=== PATIENT | male | born 1965 | race African-American/Black ===

== ENCOUNTER 2017-09-06 13:53 | Inpatient (IN) | payer BC ==
[2017-09-06] MEDS ORDERED: 0.9 % SODIUM CHLORIDE 10 ML DISP.SYRIN. IV (14:15)
[2017-09-06 14:29] LABS: ADD MAN DIFF? YES; BASO % 1 % (0-3); EOS # 0.1 x10^3/uL (0.0-0.7); EOS % 3 % (0-3); HEMATOCRIT 50.2 % (39.0-53.0); HEMOGLOBIN 17.3 g/dL (13.0-17.5); LYMPH # 1.8 x10^3/uL (1.0-4.8); LYMPH % 56 % (24-48); MEAN CORPUSCULAR HEMOGLOBIN 30 pg (25-35); MEAN CORPUSCULAR HGB CONC 34 g/dL (31-37); MEAN CORPUSCULAR VOLUME 87 fL (79-100); MONO # 0.6 x10^3/uL (0.0-1.1); MONO % 18 % (0-9); NEUT # 0.7 x10^3uL (1.8-7.7); NEUT % 23 % (31-73); PLATELET COUNT 216 x10^3/uL (140-400); RED BLOOD COUNT 5.75 x10^6/uL (4.30-5.70); RED CELL DISTRIBUTION WIDTH 14.8 % (11.5-14.5); WHITE BLOOD COUNT 3.2 x10^3/uL (4.0-11.0)
[2017-09-06 14:45] LABS: ANION GAP 10 (6-14); BLOOD UREA NITROGEN 12 mg/dL (8-26); CALCIUM 8.9 mg/dL (8.5-10.1); CARBON DIOXIDE 26 mmol/L (21-32); CHLORIDE 103 mmol/L (98-107); CREATININE 1.2 mg/dL (0.7-1.3); GFR 76.3; GLUCOSE 122 mg/dL (70-99); POTASSIUM 3.4 mmol/L (3.5-5.1); SODIUM 139 mmol/L (136-145)
[2017-09-06 14:51] LABS: ALBUMIN 3.4 g/dL (3.4-5.0); ALK PHOS 45 U/L (46-116); ALT (SGPT) 49 U/L (16-63); AST (SGOT) 37 U/L (15-37); DIRECT BILIRUBIN 0.1 mg/dL (0.0-0.2); LIPASE 111 U/L (73-393); MAGNESIUM 2.4 mg/dL (1.8-2.4); TOTAL BILIRUBIN 0.4 mg/dL (0.2-1.0)
[2017-09-06 14:54] LABS: THYROID STIM HORMONE (TSH) 4.646 uIU/mL (0.358-3.74)
[2017-09-06 14:55] LABS: NT-PRO BNP 35 pg/mL (0-124)
[2017-09-06 14:55] LABS: CKMB INDEX 0.2 % (0-4); CKMB MASS 1.1 ng/mL (0.0-3.6); CREATINE KINASE 469 U/L (39-308)
[2017-09-06] MEDS: KETOROLAC 30 MG/ML INJ. IV (15:00)
[2017-09-06] MEDS: IV NORMAL SALINE 1000ML BAG 1,000 ML IV ×2 (15:00→16:43)
[2017-09-06 15:01] LABS: TROPONINI < 0.017 ng/mL (0.000-0.055)
[2017-09-06] MEDS: ASPIRIN CHEWABLE 81 MG TABLET. PO (15:02)
[2017-09-06 15:05] LABS: % BANDS 3 % (0-9); % EOS 3 % (0-5); % LYMPHS 51 % (24-48); % MONOS 21 % (0-10); % SEGS 22 % (35-66)
[2017-09-06 15:06] LABS: PLT ESTIMATE ADEQUATE (ADEQUATE)
[2017-09-06 15:13] LABS: D-DIMER 0.49 ug/mlFEU (0.00-0.50)
[2017-09-06 15:58] LABS: INFLUENZA A PATIENT NEGATIVE (NEGATIVE)
[2017-09-06 15:59] LABS: INFLUENZA B PATIENT POSITIVE (NEGATIVE); OBC FLU VALID
[2017-09-06 16:42] LABS: BILIRUBIN,URINE NEGATIVE (NEG); CLARITY,URINE CLEAR; COLOR,URINE YELLOW; GLUCOSE,URINE NEGATIVE (NEG); NITRITE,URINE NEGATIVE (NEG); PH,URINE 6.5; PROTEIN,URINE NEGATIVE (NEG-TRACE)
[2017-09-06] MEDS: OSELTAMIVIR 75 MG CAPSULE PO (16:44)
[2017-09-06] MEDS: HYDROmorphone 2 MG/ML VIAL IV (16:45)
[2017-09-06 16:48] LABS: BACTERIA,URINE 0 /HPF (0-FEW); RBC,URINE OCC /HPF (0-2); SQUAMOUS EPITHELIAL CELL,UR FEW /LPF; WBC,URINE OCC /HPF (0-4)
[2017-09-06] MEDS ORDERED: INFLUENZA VAX SCREEN BY RX. MC (18:45)
[2017-09-06] MEDS: fentaNYL PF VIAL 100 MCG/2 ML VIAL IV (22:05)
[2017-09-06 22:49] LABS: TROPONINI < 0.017 ng/mL (0.000-0.055)
[2017-09-06] MEDS: ZOLPIDEM 5 MG TABLET. PO (22:54)
[2017-09-06] MEDS: ONDANSETRON PF 4 MG/2 ML VIAL. IV (22:54)
[2017-09-06] MEDS: MORPHINE SULFATE 4 MG/ML DISP.SYRIN. IV (22:55)
[2017-09-07] MEDS: IV NORMAL SALINE 1000ML BAG 1,000 ML IV ×2 (00:48→08:29)
[2017-09-07] MEDS: MORPHINE SULFATE 4 MG/ML DISP.SYRIN. IV ×4 (03:57→15:41)
[2017-09-07 05:37] LABS: TROPONINI < 0.017 ng/mL (0.000-0.055)
[2017-09-07] MEDS: ACETAMINOPHEN 325 MG TABLET. PO ×2 (07:10→11:27)
[2017-09-07] MEDS: OSELTAMIVIR 75 MG CAPSULE PO ×2 (08:29→21:27)
[2017-09-07] MEDS ORDERED: ONDANSETRON PF 4 MG/2 ML VIAL. IV (12:15)
[2017-09-07] MEDS: ASPIRIN ENTERIC COATED 81 MG TABLET.DR. PO (13:07)
[2017-09-07] MEDS: KETOROLAC 30 MG/ML INJ. IV (13:10)
[2017-09-07] MEDS: BENZONATATE 100 MG CAPSULE. PO ×2 (13:38→21:27)
[2017-09-07] MEDS: POTASSIUM CHLORIDE 20 MEQ TABLET.ER. PO (13:39)
[2017-09-07] MEDS: ASA/APAP/CAFFEINE 250/250/65MG TABLET. PO (15:29)
[2017-09-07] MEDS: NAPROXEN 500 MG TABLET PO (21:27)
[2017-09-07] MEDS: SIMVASTATIN 10 MG TABLET PO (21:28)
[2017-09-08] MEDS: ASA/APAP/CAFFEINE 250/250/65MG TABLET. PO (05:44)
[2017-09-08 05:50] LABS: ADD MAN DIFF? NO
[2017-09-08 06:15] LABS: BASO % 1 % (0-3); EOS # 0.2 x10^3/uL (0.0-0.7); EOS % 6 % (0-3); HEMATOCRIT 49.2 % (39.0-53.0); HEMOGLOBIN 16.4 g/dL (13.0-17.5); LYMPH # 2.7 x10^3/uL (1.0-4.8); LYMPH % 74 % (24-48); MEAN CORPUSCULAR HEMOGLOBIN 30 pg (25-35); MEAN CORPUSCULAR HGB CONC 33 g/dL (31-37); MEAN CORPUSCULAR VOLUME 89 fL (79-100); MONO # 0.4 x10^3/uL (0.0-1.1); MONO % 11 % (0-9); NEUT # 0.3 x10^3uL (1.8-7.7); NEUT % 9 % (31-73); PLATELET COUNT 216 x10^3/uL (140-400); RED BLOOD COUNT 5.54 x10^6/uL (4.30-5.70); WHITE BLOOD COUNT 3.6 x10^3/uL (4.0-11.0)
[2017-09-08 06:21] LABS: ANION GAP 10 (6-14); BLOOD UREA NITROGEN 11 mg/dL (8-26); CARBON DIOXIDE 28 mmol/L (21-32); CHLORIDE 104 mmol/L (98-107); CREATININE 1.1 mg/dL (0.7-1.3); GFR 84.4; GLUCOSE 104 mg/dL (70-99); POTASSIUM 3.7 mmol/L (3.5-5.1); SODIUM 142 mmol/L (136-145)
[2017-09-08] MEDS: NAPROXEN 500 MG TABLET PO ×2 (08:59→21:33)
[2017-09-08] MEDS: OSELTAMIVIR 75 MG CAPSULE PO ×2 (08:59→21:33)
[2017-09-08] MEDS: BENZONATATE 100 MG CAPSULE. PO ×3 (08:59→21:33)
[2017-09-08] MEDS: ASPIRIN ENTERIC COATED 81 MG TABLET.DR. PO (08:59)
[2017-09-08] MEDS ORDERED: MORPHINE IR 15 MG TABLET PO (12:15)
[2017-09-08] MEDS: POTASSIUM CL 20MEQ D5-0.45NACL 1,000 ML IV ×2 (12:47→21:35)
[2017-09-08] MEDS: KETOROLAC 30 MG/ML INJ. IV (12:47)
[2017-09-08] MEDS: guaiFENesin DM 200MG/20MG 10 ML SYRUP PO ×2 (14:13→21:33)
[2017-09-08] MEDS: FLU VACC QS2017-18 (36MOS+)/PF 0.5 ML SYRINGE. VAX IM (21:23)
[2017-09-08] MEDS: SIMVASTATIN 10 MG TABLET PO (21:33)
[2017-09-09] MEDS: guaiFENesin DM 200MG/20MG 10 ML SYRUP PO ×2 (04:39→14:02)
[2017-09-09] MEDS: POTASSIUM CL 20MEQ D5-0.45NACL 1,000 ML IV ×2 (04:40→12:15)
[2017-09-09] MEDS: ASPIRIN ENTERIC COATED 81 MG TABLET.DR. PO (08:28)
[2017-09-09] MEDS: BENZONATATE 100 MG CAPSULE. PO ×2 (08:29→13:50)
[2017-09-09] MEDS: OSELTAMIVIR 75 MG CAPSULE PO (08:29)
[2017-09-09] MEDS: NAPROXEN 500 MG TABLET PO (08:29)
[2017-09-09] MEDS: ASA/APAP/CAFFEINE 250/250/65MG TABLET. PO (11:10)
[2017-09-09] MEDS: amLODIPine BESYLATE 10 MG TABLET PO (12:15)
[2017-09-09] MEDS: LISINOPRIL 5 MG TABLET. PO (12:15)
[2017-09-09] MEDS: hydroCHLOROthiazide 25 MG TABLET PO (12:15)
== END 2017-09-09 14:40 | disposition home or self-care (01) | DRG 194 ==
LOC: ER 13:53 → 5 NORTH 16:23
DX: J10.1 Influenza due to other identified influenza virus with other respiratory manifestations (principal); M62.82 Rhabdomyolysis; E07.81 Sick-euthyroid syndrome; E87.6 Hypokalemia; I10 Essential (primary) hypertension; R07.81 Pleurodynia; J32.2 Chronic ethmoidal sinusitis; E78.5 Hyperlipidemia, unspecified; Z82.49 Family history of ischemic heart disease and other diseases of the circulatory system; Z79.82 Long term (current) use of aspirin; Z79.899 Other long term (current) drug therapy
CPT/HCPCS: 36415; 70450; 71045; 80048; 80076; 81001; 82553; 83605; 83690; 83735; 83880; 84443; 84484; 85007; 85025; 85379; 87040; 87804; 87804-59; 93005; 96361; 96374; 96375; 99285; 99285-25; J1170; J1885; J2270; J2405; J3010; J7030

== ENCOUNTER 2017-11-26 03:43 | Emergency (ER) | payer BC ==
[2017-11-26] MEDS: KETOROLAC 60 MG/2 ML INJ. IM (05:01)
[2017-11-26] MEDS: ORPHENADRINE CITRATE 60 MG/2 ML VIAL. IM (05:01)
[2017-11-26] MEDS: HYDROcodone/APAP 10/325 1 TAB TABLET PO (05:02)
[2017-11-26] MEDS: predniSONE 20 MG TABLET PO (05:02)
== END 2017-11-26 05:16 | disposition home or self-care (01) ==
LOC: ER 03:43
DX: M54.42 Lumbago with sciatica, left side (principal); M62.830 Muscle spasm of back; I10 Essential (primary) hypertension
CPT/HCPCS: 96372; 99284; J1885; J2360; J7512

== ENCOUNTER 2018-03-13 02:19 | Emergency (ER) | payer BC ==
[2018-03-13 03:26] LABS: ADD MAN DIFF? NO
[2018-03-13 03:30] LABS: BASO % 1 % (0-3); EOS # 0.2 x10^3/uL (0.0-0.7); EOS % 5 % (0-3); HEMATOCRIT 46.2 % (39.0-53.0); HEMOGLOBIN 16.1 g/dL (13.0-17.5); LYMPH # 2.4 x10^3/uL (1.0-4.8); LYMPH % 52 % (24-48); MEAN CORPUSCULAR HEMOGLOBIN 31 pg (25-35); MEAN CORPUSCULAR HGB CONC 35 g/dL (31-37); MEAN CORPUSCULAR VOLUME 89 fL (79-100); MONO # 0.4 x10^3/uL (0.0-1.1); MONO % 8 % (0-9); NEUT # 1.6 x10^3uL (1.8-7.7); NEUT % 34 % (31-73); PLATELET COUNT 241 x10^3/uL (140-400); RED CELL DISTRIBUTION WIDTH 14.5 % (11.5-14.5); WHITE BLOOD COUNT 4.6 x10^3/uL (4.0-11.0)
[2018-03-13] MEDS: SUMAtriptan SUCC 6 MG/0.5 ML VIAL. SQ (03:32)
[2018-03-13] MEDS: METOCLOPRAMIDE HCL 10 MG/2 ML VIAL. IV (03:33)
[2018-03-13] MEDS: diphenhydrAMINE 50 MG/ML VIAL IVP (03:36)
[2018-03-13 03:40] LABS: ANION GAP 6 (6-14); BLOOD UREA NITROGEN 9 mg/dL (8-26); BUN/CREATININE RATIO 8 (6-20); CALCIUM 8.8 mg/dL (8.5-10.1); CARBON DIOXIDE 28 mmol/L (21-32); CHLORIDE 105 mmol/L (98-107); CREATININE 1.1 mg/dL (0.7-1.3); GFR 84.4; GLUCOSE 118 mg/dL (70-99); POTASSIUM 3.4 mmol/L (3.5-5.1); SODIUM 139 mmol/L (136-145)
[2018-03-13 03:42] LABS: ETHANOL 123 mg/dL (0-10)
[2018-03-13 03:46] LABS: ALBUMIN 3.6 g/dL (3.4-5.0); ALBUMIN/GLOBULIN RATIO 0.8 (1.0-1.7); ALK PHOS 47 U/L (46-116); ALT (SGPT) 59 U/L (16-63); AST (SGOT) 36 U/L (15-37); TOTAL BILIRUBIN 0.2 mg/dL (0.2-1.0)
== END 2018-03-13 05:19 | disposition home or self-care (01) ==
LOC: ER 02:19
DX: G43.909 Migraine, unspecified, not intractable, without status migrainosus (principal); I10 Essential (primary) hypertension; F10.129 Alcohol abuse with intoxication, unspecified; Y90.4 Blood alcohol level of 80-99 mg/100 ml
CPT/HCPCS: 36415; 70450; 80053; 85025; 93005; 96372; 96374; 96375; 99285-25; G0480; J1200; J2765; J3030

== ENCOUNTER 2018-04-18 19:33 | Emergency (ER) | payer BC ==
[~2018-04-18] VITALS: Ht 180.3 cm; Wt 106.6 kg
[~2018-04-18 19:33] MED LIST: AMLO10TA6 PO; ASPI-612 PO; ASPI1TAB31 PO; BENZ-8 PO; CYCL10TA2 PO; HYDR-971 PO; HYDR25TA9 PO; LISI-338 PO; OSEL75CA PO; PRED-299 PO; SIMV10TA3 PO; SUMA100T3 PO
[2018-04-18 21:36] VITALS: BP 184/113
--- NOTE | 2018-04-18 22:13 | PHYS DOC ---
Past Medical History Past Medical History: No Pertinent History Past Surgical History: No Surgical History Alcohol Use: None Drug Use: None Adult General Chief Complaint Chief Complaint: HIP PAIN HPI HPI 52-year-old male presents for evaluation of pain in the top of the right buttock that travels down through his buttock into his posterior thigh. He reports symptoms have been ongoing for several days. 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 Denies any falls or injuries. Denies loss of bladder or bowel function, numbness or tingling. Review of Systems Review of Systems Constitutional: Denies fever or chills [] Eyes: Denies change in visual acuity, redness, or eye pain [] HENT: Denies nasal congestion or sore throat [] Respiratory: Denies cough or shortness of breath [] Cardiovascular: No additional information not addressed in HPI [] GI: Denies abdominal pain, nausea, vomiting, bloody stools or diarrhea [] : Denies dysuria or hematuria [] All other systems were reviewed and found to be within normal limits, except as documented in this note. Current Medications Current Medications Current Medications Medications (Trade) Dose Ordered Sig/Ramos Start Time Stop Time Status Last Admin Dose Admin Ketorolac Tromethamine (Toradol Im) 30 mg 1X ONCE 04/18/18 22:15 04/18/18 22:16 04/18/18 22:11 30 MG Methylprednisolone Sodium Succinate (SOLU-Medrol 125MG VIAL) 125 mg 1X ONCE 04/18/18 22:30 04/18/18 22:31 04/18/18 22:10 125 MG Orphenadrine Citrate (Norflex) 60 mg 1X ONCE 04/18/18 22:30 04/18/18 22:31 04/18/18 22:11 60 MG Allergies Allergies Allergies Coded Allergies Type Severity Reaction Last Updated Verified No Known Drug Allergies 09/06/17 No Physical Exam Physical Exam Constitutional: Well developed, well nourished, no acute distress, non-toxic appearance. [] Cardiovascular:Heart rate regular rhythm, no murmur [] Lungs & Thorax: Bilateral breath sounds clear to auscultation [] Skin: Warm, dry, no erythema, no rash. [] Back: Lower lumbar muscular tenderness, no midline tenderness, tender over the SI joint Extremities: No tenderness, no cyanosis, no clubbing, ROM intact, no edema. [] Neurologic: Alert and oriented X 3, normal motor function, normal sensory function, no focal deficits noted. [] Psychologic: Affect normal, judgement normal, mood normal. [] Current Patient Data Vital Signs Vital Signs Date Time Temp Pulse Resp B/P (MAP) Pulse Ox O2 Delivery O2 Flow Rate FiO2 04/18/18 21:36 97.9 72 18 184/113 (136) 96 Room Air 97.9 EKG EKG [] Radiology/Procedures Radiology/Procedures [] Course & Med Decision Making Course & Med Decision Making Pertinent Labs and Imaging studies reviewed. (See chart for details) [No radiology was indicated at today's visit. Discussed symptoms of sciatica with patient, have provided him IM medications today for pain relief, recommend follow-up with primary care doctor. Prescription for Voltaren, Norflex, and lidocaine patches. Return precautions discussed.] Dragon Disclaimer Dragon Disclaimer This electronic medical record was generated, in whole or in part, using a voice recognition dictation system. Departure Departure Impression: Primary Impression: Sciatica Disposition: 01 HOME, SELF-CARE Condition: STABLE Referrals: UNKNOWN PCP NAME (PCP) Patient Instructions: Sciatica, Tyck-ci-Qcco Scripts Lidocaine (Lidocaine) 1 Each Adh..patch 1 EACH TP 1X, #[address] one patch for 12 hours, remove patch after 12 hours use. wait 12 hours before placing a new patch Prov: ARTHUR DEL ROSARIO APRN 04/18/18 Orphenadrine Citrate (ORPHENADRINE CITRATE) 100 Mg Tablet.er 100 MG PO BID, #20 TAB.SR 0 Refills Prov: ARTHUR DEL ROSARIO APRN 04/18/18 Diclofenac Sodium (DICLOFENAC SODIUM) 50 Mg Tablet.dr 50 MG PO BID, #20 TAB 0 Refills Prov: ARTHUR DEL ROSARIO APRN 04/18/18 ARTHUR DEL ROSARIO APRN Apr 18, 2018 22:13
[2018-04-18] MEDS ORDERED: KETOROLAC 60 MG/2 ML INJ. IM ONE (22:15)
[2018-04-18] MEDS ORDERED: ORPH100T PO (22:24)
[2018-04-18] MEDS ORDERED: DICL50TA4 PO (22:24)
[2018-04-18] MEDS ORDERED: LIDO700A39 TP (22:24)
[2018-04-18] MEDS ORDERED: ORPHENADRINE CITRATE 60 MG/2 ML VIAL. IM ONE (22:30)
[2018-04-18] MEDS ORDERED: methylPREDNISolone SOD SUCC PF 125 MG/2 ML VIAL. IM ONE (22:30)
== END 2018-04-18 22:47 | disposition home or self-care (01) ==
LOC: ER 19:33
DX: M54.31 Sciatica, right side (principal)
CPT/HCPCS: 96372; 99284; J1885; J2360; J2930

== ENCOUNTER 2018-04-29 20:24 | Emergency (ER) | payer BC ==
[~2018-04-29] VITALS: Ht 185.4 cm; Wt 106.6 kg
[~2018-04-29 20:24] MED LIST changes: +DICL50TA4 PO; +LIDO700A39 TP; +ORPH100T PO
[2018-04-29 21:01] VITALS: BP 168/102
[2018-04-29] MEDS ORDERED: PRED20TA PO (21:19)
--- NOTE | 2018-04-29 21:19 | PHYS DOC ---
Past Medical History Past Medical History: High Cholesterol, Hypertension Past Surgical History: No Surgical History Alcohol Use: None Drug Use: None Adult General Chief Complaint Chief Complaint: HIP PAIN HPI HPI 53-year-old male presents to ER via POV with complaints of pain in his rt buttock which radiates down his right leg. 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 Pt denies incontinence of bowel/bladder, urinary sxs, recent injury, or swelling/discoloration in rt leg. Pt reports he has been able to walk but does have increased pain. Pt reports he took Ibuprofen/Advil at 3p.m. with minimal relief in pain. Pt reports he has had some numbness/ tingling intermittently in rt leg. Pt reports sxs started a few days ago and have been gradually worsening. Review of Systems Review of Systems Constitutional: Denies fever or chills [] Respiratory: Denies cough or shortness of breath [] Cardiovascular: Denies CP/palpitations GI: Denies abdominal pain, nausea, vomiting, bloody stools or diarrhea [] : Denies dysuria or hematuria. Denies incontinence Musculoskeletal: Denies back pain. Reports pain in rt middle buttock radiating down his rt leg to his foot Integument: Denies rash, swelling, or skin lesions [] Neurologic: Denies headache, focal weakness or sensory changes [] All other systems were reviewed and found to be within normal limits, except as documented in this note. Current Medications Current Medications Current Medications Medications (Trade) Dose Ordered Sig/Ramos Start Time Stop Time Status Last Admin Dose Admin Acetaminophen/ Hydrocodone Bitart (Lortab 5/325) 1 tab 1X ONCE 04/29/18 21:30 04/29/18 21:31 DC 04/29/18 21:19 1 TAB Orphenadrine Citrate (Norflex) 60 mg 1X ONCE 04/29/18 21:30 04/29/18 21:31 DC 04/29/18 21:20 60 MG Prednisone (Prednisone) 40 mg 1X ONCE 04/29/18 21:30 04/29/18 21:31 DC 04/29/18 21:20 40 MG Allergies Allergies Allergies Coded Allergies Type Severity Reaction Last Updated Verified No Known Drug Allergies 09/06/17 No Physical Exam Physical Exam Constitutional: Well developed, well nourished, mild distress on initial exam, non-toxic appearance. [] HENT: Normocephalic, atraumatic, bilateral ears normal, oropharynx moist, no oral exudates, nose normal. [] Eyes: conjunctiva normal, no discharge. [] Neck: Normal range of motion, no tenderness, supple Cardiovascular:Heart rate regular Lungs & Thorax: Resp. equal/nonlabored Abdomen: soft/nondistended, no tenderness Skin: Warm, dry, no erythema, no rash. [] Back: No tenderness, no CVA tenderness. [] Extremities: No cyanosis, no clubbing, no edema. Tender to palp. rt middle buttock with tenderness in posterior rt leg- pt is able to perform ROM reporting increased pain with movement of rt leg Neurologic: Alert and oriented X 3, normal motor function, normal sensory function, no focal deficits noted. [] Psychologic: Affect normal, judgement normal, mood normal. [] Current Patient Data Vital Signs Vital Signs Date Time Temp Pulse Resp B/P (MAP) Pulse Ox O2 Delivery O2 Flow Rate FiO2 04/29/18 21:01 98.2 77 18 168/102 (124) 97 Room Air 98.2 EKG EKG [] Radiology/Procedures Radiology/Procedures [] Course & Med Decision Making Course & Med Decision Making 2149: On reevaluation following treatments patient reports he has pain free. Patient is in no visible distress remains neuro and vascular intact in her bilateral lower extremities. During discussion patient's fiance says he has tramadol at home patient interrupted stating he doesn't believe he has any medications. Questioned if patient still has Voltaren and Norflex from ER visit on 04/18 and he stated he is out of those medications. Discussed plans for home discharge with pt advised he need PCP to f/u with if sxs persist. Will provide community clinic/physician resources with discharge paperwork. Pt advised on OTC sports cream and NSAids. Will provide sm. quantity of Norflex and lidoderm patches as he reports he didn't receive Rx for patches last ER visit. Rx for Prednisone will also be provided which he will start tomorrow as initial dose given in ER. Discharge instructions discussed and education provided on s&s to return to ER for. Dragon Disclaimer Bryson Disclaimer This electronic medical record was generated, in whole or in part, using a voice recognition dictation system. Departure Departure Impression: Primary Impression: Sciatica Disposition: 01 HOME, SELF-CARE Condition: STABLE Referrals: UNKNOWN PCP NAME (PCP) Patient Instructions: Sciatica Additional Instructions: As discussed sports cream and warm compresses to affected area. Light stretching as discussed. You should follow-up with primary doctor or neurologist if symptoms persist. Scripts Lidocaine (Lidocaine) 1 Each Adh..patch 1 EACH TP Q12HR PRN for PAIN, #[address] one patch for 12 hours, remove patch after 12 hours use. wait 12 hours before placing a new patch Prov: YAEL RONDON APRN 04/29/18 Orphenadrine Citrate (ORPHENADRINE CITRATE) 100 Mg Tablet.er 100 MG PO BID PRN for PAIN, #10 TAB.SR 0 Refills Prov: YAEL RONDON APRN 04/29/18 Prednisone (PREDNISONE) 20 Mg Tablet 40 MG PO DAILY, #10 TAB 0 Refills Start prescription 04/30/18 Prov: YAEL RONDON APRN 04/29/18 YAEL RONDON APRN Apr 29, 2018 21:19
[2018-04-29] MEDS ORDERED: ORPHENADRINE CITRATE 60 MG/2 ML VIAL. IM ONE (21:30)
[2018-04-29] MEDS ORDERED: predniSONE 20 MG TABLET PO ONE (21:30)
[2018-04-29] MEDS ORDERED: HYDROcodone/APAP 5/325MG 1 TAB TABLET PO ONE (21:30)
[2018-04-29] MEDS ORDERED: ORPH100T PO (22:12)
[2018-04-29] MEDS ORDERED: LIDO700A39 TP (22:12)
== END 2018-04-29 22:21 | disposition home or self-care (01) ==
LOC: ER 20:24
DX: M54.31 Sciatica, right side (principal); M79.604 Pain in right leg; E78.00 Pure hypercholesterolemia, unspecified; I10 Essential (primary) hypertension
CPT/HCPCS: 96372; 99283; J2360; J7512

== ENCOUNTER 2018-05-12 20:31 | Emergency (ER) | payer BC ==
[~2018-05-12] VITALS: Ht 180.3 cm; Wt 106.6 kg
[~2018-05-12 20:31] MED LIST changes: +PRED20TA PO
[2018-05-12] MEDS ORDERED: ORPHENADRINE CITRATE 60 MG/2 ML VIAL. IM ONE (21:30)
[2018-05-12] MEDS ORDERED: KETOROLAC 30 MG/ML VIAL. IM ONE (21:30)
--- NOTE | 2018-05-12 21:38 | PHYS DOC ---
Past Medical History Past Medical History: High Cholesterol, Hypertension Past Surgical History: No Surgical History Alcohol Use: None Drug Use: None Adult General Chief Complaint Chief Complaint: BACK PAIN OR INJURY HPI HPI Patient is a 53 year old AA male who reports injuring his back a year ago and reinjured it on April 25 at work when he was lifting a ramp and felt his back give causing him to fall. States he had a MRI that showed some bulging disks in his lumbar spine. Pt states that he developed pain in his right buttock that radiates down his right leg since the injury. Pt states that he is unable to bear weight on his R leg because the pain in his hip increases. He was prescribed Randolph 7.5/500 mg tablets by his PCP but the medication is not helping to reduce his pain. Pt denies any loss of bowel/bladder control or saddle anesthesia. Currently he reports his pain is a 10 out of 10 on the pain scale. He states that his right toes feel tingly today. He has an appointment with pain management in June. Review of Systems Review of Systems Constitutional: Denies fever or chills [] GI: Denies abdominal pain, saddle anesthesia[] : Denies loss of bowel or bladder control dysuria or hematuria [] Musculoskeletal: reports low back pain into R buttock and down R leg. Also reports R hip pain and inability to bear weight on R leg due to pain. Integument: Denies rash or skin lesions [] Neurologic: Denies headache, focal weakness or reports tingling in R foot All other systems were reviewed and found to be within normal limits, except as documented in this note. Current Medications Current Medications Current Medications Medications (Trade) Dose Ordered Sig/Ramos Start Time Stop Time Status Last Admin Dose Admin Clonidine HCl (Catapres) 0.1 mg 1X ONCE 05/12/18 22:00 05/12/18 22:01 DC 05/12/18 21:45 0.1 MG Ketorolac Tromethamine (Toradol 30mg Vial) 30 mg 1X ONCE 05/12/18 21:30 05/12/18 21:31 DC 05/12/18 21:15 30 MG Orphenadrine Citrate (Norflex) 60 mg 1X ONCE 05/12/18 21:30 05/12/18 21:31 DC 05/12/18 21:15 60 MG Allergies Allergies Allergies Coded Allergies Type Severity Reaction Last Updated Verified No Known Drug Allergies 09/06/17 No Physical Exam Physical Exam Constitutional: Well developed, well nourished, moderate distress, non-toxic appearance. [] HENT: Normocephalic, atraumatic, bilateral external ears normal, nose normal. [] Eyes: PERRLA, conjunctiva normal, no discharge. [] Skin: Warm, dry, no erythema, no rash. [] Back: No bony tenderness, R buttock muscular tenderness to palpation, RLE straight leg lift normal Extremities: No cyanosis, no clubbing, ROM intact, no edema. [] Neurologic: Alert and oriented X 3, normal motor function, normal sensory function, no focal deficits noted. [] Psychologic: Affect normal, judgement normal, mood normal. [] Current Patient Data Vital Signs Vital Signs Date Time Temp Pulse Resp B/P (MAP) Pulse Ox O2 Delivery O2 Flow Rate FiO2 05/12/18 21:45 86 191/120 05/12/18 20:55 98.1 18 97 Room Air 98.1 EKG EKG [] Radiology/Procedures Radiology/Procedures [] Course & Med Decision Making Course & Med Decision Making Pertinent Labs and Imaging studies reviewed. (See chart for details) Dx: R low back pain with sciatica Pt was given 60 mg of norflex IM and 30 mg of toradol IM. Pt's blood pressure was elevated up to 209/120, 0.1 mg of clonidine was given po. 2210 pt reports decreased pain able to bear weight on right leg at this time. Xray of hip cancelled BP 192/109 at this time. Prescriptions written for naproxen and orphenadrine. Pt encouraged to take these medications as prescribed and to take Randolph prescribed by his PCP, call in the morning to schedule a follow up about your high blood pressure. Return to the ER if symptoms worsen, you lose control of bowel or bladder, or develop numbness/tingling in your abdomen. Patient verbalized an understanding of home care, medications, follow-up, and return to ED instructions and was in agreement with the plan of care. Dragon Disclaimer Dragon Disclaimer This electronic medical record was generated, in whole or in part, using a voice recognition dictation system. Departure Departure Impression: Primary Impression: Low back pain with right-sided sciatica Additional Impression: Hypertension Disposition: 01 HOME, SELF-CARE Condition: STABLE Referrals: DENISE OCONNELL (PCP) Patient Instructions: Hypertension, [id number], Sciatica, [id number] Additional Instructions: Fill prescriptions and take medications as prescribed. Continue taking Randolph as prescribed by your PCP, call in the morning to schedule a follow up about your high blood pressure. Return to the ER if symptoms worsen, you lose control of bowel or bladder, or develop numbness/tingling in your abdomen. Scripts Orphenadrine Citrate (ORPHENADRINE CITRATE) 100 Mg Tablet.er 1 TAB PO BID for 10 Days, #20 TAB 0 Refills Prov: LYNN MCBRIDE APRN 05/12/18 Naproxen (NAPROXEN) 500 Mg Tablet 1 TAB PO BID for 10 Days, #20 TAB 0 Refills Prov: LYNN MCBRIDE APRN 05/12/18 Attending Co-Sign Attending Co-Sign The patient was not seen by me. The [facility] chart was reviewed. I agree with the plan of care. Problem Qualifiers Primary Impression: Low back pain with right-sided sciatica Chronicity: chronic Back pain laterality: right Qualified Codes: M54.41 - Lumbago with sciatica, right side; G89.29 - Other chronic pain Additional Impression: Hypertension Hypertension type: unspecified Qualified Codes: I10 - Essential (primary) hypertension LYNN MCBRIDE APRN May 12, 2018 21:38 LILIA MARIO MD May 15, 2018 04:39
[2018-05-12 21:45] VITALS: BP 191/120
[2018-05-12] MEDS ORDERED: cloNIDine HCL 0.1 MG TABLET PO ONE (22:00)
[2018-05-12] MEDS ORDERED: ORPH100T PO (22:29)
[2018-05-12] MEDS ORDERED: NAPR-514 PO (22:29)
== END 2018-05-12 22:40 ==
LOC: ER 20:31
DX: M54.41 Lumbago with sciatica, right side (principal); I10 Essential (primary) hypertension; M25.551 Pain in right hip; E78.00 Pure hypercholesterolemia, unspecified
CPT/HCPCS: 96372; 99284; J1885; J2360

== ENCOUNTER 2018-05-30 08:13 | Inpatient (IN) | payer BC, OTHER ==
[~2018-05-30] VITALS: Ht 180.3 cm; Wt 106.6 kg
[~2018-05-30 08:13] MED LIST changes: +ATOR40TA59 PO; +METH4TAB2 PO; +NAPR-514 PO
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
[2018-05-30] MEDS ORDERED: MORPHINE SULFATE 10 MG/ML VIAL. IM ONE (08:45)
[2018-05-30] MEDS ORDERED: methylPREDNISolone SOD SUCC PF 125 MG/2 ML VIAL. IM ONE (08:45)
[2018-05-30] MEDS ORDERED: diazePAM 5 MG TABLET PO ONE (08:45)
[2018-05-30] MEDS ORDERED: cloNIDine HCL 0.1 MG TABLET PO ONE (08:45)
[2018-05-30] MEDS ORDERED: KETOROLAC 60 MG/2 ML INJ. IM ONE (08:45)
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
[2018-05-30] MEDS ORDERED: ACETAMINOPHEN 325 MG TABLET. PO PRN ×2 (10:15→16:15)
[2018-05-30] MEDS ORDERED: ONDANSETRON PF 4 MG/2 ML VIAL. IV PRN ×2 (10:15→16:15)
[2018-05-30] MEDS ORDERED: diazePAM 5 MG TABLET PO PRN (10:15)
[2018-05-30] MEDS ORDERED: MORPHINE SULFATE 4 MG/ML VIAL. IV PRN (10:15)
[2018-05-30 11:30] VITALS: BP 141/104
[2018-05-30 11:32] VITALS: BP 155/101
[2018-05-30 15:00] VITALS: BP 143/103
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
[2018-05-30] MEDS ORDERED: DOCUSATE SODIUM 100 MG CAPSULE. PO PRN (16:15)
[2018-05-30] MEDS ORDERED: oxyCODONE/APAP 5/325 1 TAB TABLET PO PRN (16:15)
[2018-05-30] MEDS ORDERED: LABETALOL 20 MG/4 ML DISP.SYRIN. IVP PRN (16:15)
[2018-05-30] MEDS ORDERED: traMADol 50 MG TABLET PO PRN (16:15)
[2018-05-30] MEDS: LISINOPRIL 20 MG TABLET PO SCH (18:06)
[2018-05-30] MEDS: ENOXAPARIN 40 MG/0.4 ML SYRINGE. SQ SCH (18:10)
[2018-05-30 19:10] VITALS: BP 140/87
[2018-05-30] MEDS: CYCLOBENZAPRINE 10 MG TABLET. PO PRN (20:15)
[2018-05-30] MEDS: ATORVASTATIN CALCIUM 40 MG TABLET. PO SCH (20:15)
[2018-05-30 23:10] VITALS: BP 171/108
[2018-05-30] MEDS: MORPHINE SULFATE 2 MG/ML VIAL. IV PRN (23:22)
--- NOTE | 2018-05-31 02:01 | CONS ---
DATE OF CONSULTATION: 05/30/2018 LOCATION: Room 418. I saw him at the request of Dr. Fagan for rehab evaluation. HISTORY OF PRESENT ILLNESS: This is a 53-year-old male known to me since his last admission earlier this month. 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 Hauser, his family physician, has been taking hydrocodone for pain, which did not help much. He has been working despite the pain and he had an MRI scan done, which revealed disk problem in his lower back and he is waiting to be seen by workers' compensation doctors in July. When I saw him on 05/17/2018, we started him on Medrol Dosepak and also physical therapy and he had right sacroiliac joint injection and also Dr. Matthews did lumbar epidural steroid injection. He admits no lasting help. The patient admits stiffness in his back. The patient with known hypertension. He was admitted earlier this month with chest pain. Right now, he admits headache and he was noted with hypertension and he is getting treatment for it. The patient admits some back problem a few years ago and it took about 6 weeks to get himself better. ALLERGIES: He is not known allergic to any medication. FAMILY HISTORY: Hypercholesterolemia. SOCIAL HISTORY: He lives with his girlfriend. PHYSICAL EXAMINATION: Today revealed a middle-aged male. He is in moderate distress about his back pain and headache. He is alert, oriented to time, place, person and circumstance and follows commands appropriately, moves all 4 extremities voluntarily where he had 4+/5 grade muscle strength. Deep tendon reflexes are decreased overall with absent knee and ankle jerks and he had slightly decreased touch and pinprick sensation over right lower extremity, does not pertain to one particular dermatome. He had tenderness to palpation over sacroiliac joint area, painful limited movements of his lumbar spine without any significant paraspinal muscle spasm and straight leg raising test is negative bilaterally. He had pain-free range of motion of both hips and knees and ankles joints. He is independent with bed mobility and transfers and I have not tested his ambulation skills at present time. He had a small hydrocele on the right side. ASSESSMENT: A middle-aged male with lumbar sprain with associated degenerative disk disease of lumbar vertebrae with right lumbar radiculitis with radiological evidence of herniated disk at L3-L4 and L4-L5. The patient with known hypertension. RECOMMENDATIONS: Agree with the plans for neurosurgical advice as he admits pain medication help ease the pain only for about 4-5 hours and injection did not help much. He also had tried lumbar corset without much help. Dr. Fagan, I appreciate asking me to participate in the care of this interesting patient. I will be glad to follow him with you as needed by the rehabilitation. JOVANNA TALBOT MD DR: ALETHA/joseluis JOB#: [id number] / [id number]
[2018-05-31 03:10] VITALS: BP 134/83
[2018-05-31] MEDS: MORPHINE SULFATE 2 MG/ML VIAL. IV PRN ×3 (03:56→11:47)
[2018-05-31 05:11] LABS: BASO % 0 % (0-3); EOS % 0 % (0-3); HEMATOCRIT 47.1 % (39.0-53.0); HEMOGLOBIN 16.1 g/dL (13.0-17.5); LYMPH # 1.2 x10^3/uL (1.0-4.8); LYMPH % 7 % (24-48); MEAN CORPUSCULAR HEMOGLOBIN 31 pg (25-35); MEAN CORPUSCULAR HGB CONC 34 g/dL (31-37); MEAN CORPUSCULAR VOLUME 90 fL (79-100); MONO # 0.6 x10^3/uL (0.0-1.1); MONO % 4 % (0-9); NEUT # 15.3 x10^3uL (1.8-7.7); NEUT % 89 % (31-73); PLATELET COUNT 294 x10^3/uL (140-400); RED BLOOD COUNT 5.22 x10^6/uL (4.30-5.70); RED CELL DISTRIBUTION WIDTH 15.1 % (11.5-14.5); WHITE BLOOD COUNT 17.2 x10^3/uL (4.0-11.0)
[2018-05-31 05:57] LABS: CALCIUM 8.6 mg/dL (8.5-10.1); CREATININE 1.2 mg/dL (0.7-1.3); GFR 76.1; POTASSIUM 3.7 mmol/L (3.5-5.1)
[2018-05-31 07:00] VITALS: BP 154/99
[2018-05-31] MEDS: ASPIRIN ENTERIC COATED 81 MG TABLET.DR. PO SCH (08:35)
[2018-05-31] MEDS: amLODIPine BESYLATE 10 MG TABLET PO SCH (08:36)
[2018-05-31] MEDS: LISINOPRIL 20 MG TABLET PO SCH (08:40)
--- NOTE | 2018-05-31 08:59 | RAD ---
Indication: Back pain status post injury TECHNIQUE: CT of the lumbar spine without IV contrast with multiplanar reformats COMPARISON: None FINDINGS: The lumbar spine is in normal anatomic alignment. There are 5 lumbar type vertebral bodies. No compression deformities. Facet joints are in normal anatomic alignment. No acute fractures. Multiple metallic densities are seen along the outer cortex of the left iliac bone. Segmental analysis: L1-L2: No disc bulge or herniation. Mild bilateral neuroforamina narrowing. No facet arthropathy. L2-L3: No significant disc bulge or herniation. No facet arthropathy. Mild bilateral neuroforamina narrowing. L3-L4: Central disc osteophyte complex indenting anterior thecal sac. Mild bilateral facet arthropathy. Moderate bilateral neuroforamina narrowing mild spinal canal narrowing measuring approximately 7 mm in AP dimension. L4-L5: Mild circumferential disc bulge flattening intrathecal sac. Mild bilateral facet arthropathy. Moderate to severe bilateral neuroforamina narrowing more so on the right side. L5-S1: Mild circumferential disc bulge flattening anterior thecal sac. Mild bilateral facet arthropathy. Severe right and moderate left neuroforamina narrowing. Visualized soft tissues through the abdomen and pelvis are within normal limits. SI joints within normal limits. IMPRESSION: 1. Multilevel degenerative disc disease causing varying amount of neural foramina narrowing as described above. 2. No acute fractures. Electronically signed by: Mitchel Morrissey DO (05/31/2018 8:56 AM) [facility]
[2018-05-31] MEDS ORDERED: amLODIPine BESYLATE 10 MG TABLET PO SCH (09:00)
[2018-05-31 11:00] VITALS: BP 146/95
--- NOTE | 2018-05-31 12:41 | PDOC ---
PROGRESS NOTES Chief Complaint Chief Complaint intractable lower back pain with possible h/o disc herniation as per pt HTN urgency hld morbid obesity dm2 leukocytosis, recently on steroid plan: ct back, did MRI as outpt with metal in body ,. will try MRI again today dr. abebe, dr. suazo consult pending pain control , increase percocet prn, morphine iv prn cont amlodipine, add lisinopril. labetolol iv prn PTOT flexiril prn dvt PPX will suggest pt to take dm2 meds. add metformin for now. ssi History of Present Illness History of Present Illness ROS: no fever, chills, sob or chest pain RECENT HBA1C 6.5 c/o severe lower back pain shooting down to leg, refuse to walk Vitals Vitals Vital Signs Date Time Temp Pulse Resp B/P (MAP) Pulse Ox O2 Delivery O2 Flow Rate FiO2 05/31/18 12:20 96 Room Air 05/31/18 11:00 97.5 89 18 146/95 (112) 97.5 Physical Exam Physical Exam rt leg limed ROM 2/2 pain General: Alert, Oriented X3, Cooperative Heart: Regular rate, Normal S1, Normal S2 Lungs: Clear Abdomen: Normal bowel sounds, Soft Extremities: No clubbing, No cyanosis, No edema, Normal pulses Skin: No rashes Labs LABS Laboratory Tests Test 05/31/18 03:40 05/31/18 03:45 White Blood Count 17.2 x10^3/uL (4.0-11.0) Red Blood Count 5.22 x10^6/uL (4.30-5.70) Hemoglobin 16.1 g/dL (13.0-17.5) Hematocrit 47.1 % (39.0-53.0) Mean Corpuscular Volume 90 fL (79-100) Mean Corpuscular Hemoglobin 31 pg (25-35) Mean Corpuscular Hemoglobin Concent 34 g/dL (31-37) Red Cell Distribution Width 15.1 % (11.5-14.5) Platelet Count 294 x10^3/uL (140-400) Neutrophils (%) (Auto) 89 % (31-73) Lymphocytes (%) (Auto) 7 % (24-48) Monocytes (%) (Auto) 4 % (0-9) Eosinophils (%) (Auto) 0 % (0-3) Basophils (%) (Auto) 0 % (0-3) Neutrophils # (Auto) 15.3 x10^3uL (1.8-7.7) Lymphocytes # (Auto) 1.2 x10^3/uL (1.0-4.8) Monocytes # (Auto) 0.6 x10^3/uL (0.0-1.1) Eosinophils # (Auto) 0.0 x10^3/uL (0.0-0.7) Basophils # (Auto) 0.0 x10^3/uL (0.0-0.2) Sodium Level 137 mmol/L (136-145) Potassium Level 3.7 mmol/L (3.5-5.1) Chloride Level 101 mmol/L (98-107) Carbon Dioxide Level 27 mmol/L (21-32) Anion Gap 9 (6-14) Blood Urea Nitrogen 15 mg/dL (8-26) Creatinine 1.2 mg/dL (0.7-1.3) Estimated GFR (Cockcroft-Gault) 76.1 Glucose Level 200 mg/dL (70-99) Calcium Level 8.6 mg/dL (8.5-10.1) Assessment and Plan Assessmemt and Plan Problems Medical Problems: (1) Fall from standing Status: Acute (2) Sciatica Status: Acute Comment Review of Relevant I have reviewed the following items oly (where applicable) has been applied. Labs Laboratory Tests Test 05/31/18 03:40 05/31/18 03:45 White Blood Count 17.2 x10^3/uL (4.0-11.0) Red Blood Count 5.22 x10^6/uL (4.30-5.70) Hemoglobin 16.1 g/dL (13.0-17.5) Hematocrit 47.1 % (39.0-53.0) Mean Corpuscular Volume 90 fL (79-100) Mean Corpuscular Hemoglobin 31 pg (25-35) Mean Corpuscular Hemoglobin Concent 34 g/dL (31-37) Red Cell Distribution Width 15.1 % (11.5-14.5) Platelet Count 294 x10^3/uL (140-400) Neutrophils (%) (Auto) 89 % (31-73) Lymphocytes (%) (Auto) 7 % (24-48) Monocytes (%) (Auto) 4 % (0-9) Eosinophils (%) (Auto) 0 % (0-3) Basophils (%) (Auto) 0 % (0-3) Neutrophils # (Auto) 15.3 x10^3uL (1.8-7.7) Lymphocytes # (Auto) 1.2 x10^3/uL (1.0-4.8) Monocytes # (Auto) 0.6 x10^3/uL (0.0-1.1) Eosinophils # (Auto) 0.0 x10^3/uL (0.0-0.7) Basophils # (Auto) 0.0 x10^3/uL (0.0-0.2) Sodium Level 137 mmol/L (136-145) Potassium Level 3.7 mmol/L (3.5-5.1) Chloride Level 101 mmol/L (98-107) Carbon Dioxide Level 27 mmol/L (21-32) Anion Gap 9 (6-14) Blood Urea Nitrogen 15 mg/dL (8-26) Creatinine 1.2 mg/dL (0.7-1.3) Estimated GFR (Cockcroft-Gault) 76.1 Glucose Level 200 mg/dL (70-99) Calcium Level 8.6 mg/dL (8.5-10.1) Laboratory Tests Test 05/31/18 03:40 05/31/18 03:45 White Blood Count 17.2 x10^3/uL (4.0-11.0) Red Blood Count 5.22 x10^6/uL (4.30-5.70) Hemoglobin 16.1 g/dL (13.0-17.5) Hematocrit 47.1 % (39.0-53.0) Mean Corpuscular Volume 90 fL (79-100) Mean Corpuscular Hemoglobin 31 pg (25-35) Mean Corpuscular Hemoglobin Concent 34 g/dL (31-37) Red Cell Distribution Width 15.1 % (11.5-14.5) Platelet Count 294 x10^3/uL (140-400) Neutrophils (%) (Auto) 89 % (31-73) Lymphocytes (%) (Auto) 7 % (24-48) Monocytes (%) (Auto) 4 % (0-9) Eosinophils (%) (Auto) 0 % (0-3) Basophils (%) (Auto) 0 % (0-3) Neutrophils # (Auto) 15.3 x10^3uL (1.8-7.7) Lymphocytes # (Auto) 1.2 x10^3/uL (1.0-4.8) Monocytes # (Auto) 0.6 x10^3/uL (0.0-1.1) Eosinophils # (Auto) 0.0 x10^3/uL (0.0-0.7) Basophils # (Auto) 0.0 x10^3/uL (0.0-0.2) Sodium Level 137 mmol/L (136-145) Potassium Level 3.7 mmol/L (3.5-5.1) Chloride Level 101 mmol/L (98-107) Carbon Dioxide Level 27 mmol/L (21-32) Anion Gap 9 (6-14) Blood Urea Nitrogen 15 mg/dL (8-26) Creatinine 1.2 mg/dL (0.7-1.3) Estimated GFR (Cockcroft-Gault) 76.1 Glucose Level 200 mg/dL (70-99) Calcium Level 8.6 mg/dL (8.5-10.1) Medications Current Medications Methylprednisolone Sodium Succinate (SOLU-Medrol 125MG VIAL) 125 mg 1X ONCE IM Last administered on 05/30/18at 08:54; Start 05/30/18 at 08:45; Stop at 08:46; Status DC Morphine Sulfate (Morphine Sulfate) 5 mg 1X ONCE IM Last administered on 05/30at 08:55; Start 05/30/18 at 08:45; Stop 05/30/18 at 08:46; Status DC Ketorolac Tromethamine (Toradol Im) 60 mg 1X ONCE IM Last administered on at 08:54; Start 05/30/18 at 08:45; Stop 05/30/18 at 08:46; Status DC Diazepam (Valium) 5 mg 1X ONCE PO Last administered on 05/30/18at 08:56; Start 05/30/18 at 08:45; Stop 05/30/18 at 08:46; Status DC Clonidine HCl (Catapres) 0.1 mg 1X ONCE PO ; Start 05/30/18 at 08:45; Stop at 08:46; Status DC Ondansetron HCl (Zofran) 4 mg PRN Q8HRS PRN IV NAUSEA/VOMITING Last administered on 05/30/18at 12:27; Start 05/30/18 at 10:15; Stop 05/30/18 at 16 :11; Status DC Morphine Sulfate (Morphine Sulfate) 4 mg PRN Q2HR PRN IV PAIN; Start 05/30/18 at 10:15; Stop 05/31/18 at 10:14; Status DC Acetaminophen (Tylenol) 650 mg PRN Q4HRS PRN PO FEVER Last administered on at 20:15; Start 05/30/18 at 10:15; Stop 05/31/18 at 10:14; Status DC Diazepam (Valium) 5 mg TID PRN PO ANXIETY / AGITATION; Start 05/30/18 at 10:15 Acetaminophen (Tylenol) 650 mg PRN Q6HRS PRN PO FEVER; Start 05/30/18 at 16:15 Ondansetron HCl (Zofran) 4 mg PRN Q6HRS PRN IV NAUSEA/VOMITING; Start at 16:15 Morphine Sulfate (Morphine Sulfate) 2 mg PRN Q2HR PRN IV MODERATE TO SEVERE PAIN Last administered on 05/31/18at 11:47; Start 05/30/18 at 16:15 Tramadol HCl (Ultram) 50 mg PRN Q6HRS PRN PO MILD PAIN; Start 05/30/18 at 16: 15 Docusate Sodium (Colace) 100 mg PRN DAILY PRN PO CONSTIPATION; Start 05/30/18 at 16:15 Labetalol HCl (Normodyne Iv Push) 20 mg PRN Q2HR PRN IVP HYPERTENSION, SEE COMMENTS; Start 05/30/18 at 16:15 Amlodipine Besylate (Norvasc) 10 mg DAILY PO ; Start 05/31/18 at 09:00; Stop 05/31/18 at 09:00; Status DC Aspirin (Ecotrin) 81 mg DAILY PO Last administered on 05/31/18at 08:35; Start 05/31/18 at 09:00 Atorvastatin Calcium (Lipitor) 40 mg QHS PO Last administered on 05/30/18at 20: 15; Start 10/29/18 at 21:00 Cyclobenzaprine HCl (Flexeril) 10 mg PRN TID PRN PO MUSCLE SPASMS Last administered on 05/30/18at 20:15; Start 05/30/18 at 16:15 Oxycodone/ Acetaminophen (Percocet 5/325) 1 tab PRN Q4HRS PRN PO MODERATE PAIN Last administered on 05/30/18at 18:12; Start 05/30/18 at 16:15 Lisinopril (Prinivil) 40 mg DAILY PO Last administered on 05/31/18at 08:40; Start 05/30/18 at 17:00 Amlodipine Besylate (Norvasc) 10 mg DAILY PO Last administered on 05/31/18at 08 :36; Start 05/31/18 at 09:00 Enoxaparin Sodium (Lovenox 40mg Syringe) 40 mg Q24H SQ Last administered on at 18:10; Start 05/30/18 at 17:00 Oxycodone/ Acetaminophen (Percocet 10/325) 1 tab PRN Q4HRS PRN PO SEVERE PAIN; Start 05/31/18 at 09:30 Active Scripts Active Atorvastatin Calcium 40 Mg Tablet 40 Mg PO QHS Medrol (Methylprednisolone) 4 Mg Tab.ds.pk 1 Pkg PO UD Lidocaine 1 Each Adh..patch 1 Each TP Q12HR PRN Place one patch for 12 hours, remove patch after 12 hours use. wait 12 hours before [address] a new patch [place] 5-325 Tablet (Acetaminophen/Hydrocodone Bitart) 1 Each Tablet 1 Tab PO PRN Q6HRS PRN Orphenadrine Citrate 100 Mg Tablet.er 1 Tab PO BID 10 Days Naproxen 500 Mg Tablet 1 Tab PO BID 10 Days Orphenadrine Citrate 100 Mg Tablet.er 100 Mg PO BID PRN Orphenadrine Citrate 100 Mg Tablet.er 100 Mg PO BID Diclofenac Sodium 50 Mg Tablet.dr 50 Mg PO BID Imitrex (Sumatriptan Succinate) 100 Mg Tablet 1 Tab PO UD PRN MDD 200 mg Take first dose of medication at onset of headache. He may repeat with 1 additional dose after 2 hours if headache is still present. Cyclobenzaprine Hcl 10 Mg Tablet 10 Mg PO TID PRN Reported Amlodipine Besylate 10 Mg Tablet 10 Mg PO DAILY Hydrochlorothiazide Tablet (Hydrochlorothiazide) 25 Mg Tablet 1 Tab PO DAILY Lisinopril 5 Mg Tablet 1 Tab PO DAILY Excedrin Migraine Caplet (Aspirin/Acetaminophen/Caffeine) 1 Each Tablet 1 Each PO PRN Q6-8HRS PRN Aspirin Ec (Aspirin) 81 Mg Tablet.dr 81 Mg PO DAILY Benzonatate 100 Mg Capsule 1 Cap PO TID Vitals/I & O Vital Sign - Last 24 Hours 05/30/18 05/30/18 05/30/18 05/30/18 15:00 18:06 18:12 19:10 Temp 97.6 98.1 97.6 98.1 Pulse 76 76 82 Resp 16 18 B/P (MAP) 143/103 (116) 143/103 140/87 (104) Pulse Ox 94 94 93 O2 Delivery Room Air Room Air Room Air 05/30/18 05/30/18 05/30/18 05/30/18 19:32 20:15 23:10 23:22 Temp 97.8 97.8 Pulse 92 Resp 18 B/P (MAP) 171/108 (129) Pulse Ox 94 96 94 O2 Delivery Room Air Room Air Room Air Room Air 05/31/18 05/31/18 05/31/18 05/31/18 03:10 03:56 07:00 08:36 Temp 97.5 97.5 97.5 97.5 Pulse 91 92 Resp 18 18 18 B/P (MAP) 134/83 (100) 154/99 (117) Pulse Ox 95 94 93 94 O2 Delivery Room Air Room Air Room Air 05/31/18 05/31/18 05/31/18 05/31/18 08:36 08:40 11:00 11:47 Temp 97.5 97.5 Pulse 91 91 89 Resp 18 B/P (MAP) 134/83 134/83 146/95 (112) Pulse Ox 96 96 O2 Delivery Room Air 05/31/18 12:20 Pulse Ox 96 O2 Delivery Room Air Intake and Output 05/30/18 05/30/18 05/31/18 15:00 23:00 07:00 Intake Total 100 ml 100 ml 250 ml Output Total 250 ml Balance 100 ml -150 ml 250 ml ANGEL KIDD MD May 31, 2018 12:41
--- NOTE | 2018-05-31 12:42 | RAD ---
MRI Lumbar Spine without contrast History: Low back pain, right leg radiculopathy Technique: Multiplanar, multi sequential noncontrast MR imaging was performed of the lumbar spine. Contrast: None Comparison: 05/30/2018 CT exam Findings: Lumbar vertebral body stature is maintained. There is negligible anterior spondylolisthesis L3-4. There is [id number] degenerative disc disease at L3-4, minimally at L5-S1 and mild disc desiccation L4-5. Conus terminates at L1. There is mild nonspecific edema of the posterior subcutaneous fat of the lower back. L3-L4: There is mild buckling of the ligamentum flavum and facet degenerative change. There is minimal disc osteophyte complex. There is mild to moderate narrowing the far lateral recesses bilaterally. There is mild inferior narrowing of the left neural foramen by bulge/protrusion, near the undersurface exiting left L3 nerve root extending to the proximal extraforaminal region without displacement. There is also mild narrowing of the inferior right neural foramen by disc osteophyte complex. L4-L5: There is mild facet hypertrophic change and buckling of the ligamentum flavum. There is negligible disc osteophyte complex. There is mild narrowing of the far lateral recesses bilaterally. There is mild neural foramina compromise bilaterally somewhat greater on the left in part from disc osteophyte complex, near undersurface exiting left L4 nerve root in the distal neural foramen without displacement. L5-S1: There is minimal disc osteophyte complex, superimposed shallow protrusion with associated annular tear eccentric to the left lateral recess. There is mild left lateral recess stenosis. Protrusion contacts the ventral surface descending left S1 nerve root without significant displacement. Disc osteophyte complex contributes to mild narrowing of the distal right neural foramen, disc osteophyte complex also contacting the extraforaminal right L5 nerve root more laterally. There is also mild narrowing of the left neural foramen by disc osteophyte complex. Impression: 1. There is [id number] degenerative disc disease L3-4, to lesser degree L4-5 and L5-S1. There is [id number] narrowing of the far lateral recesses bilaterally at L3-4, to a lesser degree bilaterally at L4-5 and also mild left lateral recess stenosis L5-S1 as described. There is multilevel mild neural foramina compromise L3-4 to L5-S1. Disc osteophyte complex also contacts the extraforaminal right L5 nerve root at L5-S1 more laterally. Electronically signed by: Bassem Holder MD (05/31/2018 12:39 PM) [id number]
[2018-05-31] MEDS ORDERED: DEXTROSE 50% 25 GM / 50ML DISP.SYRIN. IV PRN (12:45)
[2018-05-31 14:14] LABS: % LYMPHS 10 % (24-48); % MONOS 5 % (0-10); % SEGS 85 % (35-66); PLT ESTIMATE ADEQUATE (ADEQUATE)
--- NOTE | 2018-05-31 14:54 | PDOC ---
PROGRESS NOTES Subjective Subjective He admits continued low back pain with numbness in his right lower extremity. Objective Objective Vital Signs Date Time Temp Pulse Resp B/P (MAP) Pulse Ox O2 Delivery O2 Flow Rate FiO2 05/31/18 12:20 96 Room Air 05/31/18 11:00 97.5 89 18 146/95 (112) 97.5 Intake and Output 05/31/18 07:00 Intake Total 450 ml Output Total 250 ml Balance 200 ml Intake Oral 450 ml Output Urine Total 250 ml Physical Exam Physical Exam He continues with painfully limited lumbar spine ROM with tenderness to palpation over sacroiliac joints and SLR test is negative bilaterally and he had 5/5 grade muscle strength in his lower extremities and absent knee and ankle jerks bilaterally and decreased sensory perception in his right lower extremity.He remains independent with his mobility at roller walker level.Mri scan of lumbar vertebrae revealed disc bulging at L5-S1,L4-L5,L3-L4 levels with some degree of neural foraminal compromise. Assessment Assessment Problems Medical Problems: (1) Fall from standing Status: Acute (2) Sciatica Status: Acute Plan Plan of Care He is not interested in any injections. Waiting for neurosurgical advise. Comment Review of Relevant I have reviewed the following items oly (where applicable) has been applied. Labs Laboratory Tests Test 05/31/18 03:40 05/31/18 03:45 White Blood Count 17.2 x10^3/uL (4.0-11.0) Red Blood Count 5.22 x10^6/uL (4.30-5.70) Hemoglobin 16.1 g/dL (13.0-17.5) Hematocrit 47.1 % (39.0-53.0) Mean Corpuscular Volume 90 fL (79-100) Mean Corpuscular Hemoglobin 31 pg (25-35) Mean Corpuscular Hemoglobin Concent 34 g/dL (31-37) Red Cell Distribution Width 15.1 % (11.5-14.5) Platelet Count 294 x10^3/uL (140-400) Neutrophils (%) (Auto) 89 % (31-73) Lymphocytes (%) (Auto) 7 % (24-48) Monocytes (%) (Auto) 4 % (0-9) Eosinophils (%) (Auto) 0 % (0-3) Basophils (%) (Auto) 0 % (0-3) Neutrophils # (Auto) 15.3 x10^3uL (1.8-7.7) Lymphocytes # (Auto) 1.2 x10^3/uL (1.0-4.8) Monocytes # (Auto) 0.6 x10^3/uL (0.0-1.1) Eosinophils # (Auto) 0.0 x10^3/uL (0.0-0.7) Basophils # (Auto) 0.0 x10^3/uL (0.0-0.2) Segmented Neutrophils % 85 % (35-66) Lymphocytes % 10 % (24-48) Monocytes % 5 % (0-10) Platelet Estimate Adequate (ADEQUATE) Sodium Level 137 mmol/L (136-145) Potassium Level 3.7 mmol/L (3.5-5.1) Chloride Level 101 mmol/L (98-107) Carbon Dioxide Level 27 mmol/L (21-32) Anion Gap 9 (6-14) Blood Urea Nitrogen 15 mg/dL (8-26) Creatinine 1.2 mg/dL (0.7-1.3) Estimated GFR (Cockcroft-Gault) 76.1 Glucose Level 200 mg/dL (70-99) Calcium Level 8.6 mg/dL (8.5-10.1) Laboratory Tests Test 05/31/18 03:40 05/31/18 03:45 White Blood Count 17.2 x10^3/uL (4.0-11.0) Red Blood Count 5.22 x10^6/uL (4.30-5.70) Hemoglobin 16.1 g/dL (13.0-17.5) Hematocrit 47.1 % (39.0-53.0) Mean Corpuscular Volume 90 fL (79-100) Mean Corpuscular Hemoglobin 31 pg (25-35) Mean Corpuscular Hemoglobin Concent 34 g/dL (31-37) Red Cell Distribution Width 15.1 % (11.5-14.5) Platelet Count 294 x10^3/uL (140-400) Neutrophils (%) (Auto) 89 % (31-73) Lymphocytes (%) (Auto) 7 % (24-48) Monocytes (%) (Auto) 4 % (0-9) Eosinophils (%) (Auto) 0 % (0-3) Basophils (%) (Auto) 0 % (0-3) Neutrophils # (Auto) 15.3 x10^3uL (1.8-7.7) Lymphocytes # (Auto) 1.2 x10^3/uL (1.0-4.8) Monocytes # (Auto) 0.6 x10^3/uL (0.0-1.1) Eosinophils # (Auto) 0.0 x10^3/uL (0.0-0.7) Basophils # (Auto) 0.0 x10^3/uL (0.0-0.2) Segmented Neutrophils % 85 % (35-66) Lymphocytes % 10 % (24-48) Monocytes % 5 % (0-10) Platelet Estimate Adequate (ADEQUATE) Sodium Level 137 mmol/L (136-145) Potassium Level 3.7 mmol/L (3.5-5.1) Chloride Level 101 mmol/L (98-107) Carbon Dioxide Level 27 mmol/L (21-32) Anion Gap 9 (6-14) Blood Urea Nitrogen 15 mg/dL (8-26) Creatinine 1.2 mg/dL (0.7-1.3) Estimated GFR (Cockcroft-Gault) 76.1 Glucose Level 200 mg/dL (70-99) Calcium Level 8.6 mg/dL (8.5-10.1) Medications Current Medications Methylprednisolone Sodium Succinate (SOLU-Medrol 125MG VIAL) 125 mg 1X ONCE IM Last administered on 05/30/18at 08:54; Start 05/30/18 at 08:45; Stop at 08:46; Status DC Morphine Sulfate (Morphine Sulfate) 5 mg 1X ONCE IM Last administered on 05/30at 08:55; Start 05/30/18 at 08:45; Stop 05/30/18 at 08:46; Status DC Ketorolac Tromethamine (Toradol Im) 60 mg 1X ONCE IM Last administered on at 08:54; Start 05/30/18 at 08:45; Stop 05/30/18 at 08:46; Status DC Diazepam (Valium) 5 mg 1X ONCE PO Last administered on 05/30/18at 08:56; Start 05/30/18 at 08:45; Stop 05/30/18 at 08:46; Status DC Clonidine HCl (Catapres) 0.1 mg 1X ONCE PO ; Start 05/30/18 at 08:45; Stop at 08:46; Status DC Ondansetron HCl (Zofran) 4 mg PRN Q8HRS PRN IV NAUSEA/VOMITING Last administered on 05/30/18at 12:27; Start 05/30/18 at 10:15; Stop 05/30/18 at 16 :11; Status DC Morphine Sulfate (Morphine Sulfate) 4 mg PRN Q2HR PRN IV PAIN; Start 05/30/18 at 10:15; Stop 05/31/18 at 10:14; Status DC Acetaminophen (Tylenol) 650 mg PRN Q4HRS PRN PO FEVER Last administered on at 20:15; Start 05/30/18 at 10:15; Stop 05/31/18 at 10:14; Status DC Diazepam (Valium) 5 mg TID PRN PO ANXIETY / AGITATION; Start 05/30/18 at 10:15 Acetaminophen (Tylenol) 650 mg PRN Q6HRS PRN PO FEVER; Start 05/30/18 at 16:15 Ondansetron HCl (Zofran) 4 mg PRN Q6HRS PRN IV NAUSEA/VOMITING; Start at 16:15 Morphine Sulfate (Morphine Sulfate) 2 mg PRN Q2HR PRN IV MODERATE TO SEVERE PAIN Last administered on 05/31/18at 11:47; Start 05/30/18 at 16:15 Tramadol HCl (Ultram) 50 mg PRN Q6HRS PRN PO MILD PAIN; Start 05/30/18 at 16: 15 Docusate Sodium (Colace) 100 mg PRN DAILY PRN PO CONSTIPATION; Start 05/30/18 at 16:15 Labetalol HCl (Normodyne Iv Push) 20 mg PRN Q2HR PRN IVP HYPERTENSION, SEE COMMENTS; Start 05/30/18 at 16:15 Amlodipine Besylate (Norvasc) 10 mg DAILY PO ; Start 05/31/18 at 09:00; Stop 05/31/18 at 09:00; Status DC Aspirin (Ecotrin) 81 mg DAILY PO Last administered on 05/31/18at 08:35; Start 05/31/18 at 09:00 Atorvastatin Calcium (Lipitor) 40 mg QHS PO Last administered on 05/30/18at 20: 15; Start 05/30/18 at 21:00 Cyclobenzaprine HCl (Flexeril) 10 mg PRN TID PRN PO MUSCLE SPASMS Last administered on 05/30/18at 20:15; Start 05/30/18 at 16:15 Oxycodone/ Acetaminophen (Percocet 5/325) 1 tab PRN Q4HRS PRN PO MODERATE PAIN Last administered on 05/30/18at 18:12; Start 05/30/18 at 16:15 Lisinopril (Prinivil) 40 mg DAILY PO Last administered on 05/31/18at 08:40; Start 05/30/18 at 17:00 Amlodipine Besylate (Norvasc) 10 mg DAILY PO Last administered on 05/31/18at 08 :36; Start 05/31/18 at 09:00 Enoxaparin Sodium (Lovenox 40mg Syringe) 40 mg Q24H SQ Last administered on at 18:10; Start 05/30/18 at 17:00 Oxycodone/ Acetaminophen (Percocet 10/325) 1 tab PRN Q4HRS PRN PO SEVERE PAIN; Start 05/31/18 at 09:30 Metformin HCl (Glucophage) 500 mg BIDWMEALS PO ; Start 05/31/18 at 17:00 Insulin Human Lispro (HumaLOG) 0-9 UNITS TIDWMEALS SQ ; Start 05/31/18 at 17:00 Dextrose (Dextrose 50%-Water Syringe) 12.5 gm PRN Q15MIN PRN IV SEE COMMENTS; Start 05/31/18 at 12:45 Active Scripts Active Atorvastatin Calcium 40 Mg Tablet 40 Mg PO QHS Medrol (Methylprednisolone) 4 Mg Tab.ds.pk 1 Pkg PO UD Lidocaine 1 Each Adh..patch 1 Each TP Q12HR PRN Place one patch for 12 hours, remove patch after 12 hours use. wait 12 hours before placing a new patch [place] 5-325 Tablet (Acetaminophen/Hydrocodone Bitart) 1 Each Tablet 1 Tab PO PRN Q6HRS PRN Orphenadrine Citrate 100 Mg Tablet.er 1 Tab PO BID 10 Days Naproxen 500 Mg Tablet 1 Tab PO BID 10 Days Orphenadrine Citrate 100 Mg Tablet.er 100 Mg PO BID PRN Orphenadrine Citrate 100 Mg Tablet.er 100 Mg PO BID Diclofenac Sodium 50 Mg Tablet.dr 50 Mg PO BID Imitrex (Sumatriptan Succinate) 100 Mg Tablet 1 Tab PO UD PRN MDD 200 mg Take first dose of medication at onset of headache. He may repeat with 1 additional dose after 2 hours if headache is still present. Cyclobenzaprine Hcl 10 Mg Tablet 10 Mg PO TID PRN Reported Amlodipine Besylate 10 Mg Tablet 10 Mg PO DAILY Hydrochlorothiazide Tablet (Hydrochlorothiazide) 25 Mg Tablet 1 Tab PO DAILY Lisinopril 5 Mg Tablet 1 Tab PO DAILY Excedrin Migraine Caplet (Aspirin/Acetaminophen/Caffeine) 1 Each Tablet 1 Each PO PRN Q6-8HRS PRN Aspirin Ec (Aspirin) 81 Mg Tablet. 81 Mg PO DAILY Benzonatate 100 Mg Capsule 1 Cap PO TID Vitals/I & O Vital Sign - Last 24 Hours 05/30/18 05/30/18 05/30/18 05/30/18 15:00 18:06 18:12 19:10 Temp 97.6 98.1 97.6 98.1 Pulse 76 76 82 Resp 16 18 B/P (MAP) 143/103 (116) 143/103 140/87 (104) Pulse Ox 94 94 93 O2 Delivery Room Air Room Air Room Air 05/30/18 05/30/18 05/30/18 05/30/18 19:32 20:15 23:10 23:22 Temp 97.8 97.8 Pulse 92 Resp 18 B/P (MAP) 171/108 (129) Pulse Ox 94 96 94 O2 Delivery Room Air Room Air Room Air Room Air 05/31/18 05/31/18 05/31/18 05/31/18 03:10 03:56 07:00 08:36 Temp 97.5 97.5 97.5 97.5 Pulse 91 92 Resp 18 18 18 B/P (MAP) 134/83 (100) 154/99 (117) Pulse Ox 95 94 93 94 O2 Delivery Room Air Room Air Room Air 05/31/18 05/31/18 05/31/18 05/31/18 08:36 08:40 11:00 11:47 Temp 97.5 97.5 Pulse 91 91 89 Resp 18 B/P (MAP) 134/83 134/83 146/95 (112) Pulse Ox 96 96 O2 Delivery Room Air 05/31/18 12:20 Pulse Ox 96 O2 Delivery Room Air Intake and Output 05/30/18 05/30/18 05/31/18 15:00 23:00 07:00 Intake Total 100 ml 100 ml 250 ml Output Total 250 ml Balance 100 ml -150 ml 250 ml JOVANNA TALBOT MD May 31, 2018 14:54
[2018-05-31 15:00] VITALS: BP 140/87
[2018-05-31] MEDS: oxyCODONE/APAP 10/325 1 TAB TABLET PO PRN (15:11)
[2018-05-31] MEDS: INSULIN LISPRO 300 UNITS/3 ML INSULN.PEN. SQ SCH (17:00)
[2018-05-31] MEDS ORDERED: metFORMIN 500 MG TABLET PO SCH (17:00)
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
[2018-05-31] MEDS: ENOXAPARIN 40 MG/0.4 ML SYRINGE. SQ SCH (17:28)
[2018-05-31] MEDS ORDERED: fentaNYL PF VIAL 100 MCG/2 ML VIAL IV ONE (19:30)
[2018-05-31] MEDS: ATORVASTATIN CALCIUM 40 MG TABLET. PO SCH (20:33)
[2018-05-31 23:00] VITALS: BP 143/111
[2018-06-01 03:00] VITALS: BP 155/92
[2018-06-01] MEDS: MORPHINE SULFATE 2 MG/ML VIAL. IV PRN (03:50)
[2018-06-01 05:08] LABS: BASO % 0 % (0-3); EOS # 0.1 x10^3/uL (0.0-0.7); EOS % 1 % (0-3); HEMATOCRIT 45.8 % (39.0-53.0); HEMOGLOBIN 15.6 g/dL (13.0-17.5); LYMPH # 3.8 x10^3/uL (1.0-4.8); LYMPH % 33 % (24-48); MEAN CORPUSCULAR HEMOGLOBIN 31 pg (25-35); MEAN CORPUSCULAR HGB CONC 34 g/dL (31-37); MEAN CORPUSCULAR VOLUME 90 fL (79-100); MONO % 8 % (0-9); NEUT # 6.7 x10^3uL (1.8-7.7); NEUT % 58 % (31-73); PLATELET COUNT 268 x10^3/uL (140-400); RED BLOOD COUNT 5.11 x10^6/uL (4.30-5.70); RED CELL DISTRIBUTION WIDTH 15.5 % (11.5-14.5); WHITE BLOOD COUNT 11.6 x10^3/uL (4.0-11.0)
[2018-06-01 05:30] LABS: CALCIUM 8.8 mg/dL (8.5-10.1); CREATININE 1.3 mg/dL (0.7-1.3); GFR 69.3; POTASSIUM 3.8 mmol/L (3.5-5.1)
[2018-06-01 07:00] VITALS: BP_SYST 124; BP_SYST 96; BP_DIAS 61; BP_DIAS 88
[2018-06-01] MEDS ORDERED: IOHEXOL 180 MG/ML 10 ML VIAL. IT ONE (08:00)
[2018-06-01] MEDS: INSULIN LISPRO 300 UNITS/3 ML INSULN.PEN. SQ SCH ×3 (08:00→16:48)
[2018-06-01] MEDS ORDERED: LIDOCAINE WITH 8.4% SOD BICARB 3 ML DISP.SYRIN. INJ ONE (08:00)
[2018-06-01] MEDS ORDERED: CONTRAST GIVEN. MC PRN (08:15)
[2018-06-01] MEDS: fentaNYL PF VIAL 100 MCG/2 ML VIAL IV PRN ×4 (08:25→21:15)
--- NOTE | 2018-06-01 10:06 | PDOC ---
PROGRESS NOTES Subjective Subjective He admits continued low back pain with numbness in his right lower extremity. Objective Objective Vital Signs Date Time Temp Pulse Resp B/P (MAP) Pulse Ox O2 Delivery O2 Flow Rate FiO2 06/01/18 08:25 95 Room Air 06/01/18 07:00 97.7 75 16 124/88 (100) 97.7 Intake and Output 06/01/18 07:00 Intake Total 200 ml Output Total 200 ml Balance 0 ml Intake Oral 200 ml Output Urine Total 200 ml # Voids 6 Physical Exam Physical Exam He is supine in bed and does not seem to be in any acute distress and no change with his neurological status. Appreciate 's note. He had mri scan of lumbar spine done yesterday, which revealed more of disc bulge at L5-S1 level. Assessment Assessment Problems Medical Problems: (1) Fall from standing Status: Acute (2) Sciatica Status: Acute Plan Plan of Care Agree with plans for surgery. Comment Review of Relevant I have reviewed the following items oly (where applicable) has been applied. Labs Laboratory Tests Test 05/31/18 03:40 05/31/18 03:45 05/31/18 20:42 06/01/18 03:55 White Blood Count 17.2 x10^3/uL (4.0-11.0) 11.6 x10^3/uL (4.0-11.0) Red Blood Count 5.22 x10^6/uL (4.30-5.70) 5.11 x10^6/uL (4.30-5.70) Hemoglobin 16.1 g/dL (13.0-17.5) 15.6 g/dL (13.0-17.5) Hematocrit 47.1 % (39.0-53.0) 45.8 % (39.0-53.0) Mean Corpuscular Volume 90 fL (79-100) 90 fL (79-100) Mean Corpuscular Hemoglobin 31 pg (25-35) 31 pg (25-35) Mean Corpuscular Hemoglobin Concent 34 g/dL (31-37) 34 g/dL (31-37) Red Cell Distribution Width 15.1 % (11.5-14.5) 15.5 % (11.5-14.5) Platelet Count 294 x10^3/uL (140-400) 268 x10^3/uL (140-400) Neutrophils (%) (Auto) 89 % (31-73) 58 % (31-73) Lymphocytes (%) (Auto) 7 % (24-48) 33 % (24-48) Monocytes (%) (Auto) 4 % (0-9) 8 % (0-9) Eosinophils (%) (Auto) 0 % (0-3) 1 % (0-3) Basophils (%) (Auto) 0 % (0-3) 0 % (0-3) Neutrophils # (Auto) 15.3 x10^3uL (1.8-7.7) 6.7 x10^3uL (1.8-7.7) Lymphocytes # (Auto) 1.2 x10^3/uL (1.0-4.8) 3.8 x10^3/uL (1.0-4.8) Monocytes # (Auto) 0.6 x10^3/uL (0.0-1.1) 1.0 x10^3/uL (0.0-1.1) Eosinophils # (Auto) 0.0 x10^3/uL (0.0-0.7) 0.1 x10^3/uL (0.0-0.7) Basophils # (Auto) 0.0 x10^3/uL (0.0-0.2) 0.0 x10^3/uL (0.0-0.2) Segmented Neutrophils % 85 % (35-66) Lymphocytes % 10 % (24-48) Monocytes % 5 % (0-10) Platelet Estimate Adequate (ADEQUATE) Sodium Level 137 mmol/L (136-145) 145 mmol/L (136-145) Potassium Level 3.7 mmol/L (3.5-5.1) 3.8 mmol/L (3.5-5.1) Chloride Level 101 mmol/L (98-107) 107 mmol/L (98-107) Carbon Dioxide Level 27 mmol/L (21-32) 29 mmol/L (21-32) Anion Gap 9 (6-14) 9 (6-14) Blood Urea Nitrogen 15 mg/dL (8-26) 13 mg/dL (8-26) Creatinine 1.2 mg/dL (0.7-1.3) 1.3 mg/dL (0.7-1.3) Estimated GFR (Cockcroft-Gault) 76.1 69.3 Glucose Level 200 mg/dL (70-99) 102 mg/dL (70-99) Calcium Level 8.6 mg/dL (8.5-10.1) 8.8 mg/dL (8.5-10.1) Glucose (Fingerstick) 169 mg/dL (70-99) Test 06/01/18 08:10 Glucose (Fingerstick) 89 mg/dL (70-99) Laboratory Tests Test 05/31/18 20:42 06/01/18 03:55 06/01/18 08:10 Glucose (Fingerstick) 169 mg/dL (70-99) 89 mg/dL (70-99) White Blood Count 11.6 x10^3/uL (4.0-11.0) Red Blood Count 5.11 x10^6/uL (4.30-5.70) Hemoglobin 15.6 g/dL (13.0-17.5) Hematocrit 45.8 % (39.0-53.0) Mean Corpuscular Volume 90 fL (79-100) Mean Corpuscular Hemoglobin 31 pg (25-35) Mean Corpuscular Hemoglobin Concent 34 g/dL (31-37) Red Cell Distribution Width 15.5 % (11.5-14.5) Platelet Count 268 x10^3/uL (140-400) Neutrophils (%) (Auto) 58 % (31-73) Lymphocytes (%) (Auto) 33 % (24-48) Monocytes (%) (Auto) 8 % (0-9) Eosinophils (%) (Auto) 1 % (0-3) Basophils (%) (Auto) 0 % (0-3) Neutrophils # (Auto) 6.7 x10^3uL (1.8-7.7) Lymphocytes # (Auto) 3.8 x10^3/uL (1.0-4.8) Monocytes # (Auto) 1.0 x10^3/uL (0.0-1.1) Eosinophils # (Auto) 0.1 x10^3/uL (0.0-0.7) Basophils # (Auto) 0.0 x10^3/uL (0.0-0.2) Sodium Level 145 mmol/L (136-145) Potassium Level 3.8 mmol/L (3.5-5.1) Chloride Level 107 mmol/L (98-107) Carbon Dioxide Level 29 mmol/L (21-32) Anion Gap 9 (6-14) Blood Urea Nitrogen 13 mg/dL (8-26) Creatinine 1.3 mg/dL (0.7-1.3) Estimated GFR (Cockcroft-Gault) 69.3 Glucose Level 102 mg/dL (70-99) Calcium Level 8.8 mg/dL (8.5-10.1) Medications Current Medications Methylprednisolone Sodium Succinate (SOLU-Medrol 125MG VIAL) 125 mg 1X ONCE IM Last administered on 05/30/18at 08:54; Start 05/30/18 at 08:45; Stop at 08:46; Status DC Morphine Sulfate (Morphine Sulfate) 5 mg 1X ONCE IM Last administered on 05/30at 08:55; Start 05/30/18 at 08:45; Stop 05/30/18 at 08:46; Status DC Ketorolac Tromethamine (Toradol Im) 60 mg 1X ONCE IM Last administered on at 08:54; Start 05/30/18 at 08:45; Stop 05/30/18 at 08:46; Status DC Diazepam (Valium) 5 mg 1X ONCE PO Last administered on 05/30/18at 08:56; Start 05/30/18 at 08:45; Stop 05/30/18 at 08:46; Status DC Clonidine HCl (Catapres) 0.1 mg 1X ONCE PO ; Start 05/30/18 at 08:45; Stop at 08:46; Status DC Ondansetron HCl (Zofran) 4 mg PRN Q8HRS PRN IV NAUSEA/VOMITING Last administered on 05/30/18at 12:27; Start 05/30/18 at 10:15; Stop 05/30/18 at 16 :11; Status DC Morphine Sulfate (Morphine Sulfate) 4 mg PRN Q2HR PRN IV PAIN; Start 05/30/18 at 10:15; Stop 05/31/18 at 10:14; Status DC Acetaminophen (Tylenol) 650 mg PRN Q4HRS PRN PO FEVER Last administered on at 20:15; Start 05/30/18 at 10:15; Stop 05/31/18 at 10:14; Status DC Diazepam (Valium) 5 mg TID PRN PO ANXIETY / AGITATION; Start 05/30/18 at 10:15 Acetaminophen (Tylenol) 650 mg PRN Q6HRS PRN PO FEVER; Start 05/30/18 at 16:15 Ondansetron HCl (Zofran) 4 mg PRN Q6HRS PRN IV NAUSEA/VOMITING; Start at 16:15 Morphine Sulfate (Morphine Sulfate) 2 mg PRN Q2HR PRN IV MODERATE TO SEVERE PAIN Last administered on 06/01/18at 03:50; Start 05/30/18 at 16:15 Tramadol HCl (Ultram) 50 mg PRN Q6HRS PRN PO MILD PAIN; Start 05/30/18 at 16: 15 Docusate Sodium (Colace) 100 mg PRN DAILY PRN PO CONSTIPATION; Start 05/30/18 at 16:15 Labetalol HCl (Normodyne Iv Push) 20 mg PRN Q2HR PRN IVP HYPERTENSION, SEE COMMENTS; Start 05/30/18 at 16:15 Amlodipine Besylate (Norvasc) 10 mg DAILY PO ; Start 05/31/18 at 09:00; Stop 05/31/18 at 09:00; Status DC Aspirin (Ecotrin) 81 mg DAILY PO Last administered on 05/31/18at 08:35; Start 05/31/18 at 09:00 Atorvastatin Calcium (Lipitor) 40 mg QHS PO Last administered on 05/31/18at 20: 33; Start 05/30/18 at 21:00 Cyclobenzaprine HCl (Flexeril) 10 mg PRN TID PRN PO MUSCLE SPASMS Last administered on 05/30/18at 20:15; Start 05/30/18 at 16:15 Oxycodone/ Acetaminophen (Percocet 5/325) 1 tab PRN Q4HRS PRN PO MODERATE PAIN Last administered on 05/30/18at 18:12; Start 05/30/18 at 16:15 Lisinopril (Prinivil) 40 mg DAILY PO Last administered on 05/31/18at 08:40; Start 05/30/18 at 17:00 Amlodipine Besylate (Norvasc) 10 mg DAILY PO Last administered on 05/31/18at 08 :36; Start 05/31/18 at 09:00 Enoxaparin Sodium (Lovenox 40mg Syringe) 40 mg Q24H SQ Last administered on at 17:28; Start 05/30/18 at 17:00 Oxycodone/ Acetaminophen (Percocet 10/325) 1 tab PRN Q4HRS PRN PO SEVERE PAIN Last administered on 05/31/18at 15:11; Start 05/31/18 at 09:30 Metformin HCl (Glucophage) 500 mg BIDWMEALS PO Last administered on 05/31/18at 17:28; Start 05/31/18 at 17:00; Stop 06/01/18 at 08:02; Status DC Insulin Human Lispro (HumaLOG) 0-9 UNITS TIDWMEALS SQ ; Start 05/31/18 at 17:00 Dextrose (Dextrose 50%-Water Syringe) 12.5 gm PRN Q15MIN PRN IV SEE COMMENTS; Start 05/31/18 at 12:45 Fentanyl Citrate (Fentanyl 2ml Vial) 50 mcg 1X ONCE IV Last administered on at 19:30; Start 05/31/18 at 19:30; Stop 05/31/18 at 19:31; Status DC Fentanyl Citrate (Fentanyl 2ml Vial) 50 mcg PRN Q3HRS PRN IV SEVERE PAIN Last administered on 06/01/18at 08:25; Start 06/01/18 at 06:15 Iohexol (Omnipaque 180 Mg/ml) 20 ml 1X ONCE IT ; Start 06/01/18 at 08:00; Stop 06/01/18 at 08:01; Status DC Lidocaine/Sodium Bicarbonate (Buffered Lidocaine 1%) 6 ml 1X ONCE INJ ; Start 06/01/18 at 08:00; Stop 06/01/18 at 08:01; Status DC Info (CONTRAST GIVEN -- Rx MONITORING) 1 each PRN DAILY PRN MC SEE COMMENTS; Start 06/01/18 at 08:15; Stop 06/03/18 at 08:14 Metformin HCl (Glucophage) 500 mg BIDWMEALS PO ; Start 06/03/18 at 17:00 Active Scripts Active Atorvastatin Calcium 40 Mg Tablet 40 Mg PO QHS Medrol (Methylprednisolone) 4 Mg Tab.ds.pk 1 Pkg PO UD Lidocaine 1 Each Adh..patch 1 Each TP Q12HR PRN Place one patch for 12 hours, remove patch after 12 hours use. wait 12 hours before placing a new patch [place] 5-325 Tablet (Acetaminophen/Hydrocodone Bitart) 1 Each Tablet 1 Tab PO PRN Q6HRS PRN Orphenadrine Citrate 100 Mg Tablet.er 1 Tab PO BID 10 Days Naproxen 500 Mg Tablet 1 Tab PO BID 10 Days Orphenadrine Citrate 100 Mg Tablet.er 100 Mg PO BID PRN Orphenadrine Citrate 100 Mg Tablet.er 100 Mg PO BID Diclofenac Sodium 50 Mg Tablet.dr 50 Mg PO BID Imitrex (Sumatriptan Succinate) 100 Mg Tablet 1 Tab PO UD PRN MDD 200 mg Take first dose of medication at onset of headache. He may repeat with 1 additional dose after 2 hours if headache is still present. Cyclobenzaprine Hcl 10 Mg Tablet 10 Mg PO TID PRN Reported Amlodipine Besylate 10 Mg Tablet 10 Mg PO DAILY Hydrochlorothiazide Tablet (Hydrochlorothiazide) 25 Mg Tablet 1 Tab PO DAILY Lisinopril 5 Mg Tablet 1 Tab PO DAILY Excedrin Migraine Caplet (Aspirin/Acetaminophen/Caffeine) 1 Each Tablet 1 Each PO PRN Q6-8HRS PRN Aspirin Ec (Aspirin) 81 Mg Tablet.dr 81 Mg PO DAILY Benzonatate 100 Mg Capsule 1 Cap PO TID Vitals/I & O Vital Sign - Last 24 Hours 05/31/18 05/31/18 05/31/18 05/31/18 11:00 11:47 15:00 15:11 Temp 97.5 96.8 97.5 96.8 Pulse 89 92 Resp 18 18 B/P (MAP) 146/95 (112) 140/87 (104) Pulse Ox 96 96 94 96 O2 Delivery Room Air Room Air Room Air 05/31/18 05/31/18 05/31/18 05/31/18 16:15 19:30 20:00 20:15 Resp 18 Pulse Ox 96 96 96 O2 Delivery Room Air Room Air Room Air Room Air 05/31/18 06/01/18 06/01/18 06/01/18 23:00 03:00 03:50 04:20 Temp 98.2 97.5 98.2 97.5 Pulse 95 82 Resp 18 18 18 B/P (MAP) 143/111 (122) 155/92 (113) Pulse Ox 95 92 95 95 O2 Delivery Room Air Room Air Room Air Room Air 06/01/18 06/01/18 07:00 08:25 Temp 97.7 97.7 Pulse 75 Resp 16 B/P (MAP) 124/88 (100) Pulse Ox 94 95 O2 Delivery Room Air Room Air Intake and Output 05/31/18 05/31/18 06/01/18 15:00 23:00 07:00 Intake Total 200 ml Output Total 200 ml Balance 0 ml JOVANNA TALBOT MD Jun 01, 2018 10:06
[2018-06-01 11:35] VITALS: BP 146/87
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
--- NOTE | 2018-06-01 12:44 | PDOC ---
PROGRESS NOTES Chief Complaint Chief Complaint intractable lower back pain with possible h/o disc herniation as per pt HTN urgency hld morbid obesity dm2 hba1c 6.5 leukocytosis, recently on steroid plan: dr. abebe, dr. suazo consulted, possible sx today pain control , increase percocet prn, morphine iv prn. also on fentanyl prn cont amlodipine, add lisinopril. labetolol iv prn PTOT flexiril prn dvt PPX will suggest pt to take dm2 meds. add metformin for now. ssi, pt refuse insulin History of Present Illness History of Present Illness ROS: no fever, chills, sob or chest pain RECENT HBA1C 6.5 c/o severe lower back pain shooting down to leg, refuse to walk Vitals Vitals Vital Signs Date Time Temp Pulse Resp B/P (MAP) Pulse Ox O2 Delivery O2 Flow Rate FiO2 06/01/18 11:35 98.8 80 16 146/87 (106) 97 Room Air 98.8 Physical Exam Physical Exam rt leg limed ROM 2/2 pain General: Alert, Oriented X3, Cooperative Heart: Regular rate, Normal S1, Normal S2 Lungs: Clear Abdomen: Normal bowel sounds, Soft Extremities: No clubbing, No cyanosis, No edema, Normal pulses Skin: No rashes Labs LABS Laboratory Tests Test 05/31/18 20:42 06/01/18 03:55 06/01/18 08:10 06/01/18 10:47 Glucose (Fingerstick) 169 mg/dL (70-99) 89 mg/dL (70-99) 83 mg/dL (70-99) White Blood Count 11.6 x10^3/uL (4.0-11.0) Red Blood Count 5.11 x10^6/uL (4.30-5.70) Hemoglobin 15.6 g/dL (13.0-17.5) Hematocrit 45.8 % (39.0-53.0) Mean Corpuscular Volume 90 fL (79-100) Mean Corpuscular Hemoglobin 31 pg (25-35) Mean Corpuscular Hemoglobin Concent 34 g/dL (31-37) Red Cell Distribution Width 15.5 % (11.5-14.5) Platelet Count 268 x10^3/uL (140-400) Neutrophils (%) (Auto) 58 % (31-73) Lymphocytes (%) (Auto) 33 % (24-48) Monocytes (%) (Auto) 8 % (0-9) Eosinophils (%) (Auto) 1 % (0-3) Basophils (%) (Auto) 0 % (0-3) Neutrophils # (Auto) 6.7 x10^3uL (1.8-7.7) Lymphocytes # (Auto) 3.8 x10^3/uL (1.0-4.8) Monocytes # (Auto) 1.0 x10^3/uL (0.0-1.1) Eosinophils # (Auto) 0.1 x10^3/uL (0.0-0.7) Basophils # (Auto) 0.0 x10^3/uL (0.0-0.2) Sodium Level 145 mmol/L (136-145) Potassium Level 3.8 mmol/L (3.5-5.1) Chloride Level 107 mmol/L (98-107) Carbon Dioxide Level 29 mmol/L (21-32) Anion Gap 9 (6-14) Blood Urea Nitrogen 13 mg/dL (8-26) Creatinine 1.3 mg/dL (0.7-1.3) Estimated GFR (Cockcroft-Gault) 69.3 Glucose Level 102 mg/dL (70-99) Calcium Level 8.8 mg/dL (8.5-10.1) Assessment and Plan Assessmemt and Plan Problems Medical Problems: (1) Fall from standing Status: Acute (2) Sciatica Status: Acute Comment Review of Relevant I have reviewed the following items oly (where applicable) has been applied. Labs Laboratory Tests Test 05/31/18 03:40 05/31/18 03:45 05/31/18 20:42 06/01/18 03:55 White Blood Count 17.2 x10^3/uL (4.0-11.0) 11.6 x10^3/uL (4.0-11.0) Red Blood Count 5.22 x10^6/uL (4.30-5.70) 5.11 x10^6/uL (4.30-5.70) Hemoglobin 16.1 g/dL (13.0-17.5) 15.6 g/dL (13.0-17.5) Hematocrit 47.1 % (39.0-53.0) 45.8 % (39.0-53.0) Mean Corpuscular Volume 90 fL (79-100) 90 fL (79-100) Mean Corpuscular Hemoglobin 31 pg (25-35) 31 pg (25-35) Mean Corpuscular Hemoglobin Concent 34 g/dL (31-37) 34 g/dL (31-37) Red Cell Distribution Width 15.1 % (11.5-14.5) 15.5 % (11.5-14.5) Platelet Count 294 x10^3/uL (140-400) 268 x10^3/uL (140-400) Neutrophils (%) (Auto) 89 % (31-73) 58 % (31-73) Lymphocytes (%) (Auto) 7 % (24-48) 33 % (24-48) Monocytes (%) (Auto) 4 % (0-9) 8 % (0-9) Eosinophils (%) (Auto) 0 % (0-3) 1 % (0-3) Basophils (%) (Auto) 0 % (0-3) 0 % (0-3) Neutrophils # (Auto) 15.3 x10^3uL (1.8-7.7) 6.7 x10^3uL (1.8-7.7) Lymphocytes # (Auto) 1.2 x10^3/uL (1.0-4.8) 3.8 x10^3/uL (1.0-4.8) Monocytes # (Auto) 0.6 x10^3/uL (0.0-1.1) 1.0 x10^3/uL (0.0-1.1) Eosinophils # (Auto) 0.0 x10^3/uL (0.0-0.7) 0.1 x10^3/uL (0.0-0.7) Basophils # (Auto) 0.0 x10^3/uL (0.0-0.2) 0.0 x10^3/uL (0.0-0.2) Segmented Neutrophils % 85 % (35-66) Lymphocytes % 10 % (24-48) Monocytes % 5 % (0-10) Platelet Estimate Adequate (ADEQUATE) Sodium Level 137 mmol/L (136-145) 145 mmol/L (136-145) Potassium Level 3.7 mmol/L (3.5-5.1) 3.8 mmol/L (3.5-5.1) Chloride Level 101 mmol/L (98-107) 107 mmol/L (98-107) Carbon Dioxide Level 27 mmol/L (21-32) 29 mmol/L (21-32) Anion Gap 9 (6-14) 9 (6-14) Blood Urea Nitrogen 15 mg/dL (8-26) 13 mg/dL (8-26) Creatinine 1.2 mg/dL (0.7-1.3) 1.3 mg/dL (0.7-1.3) Estimated GFR (Cockcroft-Gault) 76.1 69.3 Glucose Level 200 mg/dL (70-99) 102 mg/dL (70-99) Calcium Level 8.6 mg/dL (8.5-10.1) 8.8 mg/dL (8.5-10.1) Glucose (Fingerstick) 169 mg/dL (70-99) Test 06/01/18 08:10 06/01/18 10:47 Glucose (Fingerstick) 89 mg/dL (70-99) 83 mg/dL (70-99) Laboratory Tests Test 05/31/18 20:42 06/01/18 03:55 06/01/18 08:10 06/01/18 10:47 Glucose (Fingerstick) 169 mg/dL (70-99) 89 mg/dL (70-99) 83 mg/dL (70-99) White Blood Count 11.6 x10^3/uL (4.0-11.0) Red Blood Count 5.11 x10^6/uL (4.30-5.70) Hemoglobin 15.6 g/dL (13.0-17.5) Hematocrit 45.8 % (39.0-53.0) Mean Corpuscular Volume 90 fL (79-100) Mean Corpuscular Hemoglobin 31 pg (25-35) Mean Corpuscular Hemoglobin Concent 34 g/dL (31-37) Red Cell Distribution Width 15.5 % (11.5-14.5) Platelet Count 268 x10^3/uL (140-400) Neutrophils (%) (Auto) 58 % (31-73) Lymphocytes (%) (Auto) 33 % (24-48) Monocytes (%) (Auto) 8 % (0-9) Eosinophils (%) (Auto) 1 % (0-3) Basophils (%) (Auto) 0 % (0-3) Neutrophils # (Auto) 6.7 x10^3uL (1.8-7.7) Lymphocytes # (Auto) 3.8 x10^3/uL (1.0-4.8) Monocytes # (Auto) 1.0 x10^3/uL (0.0-1.1) Eosinophils # (Auto) 0.1 x10^3/uL (0.0-0.7) Basophils # (Auto) 0.0 x10^3/uL (0.0-0.2) Sodium Level 145 mmol/L (136-145) Potassium Level 3.8 mmol/L (3.5-5.1) Chloride Level 107 mmol/L (98-107) Carbon Dioxide Level 29 mmol/L (21-32) Anion Gap 9 (6-14) Blood Urea Nitrogen 13 mg/dL (8-26) Creatinine 1.3 mg/dL (0.7-1.3) Estimated GFR (Cockcroft-Gault) 69.3 Glucose Level 102 mg/dL (70-99) Calcium Level 8.8 mg/dL (8.5-10.1) Medications Current Medications Methylprednisolone Sodium Succinate (SOLU-Medrol 125MG VIAL) 125 mg 1X ONCE IM Last administered on 05/30/18at 08:54; Start 05/30/18 at 08:45; Stop at 08:46; Status DC Morphine Sulfate (Morphine Sulfate) 5 mg 1X ONCE IM Last administered on 05/30at 08:55; Start 05/30/18 at 08:45; Stop 05/30/18 at 08:46; Status DC Ketorolac Tromethamine (Toradol Im) 60 mg 1X ONCE IM Last administered on at 08:54; Start 05/30/18 at 08:45; Stop 05/30/18 at 08:46; Status DC Diazepam (Valium) 5 mg 1X ONCE PO Last administered on 05/30/18at 08:56; Start 05/30/18 at 08:45; Stop 05/30/18 at 08:46; Status DC Clonidine HCl (Catapres) 0.1 mg 1X ONCE PO ; Start 05/30/18 at 08:45; Stop at 08:46; Status DC Ondansetron HCl (Zofran) 4 mg PRN Q8HRS PRN IV NAUSEA/VOMITING Last administered on 05/30/18at 12:27; Start 05/30/18 at 10:15; Stop 05/30/18 at 16 :11; Status DC Morphine Sulfate (Morphine Sulfate) 4 mg PRN Q2HR PRN IV PAIN; Start 05/30/18 at 10:15; Stop 05/31/18 at 10:14; Status DC Acetaminophen (Tylenol) 650 mg PRN Q4HRS PRN PO FEVER Last administered on at 20:15; Start 05/30/18 at 10:15; Stop 05/31/18 at 10:14; Status DC Diazepam (Valium) 5 mg TID PRN PO ANXIETY / AGITATION; Start 05/30/18 at 10:15 Acetaminophen (Tylenol) 650 mg PRN Q6HRS PRN PO FEVER; Start 05/30/18 at 16:15 Ondansetron HCl (Zofran) 4 mg PRN Q6HRS PRN IV NAUSEA/VOMITING; Start at 16:15 Morphine Sulfate (Morphine Sulfate) 2 mg PRN Q2HR PRN IV MODERATE TO SEVERE PAIN Last administered on 06/01/18at 03:50; Start 05/30/18 at 16:15 Tramadol HCl (Ultram) 50 mg PRN Q6HRS PRN PO MILD PAIN; Start 05/30/18 at 16: 15 Docusate Sodium (Colace) 100 mg PRN DAILY PRN PO CONSTIPATION; Start 05/30/18 at 16:15 Labetalol HCl (Normodyne Iv Push) 20 mg PRN Q2HR PRN IVP HYPERTENSION, SEE COMMENTS; Start 05/30/18 at 16:15 Amlodipine Besylate (Norvasc) 10 mg DAILY PO ; Start 05/31/18 at 09:00; Stop 05/31/18 at 09:00; Status DC Aspirin (Ecotrin) 81 mg DAILY PO Last administered on 05/31/18at 08:35; Start 05/31/18 at 09:00 Atorvastatin Calcium (Lipitor) 40 mg QHS PO Last administered on 05/31/18 20: 33; Start 05/30/18 at 21:00 Cyclobenzaprine HCl (Flexeril) 10 mg PRN TID PRN PO MUSCLE SPASMS Last administered on 05/30/18 20:15; Start 05/30/18 at 16:15 Oxycodone/ Acetaminophen (Percocet 5/325) 1 tab PRN Q4HRS PRN PO MODERATE PAIN Last administered on 05/30/18 18:12; Start 05/30/18 at 16:15 Lisinopril (Prinivil) 40 mg DAILY PO Last administered on 05/31/18 08:40; Start 05/30/18 at 17:00 Amlodipine Besylate (Norvasc) 10 mg DAILY PO Last administered on 05/31/18 08 :36; Start 05/31/18 at 09:00 Enoxaparin Sodium (Lovenox 40mg Syringe) 40 mg Q24H SQ Last administered on 17:28; Start 05/30/18 at 17:00 Oxycodone/ Acetaminophen (Percocet 10/325) 1 tab PRN Q4HRS PRN PO SEVERE PAIN Last administered on 05/31/18 15:11; Start 05/31/18 at 09:30 Metformin HCl (Glucophage) 500 mg BIDWMEALS PO Last administered on 05/31/18 17:28; Start 05/31/18 at 17:00; Stop 06/01/18 at 08:02; Status DC Insulin Human Lispro (HumaLOG) 0-9 UNITS TIDWMEALS SQ ; Start 05/31/18 at 17:00 Dextrose (Dextrose 50%-Water Syringe) 12.5 gm PRN Q15MIN PRN IV SEE COMMENTS; Start 05/31/18 at 12:45 Fentanyl Citrate (Fentanyl 2ml Vial) 50 mcg 1X ONCE IV Last administered on 19:30; Start 05/31/18 at 19:30; Stop 05/31/18 at 19:31; Status DC Fentanyl Citrate (Fentanyl 2ml Vial) 50 mcg PRN Q3HRS PRN IV SEVERE PAIN Last administered on 06/01/18at 08:25; Start 06/01/18 at 06:15 Iohexol (Omnipaque 180 Mg/ml) 20 ml 1X ONCE IT Last administered on at 10:19; Start 06/01/18 at 08:00; Stop 06/01/18 at 08:01; Status DC Lidocaine/Sodium Bicarbonate (Buffered Lidocaine 1%) 6 ml 1X ONCE INJ Last administered on 06/01/18at 10:18; Start 06/01/18 at 08:00; Stop 06/01/18 at 08 :01; Status DC Info (CONTRAST GIVEN -- Rx MONITORING) 1 each PRN DAILY PRN MC SEE COMMENTS; Start 06/01/18 at 08:15; Stop 06/03/18 at 08:14 Metformin HCl (Glucophage) 500 mg BIDWMEALS PO ; Start 06/03/18 at 17:00 Active Scripts Active Atorvastatin Calcium 40 Mg Tablet 40 Mg PO QHS Medrol (Methylprednisolone) 4 Mg Tab.ds.pk 1 Pkg PO UD Lidocaine 1 Each Adh..patch 1 Each TP Q12HR PRN Place one patch for 12 hours, remove patch after 12 hours use. wait 12 hours before [address] a new patch [place] 5-325 Tablet (Acetaminophen/Hydrocodone Bitart) 1 Each Tablet 1 Tab PO PRN Q6HRS PRN Orphenadrine Citrate 100 Mg Tablet.er 1 Tab PO BID 10 Days Naproxen 500 Mg Tablet 1 Tab PO BID 10 Days Orphenadrine Citrate 100 Mg Tablet.er 100 Mg PO BID PRN Orphenadrine Citrate 100 Mg Tablet.er 100 Mg PO BID Diclofenac Sodium 50 Mg Tablet.dr 50 Mg PO BID Imitrex (Sumatriptan Succinate) 100 Mg Tablet 1 Tab PO UD PRN MDD 200 mg Take first dose of medication at onset of headache. He may repeat with 1 additional dose after 2 hours if headache is still present. Cyclobenzaprine Hcl 10 Mg Tablet 10 Mg PO TID PRN Reported Amlodipine Besylate 10 Mg Tablet 10 Mg PO DAILY Hydrochlorothiazide Tablet (Hydrochlorothiazide) 25 Mg Tablet 1 Tab PO DAILY Lisinopril 5 Mg Tablet 1 Tab PO DAILY Excedrin Migraine Caplet (Aspirin/Acetaminophen/Caffeine) 1 Each Tablet 1 Each PO PRN Q6-8HRS PRN Aspirin Ec (Aspirin) 81 Mg Tablet. 81 Mg PO DAILY Benzonatate 100 Mg Capsule 1 Cap PO TID Vitals/I & O Vital Sign - Last 24 Hours 05/31/18 05/31/18 05/31/18 05/31/18 15:00 15:11 16:15 19:30 Temp 96.8 96.8 Pulse 92 Resp 18 18 B/P (MAP) 140/87 (104) Pulse Ox 94 96 96 96 O2 Delivery Room Air Room Air Room Air Room Air 05/31/18 05/31/18 05/31/18 06/01/18 20:00 20:15 23:00 03:00 Temp 98.2 97.5 98.2 97.5 Pulse 95 82 Resp 18 18 B/P (MAP) 143/111 (122) 155/92 (113) Pulse Ox 96 95 92 O2 Delivery Room Air Room Air Room Air Room Air 06/01/18 06/01/18 06/01/18 06/01/18 03:50 04:20 07:00 08:25 Temp 97.7 97.7 Pulse 75 Resp 18 16 B/P (MAP) 124/88 (100) Pulse Ox 95 95 94 95 O2 Delivery Room Air Room Air Room Air Room Air 06/01/18 06/01/18 09:00 11:35 Temp 98.8 98.8 Pulse 80 Resp 16 B/P (MAP) 146/87 (106) Pulse Ox 95 97 O2 Delivery Room Air Room Air Intake and Output 05/31/18 05/31/18 06/01/18 15:00 23:00 07:00 Intake Total 200 ml Output Total 200 ml Balance 0 ml ANGEL KIDD MD Jun 01, 2018 12:44
[2018-06-01] MEDS: ASPIRIN ENTERIC COATED 81 MG TABLET.DR. PO SCH (13:10)
[2018-06-01] MEDS: amLODIPine BESYLATE 10 MG TABLET PO SCH (13:10)
[2018-06-01] MEDS: LISINOPRIL 20 MG TABLET PO SCH (13:11)
--- NOTE | 2018-06-01 13:33 | PDOC ---
PROGRESS NOTES Subjective Subjective patient resting in bed continues with back and right leg pain Objective Objective Vital Signs Date Time Temp Pulse Resp B/P (MAP) Pulse Ox O2 Delivery O2 Flow Rate FiO2 06/01/18 13:11 80 146/87 06/01/18 13:09 97 Room Air 06/01/18 11:35 98.8 16 98.8 Intake and Output 06/01/18 07:00 Intake Total 200 ml Output Total 200 ml Balance 0 ml Intake Oral 200 ml Output Urine Total 200 ml # Voids 6 Physical Exam General: Alert, Oriented X3, Cooperative MUSCULOSKELETAL: Other (JAMES) Neuro: Other (Normal strength in BLE) Assessment Assessment Problems Medical Problems: (1) Fall from standing Status: Acute (2) Sciatica Status: Acute Plan Plan of Care Reviewed myelo with Dr. Tariq plan for lumbar microdecompression L5- S1 right tomorrow afternoon. reviewed technique, risks, expected post op course. all questions answered. Comment Review of Relevant I have reviewed the following items oly (where applicable) has been applied. Labs Laboratory Tests Test 05/31/18 03:40 05/31/18 03:45 05/31/18 20:42 06/01/18 03:55 White Blood Count 17.2 x10^3/uL (4.0-11.0) 11.6 x10^3/uL (4.0-11.0) Red Blood Count 5.22 x10^6/uL (4.30-5.70) 5.11 x10^6/uL (4.30-5.70) Hemoglobin 16.1 g/dL (13.0-17.5) 15.6 g/dL (13.0-17.5) Hematocrit 47.1 % (39.0-53.0) 45.8 % (39.0-53.0) Mean Corpuscular Volume 90 fL (79-100) 90 fL (79-100) Mean Corpuscular Hemoglobin 31 pg (25-35) 31 pg (25-35) Mean Corpuscular Hemoglobin Concent 34 g/dL (31-37) 34 g/dL (31-37) Red Cell Distribution Width 15.1 % (11.5-14.5) 15.5 % (11.5-14.5) Platelet Count 294 x10^3/uL (140-400) 268 x10^3/uL (140-400) Neutrophils (%) (Auto) 89 % (31-73) 58 % (31-73) Lymphocytes (%) (Auto) 7 % (24-48) 33 % (24-48) Monocytes (%) (Auto) 4 % (0-9) 8 % (0-9) Eosinophils (%) (Auto) 0 % (0-3) 1 % (0-3) Basophils (%) (Auto) 0 % (0-3) 0 % (0-3) Neutrophils # (Auto) 15.3 x10^3uL (1.8-7.7) 6.7 x10^3uL (1.8-7.7) Lymphocytes # (Auto) 1.2 x10^3/uL (1.0-4.8) 3.8 x10^3/uL (1.0-4.8) Monocytes # (Auto) 0.6 x10^3/uL (0.0-1.1) 1.0 x10^3/uL (0.0-1.1) Eosinophils # (Auto) 0.0 x10^3/uL (0.0-0.7) 0.1 x10^3/uL (0.0-0.7) Basophils # (Auto) 0.0 x10^3/uL (0.0-0.2) 0.0 x10^3/uL (0.0-0.2) Segmented Neutrophils % 85 % (35-66) Lymphocytes % 10 % (24-48) Monocytes % 5 % (0-10) Platelet Estimate Adequate (ADEQUATE) Sodium Level 137 mmol/L (136-145) 145 mmol/L (136-145) Potassium Level 3.7 mmol/L (3.5-5.1) 3.8 mmol/L (3.5-5.1) Chloride Level 101 mmol/L (98-107) 107 mmol/L (98-107) Carbon Dioxide Level 27 mmol/L (21-32) 29 mmol/L (21-32) Anion Gap 9 (6-14) 9 (6-14) Blood Urea Nitrogen 15 mg/dL (8-26) 13 mg/dL (8-26) Creatinine 1.2 mg/dL (0.7-1.3) 1.3 mg/dL (0.7-1.3) Estimated GFR (Cockcroft-Gault) 76.1 69.3 Glucose Level 200 mg/dL (70-99) 102 mg/dL (70-99) Calcium Level 8.6 mg/dL (8.5-10.1) 8.8 mg/dL (8.5-10.1) Glucose (Fingerstick) 169 mg/dL (70-99) Test 06/01/18 08:10 06/01/18 10:47 Glucose (Fingerstick) 89 mg/dL (70-99) 83 mg/dL (70-99) Laboratory Tests Test 05/31/18 20:42 06/01/18 03:55 06/01/18 08:10 06/01/18 10:47 Glucose (Fingerstick) 169 mg/dL (70-99) 89 mg/dL (70-99) 83 mg/dL (70-99) White Blood Count 11.6 x10^3/uL (4.0-11.0) Red Blood Count 5.11 x10^6/uL (4.30-5.70) Hemoglobin 15.6 g/dL (13.0-17.5) Hematocrit 45.8 % (39.0-53.0) Mean Corpuscular Volume 90 fL (79-100) Mean Corpuscular Hemoglobin 31 pg (25-35) Mean Corpuscular Hemoglobin Concent 34 g/dL (31-37) Red Cell Distribution Width 15.5 % (11.5-14.5) Platelet Count 268 x10^3/uL (140-400) Neutrophils (%) (Auto) 58 % (31-73) Lymphocytes (%) (Auto) 33 % (24-48) Monocytes (%) (Auto) 8 % (0-9) Eosinophils (%) (Auto) 1 % (0-3) Basophils (%) (Auto) 0 % (0-3) Neutrophils # (Auto) 6.7 x10^3uL (1.8-7.7) Lymphocytes # (Auto) 3.8 x10^3/uL (1.0-4.8) Monocytes # (Auto) 1.0 x10^3/uL (0.0-1.1) Eosinophils # (Auto) 0.1 x10^3/uL (0.0-0.7) Basophils # (Auto) 0.0 x10^3/uL (0.0-0.2) Sodium Level 145 mmol/L (136-145) Potassium Level 3.8 mmol/L (3.5-5.1) Chloride Level 107 mmol/L (98-107) Carbon Dioxide Level 29 mmol/L (21-32) Anion Gap 9 (6-14) Blood Urea Nitrogen 13 mg/dL (8-26) Creatinine 1.3 mg/dL (0.7-1.3) Estimated GFR (Cockcroft-Gault) 69.3 Glucose Level 102 mg/dL (70-99) Calcium Level 8.8 mg/dL (8.5-10.1) Medications Current Medications Methylprednisolone Sodium Succinate (SOLU-Medrol 125MG VIAL) 125 mg 1X ONCE IM Last administered on 05/30/18at 08:54; Start 05/30/18 at 08:45; Stop at 08:46; Status DC Morphine Sulfate (Morphine Sulfate) 5 mg 1X ONCE IM Last administered on 05/30at 08:55; Start 05/30/18 at 08:45; Stop 05/30/18 at 08:46; Status DC Ketorolac Tromethamine (Toradol Im) 60 mg 1X ONCE IM Last administered on at 08:54; Start 05/30/18 at 08:45; Stop 05/30/18 at 08:46; Status DC Diazepam (Valium) 5 mg 1X ONCE PO Last administered on 05/30/18at 08:56; Start 05/30/18 at 08:45; Stop 05/30/18 at 08:46; Status DC Clonidine HCl (Catapres) 0.1 mg 1X ONCE PO ; Start 05/30/18 at 08:45; Stop at 08:46; Status DC Ondansetron HCl (Zofran) 4 mg PRN Q8HRS PRN IV NAUSEA/VOMITING Last administered on 05/30/18at 12:27; Start 05/30/18 at 10:15; Stop 05/30/18 at 16 :11; Status DC Morphine Sulfate (Morphine Sulfate) 4 mg PRN Q2HR PRN IV PAIN; Start 05/30/18 at 10:15; Stop 05/31/18 at 10:14; Status DC Acetaminophen (Tylenol) 650 mg PRN Q4HRS PRN PO FEVER Last administered on at 20:15; Start 05/30/18 at 10:15; Stop 05/31/18 at 10:14; Status DC Diazepam (Valium) 5 mg TID PRN PO ANXIETY / AGITATION; Start 05/30/18 at 10:15 Acetaminophen (Tylenol) 650 mg PRN Q6HRS PRN PO FEVER; Start 05/30/18 at 16:15 Ondansetron HCl (Zofran) 4 mg PRN Q6HRS PRN IV NAUSEA/VOMITING; Start at 16:15 Morphine Sulfate (Morphine Sulfate) 2 mg PRN Q2HR PRN IV MODERATE TO SEVERE PAIN Last administered on 06/01/18at 03:50; Start 05/30/18 at 16:15 Tramadol HCl (Ultram) 50 mg PRN Q6HRS PRN PO MILD PAIN; Start 05/30/18 at 16: 15 Docusate Sodium (Colace) 100 mg PRN DAILY PRN PO CONSTIPATION; Start 05/30/18 at 16:15 Labetalol HCl (Normodyne Iv Push) 20 mg PRN Q2HR PRN IVP HYPERTENSION, SEE COMMENTS; Start 05/30/18 at 16:15 Amlodipine Besylate (Norvasc) 10 mg DAILY PO ; Start 05/31/18 at 09:00; Stop 05/31/18 at 09:00; Status DC Aspirin (Ecotrin) 81 mg DAILY PO Last administered on 06/01/18at 13:10; Start 05/31/18 at 09:00 Atorvastatin Calcium (Lipitor) 40 mg QHS PO Last administered on 05/31/18at 20: 33; Start 05/30/18 at 21:00 Cyclobenzaprine HCl (Flexeril) 10 mg PRN TID PRN PO MUSCLE SPASMS Last administered on 05/30/18at 20:15; Start 05/30/18 at 16:15 Oxycodone/ Acetaminophen (Percocet 5/325) 1 tab PRN Q4HRS PRN PO MODERATE PAIN Last administered on 05/30/18at 18:12; Start 05/30/18 at 16:15 Lisinopril (Prinivil) 40 mg DAILY PO Last administered on 06/01/18at 13:11; Start 05/30/18 at 17:00 Amlodipine Besylate (Norvasc) 10 mg DAILY PO Last administered on 06/01/18at 13 :10; Start 05/31/18 at 09:00 Enoxaparin Sodium (Lovenox 40mg Syringe) 40 mg Q24H SQ Last administered on at 17:28; Start 05/30/18 at 17:00 Oxycodone/ Acetaminophen (Percocet 10/325) 1 tab PRN Q4HRS PRN PO SEVERE PAIN Last administered on 05/31/18at 15:11; Start 05/31/18 at 09:30 Metformin HCl (Glucophage) 500 mg BIDWMEALS PO Last administered on 05/31/18at 17:28; Start 05/31/18 at 17:00; Stop 06/01/18 at 08:02; Status DC Insulin Human Lispro (HumaLOG) 0-9 UNITS TIDWMEALS SQ ; Start 05/31/18 at 17:00 Dextrose (Dextrose 50%-Water Syringe) 12.5 gm PRN Q15MIN PRN IV SEE COMMENTS; Start 05/31/18 at 12:45 Fentanyl Citrate (Fentanyl 2ml Vial) 50 mcg 1X ONCE IV Last administered on at 19:30; Start 05/31/18 at 19:30; Stop 05/31/18 at 19:31; Status DC Fentanyl Citrate (Fentanyl 2ml Vial) 50 mcg PRN Q3HRS PRN IV SEVERE PAIN Last administered on 06/01/18at 13:09; Start 06/01/18 at 06:15 Iohexol (Omnipaque 180 Mg/ml) 20 ml 1X ONCE IT Last administered on at 10:19; Start 06/01/18 at 08:00; Stop 06/01/18 at 08:01; Status DC Lidocaine/Sodium Bicarbonate (Buffered Lidocaine 1%) 6 ml 1X ONCE INJ Last administered on 06/01/18at 10:18; Start 06/01/18 at 08:00; Stop 06/01/18 at 08 :01; Status DC Info (CONTRAST GIVEN -- Rx MONITORING) 1 each PRN DAILY PRN MC SEE COMMENTS; Start 06/01/18 at 08:15; Stop 06/03/18 at 08:14 Metformin HCl (Glucophage) 500 mg BIDWMEALS PO ; Start 06/03/18 at 17:00 Bacitracin 34940 unit/Sodium Chloride 1,000 ml @ 1,000 mls/hr 1X ONCE IRR ; Start 06/02/18 at 06:00; Stop 06/02/18 at 06:59 Cefazolin Sodium/ Dextrose 50 ml @ 100 mls/hr 1X PREOP PRN IV PRIOR TO SURGERY ; Start 06/02/18 at 06:00; Stop 06/02/18 at 06:01 Active Scripts Active Atorvastatin Calcium 40 Mg Tablet 40 Mg PO QHS Medrol (Methylprednisolone) 4 Mg Tab.ds.pk 1 Pkg PO UD Lidocaine 1 Each Adh..patch 1 Each TP Q[address]HR PRN Place one patch for 12 hours, remove patch after 12 hours use. wait 12 hours before placing a new patch [place] 5-325 Tablet (Acetaminophen/Hydrocodone Bitart) 1 Each Tablet 1 Tab PO PRN Q6HRS PRN Orphenadrine Citrate 100 Mg Tablet.er 1 Tab PO BID 10 Days Naproxen 500 Mg Tablet 1 Tab PO BID 10 Days Orphenadrine Citrate 100 Mg Tablet.er 100 Mg PO BID PRN Orphenadrine Citrate 100 Mg Tablet.er 100 Mg PO BID Diclofenac Sodium 50 Mg Tablet.dr 50 Mg PO BID Imitrex (Sumatriptan Succinate) 100 Mg Tablet 1 Tab PO UD PRN MDD 200 mg Take first dose of medication at onset of headache. He may repeat with 1 additional dose after 2 hours if headache is still present. Cyclobenzaprine Hcl 10 Mg Tablet 10 Mg PO TID PRN Reported Amlodipine Besylate 10 Mg Tablet 10 Mg PO DAILY Hydrochlorothiazide Tablet (Hydrochlorothiazide) 25 Mg Tablet 1 Tab PO DAILY Lisinopril 5 Mg Tablet 1 Tab PO DAILY Excedrin Migraine Caplet (Aspirin/Acetaminophen/Caffeine) 1 Each Tablet 1 Each PO PRN Q6-8HRS PRN Aspirin Ec (Aspirin) 81 Mg Tablet. 81 Mg PO DAILY Benzonatate 100 Mg Capsule 1 Cap PO TID Vitals/I & O Vital Sign - Last 24 Hours 05/31/18 05/31/18 05/31/18 05/31/18 15:00 15:11 16:15 19:30 Temp 96.8 96.8 Pulse 92 Resp 18 18 B/P (MAP) 140/87 (104) Pulse Ox 94 96 96 96 O2 Delivery Room Air Room Air Room Air Room Air 05/31/18 05/31/18 05/31/18 06/01/18 20:00 20:15 23:00 03:00 Temp 98.2 97.5 98.2 97.5 Pulse 95 82 Resp 18 18 B/P (MAP) 143/111 (122) 155/92 (113) Pulse Ox 96 95 92 O2 Delivery Room Air Room Air Room Air Room Air 06/01/18 06/01/18 06/01/18 06/01/18 03:50 04:20 07:00 08:25 Temp 97.7 97.7 Pulse 75 Resp 18 16 B/P (MAP) 124/88 (100) Pulse Ox 95 95 94 95 O2 Delivery Room Air Room Air Room Air Room Air 06/01/18 06/01/18 06/01/18 06/01/18 09:00 11:35 13:09 13:10 Temp 98.8 98.8 Pulse 80 80 Resp 16 B/P (MAP) 146/87 (106) 146/87 Pulse Ox 95 97 97 O2 Delivery Room Air Room Air Room Air 06/01/18 13:11 Pulse 80 B/P (MAP) 146/87 Intake and Output 05/31/18 05/31/18 06/01/18 15:00 23:00 07:00 Intake Total 200 ml Output Total 200 ml Balance 0 ml JORGE AUGUSTE APRN Jun 01, 2018 13:33
[2018-06-01 15:00] VITALS: BP 152/92
[2018-06-01] MEDS: ENOXAPARIN 40 MG/0.4 ML SYRINGE. SQ SCH (16:53)
[2018-06-01 19:00] VITALS: BP 144/88
[2018-06-01] MEDS: ATORVASTATIN CALCIUM 40 MG TABLET. PO SCH (21:14)
[2018-06-01 23:00] VITALS: BP 144/88
[2018-06-01] MEDS: oxyCODONE/APAP 10/325 1 TAB TABLET PO PRN (23:13)
[2018-06-02] VITALS (12 sets, daily range): BP systolic 126–162; BP diastolic 78–105
[2018-06-02] MEDS: fentaNYL PF VIAL 100 MCG/2 ML VIAL IV PRN ×8 (00:32→23:09)
[2018-06-02] MEDS ORDERED: BUPIVAC MPF-EPI 0.5%-1:200000 30 ML VIAL. ONE (05:25)
[2018-06-02] MEDS ORDERED: GELATIN SPONGE SIZE 100. ONE (05:25)
[2018-06-02] MEDS ORDERED: KETOROLAC 60 MG/2 ML INJ FOR OR. ONE (05:26)
[2018-06-02] MEDS ORDERED: BACITRACIN 50,000 UNIT in IV NORMAL SALINE 1000ML BAG 1,000 ML IRR ONE (06:00)
[2018-06-02] MEDS ORDERED: MORPHINE SULFATE 2 MG/ML VIAL. IV PRN ×2 (07:00→12:15)
[2018-06-02] MEDS ORDERED: ONDANSETRON PF 4 MG/2 ML VIAL. IV PRN ×2 (07:00→12:15)
[2018-06-02] MEDS ORDERED: LIDOCAINE 1% PF 2 ML VIAL. ID PRN ×2 (07:00→12:15)
[2018-06-02] MEDS ORDERED: PROCHLORPERAZINE 10 MG/2 ML VIAL. IV PRN ×2 (07:00→12:15)
[2018-06-02] MEDS ORDERED: HYDROmorphone 2 MG/ML VIAL IV PRN ×2 (07:00→12:15)
[2018-06-02] MEDS ORDERED: fentaNYL PF VIAL 100 MCG/2 ML VIAL IV PRN ×3 (07:00→12:15)
--- NOTE | 2018-06-02 07:44 | PDOC ---
PROGRESS NOTES Chief Complaint Chief Complaint intractable lower back pain with possible h/o disc herniation as per pt HTN urgency hld morbid obesity dm2 hba1c 6.5 leukocytosis, recently on steroid History of Present Illness History of Present Illness Admitted for c/o severe lower back pain shooting down to leg, unable to walk. 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 Some constipation. He is upset about elevated blood sugars as well. plan: DM -with A1c 6.5, pt to take dm2 meds. add metformin for now. ssi, pt refuse insulin intractable lower back pain - with possible h/o disc herniation as per pt, dr. abebe, dr. suazo consulted, possible sx today pain control , increase percocet prn, morphine iv prn. also on fentanyl prn HTN urgency - complicated by pain, cont amlodipine, add lisinopril. labetolol iv prn hld - statin morbid obesity - counseled, though his musculature is more consistent with large lean muscle mass leukocytosis, recently on steroid - normalized today consistent with steroid use PTOT dvt PPX - heparin post op FULL CODE Vitals Vitals Vital Signs Date Time Temp Pulse Resp B/P (MAP) Pulse Ox O2 Delivery O2 Flow Rate FiO2 06/02/18 07:26 18 Room Air 06/02/18 03:00 97.7 80 135/89 (104) 95 97.7 Physical Exam Physical Exam rt leg limed ROM 2/2 pain General: Alert, Oriented X3, Cooperative Heart: Regular rate, Normal S1, Normal S2 Lungs: Clear Abdomen: Normal bowel sounds, Soft Extremities: No clubbing, No cyanosis, No edema, Normal pulses Skin: No rashes Labs LABS Laboratory Tests Test 06/01/18 08:10 06/01/18 10:47 06/01/18 16:46 06/01/18 20:37 Glucose (Fingerstick) 89 mg/dL (70-99) 83 mg/dL (70-99) 114 mg/dL (70-99) 129 mg/dL (70-99) Assessment and Plan Assessmemt and Plan Problems Medical Problems: (1) Fall from standing Status: Acute (2) Sciatica Status: Acute Comment Review of Relevant I have reviewed the following items oly (where applicable) has been applied. Labs Laboratory Tests Test 05/31/18 17:19 05/31/18 20:42 06/01/18 03:55 06/01/18 08:10 Glucose (Fingerstick) 209 mg/dL (70-99) 169 mg/dL (70-99) 89 mg/dL (70-99) White Blood Count 11.6 x10^3/uL (4.0-11.0) Red Blood Count 5.11 x10^6/uL (4.30-5.70) Hemoglobin 15.6 g/dL (13.0-17.5) Hematocrit 45.8 % (39.0-53.0) Mean Corpuscular Volume 90 fL (79-100) Mean Corpuscular Hemoglobin 31 pg (25-35) Mean Corpuscular Hemoglobin Concent 34 g/dL (31-37) Red Cell Distribution Width 15.5 % (11.5-14.5) Platelet Count 268 x10^3/uL (140-400) Neutrophils (%) (Auto) 58 % (31-73) Lymphocytes (%) (Auto) 33 % (24-48) Monocytes (%) (Auto) 8 % (0-9) Eosinophils (%) (Auto) 1 % (0-3) Basophils (%) (Auto) 0 % (0-3) Neutrophils # (Auto) 6.7 x10^3uL (1.8-7.7) Lymphocytes # (Auto) 3.8 x10^3/uL (1.0-4.8) Monocytes # (Auto) 1.0 x10^3/uL (0.0-1.1) Eosinophils # (Auto) 0.1 x10^3/uL (0.0-0.7) Basophils # (Auto) 0.0 x10^3/uL (0.0-0.2) Sodium Level 145 mmol/L (136-145) Potassium Level 3.8 mmol/L (3.5-5.1) Chloride Level 107 mmol/L (98-107) Carbon Dioxide Level 29 mmol/L (21-32) Anion Gap 9 (6-14) Blood Urea Nitrogen 13 mg/dL (8-26) Creatinine 1.3 mg/dL (0.7-1.3) Estimated GFR (Cockcroft-Gault) 69.3 Glucose Level 102 mg/dL (70-99) Calcium Level 8.8 mg/dL (8.5-10.1) Test 06/01/18 10:47 06/01/18 16:46 06/01/18 20:37 Glucose (Fingerstick) 83 mg/dL (70-99) 114 mg/dL (70-99) 129 mg/dL (70-99) Laboratory Tests Test 06/01/18 08:10 06/01/18 10:47 06/01/18 16:46 06/01/18 20:37 Glucose (Fingerstick) 89 mg/dL (70-99) 83 mg/dL (70-99) 114 mg/dL (70-99) 129 mg/dL (70-99) Medications Current Medications Methylprednisolone Sodium Succinate (SOLU-Medrol 125MG VIAL) 125 mg 1X ONCE IM Last administered on 05/30/18at 08:54; Start 05/30/18 at 08:45; Stop at 08:46; Status DC Morphine Sulfate (Morphine Sulfate) 5 mg 1X ONCE IM Last administered on 05/30at 08:55; Start 05/30/18 at 08:45; Stop 05/30/18 at 08:46; Status DC Ketorolac Tromethamine (Toradol Im) 60 mg 1X ONCE IM Last administered on at 08:54; Start 05/30/18 at 08:45; Stop 05/30/18 at 08:46; Status DC Diazepam (Valium) 5 mg 1X ONCE PO Last administered on 05/30/18at 08:56; Start 05/30/18 at 08:45; Stop 05/30/18 at 08:46; Status DC Clonidine HCl (Catapres) 0.1 mg 1X ONCE PO ; Start 05/30/18 at 08:45; Stop at 08:46; Status DC Ondansetron HCl (Zofran) 4 mg PRN Q8HRS PRN IV NAUSEA/VOMITING Last administered on 05/30/18at 12:27; Start 05/30/18 at 10:15; Stop 05/30/18 at 16 :11; Status DC Morphine Sulfate (Morphine Sulfate) 4 mg PRN Q2HR PRN IV PAIN; Start 05/30/18 at 10:15; Stop 05/31/18 at 10:14; Status DC Acetaminophen (Tylenol) 650 mg PRN Q4HRS PRN PO FEVER Last administered on at 20:15; Start 05/30/18 at 10:15; Stop 05/31/18 at 10:14; Status DC Diazepam (Valium) 5 mg TID PRN PO ANXIETY / AGITATION; Start 05/30/18 at 10:15 Acetaminophen (Tylenol) 650 mg PRN Q6HRS PRN PO FEVER; Start 05/30/18 at 16:15 Ondansetron HCl (Zofran) 4 mg PRN Q6HRS PRN IV NAUSEA/VOMITING; Start at 16:15 Morphine Sulfate (Morphine Sulfate) 2 mg PRN Q2HR PRN IV MODERATE TO SEVERE PAIN Last administered on 06/01/18at 03:50; Start 05/30/18 at 16:15; Stop at 14:05; Status DC Tramadol HCl (Ultram) 50 mg PRN Q6HRS PRN PO MILD PAIN; Start 05/30/18 at 16: 15 Docusate Sodium (Colace) 100 mg PRN DAILY PRN PO CONSTIPATION; Start 05/30/18 at 16:15 Labetalol HCl (Normodyne Iv Push) 20 mg PRN Q2HR PRN IVP HYPERTENSION, SEE COMMENTS; Start 05/30/18 at 16:15 Amlodipine Besylate (Norvasc) 10 mg DAILY PO ; Start 05/31/18 at 09:00; Stop 05/31/18 at 09:00; Status DC Aspirin (Ecotrin) 81 mg DAILY PO Last administered on 06/01/18at 13:10; Start 05/31/18 at 09:00 Atorvastatin Calcium (Lipitor) 40 mg QHS PO Last administered on 06/01/18at 21: 14; Start 05/30/18 at 21:00 Cyclobenzaprine HCl (Flexeril) 10 mg PRN TID PRN PO MUSCLE SPASMS Last administered on 05/30/18at 20:15; Start 05/30/18 at 16:15 Oxycodone/ Acetaminophen (Percocet 5/325) 1 tab PRN Q4HRS PRN PO MODERATE PAIN Last administered on 05/30/18at 18:12; Start 05/30/18 at 16:15; Stop 06/01/18 at 14:05; Status DC Lisinopril (Prinivil) 40 mg DAILY PO Last administered on 06/01/18at 13:11; Start 05/30/18 at 17:00 Amlodipine Besylate (Norvasc) 10 mg DAILY PO Last administered on 06/01/18at 13 :10; Start 05/31/18 at 09:00 Enoxaparin Sodium (Lovenox 40mg Syringe) 40 mg Q24H SQ Last administered on at 16:53; Start 05/30/18 at 17:00 Oxycodone/ Acetaminophen (Percocet 10/325) 1 tab PRN Q4HRS PRN PO SEVERE PAIN Last administered on 06/01/18at 23:13; Start 05/31/18 at 09:30 Metformin HCl (Glucophage) 500 mg BIDWMEALS PO Last administered on 05/31/18at 17:28; Start 05/31/18 at 17:00; Stop 06/01/18 at 08:02; Status DC Insulin Human Lispro (HumaLOG) 0-9 UNITS TIDWMEALS SQ ; Start 05/31/18 at 17:00 Dextrose (Dextrose 50%-Water Syringe) 12.5 gm PRN Q15MIN PRN IV SEE COMMENTS; Start 05/31/18 at 12:45 Fentanyl Citrate (Fentanyl 2ml Vial) 50 mcg 1X ONCE IV Last administered on at 19:30; Start 05/31/18 at 19:30; Stop 05/31/18 at 19:31; Status DC Fentanyl Citrate (Fentanyl 2ml Vial) 50 mcg PRN Q3HRS PRN IV SEVERE PAIN Last administered on 06/01/18at 13:09; Start 06/01/18 at 06:15; Stop 06/01/18 at 14 :05; Status DC Iohexol (Omnipaque 180 Mg/ml) 20 ml 1X ONCE IT Last administered on at 10:19; Start 06/01/18 at 08:00; Stop 06/01/18 at 08:01; Status DC Lidocaine/Sodium Bicarbonate (Buffered Lidocaine 1%) 6 ml 1X ONCE INJ Last administered on 06/01/18at 10:18; Start 06/01/18 at 08:00; Stop 06/01/18 at 08 :01; Status DC Info (CONTRAST GIVEN -- Rx MONITORING) 1 each PRN DAILY PRN MC SEE COMMENTS; Start 06/01/18 at 08:15; Stop 06/03/18 at 08:14 Metformin HCl (Glucophage) 500 mg BIDWMEALS PO ; Start 06/03/18 at 17:00 Bacitracin 78712 unit/Sodium Chloride 1,000 ml @ 1,000 mls/hr 1X ONCE IRR ; Start 06/02/18 at 06:00; Stop 06/02/18 at 06:59; Status DC Cefazolin Sodium/ Dextrose 50 ml @ 100 mls/hr 1X PREOP PRN IV PRIOR TO SURGERY ; Start 06/02/18 at 06:00; Stop 06/02/18 at 06:01; Status DC Fentanyl Citrate (Fentanyl 2ml Vial) 75 mcg PRN Q3HRS PRN IV SEVERE PAIN Last administered on 06/02/18at 07:26; Start 06/01/18 at 14:15 Ondansetron HCl (Zofran) 4 mg PRN Q6HRS PRN IV NAUSEA/VOMITING; Start 06/02/18 at 07:00; Stop 06/03/18 at 06:59 Fentanyl Citrate (Fentanyl 2ml Vial) 25 mcg PRN Q5MIN PRN IV MILD PAIN; Start 06/02/18 at 07:00; Stop 06/03/18 at 06:59 Fentanyl Citrate (Fentanyl 2ml Vial) 50 mcg PRN Q5MIN PRN IV MODERATE TO SEVERE PAIN; Start 06/02/18 at 07:00; Stop 06/03/18 at 06:59 Morphine Sulfate (Morphine Sulfate) 1 mg PRN Q10MIN PRN IV SEVERE PAIN; Start 06/02/18 at 07:00; Stop 06/03/18 at 06:59 Ringer's Solution 1,000 ml @ 30 mls/hr Q24H IV ; Start 06/02/18 at 07:00; Stop 06/02/18 at 18:59 Lidocaine HCl (Xylocaine-Mpf 1% 2ml Vial) 2 ml PRN 1X PRN ID PRIOR TO IV START ; Start 06/02/18 at 07:00; Stop 06/03/18 at 06:59 Hydromorphone HCl (Dilaudid) 0.5 mg PRN Q10MIN PRN IV SEV PAIN, Second choice; Start 06/02/18 at 07:00; Stop 06/03/18 at 06:59 Prochlorperazine Edisylate (Compazine) 5 mg PACU PRN PRN IV NAUSEA, MRX1; Start 06/02/18 at 07:00; Stop 06/03/18 at 06:59 Gelatin (Gelfoam Size 100) 1 each STK-MED ONCE .ROUTE ; Start 06/02/18 at 05:25 ; Stop 06/02/18 at 06:26; Status DC Bupivacaine HCl/ Epinephrine Bitart (Sensorcain-Mpf Epi 0.5%-1:[id number]) 30 ml STK -MED ONCE .ROUTE ; Start 06/02/18 at 05:25; Stop 06/02/18 at 06:26; Status DC Ketorolac Tromethamine (Toradol For Or Only) 60 mg STK-MED ONCE .ROUTE ; Start 06/02/18 at 05:26; Stop 06/02/18 at 06:26; Status DC Active Scripts Active Atorvastatin Calcium 40 Mg Tablet 40 Mg PO QHS Medrol (Methylprednisolone) 4 Mg Tab.ds.pk 1 Pkg PO UD Lidocaine 1 Each Adh..patch 1 Each TP Q12HR PRN Place one patch for 12 hours, remove patch after 12 hours use. wait 12 hours before [address] a new patch [place] 5-325 Tablet (Acetaminophen/Hydrocodone Bitart) 1 Each Tablet 1 Tab PO PRN Q6HRS PRN Orphenadrine Citrate 100 Mg Tablet.er 1 Tab PO BID 10 Days Naproxen 500 Mg Tablet 1 Tab PO BID 10 Days Orphenadrine Citrate 100 Mg Tablet.er 100 Mg PO BID PRN Orphenadrine Citrate 100 Mg Tablet.er 100 Mg PO BID Diclofenac Sodium 50 Mg Tablet.dr 50 Mg PO BID Imitrex (Sumatriptan Succinate) 100 Mg Tablet 1 Tab PO UD PRN MDD 200 mg Take first dose of medication at onset of headache. He may repeat with 1 additional dose after 2 hours if headache is still present. Cyclobenzaprine Hcl 10 Mg Tablet 10 Mg PO TID PRN Reported Amlodipine Besylate 10 Mg Tablet 10 Mg PO DAILY Hydrochlorothiazide Tablet (Hydrochlorothiazide) 25 Mg Tablet 1 Tab PO DAILY Lisinopril 5 Mg Tablet 1 Tab PO DAILY Excedrin Migraine Caplet (Aspirin/Acetaminophen/Caffeine) 1 Each Tablet 1 Each PO PRN Q6-8HRS PRN Aspirin Ec (Aspirin) 81 Mg Tablet.dr 81 Mg PO DAILY Benzonatate 100 Mg Capsule 1 Cap PO TID Vitals/I & O Vital Sign - Last 24 Hours 06/01/18 06/01/18 06/01/18 06/01/18 08:25 08:30 11:35 13:09 Temp 98.8 98.8 Pulse 80 Resp 16 B/P (MAP) 146/87 (106) Pulse Ox 95 97 97 O2 Delivery Room Air Room Air Room Air Room Air 06/01/18 06/01/18 06/01/18 06/01/18 13:10 13:11 13:53 15:00 Temp 98.0 98.0 Pulse 80 80 88 Resp 16 B/P (MAP) 146/87 146/87 152/92 (112) Pulse Ox 97 97 O2 Delivery Room Air Room Air 06/01/18 06/01/18 06/01/18 06/01/18 16:51 17:26 19:00 20:00 Temp 97.8 97.8 Pulse 71 Resp 16 B/P (MAP) 144/88 (106) Pulse Ox 97 97 95 O2 Delivery Room Air Room Air Room Air 06/01/18 06/01/18 06/01/18 06/02/18 21:15 23:00 23:13 00:25 Temp 97.8 97.8 Pulse 71 Resp 18 16 18 18 B/P (MAP) 144/88 (106) Pulse Ox 95 O2 Delivery Room Air Room Air Room Air Room Air 06/02/18 06/02/18 06/02/18 06/02/18 00:32 03:00 04:06 04:50 Temp 97.7 97.7 Pulse 80 Resp 18 16 18 18 B/P (MAP) 135/89 (104) Pulse Ox 95 O2 Delivery Room Air Room Air Room Air Room Air 06/02/18 07:26 Resp 18 O2 Delivery Room Air Intake and Output 06/01/18 06/01/18 06/02/18 15:00 23:00 07:00 Intake Total 120 ml Output Total 200 ml Balance -80 ml YAKELIN STONE MD Jun 02, 2018 07:44
[2018-06-02] MEDS: INSULIN LISPRO 300 UNITS/3 ML INSULN.PEN. SQ SCH ×3 (08:00→17:00)
[2018-06-02 08:05] LABS: BASO % 1 % (0-3); EOS # 0.1 x10^3/uL (0.0-0.7); EOS % 2 % (0-3); HEMATOCRIT 46.6 % (39.0-53.0); LYMPH # 3.6 x10^3/uL (1.0-4.8); LYMPH % 53 % (24-48); MEAN CORPUSCULAR HEMOGLOBIN 31 pg (25-35); MEAN CORPUSCULAR HGB CONC 34 g/dL (31-37); MEAN CORPUSCULAR VOLUME 90 fL (79-100); MONO # 0.9 x10^3/uL (0.0-1.1); MONO % 13 % (0-9); NEUT # 2.1 x10^3uL (1.8-7.7); NEUT % 32 % (31-73); PLATELET COUNT 279 x10^3/uL (140-400); RED BLOOD COUNT 5.18 x10^6/uL (4.30-5.70); RED CELL DISTRIBUTION WIDTH 15.5 % (11.5-14.5); WHITE BLOOD COUNT 6.7 x10^3/uL (4.0-11.0)
[2018-06-02 08:15] LABS: CALCIUM 8.7 mg/dL (8.5-10.1); CREATININE 1.1 mg/dL (0.7-1.3); GFR 84.1; POTASSIUM 3.8 mmol/L (3.5-5.1)
[2018-06-02] MEDS: LISINOPRIL 20 MG TABLET PO SCH (09:00)
[2018-06-02] MEDS: ASPIRIN ENTERIC COATED 81 MG TABLET.DR. PO SCH (09:00)
[2018-06-02] MEDS: amLODIPine BESYLATE 10 MG TABLET PO SCH (09:00)
--- NOTE | 2018-06-02 10:32 | PDOC ---
PROGRESS NOTES Subjective Subjective No new complaints. Objective Objective Vital Signs Date Time Temp Pulse Resp B/P (MAP) Pulse Ox O2 Delivery O2 Flow Rate FiO2 06/02/18 08:02 Room Air 06/02/18 07:26 18 06/02/18 07:00 97.8 72 138/102 (114) 93 97.8 Intake and Output 06/02/18 07:00 Intake Total 120 ml Output Total 200 ml Balance -80 ml Intake Oral 120 ml Output Urine Total 200 ml # Voids 3 Physical Exam Physical Exam He is comfortable supine in bed and lumbar myelogram and ct [place]. [place] [address] and 2 days ago it was 6700. He is afebrile and he denies any dysuria. Assessment Assessment Problems Medical Problems: (1) Fall from standing Status: Acute (2) Sciatica Status: Acute Plan Plan of Care Hope surgery can help. Comment Review of Relevant I have reviewed the following items oly (where applicable) has been applied. Labs Laboratory Tests Test 05/31/18 17:19 05/31/18 20:42 06/01/18 03:55 06/01/18 08:10 Glucose (Fingerstick) 209 mg/dL (70-99) 169 mg/dL (70-99) 89 mg/dL (70-99) White Blood Count 11.6 x10^3/uL (4.0-11.0) Red Blood Count 5.11 x10^6/uL (4.30-5.70) Hemoglobin 15.6 g/dL (13.0-17.5) Hematocrit 45.8 % (39.0-53.0) Mean Corpuscular Volume 90 fL (79-100) Mean Corpuscular Hemoglobin 31 pg (25-35) Mean Corpuscular Hemoglobin Concent 34 g/dL (31-37) Red Cell Distribution Width 15.5 % (11.5-14.5) Platelet Count 268 x10^3/uL (140-400) Neutrophils (%) (Auto) 58 % (31-73) Lymphocytes (%) (Auto) 33 % (24-48) Monocytes (%) (Auto) 8 % (0-9) Eosinophils (%) (Auto) 1 % (0-3) Basophils (%) (Auto) 0 % (0-3) Neutrophils # (Auto) 6.7 x10^3uL (1.8-7.7) Lymphocytes # (Auto) 3.8 x10^3/uL (1.0-4.8) Monocytes # (Auto) 1.0 x10^3/uL (0.0-1.1) Eosinophils # (Auto) 0.1 x10^3/uL (0.0-0.7) Basophils # (Auto) 0.0 x10^3/uL (0.0-0.2) Sodium Level 145 mmol/L (136-145) Potassium Level 3.8 mmol/L (3.5-5.1) Chloride Level 107 mmol/L (98-107) Carbon Dioxide Level 29 mmol/L (21-32) Anion Gap 9 (6-14) Blood Urea Nitrogen 13 mg/dL (8-26) Creatinine 1.3 mg/dL (0.7-1.3) Estimated GFR (Cockcroft-Gault) 69.3 Glucose Level 102 mg/dL (70-99) Calcium Level 8.8 mg/dL (8.5-10.1) Test 06/01/18 10:47 06/01/18 16:46 06/01/18 20:37 06/02/18 06:50 Glucose (Fingerstick) 83 mg/dL (70-99) 114 mg/dL (70-99) 129 mg/dL (70-99) White Blood Count 6.7 x10^3/uL (4.0-11.0) Red Blood Count 5.18 x10^6/uL (4.30-5.70) Hemoglobin 16.0 g/dL (13.0-17.5) Hematocrit 46.6 % (39.0-53.0) Mean Corpuscular Volume 90 fL (79-100) Mean Corpuscular Hemoglobin 31 pg (25-35) Mean Corpuscular Hemoglobin Concent 34 g/dL (31-37) Red Cell Distribution Width 15.5 % (11.5-14.5) Platelet Count 279 x10^3/uL (140-400) Neutrophils (%) (Auto) 32 % (31-73) Lymphocytes (%) (Auto) 53 % (24-48) Monocytes (%) (Auto) 13 % (0-9) Eosinophils (%) (Auto) 2 % (0-3) Basophils (%) (Auto) 1 % (0-3) Neutrophils # (Auto) 2.1 x10^3uL (1.8-7.7) Lymphocytes # (Auto) 3.6 x10^3/uL (1.0-4.8) Monocytes # (Auto) 0.9 x10^3/uL (0.0-1.1) Eosinophils # (Auto) 0.1 x10^3/uL (0.0-0.7) Basophils # (Auto) 0.0 x10^3/uL (0.0-0.2) Sodium Level 144 mmol/L (136-145) Potassium Level 3.8 mmol/L (3.5-5.1) Chloride Level 106 mmol/L (98-107) Carbon Dioxide Level 30 mmol/L (21-32) Anion Gap 8 (6-14) Blood Urea Nitrogen 10 mg/dL (8-26) Creatinine 1.1 mg/dL (0.7-1.3) Estimated GFR (Cockcroft-Gault) 84.1 Glucose Level 102 mg/dL (70-99) Calcium Level 8.7 mg/dL (8.5-10.1) Test 06/02/18 07:31 Glucose (Fingerstick) 99 mg/dL (70-99) Laboratory Tests Test 06/01/18 10:47 06/01/18 16:46 06/01/18 20:37 06/02/18 06:50 Glucose (Fingerstick) 83 mg/dL (70-99) 114 mg/dL (70-99) 129 mg/dL (70-99) White Blood Count 6.7 x10^3/uL (4.0-11.0) Red Blood Count 5.18 x10^6/uL (4.30-5.70) Hemoglobin 16.0 g/dL (13.0-17.5) Hematocrit 46.6 % (39.0-53.0) Mean Corpuscular Volume 90 fL (79-100) Mean Corpuscular Hemoglobin 31 pg (25-35) Mean Corpuscular Hemoglobin Concent 34 g/dL (31-37) Red Cell Distribution Width 15.5 % (11.5-14.5) Platelet Count 279 x10^3/uL (140-400) Neutrophils (%) (Auto) 32 % (31-73) Lymphocytes (%) (Auto) 53 % (24-48) Monocytes (%) (Auto) 13 % (0-9) Eosinophils (%) (Auto) 2 % (0-3) Basophils (%) (Auto) 1 % (0-3) Neutrophils # (Auto) 2.1 x10^3uL (1.8-7.7) Lymphocytes # (Auto) 3.6 x10^3/uL (1.0-4.8) Monocytes # (Auto) 0.9 x10^3/uL (0.0-1.1) Eosinophils # (Auto) 0.1 x10^3/uL (0.0-0.7) Basophils # (Auto) 0.0 x10^3/uL (0.0-0.2) Sodium Level 144 mmol/L (136-145) Potassium Level 3.8 mmol/L (3.5-5.1) Chloride Level 106 mmol/L (98-107) Carbon Dioxide Level 30 mmol/L (21-32) Anion Gap 8 (6-14) Blood Urea Nitrogen 10 mg/dL (8-26) Creatinine 1.1 mg/dL (0.7-1.3) Estimated GFR (Cockcroft-Gault) 84.1 Glucose Level 102 mg/dL (70-99) Calcium Level 8.7 mg/dL (8.5-10.1) Test 06/02/18 07:31 Glucose (Fingerstick) 99 mg/dL (70-99) Medications Current Medications Methylprednisolone Sodium Succinate (SOLU-Medrol 125MG VIAL) 125 mg 1X ONCE IM Last administered on 05/30/18at 08:54; Start 05/30/18 at 08:45; Stop at 08:46; Status DC Morphine Sulfate (Morphine Sulfate) 5 mg 1X ONCE IM Last administered on 05/30at 08:55; Start 05/30/18 at 08:45; Stop 05/30/18 at 08:46; Status DC Ketorolac Tromethamine (Toradol Im) 60 mg 1X ONCE IM Last administered on at 08:54; Start 05/30/18 at 08:45; Stop 05/30/18 at 08:46; Status DC Diazepam (Valium) 5 mg 1X ONCE PO Last administered on 05/30/18at 08:56; Start 05/30/18 at 08:45; Stop 05/30/18 at 08:46; Status DC Clonidine HCl (Catapres) 0.1 mg 1X ONCE PO ; Start 05/30/18 at 08:45; Stop at 08:46; Status DC Ondansetron HCl (Zofran) 4 mg PRN Q8HRS PRN IV NAUSEA/VOMITING Last administered on 05/30/18at 12:27; Start 05/30/18 at 10:15; Stop 05/30/18 at 16 :11; Status DC Morphine Sulfate (Morphine Sulfate) 4 mg PRN Q2HR PRN IV PAIN; Start 05/30/18 at 10:15; Stop 05/31/18 at 10:14; Status DC Acetaminophen (Tylenol) 650 mg PRN Q4HRS PRN PO FEVER Last administered on at 20:15; Start 05/30/18 at 10:15; Stop 05/31/18 at 10:14; Status DC Diazepam (Valium) 5 mg TID PRN PO ANXIETY / AGITATION; Start 05/30/18 at 10:15 Acetaminophen (Tylenol) 650 mg PRN Q6HRS PRN PO FEVER; Start 05/30/18 at 16:15 Ondansetron HCl (Zofran) 4 mg PRN Q6HRS PRN IV NAUSEA/VOMITING; Start at 16:15 Morphine Sulfate (Morphine Sulfate) 2 mg PRN Q2HR PRN IV MODERATE TO SEVERE PAIN Last administered on 06/01/18at 03:50; Start 05/30/18 at 16:15; Stop at 14:05; Status DC Tramadol HCl (Ultram) 50 mg PRN Q6HRS PRN PO MILD PAIN; Start 05/30/18 at 16: 15 Docusate Sodium (Colace) 100 mg PRN DAILY PRN PO CONSTIPATION; Start 05/30/18 at 16:15 Labetalol HCl (Normodyne Iv Push) 20 mg PRN Q2HR PRN IVP HYPERTENSION, SEE COMMENTS; Start 05/30/18 at 16:15 Amlodipine Besylate (Norvasc) 10 mg DAILY PO ; Start 05/31/18 at 09:00; Stop 05/31/18 at 09:00; Status DC Aspirin (Ecotrin) 81 mg DAILY PO Last administered on 06/01/18 13:10; Start 05/31/18 at 09:00 Atorvastatin Calcium (Lipitor) 40 mg QHS PO Last administered on 06/01/18at 21: 14; Start 05/30/18 at 21:00 Cyclobenzaprine HCl (Flexeril) 10 mg PRN TID PRN PO MUSCLE SPASMS Last administered on 05/30/18at 20:15; Start 05/30/18 at 16:15 Oxycodone/ Acetaminophen (Percocet 5/325) 1 tab PRN Q4HRS PRN PO MODERATE PAIN Last administered on 05/30/18 18:12; Start 05/30/18 at 16:15; Stop 06/01/18 at 14:05; Status DC Lisinopril (Prinivil) 40 mg DAILY PO Last administered on 06/01/18 13:11; Start 05/30/18 at 17:00 Amlodipine Besylate (Norvasc) 10 mg DAILY PO Last administered on 06/01/18at 13 :10; Start 05/31/18 at 09:00 Enoxaparin Sodium (Lovenox 40mg Syringe) 40 mg Q24H SQ Last administered on at 16:53; Start 05/30/18 at 17:00 Oxycodone/ Acetaminophen (Percocet 10/325) 1 tab PRN Q4HRS PRN PO SEVERE PAIN Last administered on 06/01/18at 23:13; Start 05/31/18 at 09:30 Metformin HCl (Glucophage) 500 mg BIDWMEALS PO Last administered on 05/31/18at 17:28; Start 05/31/18 at 17:00; Stop 06/01/18 at 08:02; Status DC Insulin Human Lispro (HumaLOG) 0-9 UNITS TIDWMEALS SQ ; Start 05/31/18 at 17:00 Dextrose (Dextrose 50%-Water Syringe) 12.5 gm PRN Q15MIN PRN IV SEE COMMENTS; Start 05/31/18 at 12:45 Fentanyl Citrate (Fentanyl 2ml Vial) 50 mcg 1X ONCE IV Last administered on at 19:30; Start 05/31/18 at 19:30; Stop 05/31/18 at 19:31; Status DC Fentanyl Citrate (Fentanyl 2ml Vial) 50 mcg PRN Q3HRS PRN IV SEVERE PAIN Last administered on 06/01/18at 13:09; Start 06/01/18 at 06:15; Stop 06/01/18 at 14 :05; Status DC Iohexol (Omnipaque 180 Mg/ml) 20 ml 1X ONCE IT Last administered on at 10:19; Start 06/01/18 at 08:00; Stop 06/01/18 at 08:01; Status DC Lidocaine/Sodium Bicarbonate (Buffered Lidocaine 1%) 6 ml 1X ONCE INJ Last administered on 06/01/18at 10:18; Start 06/01/18 at 08:00; Stop 06/01/18 at 08 :01; Status DC Info (CONTRAST GIVEN -- Rx MONITORING) 1 each PRN DAILY PRN MC SEE COMMENTS; Start 06/01/18 at 08:15; Stop 06/03/18 at 08:14 Metformin HCl (Glucophage) 500 mg BIDWMEALS PO ; Start 06/03/18 at 17:00 Bacitracin 25822 unit/Sodium Chloride 1,000 ml @ 1,000 mls/hr 1X ONCE IRR ; Start 06/02/18 at 06:00; Stop 06/02/18 at 06:59; Status DC Cefazolin Sodium/ Dextrose 50 ml @ 100 mls/hr 1X PREOP PRN IV PRIOR TO SURGERY ; Start 06/02/18 at 06:00; Stop 06/02/18 at 06:01; Status DC Fentanyl Citrate (Fentanyl 2ml Vial) 75 mcg PRN Q3HRS PRN IV SEVERE PAIN Last administered on 06/02/18at 07:26; Start 06/01/18 at 14:15 Ondansetron HCl (Zofran) 4 mg PRN Q6HRS PRN IV NAUSEA/VOMITING; Start 06/02/18 at 07:00; Stop 06/03/18 at 06:59 Fentanyl Citrate (Fentanyl 2ml Vial) 25 mcg PRN Q5MIN PRN IV MILD PAIN; Start 06/02/18 at 07:00; Stop 06/03/18 at 06:59 Fentanyl Citrate (Fentanyl 2ml Vial) 50 mcg PRN Q5MIN PRN IV MODERATE TO SEVERE PAIN; Start 06/02/18 at 07:00; Stop 06/03/18 at 06:59 Morphine Sulfate (Morphine Sulfate) 1 mg PRN Q10MIN PRN IV SEVERE PAIN; Start 06/02/18 at 07:00; Stop 06/03/18 at 06:59 Ringer's Solution 1,000 ml @ 30 mls/hr Q24H IV ; Start 06/02/18 at 07:00; Stop 06/02/18 at 18:59 Lidocaine HCl (Xylocaine-Mpf 1% 2ml Vial) 2 ml PRN 1X PRN ID PRIOR TO IV START ; Start 06/02/18 at 07:00; Stop 06/03/18 at 06:59 Hydromorphone HCl (Dilaudid) 0.5 mg PRN Q10MIN PRN IV SEV PAIN, Second choice; Start 06/02/18 at 07:00; Stop 06/03/18 at 06:59 Prochlorperazine Edisylate (Compazine) 5 mg PACU PRN PRN IV NAUSEA, MRX1; Start 06/02/18 at 07:00; Stop 06/03/18 at 06:59 Gelatin (Gelfoam Size 100) 1 each STK-MED ONCE .ROUTE ; Start 06/02/18 at 05:25 ; Stop 06/02/18 at 06:26; Status DC Bupivacaine HCl/ Epinephrine Bitart (Sensorcain-Mpf Epi 0.5%-1:450607) 30 ml STK -MED ONCE .ROUTE ; Start 06/02/18 at 05:25; Stop 06/02/18 at 06:26; Status DC Ketorolac Tromethamine (Toradol For Or Only) 60 mg STK-MED ONCE .ROUTE ; Start 06/02/18 at 05:26; Stop 06/02/18 at 06:26; Status DC Active Scripts Active Atorvastatin Calcium 40 Mg Tablet 40 Mg PO QHS Medrol (Methylprednisolone) 4 Mg Tab.ds.pk 1 Pkg PO UD Lidocaine 1 Each Adh..patch 1 Each TP Q12HR PRN Place one patch for 12 hours, remove patch after 12 hours use. wait 12 hours before placing a new patch [place] 5-325 Tablet (Acetaminophen/Hydrocodone Bitart) 1 Each Tablet 1 Tab PO PRN Q6HRS PRN Orphenadrine Citrate 100 Mg Tablet.er 1 Tab PO BID 10 Days Naproxen 500 Mg Tablet 1 Tab PO BID 10 Days Orphenadrine Citrate 100 Mg Tablet.er 100 Mg PO BID PRN Orphenadrine Citrate 100 Mg Tablet.er 100 Mg PO BID Diclofenac Sodium 50 Mg Tablet.dr 50 Mg PO BID Imitrex (Sumatriptan Succinate) 100 Mg Tablet 1 Tab PO UD PRN MDD 200 mg Take first dose of medication at onset of headache. He may repeat with 1 additional dose after 2 hours if headache is still present. Cyclobenzaprine Hcl 10 Mg Tablet 10 Mg PO TID PRN Reported Amlodipine Besylate 10 Mg Tablet 10 Mg PO DAILY Hydrochlorothiazide Tablet (Hydrochlorothiazide) 25 Mg Tablet 1 Tab PO DAILY Lisinopril 5 Mg Tablet 1 Tab PO DAILY Excedrin Migraine Caplet (Aspirin/Acetaminophen/Caffeine) 1 Each Tablet 1 Each PO PRN Q6-8HRS PRN Aspirin Ec (Aspirin) 81 Mg Tablet. 81 Mg PO DAILY Benzonatate 100 Mg Capsule 1 Cap PO TID Vitals/I & O Vital Sign - Last 24 Hours 06/01/18 06/01/18 06/01/18 06/01/18 11:35 13:09 13:10 13:11 Temp 98.8 98.8 Pulse 80 80 80 Resp 16 B/P (MAP) 146/87 (106) 146/87 146/87 Pulse Ox 97 97 O2 Delivery Room Air Room Air 06/01/18 06/01/18 06/01/18 06/01/18 13:53 15:00 16:51 17:26 Temp 98.0 98.0 Pulse 88 Resp 16 B/P (MAP) 152/92 (112) Pulse Ox 97 97 97 97 O2 Delivery Room Air Room Air Room Air 06/01/18 06/01/18 06/01/18 06/01/18 19:00 20:00 21:15 23:00 Temp 97.8 97.8 97.8 97.8 Pulse 71 71 Resp 16 18 16 B/P (MAP) 144/88 (106) 144/88 (106) Pulse Ox 95 95 O2 Delivery Room Air Room Air Room Air Room Air 06/01/18 06/02/18 06/02/18 06/02/18 23:13 00:25 00:32 03:00 Temp 97.7 97.7 Pulse 80 Resp 18 18 18 16 B/P (MAP) 135/89 (104) Pulse Ox 95 O2 Delivery Room Air Room Air Room Air Room Air 06/02/18 06/02/18 06/02/18 06/02/18 04:06 04:50 07:00 07:26 Temp 97.8 97.8 Pulse 72 Resp 18 18 16 18 B/P (MAP) 138/102 (114) Pulse Ox 93 O2 Delivery Room Air Room Air Room Air 06/02/18 08:02 O2 Delivery Room Air Intake and Output 06/01/18 06/01/18 06/02/18 15:00 23:00 07:00 Intake Total 120 ml Output Total 200 ml Balance -80 ml JOVANNA TALBOT MD Jun 02, 2018 10:32
[2018-06-02] MEDS: IV RINGERS,LACTATED 1000ML 1,000 ML IV SCH ×2 (12:04→15:26)
[2018-06-02] MEDS ORDERED: IV RINGERS,LACTATED 1000ML 1,000 ML IV SCH (12:09)
[2018-06-02] MEDS ORDERED: PROPOFOL 20 ML IV ONE (12:19)
[2018-06-02] MEDS ORDERED: ONDANSETRON PF 4 MG/2 ML VIAL. ONE (12:19)
[2018-06-02] MEDS ORDERED: MIDAZOLAM HCL/PF 2 MG/2 ML VIAL. ONE (12:19)
[2018-06-02] MEDS ORDERED: fentaNYL PF VIAL 100 MCG/2 ML VIAL ONE (12:19)
[2018-06-02] MEDS ORDERED: ROCURONIUM 50 MG/5 ML VIAL. ONE (12:19)
[2018-06-02] MEDS ORDERED: LIDOCAINE 1% PF 5 ML VIAL. ONE (12:22)
[2018-06-02] MEDS ORDERED: PROTAMINE 50 MG/5 ML VIAL. IV ONE (12:24)
[2018-06-02] MEDS ORDERED: REMIFENTANIL 2 MG VIAL. IV ONE (12:29)
[2018-06-02] MEDS ORDERED: ceFAZolin 2GM PREMIX 2 GM/50 ML BAG IV ONE (12:30)
[2018-06-02] MEDS ORDERED: FAMOTIDINE 20 MG/2 ML VIAL ONE (12:52)
[2018-06-02] MEDS ORDERED: PHENYLEPHRINE in 0.9% NACL PF 1 MG/10 ML SYRINGE. IV ONE (13:01)
[2018-06-02] MEDS ORDERED: PROPOFOL 50 ML IV ONE (13:08)
[2018-06-02] MEDS ORDERED: ePHEDrine PF IN SALINE 50 MG/5 ML DISP.SYRIN IV ONE (13:10)
[2018-06-02] MEDS ORDERED: DESFLURANE > 120 MINUTES IH ONE (14:41)
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
[2018-06-02] MEDS ORDERED: MORPHINE SULFATE 4 MG/ML VIAL. IV PRN (15:30)
[2018-06-02] MEDS: oxyCODONE/APAP 10/325 1 TAB TABLET PO PRN ×2 (20:00→23:43)
[2018-06-02] MEDS: ATORVASTATIN CALCIUM 40 MG TABLET. PO SCH (20:00)
[2018-06-02] MEDS: LACTOBACILLUS RHAMNOSUS GG 1 CAPSULE. PO SCH (20:01)
[2018-06-03 03:48] VITALS: BP 134/82
[2018-06-03] MEDS: fentaNYL PF VIAL 100 MCG/2 ML VIAL IV PRN ×2 (03:50→07:23)
[2018-06-03] MEDS: oxyCODONE/APAP 10/325 1 TAB TABLET PO PRN ×5 (03:50→20:39)
[2018-06-03 07:00] VITALS: BP 171/88
[2018-06-03] MEDS ORDERED: DEXAMETHASONE SOD PHOS 4 MG/ML VIAL IV ONE (08:00)
[2018-06-03] MEDS: INSULIN LISPRO 300 UNITS/3 ML INSULN.PEN. SQ SCH ×3 (08:00→16:55)
[2018-06-03] MEDS: ASPIRIN ENTERIC COATED 81 MG TABLET.DR. PO SCH (08:34)
[2018-06-03] MEDS: LISINOPRIL 20 MG TABLET PO SCH (08:35)
[2018-06-03] MEDS: amLODIPine BESYLATE 10 MG TABLET PO SCH (08:36)
[2018-06-03] MEDS: LACTOBACILLUS RHAMNOSUS GG 1 CAPSULE. PO SCH ×2 (08:36→20:38)
--- NOTE | 2018-06-03 09:24 | PDOC ---
PROGRESS NOTES Subjective Subjective He admits significant help with surgery but admits soreness at the site of surgery. Objective Objective Vital Signs Date Time Temp Pulse Resp B/P (MAP) Pulse Ox O2 Delivery O2 Flow Rate FiO2 06/03/18 08:36 83 171/88 06/03/18 08:34 14 Room Air 06/03/18 07:23 95 06/03/18 07:00 98.2 98.2 06/03/18 03:48 2.0 Intake and Output 06/03/18 07:00 Intake Total 2850 ml Output Total 1705 ml Balance 1145 ml Intake Oral 1000 ml IV Total 1850 ml Output Urine Total 1680 ml Estimated Blood Loss 25 ml # Voids 2 Physical Exam Physical Exam He is alert,supine in bed and no change with his neurological status. Assessment Assessment Problems Medical Problems: (1) Fall from standing Status: Acute (2) Sciatica Status: Acute Plan Plan of Care To get him up as tolerated and hopefully home with out patient follow up when medically stable tomorrow. Comment Review of Relevant I have reviewed the following items oly (where applicable) has been applied. Labs Laboratory Tests Test 06/01/18 10:47 06/01/18 16:46 06/01/18 20:37 06/02/18 06:50 Glucose (Fingerstick) 83 mg/dL (70-99) 114 mg/dL (70-99) 129 mg/dL (70-99) White Blood Count 6.7 x10^3/uL (4.0-11.0) Red Blood Count 5.18 x10^6/uL (4.30-5.70) Hemoglobin 16.0 g/dL (13.0-17.5) Hematocrit 46.6 % (39.0-53.0) Mean Corpuscular Volume 90 fL (79-100) Mean Corpuscular Hemoglobin 31 pg (25-35) Mean Corpuscular Hemoglobin Concent 34 g/dL (31-37) Red Cell Distribution Width 15.5 % (11.5-14.5) Platelet Count 279 x10^3/uL (140-400) Neutrophils (%) (Auto) 32 % (31-73) Lymphocytes (%) (Auto) 53 % (24-48) Monocytes (%) (Auto) 13 % (0-9) Eosinophils (%) (Auto) 2 % (0-3) Basophils (%) (Auto) 1 % (0-3) Neutrophils # (Auto) 2.1 x10^3uL (1.8-7.7) Lymphocytes # (Auto) 3.6 x10^3/uL (1.0-4.8) Monocytes # (Auto) 0.9 x10^3/uL (0.0-1.1) Eosinophils # (Auto) 0.1 x10^3/uL (0.0-0.7) Basophils # (Auto) 0.0 x10^3/uL (0.0-0.2) Sodium Level 144 mmol/L (136-145) Potassium Level 3.8 mmol/L (3.5-5.1) Chloride Level 106 mmol/L (98-107) Carbon Dioxide Level 30 mmol/L (21-32) Anion Gap 8 (6-14) Blood Urea Nitrogen 10 mg/dL (8-26) Creatinine 1.1 mg/dL (0.7-1.3) Estimated GFR (Cockcroft-Gault) 84.1 Glucose Level 102 mg/dL (70-99) Calcium Level 8.7 mg/dL (8.5-10.1) Test 06/02/18 07:31 06/02/18 17:09 06/02/18 20:53 06/03/18 07:31 Glucose (Fingerstick) 99 mg/dL (70-99) 133 mg/dL (70-99) 262 mg/dL (70-99) 145 mg/dL (70-99) Laboratory Tests Test 06/02/18 17:09 06/02/18 20:53 06/03/18 07:31 Glucose (Fingerstick) 133 mg/dL (70-99) 262 mg/dL (70-99) 145 mg/dL (70-99) Medications Current Medications Methylprednisolone Sodium Succinate (SOLU-Medrol 125MG VIAL) 125 mg 1X ONCE IM Last administered on 05/30/18at 08:54; Start 05/30/18 at 08:45; Stop at 08:46; Status DC Morphine Sulfate (Morphine Sulfate) 5 mg 1X ONCE IM Last administered on 05/30at 08:55; Start 05/30/18 at 08:45; Stop 05/30/18 at 08:46; Status DC Ketorolac Tromethamine (Toradol Im) 60 mg 1X ONCE IM Last administered on at 08:54; Start 05/30/18 at 08:45; Stop 05/30/18 at 08:46; Status DC Diazepam (Valium) 5 mg 1X ONCE PO Last administered on 05/30/18at 08:56; Start 05/30/18 at 08:45; Stop 05/30/18 at 08:46; Status DC Clonidine HCl (Catapres) 0.1 mg 1X ONCE PO ; Start 05/30/18 at 08:45; Stop at 08:46; Status DC Ondansetron HCl (Zofran) 4 mg PRN Q8HRS PRN IV NAUSEA/VOMITING Last administered on 05/30/18at 12:27; Start 05/30/18 at 10:15; Stop 05/30/18 at 16 :11; Status DC Morphine Sulfate (Morphine Sulfate) 4 mg PRN Q2HR PRN IV PAIN; Start 05/30/18 at 10:15; Stop 05/31/18 at 10:14; Status DC Acetaminophen (Tylenol) 650 mg PRN Q4HRS PRN PO FEVER Last administered on at 20:15; Start 05/30/18 at 10:15; Stop 05/31/18 at 10:14; Status DC Diazepam (Valium) 5 mg TID PRN PO ANXIETY / AGITATION Last administered on 06/02at 20:00; Start 05/30/18 at 10:15 Acetaminophen (Tylenol) 650 mg PRN Q6HRS PRN PO FEVER; Start 05/30/18 at 16:15 Ondansetron HCl (Zofran) 4 mg PRN Q6HRS PRN IV NAUSEA/VOMITING; Start at 16:15 Morphine Sulfate (Morphine Sulfate) 2 mg PRN Q2HR PRN IV MODERATE TO SEVERE PAIN Last administered on 06/01/18at 03:50; Start 05/30/18 at 16:15; Stop at 14:05; Status DC Tramadol HCl (Ultram) 50 mg PRN Q6HRS PRN PO MILD PAIN; Start 05/30/18 at 16: 15 Docusate Sodium (Colace) 100 mg PRN DAILY PRN PO CONSTIPATION; Start 05/30/18 at 16:15 Labetalol HCl (Normodyne Iv Push) 20 mg PRN Q2HR PRN IVP HYPERTENSION, SEE COMMENTS; Start 05/30/18 at 16:15 Amlodipine Besylate (Norvasc) 10 mg DAILY PO ; Start 05/31/18 at 09:00; Stop 05/31/18 at 09:00; Status DC Aspirin (Ecotrin) 81 mg DAILY PO Last administered on 06/03/18at 08:34; Start 05/31/18 at 09:00 Atorvastatin Calcium (Lipitor) 40 mg QHS PO Last administered on 06/02/18at 20: 00; Start 05/30/18 at 21:00 Cyclobenzaprine HCl (Flexeril) 10 mg PRN TID PRN PO MUSCLE SPASMS Last administered on 05/30/18at 20:15; Start 05/30/18 at 16:15 Oxycodone/ Acetaminophen (Percocet 5/325) 1 tab PRN Q4HRS PRN PO MODERATE PAIN Last administered on 05/30/18at 18:12; Start 05/30/18 at 16:15; Stop 06/01/18 at 14:05; Status DC Lisinopril (Prinivil) 40 mg DAILY PO Last administered on 06/03/18at 08:35; Start 05/30/18 at 17:00 Amlodipine Besylate (Norvasc) 10 mg DAILY PO Last administered on 06/03/18at 08: 36; Start 05/31/18 at 09:00 Enoxaparin Sodium (Lovenox 40mg Syringe) 40 mg Q24H SQ Last administered on at 16:53; Start 05/30/18 at 17:00; Stop 06/02/18 at 15:13; Status DC Oxycodone/ Acetaminophen (Percocet 10/325) 1 tab PRN Q4HRS PRN PO SEVERE PAIN Last administered on 06/02/18at 20:00; Start 05/31/18 at 09:30 Metformin HCl (Glucophage) 500 mg BIDWMEALS PO Last administered on 05/31/18at 17:28; Start 05/31/18 at 17:00; Stop 06/01/18 at 08:02; Status DC Insulin Human Lispro (HumaLOG) 0-9 UNITS TIDWMEALS SQ ; Start 05/31/18 at 17:00 Dextrose (Dextrose 50%-Water Syringe) 12.5 gm PRN Q15MIN PRN IV SEE COMMENTS; Start 05/31/18 at 12:45 Fentanyl Citrate (Fentanyl 2ml Vial) 50 mcg 1X ONCE IV Last administered on at 19:30; Start 05/31/18 at 19:30; Stop 05/31/18 at 19:31; Status DC Fentanyl Citrate (Fentanyl 2ml Vial) 50 mcg PRN Q3HRS PRN IV SEVERE PAIN Last administered on 06/01/18at 13:09; Start 06/01/18 at 06:15; Stop 06/01/18 at 14 :05; Status DC Iohexol (Omnipaque 180 Mg/ml) 20 ml 1X ONCE IT Last administered on at 10:19; Start 06/01/18 at 08:00; Stop 06/01/18 at 08:01; Status DC Lidocaine/Sodium Bicarbonate (Buffered Lidocaine 1%) 6 ml 1X ONCE INJ Last administered on 06/01/18at 10:18; Start 06/01/18 at 08:00; Stop 06/01/18 at 08 :01; Status DC Info (CONTRAST GIVEN -- Rx MONITORING) 1 each PRN DAILY PRN MC SEE COMMENTS; Start 06/01/18 at 08:15; Stop 06/03/18 at 08:14; Status DC Metformin HCl (Glucophage) 500 mg BIDWMEALS PO ; Start 06/03/18 at 17:00 Bacitracin 85912 unit/Sodium Chloride 1,000 ml @ 1,000 mls/hr 1X ONCE IRR Last administered on 06/02/18at 13:16; Start 06/02/18 at 06:00; Stop 06/02/18 at 06:59; Status DC Cefazolin Sodium/ Dextrose 50 ml @ 100 mls/hr 1X PREOP PRN IV PRIOR TO SURGERY ; Start 06/02/18 at 06:00; Stop 06/02/18 at 06:01; Status DC Fentanyl Citrate (Fentanyl 2ml Vial) 75 mcg PRN Q3HRS PRN IV SEVERE PAIN Last administered on 06/03/18at 07:23; Start 06/01/18 at 14:15 Ondansetron HCl (Zofran) 4 mg PRN Q6HRS PRN IV NAUSEA/VOMITING; Start 06/02/18 at 07:00; Stop 06/03/18 at 06:59; Status DC Fentanyl Citrate (Fentanyl 2ml Vial) 25 mcg PRN Q5MIN PRN IV MILD PAIN; Start 06/02/18 at 07:00; Stop 06/03/18 at 06:59; Status DC Fentanyl Citrate (Fentanyl 2ml Vial) 50 mcg PRN Q5MIN PRN IV MODERATE TO SEVERE PAIN Last administered on 06/02/18at 16:38; Start 06/02/18 at 07:00; Stop 06/03/18 at 06:59; Status DC Morphine Sulfate (Morphine Sulfate) 1 mg PRN Q10MIN PRN IV SEVERE PAIN; Start 06/02/18 at 07:00; Stop 06/03/18 at 06:59; Status DC Ringer's Solution 1,000 ml @ 30 mls/hr Q24H IV Last administered on 06/02/18at 15:26; Start 06/02/18 at 07:00; Stop 06/02/18 at 18:59; Status DC Lidocaine HCl (Xylocaine-Mpf 1% 2ml Vial) 2 ml PRN 1X PRN ID PRIOR TO IV START ; Start 06/02/18 at 07:00; Stop 06/03/18 at 06:59; Status DC Hydromorphone HCl (Dilaudid) 0.5 mg PRN Q10MIN PRN IV SEV PAIN, Second choice; Start 06/02/18 at 07:00; Stop 06/03/18 at 06:59; Status DC Prochlorperazine Edisylate (Compazine) 5 mg PACU PRN PRN IV NAUSEA, MRX1 Last administered on 06/02/18at 15:27; Start 06/02/18 at 07:00; Stop 06/03/18 at 06:59 ; Status DC Gelatin (Gelfoam Size 100) 1 each STK-MED ONCE .ROUTE Last administered on 06/02/18at 13:16; Start 06/02/18 at 05:25; Stop 06/02/18 at 06:26; Status DC Bupivacaine HCl/ Epinephrine Bitart (Sensorcain-Mpf Epi 0.5%-1:[id number]) 30 ml STK -MED ONCE .ROUTE Last administered on 06/02/18at 13:16; Start 06/02/18 at 05:25 ; Stop 06/02/18 at 06:26; Status DC Ketorolac Tromethamine (Toradol For Or Only) 60 mg STK-MED ONCE .ROUTE Last administered on 06/02/18at 13:16; Start 06/02/18 at 05:26; Stop 06/02/18 at 06:26 ; Status DC Ondansetron HCl (Zofran) 4 mg PRN Q6HRS PRN IV NAUSEA/VOMITING; Start 06/02/18 at 12:15; Stop 06/03/18 at 12:14 Fentanyl Citrate (Fentanyl 2ml Vial) 25 mcg PRN Q5MIN PRN IV MILD PAIN; Start 06/02/18 at 12:15; Stop 06/03/18 at 12:14; Status UNV Fentanyl Citrate (Fentanyl 2ml Vial) 50 mcg PRN Q5MIN PRN IV MODERATE TO SEVERE PAIN; Start 06/02/18 at 12:15; Stop 06/03/18 at 12:14; Status UNV Morphine Sulfate (Morphine Sulfate) 1 mg PRN Q10MIN PRN IV SEVERE PAIN; Start 06/02/18 at 12:15; Stop 06/03/18 at 12:14; Status UNV Ringer's Solution 1,000 ml @ 30 mls/hr Q24H IV ; Start 06/02/18 at 12:09; Stop 06/03/18 at 00:08; Status UNV Lidocaine HCl (Xylocaine-Mpf 1% 2ml Vial) 2 ml 1X PRN PRN ID IV START; Start 06/02/18 at 12:15; Stop 06/03/18 at 12:14; Status UNV Hydromorphone HCl (Dilaudid) 0.5 mg PRN Q10MIN PRN IV SEV PAIN, Second choice; Start 06/02/18 at 12:15; Stop 06/03/18 at 12:14; Status UNV Prochlorperazine Edisylate (Compazine) 5 mg PACU PRN PRN IV NAUSEA, MRX1; Start 06/02/18 at 12:15; Stop 06/03/18 at 12:14; Status UNV Cefazolin Sodium/ Dextrose 50 ml @ 100 mls/hr 1X PREOP PRN IV PRIOR TO SURGERY ; Start 06/02/18 at 12:15 Propofol 20 ml @ As Directed STK-MED ONCE IV ; Start 06/02/18 at 12:19; Stop at 12:20; Status DC Ondansetron HCl (Zofran) 4 mg STK-MED ONCE .ROUTE ; Start 06/02/18 at 12:19; Stop 06/02/18 at 12:20; Status DC Fentanyl Citrate (Fentanyl 2ml Vial) 100 mcg STK-MED ONCE .ROUTE ; Start at 12:19; Stop 06/02/18 at 12:20; Status DC Rocuronium [place] (Zemuron) 50 mg STK-MED ONCE .ROUTE ; Start 06/02/18 at 12:19 ; Stop 06/02/18 at 12:20; Status DC Midazolam HCl (Versed) 2 mg STK-MED ONCE .ROUTE ; Start 06/02/18 at 12:19; Stop 06/02/18 at 12:20; Status DC Lidocaine HCl (Xylocaine-Mpf 1% 5ml Vial) 5 ml STK-MED ONCE .ROUTE ; Start 06/02 at 12:22; Stop 06/02/18 at 12:23; Status DC Protamine Sulfate (Protamine) 50 mg STK-MED ONCE IV ; Start 06/02/18 at 12:24; Stop 06/02/18 at 12:25; Status DC Remifentanil HCl (Ultiva) 2 mg STK-MED ONCE IV ; Start 06/02/18 at 12:29; Stop 06/02/18 at 12:30; Status DC Famotidine (Pepcid Vial) 20 mg STK-MED ONCE .ROUTE ; Start 06/02/18 at 12:52; Stop 06/02/18 at 12:53; Status DC Phenylephrine HCl (PHENYLEPHRINE in 0.9% NACL PF) 1 mg STK-MED ONCE IV ; Start 06/02/18 at 13:01; Stop 06/02/18 at 13:02; Status DC Propofol 50 ml @ As Directed STK-MED ONCE IV ; Start 06/02/18 at 13:08; Stop at 13:09; Status DC Ephedrine Sulfate (ePHEDrine PF IN SALINE SYRINGE) 50 mg STK-MED ONCE IV ; Start 06/02/18 at 13:10; Stop 06/02/18 at 13:11; Status DC Desflurane (Suprane) 90 ml STK-MED ONCE IH ; Start 06/02/18 at 14:41; Stop 06/02 at 14:42; Status DC Morphine Sulfate (Morphine Sulfate) 4 mg PRN Q10MIN PRN IV PAIN Last administered on 06/02/18at 15:28; Start 06/02/18 at 15:30; Stop 06/03/18 at 15:30 Lactobacillus Rhamnosus (Culturelle) 1 cap BID PO Last administered on at 08:36; Start 06/02/18 at 21:00 Oxycodone/ Acetaminophen (Percocet 10/325) 2 tab PRN Q4HRS PRN PO PAIN Last administered on 06/03/18at 08:34; Start 06/02/18 at 23:30 Dexamethasone Sodium Phosphate (Decadron) 10 mg 1X ONCE IV Last administered on 06/03/18at 08:38; Start 06/03/18 at 08:00; Stop 06/03/18 at 08:01; Status DC Cefazolin Sodium/ Dextrose (Ancef 2gm Premix) 2 gm STK-MED ONCE IV ; Start 06/02 at 12:30; Stop 06/03/18 at 08:48; Status DC Active Scripts Active Atorvastatin Calcium 40 Mg Tablet 40 Mg PO QHS Medrol (Methylprednisolone) 4 Mg Tab.ds.pk 1 Pkg PO UD Lidocaine 1 Each Adh..patch 1 Each TP Q12HR PRN Place one patch for 12 hours, remove patch after 12 hours use. wait 12 hours before placing a new patch [place] 5-325 Tablet (Acetaminophen/Hydrocodone Bitart) 1 Each Tablet 1 Tab PO PRN Q6HRS PRN Orphenadrine Citrate 100 Mg Tablet.er 1 Tab PO BID 10 Days Naproxen 500 Mg Tablet 1 Tab PO BID 10 Days Orphenadrine Citrate 100 Mg Tablet.er 100 Mg PO BID PRN Orphenadrine Citrate 100 Mg Tablet.er 100 Mg PO BID Diclofenac Sodium 50 Mg Tablet.dr 50 Mg PO BID Imitrex (Sumatriptan Succinate) 100 Mg Tablet 1 Tab PO UD PRN MDD 200 mg Take first dose of medication at onset of headache. He may repeat with 1 additional dose after 2 hours if headache is still present. Cyclobenzaprine Hcl 10 Mg Tablet 10 Mg PO TID PRN Reported Amlodipine Besylate 10 Mg Tablet 10 Mg PO DAILY Hydrochlorothiazide Tablet (Hydrochlorothiazide) 25 Mg Tablet 1 Tab PO DAILY Lisinopril 5 Mg Tablet 1 Tab PO DAILY Excedrin Migraine Caplet (Aspirin/Acetaminophen/Caffeine) 1 Each Tablet 1 Each PO PRN Q6-8HRS PRN Aspirin Ec (Aspirin) 81 Mg Tablet.dr 81 Mg PO DAILY Benzonatate 100 Mg Capsule 1 Cap PO TID Vitals/I & O Vital Sign - Last 24 Hours 06/02/18 06/02/18 06/02/18 06/02/18 11:00 11:18 12:13 14:56 Temp 97.5 97.8 98.2 97.5 97.8 98.2 Pulse 74 83 98 Resp 16 20 20 B/P (MAP) 156/105 (122) 138/95 144/81 Pulse Ox 97 96 96 O2 Delivery Room Air Room Air Room Air Simple Mask O2 Flow Rate 10 06/02/18 06/02/18 06/02/18 06/02/18 14:56 15:11 15:26 15:27 Pulse 78 84 Resp 20 20 20 B/P (MAP) 153/85 157/89 Pulse Ox 99 100 99 O2 Delivery Mask Simple Mask Simple Mask Simple Mask O2 Flow Rate 10 10 10 10.0 06/02/18 06/02/18 06/02/18 06/02/18 15:28 15:43 15:58 16:13 Pulse 91 79 78 Resp 20 20 20 20 B/P (MAP) 151/85 142/87 167/85 Pulse Ox 99 97 100 98 O2 Delivery Simple Mask Simple Mask Simple Mask Room Air O2 Flow Rate 10.0 10 10 06/02/18 06/02/18 06/02/18 06/02/18 16:28 16:30 16:38 17:00 Pulse 78 79 Resp 20 22 B/P (MAP) 160/84 129/80 (96) Pulse Ox 98 99 96 O2 Delivery Nasal Cannula Nasal Cannula Room Air O2 Flow Rate 2 2 06/02/18 06/02/18 06/02/18 06/02/18 17:08 17:15 17:30 17:45 Pulse 75 75 78 B/P (MAP) 140/85 (103) 140/78 (98) 138/81 (100) Pulse Ox 96 96 96 O2 Delivery Nasal Cannula O2 Flow Rate 2.0 06/02/18 06/02/18 06/02/18 06/02/18 18:00 18:30 19:20 20:00 Temp 97.5 97.5 Pulse 83 85 108 Resp 20 B/P (MAP) 126/78 (94) 131/87 (102) 162/97 (118) Pulse Ox 97 98 96 O2 Delivery Nasal Cannula Room Air O2 Flow Rate 2.0 06/02/18 06/02/18 06/02/18 06/02/18 20:00 20:01 20:20 20:31 Temp 98.6 98.6 Pulse 105 Resp 20 18 B/P (MAP) 155/98 (117) Pulse Ox 98 98 95 O2 Delivery Nasal Cannula Nasal Cannula Nasal Cannula O2 Flow Rate 2.0 2.0 2.0 2.0 06/02/18 06/02/18 06/02/18 06/02/18 21:00 23:09 23:25 23:43 Temp 98.2 98.2 Pulse 108 Resp 20 20 20 20 B/P (MAP) 132/79 (96) Pulse Ox 98 98 95 95 O2 Delivery Room Air Room Air Nasal Cannula Room Air O2 Flow Rate 2.0 2.0 06/03/18 06/03/18 06/03/18 06/03/18 03:48 03:50 03:50 04:20 Temp 98.3 98.3 Pulse 92 Resp 18 20 20 20 B/P (MAP) 134/82 (99) Pulse Ox 95 95 95 95 O2 Delivery Nasal Cannula Room Air Room Air Room Air O2 Flow Rate 2.0 06/03/18 06/03/18 06/03/18 06/03/18 04:50 07:00 07:23 08:34 Temp 98.2 98.2 Pulse 83 Resp 20 16 20 14 B/P (MAP) 171/88 (115) Pulse Ox 95 93 95 O2 Delivery Room Air Room Air Room Air Room Air 06/03/18 06/03/18 08:35 08:36 Pulse 83 83 B/P (MAP) 171/83 171/88 Intake and Output 06/02/18 06/02/18 06/03/18 15:00 23:00 07:00 Intake Total 1970 ml 880 ml Output Total 225 ml 200 ml 1280 ml Balance -225 ml 1770 ml -400 ml JOVANNA TALBOT MD Jun 03, 2018 09:24
[2018-06-03 11:00] VITALS: BP 146/92
--- NOTE | 2018-06-03 11:32 | PDOC ---
PROGRESS NOTES Chief Complaint Chief Complaint Intractable lower back pain Disc herniation HTN urgency H/o hyperlipidemia DM2 hba1c 6.5 Leukocytosis: recently on steroid History of Present Illness History of Present Illness Pt seen and examined. Pt sitting upright in bed. STEVIE RN. Pt says that he pain at the incision site, but does not feel the pain in his buttock area that he was feeling before surgery. Vitals Vitals Vital Signs Date Time Temp Pulse Resp B/P (MAP) Pulse Ox O2 Delivery O2 Flow Rate FiO2 06/03/18 11:00 97.8 100 16 146/92 (110) 93 Room Air 97.8 06/03/18 03:48 2.0 Physical Exam Physical Exam rt leg limed ROM 09/03 pain General: Alert, Oriented X3, Cooperative, No acute distress Heart: Regular rate, Normal S1, Normal S2 Lungs: Clear Abdomen: Normal bowel sounds, Soft Extremities: No clubbing, No cyanosis, No edema, Normal pulses Skin: No rashes Labs LABS Laboratory Tests Test 06/02/18 17:09 06/02/18 20:53 06/03/18 07:31 Glucose (Fingerstick) 133 mg/dL (70-99) 262 mg/dL (70-99) 145 mg/dL (70-99) Review of Systems Review of Systems Pt denies CP and SOA. Admits to pain at his surgical incision site. Assessment and Plan Assessmemt and Plan Problems Medical Problems: (1) Fall from standing Status: Acute (2) Sciatica Status: Acute Assessment: Intractable lower back pain Disc herniation HTN urgency H/o hyperlipidemia DM2 hba1c 6.5 Leukocytosis: recently on steroid Plan: Monitor labs PRN pain meds Wound care PT/OT Probable discharge tomorrow if subspecialists agree DVT ppx Comment Review of Relevant I have reviewed the following items oly (where applicable) has been applied. Labs Laboratory Tests Test 06/01/18 16:46 06/01/18 20:37 06/02/18 06:50 06/02/18 07:31 Glucose (Fingerstick) 114 mg/dL (70-99) 129 mg/dL (70-99) 99 mg/dL (70-99) White Blood Count 6.7 x10^3/uL (4.0-11.0) Red Blood Count 5.18 x10^6/uL (4.30-5.70) Hemoglobin 16.0 g/dL (13.0-17.5) Hematocrit 46.6 % (39.0-53.0) Mean Corpuscular Volume 90 fL (79-100) Mean Corpuscular Hemoglobin 31 pg (25-35) Mean Corpuscular Hemoglobin Concent 34 g/dL (31-37) Red Cell Distribution Width 15.5 % (11.5-14.5) Platelet Count 279 x10^3/uL (140-400) Neutrophils (%) (Auto) 32 % (31-73) Lymphocytes (%) (Auto) 53 % (24-48) Monocytes (%) (Auto) 13 % (0-9) Eosinophils (%) (Auto) 2 % (0-3) Basophils (%) (Auto) 1 % (0-3) Neutrophils # (Auto) 2.1 x10^3uL (1.8-7.7) Lymphocytes # (Auto) 3.6 x10^3/uL (1.0-4.8) Monocytes # (Auto) 0.9 x10^3/uL (0.0-1.1) Eosinophils # (Auto) 0.1 x10^3/uL (0.0-0.7) Basophils # (Auto) 0.0 x10^3/uL (0.0-0.2) Sodium Level 144 mmol/L (136-145) Potassium Level 3.8 mmol/L (3.5-5.1) Chloride Level 106 mmol/L (98-107) Carbon Dioxide Level 30 mmol/L (21-32) Anion Gap 8 (6-14) Blood Urea Nitrogen 10 mg/dL (8-26) Creatinine 1.1 mg/dL (0.7-1.3) Estimated GFR (Cockcroft-Gault) 84.1 Glucose Level 102 mg/dL (70-99) Calcium Level 8.7 mg/dL (8.5-10.1) Test 06/02/18 17:09 06/02/18 20:53 06/03/18 07:31 Glucose (Fingerstick) 133 mg/dL (70-99) 262 mg/dL (70-99) 145 mg/dL (70-99) Laboratory Tests Test 06/02/18 17:09 06/02/18 20:53 06/03/18 07:31 Glucose (Fingerstick) 133 mg/dL (70-99) 262 mg/dL (70-99) 145 mg/dL (70-99) Medications Current Medications Methylprednisolone Sodium Succinate (SOLU-Medrol 125MG VIAL) 125 mg 1X ONCE IM Last administered on 05/30/18at 08:54; Start 05/30/18 at 08:45; Stop at 08:46; Status DC Morphine Sulfate (Morphine Sulfate) 5 mg 1X ONCE IM Last administered on 05/30at 08:55; Start 05/30/18 at 08:45; Stop 05/30/18 at 08:46; Status DC Ketorolac Tromethamine (Toradol Im) 60 mg 1X ONCE IM Last administered on at 08:54; Start 05/30/18 at 08:45; Stop 05/30/18 at 08:46; Status DC Diazepam (Valium) 5 mg 1X ONCE PO Last administered on 05/30/18at 08:56; Start 05/30/18 at 08:45; Stop 05/30/18 at 08:46; Status DC Clonidine HCl (Catapres) 0.1 mg 1X ONCE PO ; Start 05/30/18 at 08:45; Stop at 08:46; Status DC Ondansetron HCl (Zofran) 4 mg PRN Q8HRS PRN IV NAUSEA/VOMITING Last administered on 05/30/18at 12:27; Start 05/30/18 at 10:15; Stop 05/30/18 at 16 :11; Status DC Morphine Sulfate (Morphine Sulfate) 4 mg PRN Q2HR PRN IV PAIN; Start 05/30/18 at 10:15; Stop 05/31/18 at 10:14; Status DC Acetaminophen (Tylenol) 650 mg PRN Q4HRS PRN PO FEVER Last administered on at 20:15; Start 05/30/18 at 10:15; Stop 05/31/18 at 10:14; Status DC Diazepam (Valium) 5 mg TID PRN PO ANXIETY / AGITATION Last administered on 06/02at 20:00; Start 05/30/18 at 10:15 Acetaminophen (Tylenol) 650 mg PRN Q6HRS PRN PO FEVER; Start 05/30/18 at 16:15 Ondansetron HCl (Zofran) 4 mg PRN Q6HRS PRN IV NAUSEA/VOMITING; Start at 16:15 Morphine Sulfate (Morphine Sulfate) 2 mg PRN Q2HR PRN IV MODERATE TO SEVERE PAIN Last administered on 06/01/18at 03:50; Start 05/30/18 at 16:15; Stop at 14:05; Status DC Tramadol HCl (Ultram) 50 mg PRN Q6HRS PRN PO MILD PAIN; Start 05/30/18 at 16: 15 Docusate Sodium (Colace) 100 mg PRN DAILY PRN PO CONSTIPATION; Start 05/30/18 at 16:15 Labetalol HCl (Normodyne Iv Push) 20 mg PRN Q2HR PRN IVP HYPERTENSION, SEE COMMENTS; Start 05/30/18 at 16:15 Amlodipine Besylate (Norvasc) 10 mg DAILY PO ; Start 05/31/18 at 09:00; Stop 05/31/18 at 09:00; Status DC Aspirin (Ecotrin) 81 mg DAILY PO Last administered on 06/03/18at 08:34; Start 05/31/18 at 09:00 Atorvastatin Calcium (Lipitor) 40 mg QHS PO Last administered on 06/02/18at 20: 00; Start 05/30/18 at 21:00 Cyclobenzaprine HCl (Flexeril) 10 mg PRN TID PRN PO MUSCLE SPASMS Last administered on 05/30/18at 20:15; Start 05/30/18 at 16:15 Oxycodone/ Acetaminophen (Percocet 5/325) 1 tab PRN Q4HRS PRN PO MODERATE PAIN Last administered on 05/30/18at 18:12; Start 05/30/18 at 16:15; Stop 06/01/18 at 14:05; Status DC Lisinopril (Prinivil) 40 mg DAILY PO Last administered on 06/03/18at 08:35; Start 05/30/18 at 17:00 Amlodipine Besylate (Norvasc) 10 mg DAILY PO Last administered on 06/03/18at 08: 36; Start 05/31/18 at 09:00 Enoxaparin Sodium (Lovenox 40mg Syringe) 40 mg Q24H SQ Last administered on 10/ 31/18at 16:53; Start 05/30/18 at 17:00; Stop 06/02/18 at 15:13; Status DC Oxycodone/ Acetaminophen (Percocet 10/325) 1 tab PRN Q4HRS PRN PO SEVERE PAIN Last administered on 06/02/18at 20:00; Start 05/31/18 at 09:30 Metformin HCl (Glucophage) 500 mg BIDWMEALS PO Last administered on 05/31/18at 17:28; Start 05/31/18 at 17:00; Stop 06/01/18 at 08:02; Status DC Insulin Human Lispro (HumaLOG) 0-9 UNITS TIDWMEALS SQ ; Start 05/31/18 at 17:00 Dextrose (Dextrose 50%-Water Syringe) 12.5 gm PRN Q15MIN PRN IV SEE COMMENTS; Start 05/31/18 at 12:45 Fentanyl Citrate (Fentanyl 2ml Vial) 50 mcg 1X ONCE IV Last administered on at 19:30; Start 05/31/18 at 19:30; Stop 05/31/18 at 19:31; Status DC Fentanyl Citrate (Fentanyl 2ml Vial) 50 mcg PRN Q3HRS PRN IV SEVERE PAIN Last administered on 06/01/18at 13:09; Start 06/01/18 at 06:15; Stop 06/01/18 at 14 :05; Status DC Iohexol (Omnipaque 180 Mg/ml) 20 ml 1X ONCE IT Last administered on at 10:19; Start 06/01/18 at 08:00; Stop 06/01/18 at 08:01; Status DC Lidocaine/Sodium Bicarbonate (Buffered Lidocaine 1%) 6 ml 1X ONCE INJ Last administered on 06/01/18at 10:18; Start 06/01/18 at 08:00; Stop 06/01/18 at 08 :01; Status DC Info (CONTRAST GIVEN -- Rx MONITORING) 1 each PRN DAILY PRN MC SEE COMMENTS; Start 06/01/18 at 08:15; Stop 06/03/18 at 08:14; Status DC Metformin HCl (Glucophage) 500 mg BIDWMEALS PO ; Start 06/03/18 at 17:00 Bacitracin 19137 unit/Sodium Chloride 1,000 ml @ 1,000 mls/hr 1X ONCE IRR Last administered on 06/02/18at 13:16; Start 06/02/18 at 06:00; Stop 06/02/18 at 06:59; Status DC Cefazolin Sodium/ Dextrose 50 ml @ 100 mls/hr 1X PREOP PRN IV PRIOR TO SURGERY ; Start 06/02/18 at 06:00; Stop 06/02/18 at 06:01; Status DC Fentanyl Citrate (Fentanyl 2ml Vial) 75 mcg PRN Q3HRS PRN IV SEVERE PAIN Last administered on 06/03/18at 07:23; Start 06/01/18 at 14:15 Ondansetron HCl (Zofran) 4 mg PRN Q6HRS PRN IV NAUSEA/VOMITING; Start 06/02/18 at 07:00; Stop 06/03/18 at 06:59; Status DC Fentanyl Citrate (Fentanyl 2ml Vial) 25 mcg PRN Q5MIN PRN IV MILD PAIN; Start 06/02/18 at 07:00; Stop 06/03/18 at 06:59; Status DC Fentanyl Citrate (Fentanyl 2ml Vial) 50 mcg PRN Q5MIN PRN IV MODERATE TO SEVERE PAIN Last administered on 06/02/18at 16:38; Start 06/02/18 at 07:00; Stop 06/03/18 at 06:59; Status DC Morphine Sulfate (Morphine Sulfate) 1 mg PRN Q10MIN PRN IV SEVERE PAIN; Start 06/02/18 at 07:00; Stop 06/03/18 at 06:59; Status DC Ringer's Solution 1,000 ml @ 30 mls/hr Q24H IV Last administered on 06/02/18at 15:26; Start 06/02/18 at 07:00; Stop 06/02/18 at 18:59; Status DC Lidocaine HCl (Xylocaine-Mpf 1% 2ml Vial) 2 ml PRN 1X PRN ID PRIOR TO IV START ; Start 06/02/18 at 07:00; Stop 06/03/18 at 06:59; Status DC Hydromorphone HCl (Dilaudid) 0.5 mg PRN Q10MIN PRN IV SEV PAIN, Second choice; Start 06/02/18 at 07:00; Stop 06/03/18 at 06:59; Status DC Prochlorperazine Edisylate (Compazine) 5 mg PACU PRN PRN IV NAUSEA, MRX1 Last administered on 06/02/18at 15:27; Start 06/02/18 at 07:00; Stop 06/03/18 at 06:59 ; Status DC Gelatin (Gelfoam Size 100) 1 each STK-MED ONCE .ROUTE Last administered on 06/02/18at 13:16; Start 06/02/18 at 05:25; Stop 06/02/18 at 06:26; Status DC Bupivacaine HCl/ Epinephrine Bitart (Sensorcain-Mpf Epi 0.5%-1:[id number]) 30 ml STK -MED ONCE .ROUTE Last administered on 06/02/18at 13:16; Start 06/02/18 at 05:25 ; Stop 06/02/18 at 06:26; Status DC Ketorolac Tromethamine (Toradol For Or Only) 60 mg STK-MED ONCE .ROUTE Last administered on 06/02/18at 13:16; Start 06/02/18 at 05:26; Stop 06/02/18 at 06:26 ; Status DC Ondansetron HCl (Zofran) 4 mg PRN Q6HRS PRN IV NAUSEA/VOMITING; Start 06/02/18 at 12:15; Stop 06/03/18 at 12:14 Fentanyl Citrate (Fentanyl 2ml Vial) 25 mcg PRN Q5MIN PRN IV MILD PAIN; Start 06/02/18 at 12:15; Stop 06/03/18 at 12:14; Status UNV Fentanyl Citrate (Fentanyl 2ml Vial) 50 mcg PRN Q5MIN PRN IV MODERATE TO SEVERE PAIN; Start 06/02/18 at 12:15; Stop 06/03/18 at 12:14; Status UNV Morphine Sulfate (Morphine Sulfate) 1 mg PRN Q10MIN PRN IV SEVERE PAIN; Start 06/02/18 at 12:15; Stop 06/03/18 at 12:14; Status UNV Ringer's Solution 1,000 ml @ 30 mls/hr Q24H IV ; Start 06/02/18 at 12:09; Stop 06/03/18 at 00:08; Status UNV Lidocaine HCl (Xylocaine-Mpf 1% 2ml Vial) 2 ml 1X PRN PRN ID IV START; Start 06/02/18 at 12:15; Stop 06/03/18 at 12:14; Status UNV Hydromorphone HCl (Dilaudid) 0.5 mg PRN Q10MIN PRN IV SEV PAIN, Second choice; Start 06/02/18 at 12:15; Stop 06/03/18 at 12:14; Status UNV Prochlorperazine Edisylate (Compazine) 5 mg PACU PRN PRN IV NAUSEA, MRX1; Start 06/02/18 at 12:15; Stop 06/03/18 at 12:14; Status UNV Cefazolin Sodium/ Dextrose 50 ml @ 100 mls/hr 1X PREOP PRN IV PRIOR TO SURGERY ; Start 06/02/18 at 12:15; Stop 06/03/18 at 10:29; Status DC Propofol 20 ml @ As Directed STK-MED ONCE IV ; Start 06/02/18 at 12:19; Stop at 12:20; Status DC Ondansetron HCl (Zofran) 4 mg STK-MED ONCE .ROUTE ; Start 06/02/18 at 12:19; Stop 06/02/18 at 12:20; Status DC Fentanyl Citrate (Fentanyl 2ml Vial) 100 mcg STK-MED ONCE .ROUTE ; Start at 12:19; Stop 06/02/18 at 12:20; Status DC Rocuronium [place] (Zemuron) 50 mg STK-MED ONCE .ROUTE ; Start 06/02/18 at 12:19 ; Stop 06/02/18 at 12:20; Status DC Midazolam HCl (Versed) 2 mg STK-MED ONCE .ROUTE ; Start 06/02/18 at 12:19; Stop 06/02/18 at 12:20; Status DC Lidocaine HCl (Xylocaine-Mpf 1% 5ml Vial) 5 ml STK-MED ONCE .ROUTE ; Start 06/02 at 12:22; Stop 06/02/18 at 12:23; Status DC Protamine Sulfate (Protamine) 50 mg STK-MED ONCE IV ; Start 06/02/18 at 12:24; Stop 06/02/18 at 12:25; Status DC Remifentanil HCl (Ultiva) 2 mg STK-MED ONCE IV ; Start 06/02/18 at 12:29; Stop 06/02/18 at 12:30; Status DC Famotidine (Pepcid Vial) 20 mg STK-MED ONCE .ROUTE ; Start 06/02/18 at 12:52; Stop 06/02/18 at 12:53; Status DC Phenylephrine HCl (PHENYLEPHRINE in 0.9% NACL PF) 1 mg STK-MED ONCE IV ; Start 06/02/18 at 13:01; Stop 06/02/18 at 13:02; Status DC Propofol 50 ml @ As Directed STK-MED ONCE IV ; Start 06/02/18 at 13:08; Stop at 13:09; Status DC Ephedrine Sulfate (ePHEDrine PF IN SALINE SYRINGE) 50 mg STK-MED ONCE IV ; Start 06/02/18 at 13:10; Stop 06/02/18 at 13:11; Status DC Desflurane (Suprane) 90 ml STK-MED ONCE IH ; Start 06/02/18 at 14:41; Stop 06/02 at 14:42; Status DC Morphine Sulfate (Morphine Sulfate) 4 mg PRN Q10MIN PRN IV PAIN Last administered on 06/02/18at 15:28; Start 06/02/18 at 15:30; Stop 06/03/18 at 15:30 Lactobacillus Rhamnosus (Culturelle) 1 cap BID PO Last administered on at 08:36; Start 06/02/18 at 21:00 Oxycodone/ Acetaminophen (Percocet 10/325) 2 tab PRN Q4HRS PRN PO PAIN Last administered on 06/03/18at 08:34; Start 06/02/18 at 23:30 Dexamethasone Sodium Phosphate (Decadron) 10 mg 1X ONCE IV Last administered on 06/03/18at 08:38; Start 06/03/18 at 08:00; Stop 06/03/18 at 08:01; Status DC Cefazolin Sodium/ Dextrose (Ancef 2gm Premix) 2 gm STK-MED ONCE IV ; Start 06/02 at 12:30; Stop 06/03/18 at 08:48; Status DC Active Scripts Active Atorvastatin Calcium 40 Mg Tablet 40 Mg PO QHS Medrol (Methylprednisolone) 4 Mg Tab.ds.pk 1 Pkg PO UD Lidocaine 1 Each Adh..patch 1 Each TP Q12HR PRN Place one patch for 12 hours, remove patch after 12 hours use. wait 12 hours before placing a new patch [place] 5-325 Tablet (Acetaminophen/Hydrocodone Bitart) 1 Each Tablet 1 Tab PO PRN Q6HRS PRN Orphenadrine Citrate 100 Mg Tablet.er 1 Tab PO BID 10 Days Naproxen 500 Mg Tablet 1 Tab PO BID 10 Days Orphenadrine Citrate 100 Mg Tablet.er 100 Mg PO BID PRN Orphenadrine Citrate 100 Mg Tablet.er 100 Mg PO BID Diclofenac Sodium 50 Mg Tablet.dr 50 Mg PO BID Imitrex (Sumatriptan Succinate) 100 Mg Tablet 1 Tab PO UD PRN MDD 200 mg Take first dose of medication at onset of headache. He may repeat with 1 additional dose after 2 hours if headache is still present. Cyclobenzaprine Hcl 10 Mg Tablet 10 Mg PO TID PRN Reported Amlodipine Besylate 10 Mg Tablet 10 Mg PO DAILY Hydrochlorothiazide Tablet (Hydrochlorothiazide) 25 Mg Tablet 1 Tab PO DAILY Lisinopril 5 Mg Tablet 1 Tab PO DAILY Excedrin Migraine Caplet (Aspirin/Acetaminophen/Caffeine) 1 Each Tablet 1 Each PO PRN Q6-8HRS PRN Aspirin Ec (Aspirin) 81 Mg Tablet.dr 81 Mg PO DAILY Benzonatate 100 Mg Capsule 1 Cap PO TID Vitals/I & O Vital Sign - Last 24 Hours 06/02/18 06/02/18 06/02/18 06/02/18 12:13 14:56 14:56 15:11 Temp 97.8 98.2 97.8 98.2 Pulse 83 98 78 Resp 20 20 20 B/P (MAP) 138/95 144/81 153/85 Pulse Ox 96 96 99 O2 Delivery Room Air Simple Mask Mask Simple Mask O2 Flow Rate 10 10 10 06/02/18 06/02/18 06/02/18 06/02/18 15:26 15:27 15:28 15:43 Pulse 84 91 Resp 20 20 20 20 B/P (MAP) 157/89 151/85 Pulse Ox 100 99 99 97 O2 Delivery Simple Mask Simple Mask Simple Mask Simple Mask O2 Flow Rate 10 10.0 10.0 10 06/02/18 06/02/18 06/02/18 06/02/18 15:58 16:13 16:28 16:30 Pulse 79 78 78 Resp 20 20 20 B/P (MAP) 142/87 167/85 160/84 Pulse Ox 100 98 98 O2 Delivery Simple Mask Room Air Nasal Cannula Nasal Cannula O2 Flow Rate 10 2 2 06/02/18 06/02/18 06/02/18 06/02/18 16:38 17:00 17:08 17:15 Pulse 79 75 Resp 22 B/P (MAP) 129/80 (96) 140/85 (103) Pulse Ox 99 96 96 O2 Delivery Room Air Nasal Cannula O2 Flow Rate 2.0 06/02/18 06/02/18 06/02/18 06/02/18 17:30 17:45 18:00 18:30 Pulse 75 78 83 85 B/P (MAP) 140/78 (98) 138/81 (100) 126/78 (94) 131/87 (102) Pulse Ox 96 96 97 98 06/02/18 06/02/18 06/02/18 06/02/18 19:20 20:00 20:00 20:01 Temp 97.5 97.5 Pulse 108 Resp 20 20 B/P (MAP) 162/97 (118) Pulse Ox 96 98 98 O2 Delivery Nasal Cannula Room Air Nasal Cannula Nasal Cannula O2 Flow Rate 2.0 2.0 2.0 06/02/18 06/02/18 06/02/18 06/02/18 20:20 20:31 21:00 23:09 Temp 98.6 98.6 Pulse 105 Resp 18 20 20 B/P (MAP) 155/98 (117) Pulse Ox 95 98 98 O2 Delivery Nasal Cannula Room Air Room Air O2 Flow Rate 2.0 2.0 2.0 06/02/18 06/02/18 06/03/18 06/03/18 23:25 23:43 03:48 03:50 Temp 98.2 98.3 98.2 98.3 Pulse 108 92 Resp 20 20 18 20 B/P (MAP) 132/79 (96) 134/82 (99) Pulse Ox 95 95 95 95 O2 Delivery Nasal Cannula Room Air Nasal Cannula Room Air O2 Flow Rate 2.0 2.0 06/03/18 06/03/18 06/03/18 06/03/18 03:50 04:20 04:50 07:00 Temp 98.2 98.2 Pulse 83 Resp 20 16 B/P (MAP) 171/88 (115) Pulse Ox 95 95 95 93 O2 Delivery Room Air Room Air 06/03/18 06/03/18 06/03/18 06/03/18 07:23 08:00 08:34 08:35 Pulse 83 Resp 20 16 14 B/P (MAP) 171/83 Pulse Ox 95 O2 Delivery Room Air Room Air Room Air 06/03/18 06/03/18 06/03/18 08:36 09:35 11:00 Temp 97.8 97.8 Pulse 83 100 Resp 16 16 B/P (MAP) 171/88 146/92 (110) Pulse Ox 93 O2 Delivery Room Air Room Air Intake and Output 06/02/18 06/02/18 06/03/18 15:00 23:00 07:00 Intake Total 1970 ml 880 ml Output Total 225 ml 200 ml 1280 ml Balance -225 ml 1770 ml -400 ml DAVID GAYTAN III DO Jun 03, 2018 11:32
--- NOTE | 2018-06-03 12:08 | PDOC ---
PROGRESS NOTES Subjective Subjective up in chair eating lunch right leg pain better some incisional pain Objective Objective Vital Signs Date Time Temp Pulse Resp B/P (MAP) Pulse Ox O2 Delivery O2 Flow Rate FiO2 06/03/18 11:00 97.8 100 16 146/92 (110) 93 Room Air 97.8 06/03/18 03:48 2.0 Intake and Output 06/03/18 07:00 Intake Total 2850 ml Output Total 1705 ml Balance 1145 ml Intake Oral 1000 ml IV Total 1850 ml Output Urine Total 1680 ml Estimated Blood Loss 25 ml # Voids 2 Physical Exam General: Alert, Oriented X3, Cooperative, No acute distress Neuro: Other (strength 5/5 in BLE) Skin: Other (dressing C,D,I, flat ) Assessment Assessment Problems Medical Problems: (1) Fall from standing Status: Acute (2) Sciatica Status: Acute Plan Plan of Care Encouraged increased activity as tolerated likely dc tomorrow Comment Review of Relevant I have reviewed the following items oly (where applicable) has been applied. Labs Laboratory Tests Test 06/01/18 16:46 06/01/18 20:37 06/02/18 06:50 06/02/18 07:31 Glucose (Fingerstick) 114 mg/dL (70-99) 129 mg/dL (70-99) 99 mg/dL (70-99) White Blood Count 6.7 x10^3/uL (4.0-11.0) Red Blood Count 5.18 x10^6/uL (4.30-5.70) Hemoglobin 16.0 g/dL (13.0-17.5) Hematocrit 46.6 % (39.0-53.0) Mean Corpuscular Volume 90 fL (79-100) Mean Corpuscular Hemoglobin 31 pg (25-35) Mean Corpuscular Hemoglobin Concent 34 g/dL (31-37) Red Cell Distribution Width 15.5 % (11.5-14.5) Platelet Count 279 x10^3/uL (140-400) Neutrophils (%) (Auto) 32 % (31-73) Lymphocytes (%) (Auto) 53 % (24-48) Monocytes (%) (Auto) 13 % (0-9) Eosinophils (%) (Auto) 2 % (0-3) Basophils (%) (Auto) 1 % (0-3) Neutrophils # (Auto) 2.1 x10^3uL (1.8-7.7) Lymphocytes # (Auto) 3.6 x10^3/uL (1.0-4.8) Monocytes # (Auto) 0.9 x10^3/uL (0.0-1.1) Eosinophils # (Auto) 0.1 x10^3/uL (0.0-0.7) Basophils # (Auto) 0.0 x10^3/uL (0.0-0.2) Sodium Level 144 mmol/L (136-145) Potassium Level 3.8 mmol/L (3.5-5.1) Chloride Level 106 mmol/L (98-107) Carbon Dioxide Level 30 mmol/L (21-32) Anion Gap 8 (6-14) Blood Urea Nitrogen 10 mg/dL (8-26) Creatinine 1.1 mg/dL (0.7-1.3) Estimated GFR (Cockcroft-Gault) 84.1 Glucose Level 102 mg/dL (70-99) Calcium Level 8.7 mg/dL (8.5-10.1) Test 06/02/18 17:09 06/02/18 20:53 06/03/18 07:31 06/03/18 11:37 Glucose (Fingerstick) 133 mg/dL (70-99) 262 mg/dL (70-99) 145 mg/dL (70-99) 179 mg/dL (70-99) Laboratory Tests Test 06/02/18 17:09 06/02/18 20:53 06/03/18 07:31 06/03/18 11:37 Glucose (Fingerstick) 133 mg/dL (70-99) 262 mg/dL (70-99) 145 mg/dL (70-99) 179 mg/dL (70-99) Medications Current Medications Methylprednisolone Sodium Succinate (SOLU-Medrol 125MG VIAL) 125 mg 1X ONCE IM Last administered on 05/30/18at 08:54; Start 05/30/18 at 08:45; Stop at 08:46; Status DC Morphine Sulfate (Morphine Sulfate) 5 mg 1X ONCE IM Last administered on 05/30at 08:55; Start 05/30/18 at 08:45; Stop 05/30/18 at 08:46; Status DC Ketorolac Tromethamine (Toradol Im) 60 mg 1X ONCE IM Last administered on at 08:54; Start 05/30/18 at 08:45; Stop 05/30/18 at 08:46; Status DC Diazepam (Valium) 5 mg 1X ONCE PO Last administered on 05/30/18at 08:56; Start 05/30/18 at 08:45; Stop 05/30/18 at 08:46; Status DC Clonidine HCl (Catapres) 0.1 mg 1X ONCE PO ; Start 05/30/18 at 08:45; Stop at 08:46; Status DC Ondansetron HCl (Zofran) 4 mg PRN Q8HRS PRN IV NAUSEA/VOMITING Last administered on 05/30/18at 12:27; Start 05/30/18 at 10:15; Stop 05/30/18 at 16 :11; Status DC Morphine Sulfate (Morphine Sulfate) 4 mg PRN Q2HR PRN IV PAIN; Start 05/30/18 at 10:15; Stop 05/31/18 at 10:14; Status DC Acetaminophen (Tylenol) 650 mg PRN Q4HRS PRN PO FEVER Last administered on at 20:15; Start 05/30/18 at 10:15; Stop 05/31/18 at 10:14; Status DC Diazepam (Valium) 5 mg TID PRN PO ANXIETY / AGITATION Last administered on 06/02at 20:00; Start 05/30/18 at 10:15 Acetaminophen (Tylenol) 650 mg PRN Q6HRS PRN PO FEVER; Start 05/30/18 at 16:15 Ondansetron HCl (Zofran) 4 mg PRN Q6HRS PRN IV NAUSEA/VOMITING; Start at 16:15 Morphine Sulfate (Morphine Sulfate) 2 mg PRN Q2HR PRN IV MODERATE TO SEVERE PAIN Last administered on 06/01/18at 03:50; Start 05/30/18 at 16:15; Stop at 14:05; Status DC Tramadol HCl (Ultram) 50 mg PRN Q6HRS PRN PO MILD PAIN; Start 05/30/18 at 16: 15 Docusate Sodium (Colace) 100 mg PRN DAILY PRN PO CONSTIPATION; Start 05/30/18 at 16:15 Labetalol HCl (Normodyne Iv Push) 20 mg PRN Q2HR PRN IVP HYPERTENSION, SEE COMMENTS; Start 05/30/18 at 16:15 Amlodipine Besylate (Norvasc) 10 mg DAILY PO ; Start 05/31/18 at 09:00; Stop 05/31/18 at 09:00; Status DC Aspirin (Ecotrin) 81 mg DAILY PO Last administered on 06/03/18at 08:34; Start 05/31/18 at 09:00 Atorvastatin Calcium (Lipitor) 40 mg QHS PO Last administered on 06/02/18at 20: 00; Start 05/30/18 at 21:00 Cyclobenzaprine HCl (Flexeril) 10 mg PRN TID PRN PO MUSCLE SPASMS Last administered on 05/30/18at 20:15; Start 05/30/18 at 16:15 Oxycodone/ Acetaminophen (Percocet 5/325) 1 tab PRN Q4HRS PRN PO MODERATE PAIN Last administered on 05/30/18at 18:12; Start 05/30/18 at 16:15; Stop 06/01/18 at 14:05; Status DC Lisinopril (Prinivil) 40 mg DAILY PO Last administered on 06/03/18at 08:35; Start 05/30/18 at 17:00 Amlodipine Besylate (Norvasc) 10 mg DAILY PO Last administered on 06/03/18at 08: 36; Start 05/31/18 at 09:00 Enoxaparin Sodium (Lovenox 40mg Syringe) 40 mg Q24H SQ Last administered on at 16:53; Start 05/30/18 at 17:00; Stop 06/02/18 at 15:13; Status DC Oxycodone/ Acetaminophen (Percocet 10/325) 1 tab PRN Q4HRS PRN PO SEVERE PAIN Last administered on 06/02/18at 20:00; Start 05/31/18 at 09:30 Metformin HCl (Glucophage) 500 mg BIDWMEALS PO Last administered on 05/31/18at 17:28; Start 05/31/18 at 17:00; Stop 06/01/18 at 08:02; Status DC Insulin Human Lispro (HumaLOG) 0-9 UNITS TIDWMEALS SQ ; Start 05/31/18 at 17:00 Dextrose (Dextrose 50%-Water Syringe) 12.5 gm PRN Q15MIN PRN IV SEE COMMENTS; Start 05/31/18 at 12:45 Fentanyl Citrate (Fentanyl 2ml Vial) 50 mcg 1X ONCE IV Last administered on at 19:30; Start 05/31/18 at 19:30; Stop 05/31/18 at 19:31; Status DC Fentanyl Citrate (Fentanyl 2ml Vial) 50 mcg PRN Q3HRS PRN IV SEVERE PAIN Last administered on 06/01/18at 13:09; Start 06/01/18 at 06:15; Stop 06/01/18 at 14 :05; Status DC Iohexol (Omnipaque 180 Mg/ml) 20 ml 1X ONCE IT Last administered on at 10:19; Start 06/01/18 at 08:00; Stop 06/01/18 at 08:01; Status DC Lidocaine/Sodium Bicarbonate (Buffered Lidocaine 1%) 6 ml 1X ONCE INJ Last administered on 06/01/18at 10:18; Start 06/01/18 at 08:00; Stop 06/01/18 at 08 :01; Status DC Info (CONTRAST GIVEN -- Rx MONITORING) 1 each PRN DAILY PRN MC SEE COMMENTS; Start 06/01/18 at 08:15; Stop 06/03/18 at 08:14; Status DC Metformin HCl (Glucophage) 500 mg BIDWMEALS PO ; Start 06/03/18 at 17:00 Bacitracin 04639 unit/Sodium Chloride 1,000 ml @ 1,000 mls/hr 1X ONCE IRR Last administered on 06/02/18at 13:16; Start 06/02/18 at 06:00; Stop 06/02/18 at 06:59; Status DC Cefazolin Sodium/ Dextrose 50 ml @ 100 mls/hr 1X PREOP PRN IV PRIOR TO SURGERY ; Start 06/02/18 at 06:00; Stop 06/02/18 at 06:01; Status DC Fentanyl Citrate (Fentanyl 2ml Vial) 75 mcg PRN Q3HRS PRN IV SEVERE PAIN Last administered on 06/03/18at 07:23; Start 06/01/18 at 14:15 Ondansetron HCl (Zofran) 4 mg PRN Q6HRS PRN IV NAUSEA/VOMITING; Start 06/02/18 at 07:00; Stop 06/03/18 at 06:59; Status DC Fentanyl Citrate (Fentanyl 2ml Vial) 25 mcg PRN Q5MIN PRN IV MILD PAIN; Start 06/02/18 at 07:00; Stop 06/03/18 at 06:59; Status DC Fentanyl Citrate (Fentanyl 2ml Vial) 50 mcg PRN Q5MIN PRN IV MODERATE TO SEVERE PAIN Last administered on 06/02/18at 16:38; Start 06/02/18 at 07:00; Stop 06/03/18 at 06:59; Status DC Morphine Sulfate (Morphine Sulfate) 1 mg PRN Q10MIN PRN IV SEVERE PAIN; Start 06/02/18 at 07:00; Stop 06/03/18 at 06:59; Status DC Ringer's Solution 1,000 ml @ 30 mls/hr Q24H IV Last administered on 06/02/18at 15:26; Start 06/02/18 at 07:00; Stop 06/02/18 at 18:59; Status DC Lidocaine HCl (Xylocaine-Mpf 1% 2ml Vial) 2 ml PRN 1X PRN ID PRIOR TO IV START ; Start 06/02/18 at 07:00; Stop 06/03/18 at 06:59; Status DC Hydromorphone HCl (Dilaudid) 0.5 mg PRN Q10MIN PRN IV SEV PAIN, Second choice; Start 06/02/18 at 07:00; Stop 06/03/18 at 06:59; Status DC Prochlorperazine Edisylate (Compazine) 5 mg PACU PRN PRN IV NAUSEA, MRX1 Last administered on 06/02/18at 15:27; Start 06/02/18 at 07:00; Stop 06/03/18 at 06:59 ; Status DC Gelatin (Gelfoam Size 100) 1 each STK-MED ONCE .ROUTE Last administered on 06/02/18at 13:16; Start 06/02/18 at 05:25; Stop 06/02/18 at 06:26; Status DC Bupivacaine HCl/ Epinephrine Bitart (Sensorcain-Mpf Epi 0.5%-1:121378) 30 ml STK -MED ONCE .ROUTE Last administered on 06/02/18at 13:16; Start 06/02/18 at 05:25 ; Stop 06/02/18 at 06:26; Status DC Ketorolac Tromethamine (Toradol For Or Only) 60 mg STK-MED ONCE .ROUTE Last administered on 06/02/18at 13:16; Start 06/02/18 at 05:26; Stop 06/02/18 at 06:26 ; Status DC Ondansetron HCl (Zofran) 4 mg PRN Q6HRS PRN IV NAUSEA/VOMITING; Start 06/02/18 at 12:15; Stop 06/03/18 at 12:14 Fentanyl Citrate (Fentanyl 2ml Vial) 25 mcg PRN Q5MIN PRN IV MILD PAIN; Start 06/02/18 at 12:15; Stop 06/03/18 at 12:14; Status UNV Fentanyl Citrate (Fentanyl 2ml Vial) 50 mcg PRN Q5MIN PRN IV MODERATE TO SEVERE PAIN; Start 06/02/18 at 12:15; Stop 06/03/18 at 12:14; Status UNV Morphine Sulfate (Morphine Sulfate) 1 mg PRN Q10MIN PRN IV SEVERE PAIN; Start 06/02/18 at 12:15; Stop 06/03/18 at 12:14; Status UNV Ringer's Solution 1,000 ml @ 30 mls/hr Q24H IV ; Start 06/02/18 at 12:09; Stop 06/03/18 at 00:08; Status UNV Lidocaine HCl (Xylocaine-Mpf 1% 2ml Vial) 2 ml 1X PRN PRN ID IV START; Start 06/02/18 at 12:15; Stop 06/03/18 at 12:14; Status UNV Hydromorphone HCl (Dilaudid) 0.5 mg PRN Q10MIN PRN IV SEV PAIN, Second choice; Start 06/02/18 at 12:15; Stop 06/03/18 at 12:14; Status UNV Prochlorperazine Edisylate (Compazine) 5 mg PACU PRN PRN IV NAUSEA, MRX1; Start 06/02/18 at 12:15; Stop 06/03/18 at 12:14; Status UNV Cefazolin Sodium/ Dextrose 50 ml @ 100 mls/hr 1X PREOP PRN IV PRIOR TO SURGERY ; Start 06/02/18 at 12:15; Stop 06/03/18 at 10:29; Status DC Propofol 20 ml @ As Directed STK-MED ONCE IV ; Start 06/02/18 at 12:19; Stop at 12:20; Status DC Ondansetron HCl (Zofran) 4 mg STK-MED ONCE .ROUTE ; Start 06/02/18 at 12:19; Stop 06/02/18 at 12:20; Status DC Fentanyl Citrate (Fentanyl 2ml Vial) 100 mcg STK-MED ONCE .ROUTE ; Start at 12:19; Stop 06/02/18 at 12:20; Status DC Rocuronium [place] (Zemuron) 50 mg STK-MED ONCE .ROUTE ; Start 06/02/18 at 12:19 ; Stop 06/02/18 at 12:20; Status DC Midazolam HCl (Versed) 2 mg STK-MED ONCE .ROUTE ; Start 06/02/18 at 12:19; Stop 06/02/18 at 12:20; Status DC Lidocaine HCl (Xylocaine-Mpf 1% 5ml Vial) 5 ml STK-MED ONCE .ROUTE ; Start 06/02 at 12:22; Stop 06/02/18 at 12:23; Status DC Protamine Sulfate (Protamine) 50 mg STK-MED ONCE IV ; Start 06/02/18 at 12:24; Stop 06/02/18 at 12:25; Status DC Remifentanil HCl (Ultiva) 2 mg STK-MED ONCE IV ; Start 06/02/18 at 12:29; Stop 06/02/18 at 12:30; Status DC Famotidine (Pepcid Vial) 20 mg STK-MED ONCE .ROUTE ; Start 06/02/18 at 12:52; Stop 06/02/18 at 12:53; Status DC Phenylephrine HCl (PHENYLEPHRINE in 0.9% NACL PF) 1 mg STK-MED ONCE IV ; Start 06/02/18 at 13:01; Stop 06/02/18 at 13:02; Status DC Propofol 50 ml @ As Directed STK-MED ONCE IV ; Start 06/02/18 at 13:08; Stop at 13:09; Status DC Ephedrine Sulfate (ePHEDrine PF IN SALINE SYRINGE) 50 mg STK-MED ONCE IV ; Start 06/02/18 at 13:10; Stop 06/02/18 at 13:11; Status DC Desflurane (Suprane) 90 ml STK-MED ONCE IH ; Start 06/02/18 at 14:41; Stop 06/02 at 14:42; Status DC Morphine Sulfate (Morphine Sulfate) 4 mg PRN Q10MIN PRN IV PAIN Last administered on 06/02/18at 15:28; Start 06/02/18 at 15:30; Stop 06/03/18 at 15:30 Lactobacillus Rhamnosus (Culturelle) 1 cap BID PO Last administered on at 08:36; Start 06/02/18 at 21:00 Oxycodone/ Acetaminophen (Percocet 10/325) 2 tab PRN Q4HRS PRN PO PAIN Last administered on 06/03/18at 08:34; Start 06/02/18 at 23:30 Dexamethasone Sodium Phosphate (Decadron) 10 mg 1X ONCE IV Last administered on 06/03/18at 08:38; Start 06/03/18 at 08:00; Stop 06/03/18 at 08:01; Status DC Cefazolin Sodium/ Dextrose (Ancef 2gm Premix) 2 gm STK-MED ONCE IV ; Start 06/02 at 12:30; Stop 06/03/18 at 08:48; Status DC Active Scripts Active Atorvastatin Calcium 40 Mg Tablet 40 Mg PO QHS Medrol (Methylprednisolone) 4 Mg Tab.ds.pk 1 Pkg PO UD Lidocaine 1 Each Adh..patch 1 Each TP Q12HR PRN Place one patch for 12 hours, remove patch after 12 hours use. wait 12 hours before placing a new patch [place] 5-325 Tablet (Acetaminophen/Hydrocodone Bitart) 1 Each Tablet 1 Tab PO PRN Q6HRS PRN Orphenadrine Citrate 100 Mg Tablet.er 1 Tab PO BID 10 Days Naproxen 500 Mg Tablet 1 Tab PO BID 10 Days Orphenadrine Citrate 100 Mg Tablet.er 100 Mg PO BID PRN Orphenadrine Citrate 100 Mg Tablet.er 100 Mg PO BID Diclofenac Sodium 50 Mg Tablet.dr 50 Mg PO BID Imitrex (Sumatriptan Succinate) 100 Mg Tablet 1 Tab PO UD PRN MDD 200 mg Take first dose of medication at onset of headache. He may repeat with 1 additional dose after 2 hours if headache is still present. Cyclobenzaprine Hcl 10 Mg Tablet 10 Mg PO TID PRN Reported Amlodipine Besylate 10 Mg Tablet 10 Mg PO DAILY Hydrochlorothiazide Tablet (Hydrochlorothiazide) 25 Mg Tablet 1 Tab PO DAILY Lisinopril 5 Mg Tablet 1 Tab PO DAILY Excedrin Migraine Caplet (Aspirin/Acetaminophen/Caffeine) 1 Each Tablet 1 Each PO PRN Q6-8HRS PRN Aspirin Ec (Aspirin) 81 Mg Tablet.dr 81 Mg PO DAILY Benzonatate 100 Mg Capsule 1 Cap PO TID Vitals/I & O Vital Sign - Last 24 Hours 06/02/18 06/02/18 06/02/18 06/02/18 12:13 14:56 14:56 15:11 Temp 97.8 98.2 97.8 98.2 Pulse 83 98 78 Resp 20 20 20 B/P (MAP) 138/95 144/81 153/85 Pulse Ox 96 96 99 O2 Delivery Room Air Simple Mask Mask Simple Mask O2 Flow Rate 10 10 10 06/02/18 06/02/18 06/02/18 06/02/18 15:26 15:27 15:28 15:43 Pulse 84 91 Resp 20 20 20 20 B/P (MAP) 157/89 151/85 Pulse Ox 100 99 99 97 O2 Delivery Simple Mask Simple Mask Simple Mask Simple Mask O2 Flow Rate 10 10.0 10.0 10 06/02/18 06/02/18 06/02/18 06/02/18 15:58 16:13 16:28 16:30 Pulse 79 78 78 Resp 20 20 20 B/P (MAP) 142/87 167/85 160/84 Pulse Ox 100 98 98 O2 Delivery Simple Mask Room Air Nasal Cannula Nasal Cannula O2 Flow Rate 10 2 2 06/02/18 06/02/18 06/02/18 06/02/18 16:38 17:00 17:08 17:15 Pulse 79 75 Resp 22 B/P (MAP) 129/80 (96) 140/85 (103) Pulse Ox 99 96 96 O2 Delivery Room Air Nasal Cannula O2 Flow Rate 2.0 06/02/18 06/02/18 06/02/18 06/02/18 17:30 17:45 18:00 18:30 Pulse 75 78 83 85 B/P (MAP) 140/78 (98) 138/81 (100) 126/78 (94) 131/87 (102) Pulse Ox 96 96 97 98 06/02/18 06/02/18 06/02/18 06/02/18 19:20 20:00 20:00 20:01 Temp 97.5 97.5 Pulse 108 Resp 20 20 B/P (MAP) 162/97 (118) Pulse Ox 96 98 98 O2 Delivery Nasal Cannula Room Air Nasal Cannula Nasal Cannula O2 Flow Rate 2.0 2.0 2.0 06/02/18 06/02/18 06/02/18 06/02/18 20:20 20:31 21:00 23:09 Temp 98.6 98.6 Pulse 105 Resp 18 20 20 B/P (MAP) 155/98 (117) Pulse Ox 95 98 98 O2 Delivery Nasal Cannula Room Air Room Air O2 Flow Rate 2.0 2.0 2.0 06/02/18 06/02/18 06/03/18 06/03/18 23:25 23:43 03:48 03:50 Temp 98.2 98.3 98.2 98.3 Pulse 108 92 Resp 20 20 18 20 B/P (MAP) 132/79 (96) 134/82 (99) Pulse Ox 95 95 95 95 O2 Delivery Nasal Cannula Room Air Nasal Cannula Room Air O2 Flow Rate 2.0 2.0 06/03/18 06/03/18 06/03/18 06/03/18 03:50 04:20 04:50 07:00 Temp 98.2 98.2 Pulse 83 Resp 20 16 B/P (MAP) 171/88 (115) Pulse Ox 95 95 95 93 O2 Delivery Room Air Room Air 06/03/18 06/03/18 06/03/18 06/03/18 07:23 08:00 08:00 08:34 Resp 20 16 14 Pulse Ox 95 O2 Delivery Room Air Room Air Room Air Room Air 06/03/18 06/03/18 06/03/18 06/03/18 08:35 08:36 09:35 11:00 Temp 97.8 97.8 Pulse 83 83 100 Resp 16 16 B/P (MAP) 171/83 171/88 146/92 (110) Pulse Ox 93 O2 Delivery Room Air Room Air Intake and Output 11/1/18 11/1/18 11/2/18 15:00 23:00 07:00 Intake Total 1970 ml 880 ml Output Total 225 ml 200 ml 1280 ml Balance -225 ml 1770 ml -400 ml JORGE AUGUSTE APRN Jun 03, 2018 12:08
[2018-06-03 15:00] VITALS: BP 149/103
[2018-06-03] MEDS: metFORMIN 500 MG TABLET PO SCH (16:54)
[2018-06-03 19:00] VITALS: BP 157/100
[2018-06-03] MEDS: CYCLOBENZAPRINE 10 MG TABLET. PO PRN (20:39)
[2018-06-03] MEDS: ATORVASTATIN CALCIUM 40 MG TABLET. PO SCH (20:39)
[2018-06-03 23:00] VITALS: BP 147/78
[2018-06-04] MEDS: oxyCODONE/APAP 10/325 1 TAB TABLET PO PRN ×2 (00:31→05:55)
[2018-06-04 03:00] VITALS: BP 131/89
[2018-06-04] MEDS: fentaNYL PF VIAL 100 MCG/2 ML VIAL IV PRN (03:50)
[2018-06-04 04:47] LABS: BASO % 0 % (0-3); EOS % 0 % (0-3); HEMATOCRIT 42.9 % (39.0-53.0); HEMOGLOBIN 14.7 g/dL (13.0-17.5); LYMPH # 1.8 x10^3/uL (1.0-4.8); LYMPH % 9 % (24-48); MEAN CORPUSCULAR HEMOGLOBIN 31 pg (25-35); MEAN CORPUSCULAR HGB CONC 34 g/dL (31-37); MEAN CORPUSCULAR VOLUME 90 fL (79-100); MONO # 2.1 x10^3/uL (0.0-1.1); MONO % 10 % (0-9); NEUT # 16.3 x10^3uL (1.8-7.7); NEUT % 81 % (31-73); PLATELET COUNT 246 x10^3/uL (140-400); RED BLOOD COUNT 4.77 x10^6/uL (4.30-5.70); RED CELL DISTRIBUTION WIDTH 15.4 % (11.5-14.5); WHITE BLOOD COUNT 20.2 x10^3/uL (4.0-11.0)
[2018-06-04 05:07] LABS: CALCIUM 8.6 mg/dL (8.5-10.1); GFR 93.9; POTASSIUM 4.2 mmol/L (3.5-5.1)
[2018-06-04] MEDS: CYCLOBENZAPRINE 10 MG TABLET. PO PRN (05:54)
[2018-06-04 07:00] VITALS: BP 140/86
[2018-06-04] MEDS: INSULIN LISPRO 300 UNITS/3 ML INSULN.PEN. SQ SCH ×2 (08:00→12:47)
[2018-06-04] MEDS: LACTOBACILLUS RHAMNOSUS GG 1 CAPSULE. PO SCH (08:48)
[2018-06-04] MEDS: metFORMIN 500 MG TABLET PO SCH (08:48)
--- NOTE | 2018-06-04 08:48 | PDOC ---
PROGRESS NOTES Chief Complaint Chief Complaint Intractable lower back pain Disc herniation HTN urgency H/o hyperlipidemia DM2 hba1c 6.5 Leukocytosis: recently on steroid History of Present Illness History of Present Illness Pt seen and examined. Pt sitting upright in bed. STEVIE RN. Pt says that he pain at the incision site, but does not feel the pain in his buttock area that he was feeling before surgery. Family bedside ROS - Denies SOB, no CP, had BM, no dysuria Ok for d/c today with neurosurgery f/uf Vitals Vitals Vital Signs Date Time Temp Pulse Resp B/P (MAP) Pulse Ox O2 Delivery O2 Flow Rate FiO2 06/04/18 07:10 20 Room Air 06/04/18 07:00 98.0 77 140/86 (104) 93 98.0 Physical Exam Physical Exam rt leg limed ROM 2/2 pain General: Alert, Oriented X3, Cooperative, No acute distress Heart: Regular rate, Normal S1, Normal S2 Lungs: Clear Abdomen: Normal bowel sounds, Soft Extremities: No clubbing, No cyanosis, No edema, Normal pulses Skin: Other (dressing C,D,I, flat ) Labs LABS Laboratory Tests Test 06/03/18 11:37 06/03/18 16:07 06/03/18 21:01 06/04/18 03:40 Glucose (Fingerstick) 179 mg/dL (70-99) 230 mg/dL (70-99) 190 mg/dL (70-99) White Blood Count 20.2 x10^3/uL (4.0-11.0) Red Blood Count 4.77 x10^6/uL (4.30-5.70) Hemoglobin 14.7 g/dL (13.0-17.5) Hematocrit 42.9 % (39.0-53.0) Mean Corpuscular Volume 90 fL (79-100) Mean Corpuscular Hemoglobin 31 pg (25-35) Mean Corpuscular Hemoglobin Concent 34 g/dL (31-37) Red Cell Distribution Width 15.4 % (11.5-14.5) Platelet Count 246 x10^3/uL (140-400) Neutrophils (%) (Auto) 81 % (31-73) Lymphocytes (%) (Auto) 9 % (24-48) Monocytes (%) (Auto) 10 % (0-9) Eosinophils (%) (Auto) 0 % (0-3) Basophils (%) (Auto) 0 % (0-3) Neutrophils # (Auto) 16.3 x10^3uL (1.8-7.7) Lymphocytes # (Auto) 1.8 x10^3/uL (1.0-4.8) Monocytes # (Auto) 2.1 x10^3/uL (0.0-1.1) Eosinophils # (Auto) 0.0 x10^3/uL (0.0-0.7) Basophils # (Auto) 0.0 x10^3/uL (0.0-0.2) Sodium Level 142 mmol/L (136-145) Potassium Level 4.2 mmol/L (3.5-5.1) Chloride Level 106 mmol/L (98-107) Carbon Dioxide Level 29 mmol/L (21-32) Anion Gap 7 (6-14) Blood Urea Nitrogen 12 mg/dL (8-26) Creatinine 1.0 mg/dL (0.7-1.3) Estimated GFR (Cockcroft-Gault) 93.9 Glucose Level 221 mg/dL (70-99) Calcium Level 8.6 mg/dL (8.5-10.1) Assessment and Plan Assessmemt and Plan Problems Medical Problems: (1) Fall from standing Status: Acute (2) Sciatica Status: Acute Comment Review of Relevant I have reviewed the following items oly (where applicable) has been applied. Labs Laboratory Tests Test 06/02/18 17:09 06/02/18 20:53 06/03/18 07:31 06/03/18 11:37 Glucose (Fingerstick) 133 mg/dL (70-99) 262 mg/dL (70-99) 145 mg/dL (70-99) 179 mg/dL (70-99) Test 06/03/18 16:07 06/03/18 21:01 06/04/18 03:40 Glucose (Fingerstick) 230 mg/dL (70-99) 190 mg/dL (70-99) White Blood Count 20.2 x10^3/uL (4.0-11.0) Red Blood Count 4.77 x10^6/uL (4.30-5.70) Hemoglobin 14.7 g/dL (13.0-17.5) Hematocrit 42.9 % (39.0-53.0) Mean Corpuscular Volume 90 fL (79-100) Mean Corpuscular Hemoglobin 31 pg (25-35) Mean Corpuscular Hemoglobin Concent 34 g/dL (31-37) Red Cell Distribution Width 15.4 % (11.5-14.5) Platelet Count 246 x10^3/uL (140-400) Neutrophils (%) (Auto) 81 % (31-73) Lymphocytes (%) (Auto) 9 % (24-48) Monocytes (%) (Auto) 10 % (0-9) Eosinophils (%) (Auto) 0 % (0-3) Basophils (%) (Auto) 0 % (0-3) Neutrophils # (Auto) 16.3 x10^3uL (1.8-7.7) Lymphocytes # (Auto) 1.8 x10^3/uL (1.0-4.8) Monocytes # (Auto) 2.1 x10^3/uL (0.0-1.1) Eosinophils # (Auto) 0.0 x10^3/uL (0.0-0.7) Basophils # (Auto) 0.0 x10^3/uL (0.0-0.2) Sodium Level 142 mmol/L (136-145) Potassium Level 4.2 mmol/L (3.5-5.1) Chloride Level 106 mmol/L (98-107) Carbon Dioxide Level 29 mmol/L (21-32) Anion Gap 7 (6-14) Blood Urea Nitrogen 12 mg/dL (8-26) Creatinine 1.0 mg/dL (0.7-1.3) Estimated GFR (Cockcroft-Gault) 93.9 Glucose Level 221 mg/dL (70-99) Calcium Level 8.6 mg/dL (8.5-10.1) Laboratory Tests Test 06/03/18 11:37 06/03/18 16:07 06/03/18 21:01 06/04/18 03:40 Glucose (Fingerstick) 179 mg/dL (70-99) 230 mg/dL (70-99) 190 mg/dL (70-99) White Blood Count 20.2 x10^3/uL (4.0-11.0) Red Blood Count 4.77 x10^6/uL (4.30-5.70) Hemoglobin 14.7 g/dL (13.0-17.5) Hematocrit 42.9 % (39.0-53.0) Mean Corpuscular Volume 90 fL (79-100) Mean Corpuscular Hemoglobin 31 pg (25-35) Mean Corpuscular Hemoglobin Concent 34 g/dL (31-37) Red Cell Distribution Width 15.4 % (11.5-14.5) Platelet Count 246 x10^3/uL (140-400) Neutrophils (%) (Auto) 81 % (31-73) Lymphocytes (%) (Auto) 9 % (24-48) Monocytes (%) (Auto) 10 % (0-9) Eosinophils (%) (Auto) 0 % (0-3) Basophils (%) (Auto) 0 % (0-3) Neutrophils # (Auto) 16.3 x10^3uL (1.8-7.7) Lymphocytes # (Auto) 1.8 x10^3/uL (1.0-4.8) Monocytes # (Auto) 2.1 x10^3/uL (0.0-1.1) Eosinophils # (Auto) 0.0 x10^3/uL (0.0-0.7) Basophils # (Auto) 0.0 x10^3/uL (0.0-0.2) Sodium Level 142 mmol/L (136-145) Potassium Level 4.2 mmol/L (3.5-5.1) Chloride Level 106 mmol/L (98-107) Carbon Dioxide Level 29 mmol/L (21-32) Anion Gap 7 (6-14) Blood Urea Nitrogen 12 mg/dL (8-26) Creatinine 1.0 mg/dL (0.7-1.3) Estimated GFR (Cockcroft-Gault) 93.9 Glucose Level 221 mg/dL (70-99) Calcium Level 8.6 mg/dL (8.5-10.1) Microbiology 06/02/18 Urine Culture - Final, Complete 06/02/18 Urine Culture Result 1 (DELMAR) - Final, Complete Medications Current Medications Methylprednisolone Sodium Succinate (SOLU-Medrol 125MG VIAL) 125 mg 1X ONCE IM Last administered on 05/30/18at 08:54; Start 05/30/18 at 08:45; Stop at 08:46; Status DC Morphine Sulfate (Morphine Sulfate) 5 mg 1X ONCE IM Last administered on 05/30at 08:55; Start 05/30/18 at 08:45; Stop 05/30/18 at 08:46; Status DC Ketorolac Tromethamine (Toradol Im) 60 mg 1X ONCE IM Last administered on at 08:54; Start 05/30/18 at 08:45; Stop 05/30/18 at 08:46; Status DC Diazepam (Valium) 5 mg 1X ONCE PO Last administered on 05/30/18at 08:56; Start 05/30/18 at 08:45; Stop 05/30/18 at 08:46; Status DC Clonidine HCl (Catapres) 0.1 mg 1X ONCE PO ; Start 05/30/18 at 08:45; Stop at 08:46; Status DC Ondansetron HCl (Zofran) 4 mg PRN Q8HRS PRN IV NAUSEA/VOMITING Last administered on 05/30/18at 12:27; Start 05/30/18 at 10:15; Stop 05/30/18 at 16 :11; Status DC Morphine Sulfate (Morphine Sulfate) 4 mg PRN Q2HR PRN IV PAIN; Start 05/30/18 at 10:15; Stop 05/31/18 at 10:14; Status DC Acetaminophen (Tylenol) 650 mg PRN Q4HRS PRN PO FEVER Last administered on at 20:15; Start 05/30/18 at 10:15; Stop 05/31/18 at 10:14; Status DC Diazepam (Valium) 5 mg TID PRN PO ANXIETY / AGITATION Last administered on 06/02at 20:00; Start 05/30/18 at 10:15 Acetaminophen (Tylenol) 650 mg PRN Q6HRS PRN PO FEVER; Start 05/30/18 at 16:15 Ondansetron HCl (Zofran) 4 mg PRN Q6HRS PRN IV NAUSEA/VOMITING; Start at 16:15 Morphine Sulfate (Morphine Sulfate) 2 mg PRN Q2HR PRN IV MODERATE TO SEVERE PAIN Last administered on 06/01/18at 03:50; Start 05/30/18 at 16:15; Stop at 14:05; Status DC Tramadol HCl (Ultram) 50 mg PRN Q6HRS PRN PO MILD PAIN; Start 05/30/18 at 16: 15 Docusate Sodium (Colace) 100 mg PRN DAILY PRN PO CONSTIPATION; Start 05/30/18 at 16:15 Labetalol HCl (Normodyne Iv Push) 20 mg PRN Q2HR PRN IVP HYPERTENSION, SEE COMMENTS; Start 05/30/18 at 16:15 Amlodipine Besylate (Norvasc) 10 mg DAILY PO ; Start 05/31/18 at 09:00; Stop 05/31/18 at 09:00; Status DC Aspirin (Ecotrin) 81 mg DAILY PO Last administered on 06/03/18at 08:34; Start 05/31/18 at 09:00 Atorvastatin Calcium (Lipitor) 40 mg QHS PO Last administered on 06/03/18at 20: 39; Start 05/30/18 at 21:00 Cyclobenzaprine HCl (Flexeril) 10 mg PRN TID PRN PO MUSCLE SPASMS Last administered on 06/04/18at 05:54; Start 05/30/18 at 16:15 Oxycodone/ Acetaminophen (Percocet 5/325) 1 tab PRN Q4HRS PRN PO MODERATE PAIN Last administered on 05/30/18at 18:12; Start 05/30/18 at 16:15; Stop 06/01/18 at 14:05; Status DC Lisinopril (Prinivil) 40 mg DAILY PO Last administered on 06/03/18at 08:35; Start 05/30/18 at 17:00 Amlodipine Besylate (Norvasc) 10 mg DAILY PO Last administered on 06/03/18at 08: 36; Start 05/31/18 at 09:00 Enoxaparin Sodium (Lovenox 40mg Syringe) 40 mg Q24H SQ Last administered on at 16:53; Start 05/30/18 at 17:00; Stop 06/02/18 at 15:13; Status DC Oxycodone/ Acetaminophen (Percocet 10/325) 1 tab PRN Q4HRS PRN PO MODERATE PAIN Last administered on 06/02/18at 20:00; Start 05/31/18 at 09:30 Metformin HCl (Glucophage) 500 mg BIDWMEALS PO Last administered on 05/31/18at 17:28; Start 05/31/18 at 17:00; Stop 06/01/18 at 08:02; Status DC Insulin Human Lispro (HumaLOG) 0-9 UNITS TIDWMEALS SQ Last administered on 06/03at 16:55; Start 05/31/18 at 17:00 Dextrose (Dextrose 50%-Water Syringe) 12.5 gm PRN Q15MIN PRN IV SEE COMMENTS; Start 05/31/18 at 12:45 Fentanyl Citrate (Fentanyl 2ml Vial) 50 mcg 1X ONCE IV Last administered on at 19:30; Start 05/31/18 at 19:30; Stop 05/31/18 at 19:31; Status DC Fentanyl Citrate (Fentanyl 2ml Vial) 50 mcg PRN Q3HRS PRN IV SEVERE PAIN Last administered on 06/01/18at 13:09; Start 06/01/18 at 06:15; Stop 06/01/18 at 14 :05; Status DC Iohexol (Omnipaque 180 Mg/ml) 20 ml 1X ONCE IT Last administered on at 10:19; Start 06/01/18 at 08:00; Stop 06/01/18 at 08:01; Status DC Lidocaine/Sodium Bicarbonate (Buffered Lidocaine 1%) 6 ml 1X ONCE INJ Last administered on 06/01/18at 10:18; Start 06/01/18 at 08:00; Stop 06/01/18 at 08 :01; Status DC Info (CONTRAST GIVEN -- Rx MONITORING) 1 each PRN DAILY PRN MC SEE COMMENTS; Start 06/01/18 at 08:15; Stop 06/03/18 at 08:14; Status DC Metformin HCl (Glucophage) 500 mg BIDWMEALS PO Last administered on 06/03/18at 16:54; Start 06/03/18 at 17:00 Bacitracin 47098 unit/Sodium Chloride 1,000 ml @ 1,000 mls/hr 1X ONCE IRR Last administered on 06/02/18at 13:16; Start 06/02/18 at 06:00; Stop 06/02/18 at 06:59; Status DC Cefazolin Sodium/ Dextrose 50 ml @ 100 mls/hr 1X PREOP PRN IV PRIOR TO SURGERY ; Start 06/02/18 at 06:00; Stop 06/02/18 at 06:01; Status DC Fentanyl Citrate (Fentanyl 2ml Vial) 75 mcg PRN Q3HRS PRN IV SEVERE PAIN Last administered on 06/04/18at 03:50; Start 06/01/18 at 14:15 Ondansetron HCl (Zofran) 4 mg PRN Q6HRS PRN IV NAUSEA/VOMITING; Start 06/02/18 at 07:00; Stop 06/03/18 at 06:59; Status DC Fentanyl Citrate (Fentanyl 2ml Vial) 25 mcg PRN Q5MIN PRN IV MILD PAIN; Start 06/02/18 at 07:00; Stop 06/03/18 at 06:59; Status DC Fentanyl Citrate (Fentanyl 2ml Vial) 50 mcg PRN Q5MIN PRN IV MODERATE TO SEVERE PAIN Last administered on 06/02/18at 16:38; Start 06/02/18 at 07:00; Stop 06/03/18 at 06:59; Status DC Morphine Sulfate (Morphine Sulfate) 1 mg PRN Q10MIN PRN IV SEVERE PAIN; Start 06/02/18 at 07:00; Stop 06/03/18 at 06:59; Status DC Ringer's Solution 1,000 ml @ 30 mls/hr Q24H IV Last administered on 06/02/18at 15:26; Start 06/02/18 at 07:00; Stop 06/02/18 at 18:59; Status DC Lidocaine HCl (Xylocaine-Mpf 1% 2ml Vial) 2 ml PRN 1X PRN ID PRIOR TO IV START ; Start 06/02/18 at 07:00; Stop 06/03/18 at 06:59; Status DC Hydromorphone HCl (Dilaudid) 0.5 mg PRN Q10MIN PRN IV SEV PAIN, Second choice; Start 06/02/18 at 07:00; Stop 06/03/18 at 06:59; Status DC Prochlorperazine Edisylate (Compazine) 5 mg PACU PRN PRN IV NAUSEA, MRX1 Last administered on 06/02/18at 15:27; Start 06/02/18 at 07:00; Stop 06/03/18 at 06:59 ; Status DC Gelatin (Gelfoam Size 100) 1 each STK-MED ONCE .ROUTE Last administered on 06/02/18at 13:16; Start 06/02/18 at 05:25; Stop 06/02/18 at 06:26; Status DC Bupivacaine HCl/ Epinephrine Bitart (Sensorcain-Mpf Epi 0.5%-[id number]) 30 ml STK -MED ONCE .ROUTE Last administered on 06/02/18at 13:16; Start 06/02/18 at 05:25 ; Stop 06/02/18 at 06:26; Status DC Ketorolac Tromethamine (Toradol For Or Only) 60 mg STK-MED ONCE .ROUTE Last administered on 06/02/18at 13:16; Start 06/02/18 at 05:26; Stop 06/02/18 at 06:26 ; Status DC Ondansetron HCl (Zofran) 4 mg PRN Q6HRS PRN IV NAUSEA/VOMITING; Start 06/02/18 at 12:15; Stop 06/03/18 at 12:14; Status DC Fentanyl Citrate (Fentanyl 2ml Vial) 25 mcg PRN Q5MIN PRN IV MILD PAIN; Start 06/02/18 at 12:15; Stop 06/03/18 at 12:14; Status UNV Fentanyl Citrate (Fentanyl 2ml Vial) 50 mcg PRN Q5MIN PRN IV MODERATE TO SEVERE PAIN; Start 06/02/18 at 12:15; Stop 06/03/18 at 12:14; Status UNV Morphine Sulfate (Morphine Sulfate) 1 mg PRN Q10MIN PRN IV SEVERE PAIN; Start 06/02/18 at 12:15; Stop 06/03/18 at 12:14; Status UNV Ringer's Solution 1,000 ml @ 30 mls/hr Q24H IV ; Start 06/02/18 at 12:09; Stop 06/03/18 at 00:08; Status UNV Lidocaine HCl (Xylocaine-Mpf 1% 2ml Vial) 2 ml 1X PRN PRN ID IV START; Start 06/02/18 at 12:15; Stop 06/03/18 at 12:14; Status UNV Hydromorphone HCl (Dilaudid) 0.5 mg PRN Q10MIN PRN IV SEV PAIN, Second choice; Start 06/02/18 at 12:15; Stop 06/03/18 at 12:14; Status UNV Prochlorperazine Edisylate (Compazine) 5 mg PACU PRN PRN IV NAUSEA, MRX1; Start 06/02/18 at 12:15; Stop 06/03/18 at 12:14; Status UNV Cefazolin Sodium/ Dextrose 50 ml @ 100 mls/hr 1X PREOP PRN IV PRIOR TO SURGERY ; Start 06/02/18 at 12:15; Stop 06/03/18 at 10:29; Status DC Propofol 20 ml @ As Directed STK-MED ONCE IV ; Start 06/02/18 at 12:19; Stop at 12:20; Status DC Ondansetron HCl (Zofran) 4 mg STK-MED ONCE .ROUTE ; Start 06/02/18 at 12:19; Stop 06/02/18 at 12:20; Status DC Fentanyl Citrate (Fentanyl 2ml Vial) 100 mcg STK-MED ONCE .ROUTE ; Start at 12:19; Stop 06/02/18 at 12:20; Status DC Rocuronium [place] (Zemuron) 50 mg STK-MED ONCE .ROUTE ; Start 06/02/18 at 12:19 ; Stop 06/02/18 at 12:20; Status DC Midazolam HCl (Versed) 2 mg STK-MED ONCE .ROUTE ; Start 06/02/18 at 12:19; Stop 06/02/18 at 12:20; Status DC Lidocaine HCl (Xylocaine-Mpf 1% 5ml Vial) 5 ml STK-MED ONCE .ROUTE ; Start 06/02 at 12:22; Stop 06/02/18 at 12:23; Status DC Protamine Sulfate (Protamine) 50 mg STK-MED ONCE IV ; Start 06/02/18 at 12:24; Stop 06/02/18 at 12:25; Status DC Remifentanil HCl (Ultiva) 2 mg STK-MED ONCE IV ; Start 06/02/18 at 12:29; Stop 06/02/18 at 12:30; Status DC Famotidine (Pepcid Vial) 20 mg STK-MED ONCE .ROUTE ; Start 06/02/18 at 12:52; Stop 06/02/18 at 12:53; Status DC Phenylephrine HCl (PHENYLEPHRINE in 0.9% NACL PF) 1 mg STK-MED ONCE IV ; Start 06/02/18 at 13:01; Stop 06/02/18 at 13:02; Status DC Propofol 50 ml @ As Directed STK-MED ONCE IV ; Start 06/02/18 at 13:08; Stop at 13:09; Status DC Ephedrine Sulfate (ePHEDrine PF IN SALINE SYRINGE) 50 mg STK-MED ONCE IV ; Start 06/02/18 at 13:10; Stop 06/02/18 at 13:11; Status DC Desflurane (Suprane) 90 ml STK-MED ONCE IH ; Start 06/02/18 at 14:41; Stop 06/02 at 14:42; Status DC Morphine Sulfate (Morphine Sulfate) 4 mg PRN Q10MIN PRN IV PAIN Last administered on 06/02/18at 15:28; Start 06/02/18 at 15:30; Stop 06/03/18 at 14:53 ; Status DC Lactobacillus Rhamnosus (Culturelle) 1 cap BID PO Last administered on at 20:38; Start 06/02/18 at 21:00 Oxycodone/ Acetaminophen (Percocet 10/325) 2 tab PRN Q4HRS PRN PO SEVERE PAIN Last administered on 06/04/18at 05:55; Start 06/02/18 at 23:30 Dexamethasone Sodium Phosphate (Decadron) 10 mg 1X ONCE IV Last administered on 06/03/18at 08:38; Start 06/03/18 at 08:00; Stop 06/03/18 at 08:01; Status DC Cefazolin Sodium/ Dextrose (Ancef 2gm Premix) 2 gm STK-MED ONCE IV ; Start 06/02 at 12:30; Stop 06/03/18 at 08:48; Status DC Active Scripts Active Atorvastatin Calcium 40 Mg Tablet 40 Mg PO QHS Medrol (Methylprednisolone) 4 Mg Tab.ds.pk 1 Pkg PO UD Lidocaine 1 Each Adh..patch 1 Each TP Q12HR PRN Place one patch for 12 hours, remove patch after 12 hours use. wait 12 hours before placing a new patch [place] 5-325 Tablet (Acetaminophen/Hydrocodone Bitart) 1 Each Tablet 1 Tab PO PRN Q6HRS PRN Orphenadrine Citrate 100 Mg Tablet.er 1 Tab PO BID 10 Days Naproxen 500 Mg Tablet 1 Tab PO BID 10 Days Orphenadrine Citrate 100 Mg Tablet.er 100 Mg PO BID PRN Orphenadrine Citrate 100 Mg Tablet.er 100 Mg PO BID Diclofenac Sodium 50 Mg Tablet.dr 50 Mg PO BID Imitrex (Sumatriptan Succinate) 100 Mg Tablet 1 Tab PO UD PRN MDD 200 mg Take first dose of medication at onset of headache. He may repeat with 1 additional dose after 2 hours if headache is still present. Cyclobenzaprine Hcl 10 Mg Tablet 10 Mg PO TID PRN Reported Amlodipine Besylate 10 Mg Tablet 10 Mg PO DAILY Hydrochlorothiazide Tablet (Hydrochlorothiazide) 25 Mg Tablet 1 Tab PO DAILY Lisinopril 5 Mg Tablet 1 Tab PO DAILY Excedrin Migraine Caplet (Aspirin/Acetaminophen/Caffeine) 1 Each Tablet 1 Each PO PRN Q6-8HRS PRN Aspirin Ec (Aspirin) 81 Mg Tablet.dr 81 Mg PO DAILY Benzonatate 100 Mg Capsule 1 Cap PO TID Vitals/I & O Vital Sign - Last 24 Hours 06/03/18 06/03/18 06/03/18 06/03/18 11:00 12:28 15:00 16:48 Temp 97.8 98.9 97.8 98.9 Pulse 100 94 Resp 18 B/P (MAP) 146/92 (110) 149/103 (118) Pulse Ox 93 94 O2 Delivery Room Air Room Air Room Air Room Air 06/03/18 06/03/18 06/03/18 06/03/18 19:00 20:00 20:39 23:00 Temp 98.8 99.5 98.8 99.5 Pulse 104 105 Resp 18 B/P (MAP) 157/100 (119) 147/78 (101) Pulse Ox 94 93 O2 Delivery Room Air Room Air Room Air Room Air 06/04/18 06/04/18 06/04/18 06/04/18 00:31 03:00 03:50 04:32 Temp 97.7 97.7 Pulse 85 Resp 18 18 18 20 B/P (MAP) 131/89 (103) Pulse Ox 94 O2 Delivery Room Air Room Air Room Air Room Air 06/04/18 06/04/18 06/04/18 05:55 07:00 07:10 Temp 98.0 98.0 Pulse 77 Resp 18 16 20 B/P (MAP) 140/86 (104) Pulse Ox 93 O2 Delivery Room Air Room Air Room Air Intake and Output 06/03/18 06/03/18 06/04/18 15:00 23:00 07:00 Intake Total 300 ml Balance 300 ml YAKELIN STONE MD Jun 04, 2018 08:47
[2018-06-04] MEDS: ASPIRIN ENTERIC COATED 81 MG TABLET.DR. PO SCH (08:49)
[2018-06-04] MEDS: amLODIPine BESYLATE 10 MG TABLET PO SCH (08:49)
[2018-06-04] MEDS: LISINOPRIL 20 MG TABLET PO SCH (08:50)
[2018-06-04 11:00] VITALS: BP 152/102
--- NOTE | 2018-06-04 11:17 | PDOC ---
PROGRESS NOTES Subjective Subjective He feels better but still admits soreness at surgical site. Objective Objective Vital Signs Date Time Temp Pulse Resp B/P (MAP) Pulse Ox O2 Delivery O2 Flow Rate FiO2 06/04/18 08:50 77 140/86 06/04/18 07:10 20 Room Air 06/04/18 07:00 98.0 93 98.0 06/03/18 03:48 2.0 Intake and Output 06/04/18 07:00 Intake Total 300 ml Balance 300 ml Intake Oral 300 ml # Voids 5 Physical Exam Physical Exam He is supine in bed and alert and comfortable and he did walk with roller walkekr and managed stairs with physical therapy and his girl friend. Assessment Assessment Problems Medical Problems: (1) Fall from standing Status: Acute (2) Sciatica Status: Acute Plan Plan of Custodial today with out patient follow up. Comment Review of Relevant I have reviewed the following items oly (where applicable) has been applied. Labs Laboratory Tests Test 06/02/18 17:09 06/02/18 20:53 06/03/18 07:31 06/03/18 11:37 Glucose (Fingerstick) 133 mg/dL (70-99) 262 mg/dL (70-99) 145 mg/dL (70-99) 179 mg/dL (70-99) Test 06/03/18 16:07 06/03/18 21:01 06/04/18 03:40 Glucose (Fingerstick) 230 mg/dL (70-99) 190 mg/dL (70-99) White Blood Count 20.2 x10^3/uL (4.0-11.0) Red Blood Count 4.77 x10^6/uL (4.30-5.70) Hemoglobin 14.7 g/dL (13.0-17.5) Hematocrit 42.9 % (39.0-53.0) Mean Corpuscular Volume 90 fL (79-100) Mean Corpuscular Hemoglobin 31 pg (25-35) Mean Corpuscular Hemoglobin Concent 34 g/dL (31-37) Red Cell Distribution Width 15.4 % (11.5-14.5) Platelet Count 246 x10^3/uL (140-400) Neutrophils (%) (Auto) 81 % (31-73) Lymphocytes (%) (Auto) 9 % (24-48) Monocytes (%) (Auto) 10 % (0-9) Eosinophils (%) (Auto) 0 % (0-3) Basophils (%) (Auto) 0 % (0-3) Neutrophils # (Auto) 16.3 x10^3uL (1.8-7.7) Lymphocytes # (Auto) 1.8 x10^3/uL (1.0-4.8) Monocytes # (Auto) 2.1 x10^3/uL (0.0-1.1) Eosinophils # (Auto) 0.0 x10^3/uL (0.0-0.7) Basophils # (Auto) 0.0 x10^3/uL (0.0-0.2) Sodium Level 142 mmol/L (136-145) Potassium Level 4.2 mmol/L (3.5-5.1) Chloride Level 106 mmol/L (98-107) Carbon Dioxide Level 29 mmol/L (21-32) Anion Gap 7 (6-14) Blood Urea Nitrogen 12 mg/dL (8-26) Creatinine 1.0 mg/dL (0.7-1.3) Estimated GFR (Cockcroft-Gault) 93.9 Glucose Level 221 mg/dL (70-99) Calcium Level 8.6 mg/dL (8.5-10.1) Laboratory Tests Test 06/03/18 11:37 06/03/18 16:07 06/03/18 21:01 06/04/18 03:40 Glucose (Fingerstick) 179 mg/dL (70-99) 230 mg/dL (70-99) 190 mg/dL (70-99) White Blood Count 20.2 x10^3/uL (4.0-11.0) Red Blood Count 4.77 x10^6/uL (4.30-5.70) Hemoglobin 14.7 g/dL (13.0-17.5) Hematocrit 42.9 % (39.0-53.0) Mean Corpuscular Volume 90 fL (79-100) Mean Corpuscular Hemoglobin 31 pg (25-35) Mean Corpuscular Hemoglobin Concent 34 g/dL (31-37) Red Cell Distribution Width 15.4 % (11.5-14.5) Platelet Count 246 x10^3/uL (140-400) Neutrophils (%) (Auto) 81 % (31-73) Lymphocytes (%) (Auto) 9 % (24-48) Monocytes (%) (Auto) 10 % (0-9) Eosinophils (%) (Auto) 0 % (0-3) Basophils (%) (Auto) 0 % (0-3) Neutrophils # (Auto) 16.3 x10^3uL (1.8-7.7) Lymphocytes # (Auto) 1.8 x10^3/uL (1.0-4.8) Monocytes # (Auto) 2.1 x10^3/uL (0.0-1.1) Eosinophils # (Auto) 0.0 x10^3/uL (0.0-0.7) Basophils # (Auto) 0.0 x10^3/uL (0.0-0.2) Sodium Level 142 mmol/L (136-145) Potassium Level 4.2 mmol/L (3.5-5.1) Chloride Level 106 mmol/L (98-107) Carbon Dioxide Level 29 mmol/L (21-32) Anion Gap 7 (6-14) Blood Urea Nitrogen 12 mg/dL (8-26) Creatinine 1.0 mg/dL (0.7-1.3) Estimated GFR (Cockcroft-Gault) 93.9 Glucose Level 221 mg/dL (70-99) Calcium Level 8.6 mg/dL (8.5-10.1) Microbiology 06/02/18 Urine Culture - Final, Complete 06/02/18 Urine Culture Result 1 (DELMAR) - Final, Complete Medications Current Medications Methylprednisolone Sodium Succinate (SOLU-Medrol 125MG VIAL) 125 mg 1X ONCE IM Last administered on 05/30/18at 08:54; Start 05/30/18 at 08:45; Stop at 08:46; Status DC Morphine Sulfate (Morphine Sulfate) 5 mg 1X ONCE IM Last administered on 05/30at 08:55; Start 05/30/18 at 08:45; Stop 05/30/18 at 08:46; Status DC Ketorolac Tromethamine (Toradol Im) 60 mg 1X ONCE IM Last administered on at 08:54; Start 05/30/18 at 08:45; Stop 05/30/18 at 08:46; Status DC Diazepam (Valium) 5 mg 1X ONCE PO Last administered on 05/30/18at 08:56; Start 05/30/18 at 08:45; Stop 05/30/18 at 08:46; Status DC Clonidine HCl (Catapres) 0.1 mg 1X ONCE PO ; Start 05/30/18 at 08:45; Stop at 08:46; Status DC Ondansetron HCl (Zofran) 4 mg PRN Q8HRS PRN IV NAUSEA/VOMITING Last administered on 05/30/18at 12:27; Start 05/30/18 at 10:15; Stop 05/30/18 at 16 :11; Status DC Morphine Sulfate (Morphine Sulfate) 4 mg PRN Q2HR PRN IV PAIN; Start 05/30/18 at 10:15; Stop 05/31/18 at 10:14; Status DC Acetaminophen (Tylenol) 650 mg PRN Q4HRS PRN PO FEVER Last administered on at 20:15; Start 05/30/18 at 10:15; Stop 05/31/18 at 10:14; Status DC Diazepam (Valium) 5 mg TID PRN PO ANXIETY / AGITATION Last administered on 06/02at 20:00; Start 05/30/18 at 10:15 Acetaminophen (Tylenol) 650 mg PRN Q6HRS PRN PO FEVER; Start 05/30/18 at 16:15 Ondansetron HCl (Zofran) 4 mg PRN Q6HRS PRN IV NAUSEA/VOMITING; Start at 16:15 Morphine Sulfate (Morphine Sulfate) 2 mg PRN Q2HR PRN IV MODERATE TO SEVERE PAIN Last administered on 06/01/18at 03:50; Start 05/30/18 at 16:15; Stop at 14:05; Status DC Tramadol HCl (Ultram) 50 mg PRN Q6HRS PRN PO MILD PAIN; Start 05/30/18 at 16: 15 Docusate Sodium (Colace) 100 mg PRN DAILY PRN PO CONSTIPATION; Start 05/30/18 at 16:15 Labetalol HCl (Normodyne Iv Push) 20 mg PRN Q2HR PRN IVP HYPERTENSION, SEE COMMENTS; Start 05/30/18 at 16:15 Amlodipine Besylate (Norvasc) 10 mg DAILY PO ; Start 05/31/18 at 09:00; Stop 05/31/18 at 09:00; Status DC Aspirin (Ecotrin) 81 mg DAILY PO Last administered on 06/04/18 08:49; Start 05/31/18 at 09:00 Atorvastatin Calcium (Lipitor) 40 mg QHS PO Last administered on 06/03/18at 20: 39; Start 05/30/18 at 21:00 Cyclobenzaprine HCl (Flexeril) 10 mg PRN TID PRN PO MUSCLE SPASMS Last administered on 06/04/18 05:54; Start 05/30/18 at 16:15 Oxycodone/ Acetaminophen (Percocet 5/325) 1 tab PRN Q4HRS PRN PO MODERATE PAIN Last administered on 05/30/18at 18:12; Start 05/30/18 at 16:15; Stop 06/01/18 at 14:05; Status DC Lisinopril (Prinivil) 40 mg DAILY PO Last administered on 06/04/18at 08:50; Start 05/30/18 at 17:00 Amlodipine Besylate (Norvasc) 10 mg DAILY PO Last administered on 06/04/18 08: 49; Start 05/31/18 at 09:00 Enoxaparin Sodium (Lovenox 40mg Syringe) 40 mg Q24H SQ Last administered on at 16:53; Start 05/30/18 at 17:00; Stop 06/02/18 at 15:13; Status DC Oxycodone/ Acetaminophen (Percocet 10/325) 1 tab PRN Q4HRS PRN PO MODERATE PAIN Last administered on 06/02/18at 20:00; Start 05/31/18 at 09:30 Metformin HCl (Glucophage) 500 mg BIDWMEALS PO Last administered on 05/31/18 17:28; Start 05/31/18 at 17:00; Stop 06/01/18 at 08:02; Status DC Insulin Human Lispro (HumaLOG) 0-9 UNITS TIDWMEALS SQ Last administered on 06/03at 16:55; Start 05/31/18 at 17:00 Dextrose (Dextrose 50%-Water Syringe) 12.5 gm PRN Q15MIN PRN IV SEE COMMENTS; Start 05/31/18 at 12:45 Fentanyl Citrate (Fentanyl 2ml Vial) 50 mcg 1X ONCE IV Last administered on at 19:30; Start 05/31/18 at 19:30; Stop 05/31/18 at 19:31; Status DC Fentanyl Citrate (Fentanyl 2ml Vial) 50 mcg PRN Q3HRS PRN IV SEVERE PAIN Last administered on 06/01/18at 13:09; Start 06/01/18 at 06:15; Stop 06/01/18 at 14 :05; Status DC Iohexol (Omnipaque 180 Mg/ml) 20 ml 1X ONCE IT Last administered on at 10:19; Start 06/01/18 at 08:00; Stop 06/01/18 at 08:01; Status DC Lidocaine/Sodium Bicarbonate (Buffered Lidocaine 1%) 6 ml 1X ONCE INJ Last administered on 06/01/18at 10:18; Start 06/01/18 at 08:00; Stop 06/01/18 at 08 :01; Status DC Info (CONTRAST GIVEN -- Rx MONITORING) 1 each PRN DAILY PRN MC SEE COMMENTS; Start 06/01/18 at 08:15; Stop 06/03/18 at 08:14; Status DC Metformin HCl (Glucophage) 500 mg BIDWMEALS PO Last administered on 06/04/18at 08:48; Start 06/03/18 at 17:00 Bacitracin 84097 unit/Sodium Chloride 1,000 ml @ 1,000 mls/hr 1X ONCE IRR Last administered on 06/02/18at 13:16; Start 06/02/18 at 06:00; Stop 06/02/18 at 06:59; Status DC Cefazolin Sodium/ Dextrose 50 ml @ 100 mls/hr 1X PREOP PRN IV PRIOR TO SURGERY ; Start 06/02/18 at 06:00; Stop 06/02/18 at 06:01; Status DC Fentanyl Citrate (Fentanyl 2ml Vial) 75 mcg PRN Q3HRS PRN IV SEVERE PAIN Last administered on 06/04/18at 03:50; Start 06/01/18 at 14:15 Ondansetron HCl (Zofran) 4 mg PRN Q6HRS PRN IV NAUSEA/VOMITING; Start 06/02/18 at 07:00; Stop 06/03/18 at 06:59; Status DC Fentanyl Citrate (Fentanyl 2ml Vial) 25 mcg PRN Q5MIN PRN IV MILD PAIN; Start 06/02/18 at 07:00; Stop 06/03/18 at 06:59; Status DC Fentanyl Citrate (Fentanyl 2ml Vial) 50 mcg PRN Q5MIN PRN IV MODERATE TO SEVERE PAIN Last administered on 06/02/18at 16:38; Start 06/02/18 at 07:00; Stop 06/03/18 at 06:59; Status DC Morphine Sulfate (Morphine Sulfate) 1 mg PRN Q10MIN PRN IV SEVERE PAIN; Start 06/02/18 at 07:00; Stop 06/03/18 at 06:59; Status DC Ringer's Solution 1,000 ml @ 30 mls/hr Q24H IV Last administered on 06/02/18at 15:26; Start 06/02/18 at 07:00; Stop 06/02/18 at 18:59; Status DC Lidocaine HCl (Xylocaine-Mpf 1% 2ml Vial) 2 ml PRN 1X PRN ID PRIOR TO IV START ; Start 06/02/18 at 07:00; Stop 06/03/18 at 06:59; Status DC Hydromorphone HCl (Dilaudid) 0.5 mg PRN Q10MIN PRN IV SEV PAIN, Second choice; Start 06/02/18 at 07:00; Stop 06/03/18 at 06:59; Status DC Prochlorperazine Edisylate (Compazine) 5 mg PACU PRN PRN IV NAUSEA, MRX1 Last administered on 06/02/18at 15:27; Start 06/02/18 at 07:00; Stop 06/03/18 at 06:59 ; Status DC Gelatin (Gelfoam Size 100) 1 each STK-MED ONCE .ROUTE Last administered on 06/02/18at 13:16; Start 06/02/18 at 05:25; Stop 06/02/18 at 06:26; Status DC Bupivacaine HCl/ Epinephrine Bitart (Sensorcain-Mpf Epi 0.5%-1:[id number]) 30 ml STK -MED ONCE .ROUTE Last administered on 06/02/18at 13:16; Start 06/02/18 at 05:25 ; Stop 06/02/18 at 06:26; Status DC Ketorolac Tromethamine (Toradol For Or Only) 60 mg STK-MED ONCE .ROUTE Last administered on 06/02/18at 13:16; Start 06/02/18 at 05:26; Stop 06/02/18 at 06:26 ; Status DC Ondansetron HCl (Zofran) 4 mg PRN Q6HRS PRN IV NAUSEA/VOMITING; Start 06/02/18 at 12:15; Stop 06/03/18 at 12:14; Status DC Fentanyl Citrate (Fentanyl 2ml Vial) 25 mcg PRN Q5MIN PRN IV MILD PAIN; Start 06/02/18 at 12:15; Stop 06/03/18 at 12:14; Status UNV Fentanyl Citrate (Fentanyl 2ml Vial) 50 mcg PRN Q5MIN PRN IV MODERATE TO SEVERE PAIN; Start 06/02/18 at 12:15; Stop 06/03/18 at 12:14; Status UNV Morphine Sulfate (Morphine Sulfate) 1 mg PRN Q10MIN PRN IV SEVERE PAIN; Start 06/02/18 at 12:15; Stop 06/03/18 at 12:14; Status UNV Ringer's Solution 1,000 ml @ 30 mls/hr Q24H IV ; Start 06/02/18 at 12:09; Stop 06/03/18 at 00:08; Status UNV Lidocaine HCl (Xylocaine-Mpf 1% 2ml Vial) 2 ml 1X PRN PRN ID IV START; Start 06/02/18 at 12:15; Stop 06/03/18 at 12:14; Status UNV Hydromorphone HCl (Dilaudid) 0.5 mg PRN Q10MIN PRN IV SEV PAIN, Second choice; Start 06/02/18 at 12:15; Stop 06/03/18 at 12:14; Status UNV Prochlorperazine Edisylate (Compazine) 5 mg PACU PRN PRN IV NAUSEA, MRX1; Start 06/02/18 at 12:15; Stop 06/03/18 at 12:14; Status UNV Cefazolin Sodium/ Dextrose 50 ml @ 100 mls/hr 1X PREOP PRN IV PRIOR TO SURGERY ; Start 06/02/18 at 12:15; Stop 06/03/18 at 10:29; Status DC Propofol 20 ml @ As Directed STK-MED ONCE IV ; Start 06/02/18 at 12:19; Stop at 12:20; Status DC Ondansetron HCl (Zofran) 4 mg STK-MED ONCE .ROUTE ; Start 06/02/18 at 12:19; Stop 06/02/18 at 12:20; Status DC Fentanyl Citrate (Fentanyl 2ml Vial) 100 mcg STK-MED ONCE .ROUTE ; Start at 12:19; Stop 06/02/18 at 12:20; Status DC Rocuronium [place] (Zemuron) 50 mg STK-MED ONCE .ROUTE ; Start 06/02/18 at 12:19 ; Stop 06/02/18 at 12:20; Status DC Midazolam HCl (Versed) 2 mg STK-MED ONCE .ROUTE ; Start 06/02/18 at 12:19; Stop 06/02/18 at 12:20; Status DC Lidocaine HCl (Xylocaine-Mpf 1% 5ml Vial) 5 ml STK-MED ONCE .ROUTE ; Start 06/02 at 12:22; Stop 06/02/18 at 12:23; Status DC Protamine Sulfate (Protamine) 50 mg STK-MED ONCE IV ; Start 06/02/18 at 12:24; Stop 06/02/18 at 12:25; Status DC Remifentanil HCl (Ultiva) 2 mg STK-MED ONCE IV ; Start 06/02/18 at 12:29; Stop 06/02/18 at 12:30; Status DC Famotidine (Pepcid Vial) 20 mg STK-MED ONCE .ROUTE ; Start 06/02/18 at 12:52; Stop 06/02/18 at 12:53; Status DC Phenylephrine HCl (PHENYLEPHRINE in 0.9% NACL PF) 1 mg STK-MED ONCE IV ; Start 06/02/18 at 13:01; Stop 06/02/18 at 13:02; Status DC Propofol 50 ml @ As Directed STK-MED ONCE IV ; Start 06/02/18 at 13:08; Stop at 13:09; Status DC Ephedrine Sulfate (ePHEDrine PF IN SALINE SYRINGE) 50 mg STK-MED ONCE IV ; Start 06/02/18 at 13:10; Stop 06/02/18 at 13:11; Status DC Desflurane (Suprane) 90 ml STK-MED ONCE IH ; Start 06/02/18 at 14:41; Stop 06/02 at 14:42; Status DC Morphine Sulfate (Morphine Sulfate) 4 mg PRN Q10MIN PRN IV PAIN Last administered on 06/02/18at 15:28; Start 06/02/18 at 15:30; Stop 06/03/18 at 14:53 ; Status DC Lactobacillus Rhamnosus (Culturelle) 1 cap BID PO Last administered on at 08:48; Start 06/02/18 at 21:00 Oxycodone/ Acetaminophen (Percocet 10/325) 2 tab PRN Q4HRS PRN PO SEVERE PAIN Last administered on 06/04/18at 05:55; Start 06/02/18 at 23:30 Dexamethasone Sodium Phosphate (Decadron) 10 mg 1X ONCE IV Last administered on 06/03/18at 08:38; Start 06/03/18 at 08:00; Stop 06/03/18 at 08:01; Status DC Cefazolin Sodium/ Dextrose (Ancef 2gm Premix) 2 gm STK-MED ONCE IV ; Start 06/02 at 12:30; Stop 06/03/18 at 08:48; Status DC Active Scripts Active Atorvastatin Calcium 40 Mg Tablet 40 Mg PO QHS Medrol (Methylprednisolone) 4 Mg Tab.ds.pk 1 Pkg PO UD Lidocaine 1 Each Adh..patch 1 Each TP Q12HR PRN Place one patch for 12 hours, remove patch after 12 hours use. wait 12 hours before placing a new patch [place] 5-325 Tablet (Acetaminophen/Hydrocodone Bitart) 1 Each Tablet 1 Tab PO PRN Q6HRS PRN Orphenadrine Citrate 100 Mg Tablet.er 1 Tab PO BID 10 Days Naproxen 500 Mg Tablet 1 Tab PO BID 10 Days Orphenadrine Citrate 100 Mg Tablet.er 100 Mg PO BID PRN Orphenadrine Citrate 100 Mg Tablet.er 100 Mg PO BID Diclofenac Sodium 50 Mg Tablet.dr 50 Mg PO BID Imitrex (Sumatriptan Succinate) 100 Mg Tablet 1 Tab PO UD PRN MDD 200 mg Take first dose of medication at onset of headache. He may repeat with 1 additional dose after 2 hours if headache is still present. Cyclobenzaprine Hcl 10 Mg Tablet 10 Mg PO TID PRN Reported Amlodipine Besylate 10 Mg Tablet 10 Mg PO DAILY Hydrochlorothiazide Tablet (Hydrochlorothiazide) 25 Mg Tablet 1 Tab PO DAILY Lisinopril 5 Mg Tablet 1 Tab PO DAILY Excedrin Migraine Caplet (Aspirin/Acetaminophen/Caffeine) 1 Each Tablet 1 Each PO PRN Q6-8HRS PRN Aspirin Ec (Aspirin) 81 Mg Tablet.dr 81 Mg PO DAILY Benzonatate 100 Mg Capsule 1 Cap PO TID Vitals/I & O Vital Sign - Last 24 Hours 06/03/18 06/03/18 06/03/18 06/03/18 12:28 15:00 16:48 19:00 Temp 98.9 98.8 98.9 98.8 Pulse 94 104 Resp 16 18 18 B/P (MAP) 149/103 (118) 157/100 (119) Pulse Ox 94 94 O2 Delivery Room Air Room Air Room Air Room Air 06/03/18 06/03/18 06/03/18 06/04/18 20:00 20:39 23:00 00:31 Temp 99.5 99.5 Pulse 105 Resp 18 18 18 B/P (MAP) 147/78 (101) Pulse Ox 93 O2 Delivery Room Air Room Air Room Air Room Air 06/04/18 06/04/18 06/04/18 06/04/18 03:00 03:50 04:32 05:55 Temp 97.7 97.7 Pulse 85 Resp 18 18 20 18 B/P (MAP) 131/89 (103) Pulse Ox 94 O2 Delivery Room Air Room Air Room Air Room Air 06/04/18 06/04/18 06/04/18 06/04/18 07:00 07:10 08:49 08:50 Temp 98.0 98.0 Pulse 77 77 77 Resp 16 20 B/P (MAP) 140/86 (104) 140/86 140/86 Pulse Ox 93 O2 Delivery Room Air Room Air Intake and Output 06/03/18 06/03/18 06/04/18 15:00 23:00 07:00 Intake Total 300 ml Balance 300 ml JOVANNA TALBOT MD Jun 04, 2018 11:16
--- NOTE | 2018-06-04 11:55 | DISCH ---
DISCHARGE INSTRUCTIONS Condition on Discharge Condition on Discharge: Stable Activity After Discharge Activity Instructions for Disc: Activity as tolerated, Avoid exertion, Other, see below Other activity instructions: no driving for a week Bathing Instructions: Shower-keep dressing dry Lifting Instructions after Dis: No heavy lifting, No pulling or pushing, Do not lift >10 pounds Diet after Discharge Additional Diet Restrictions: resume home diet Wound Incision Care Wound/Incision Care: Ice to area for comfort Other wound/incision instructi: may remove dressing tomorrow if dry then may shower, no soaking Contacting the after DC Call your doctor for: Concerns you may have Follow-Up Follow up with: Dr. Garcia's nurse in 2 weeks [phone] JOVAN GARCIA MD Jun 04, 2018 11:55
[2018-06-04] MEDS ORDERED: OXYC-411 PO (11:58)
--- NOTE | 2018-06-04 12:01 | PDOC ---
PROGRESS NOTES Subjective Subjective POD #2 sitting up in bed right leg pain significantly improved some incisional pain Objective Objective Vital Signs Date Time Temp Pulse Resp B/P (MAP) Pulse Ox O2 Delivery O2 Flow Rate FiO2 06/04/18 08:50 77 140/86 06/04/18 07:10 20 Room Air 06/04/18 07:00 98.0 93 98.0 06/03/18 03:48 2.0 Intake and Output 06/04/18 07:00 Intake Total 300 ml Balance 300 ml Intake Oral 300 ml # Voids 5 Physical Exam General: Alert, Oriented X3, Cooperative, No acute distress MUSCULOSKELETAL: Other (JAMES) Neuro: Other (strength 5/5 in BLE) Skin: Other (Dressing C,D,I, flat) Assessment Assessment Problems Medical Problems: (1) Fall from standing Status: Acute (2) Sciatica Status: Acute Plan Plan of Care dc home f/u 2 weeks Comment Review of Relevant I have reviewed the following items oly (where applicable) has been applied. Labs Laboratory Tests Test 06/02/18 17:09 06/02/18 20:53 06/03/18 07:31 06/03/18 11:37 Glucose (Fingerstick) 133 mg/dL (70-99) 262 mg/dL (70-99) 145 mg/dL (70-99) 179 mg/dL (70-99) Test 06/03/18 16:07 06/03/18 21:01 06/04/18 03:40 Glucose (Fingerstick) 230 mg/dL (70-99) 190 mg/dL (70-99) White Blood Count 20.2 x10^3/uL (4.0-11.0) Red Blood Count 4.77 x10^6/uL (4.30-5.70) Hemoglobin 14.7 g/dL (13.0-17.5) Hematocrit 42.9 % (39.0-53.0) Mean Corpuscular Volume 90 fL (79-100) Mean Corpuscular Hemoglobin 31 pg (25-35) Mean Corpuscular Hemoglobin Concent 34 g/dL (31-37) Red Cell Distribution Width 15.4 % (11.5-14.5) Platelet Count 246 x10^3/uL (140-400) Neutrophils (%) (Auto) 81 % (31-73) Lymphocytes (%) (Auto) 9 % (24-48) Monocytes (%) (Auto) 10 % (0-9) Eosinophils (%) (Auto) 0 % (0-3) Basophils (%) (Auto) 0 % (0-3) Neutrophils # (Auto) 16.3 x10^3uL (1.8-7.7) Lymphocytes # (Auto) 1.8 x10^3/uL (1.0-4.8) Monocytes # (Auto) 2.1 x10^3/uL (0.0-1.1) Eosinophils # (Auto) 0.0 x10^3/uL (0.0-0.7) Basophils # (Auto) 0.0 x10^3/uL (0.0-0.2) Sodium Level 142 mmol/L (136-145) Potassium Level 4.2 mmol/L (3.5-5.1) Chloride Level 106 mmol/L (98-107) Carbon Dioxide Level 29 mmol/L (21-32) Anion Gap 7 (6-14) Blood Urea Nitrogen 12 mg/dL (8-26) Creatinine 1.0 mg/dL (0.7-1.3) Estimated GFR (Cockcroft-Gault) 93.9 Glucose Level 221 mg/dL (70-99) Calcium Level 8.6 mg/dL (8.5-10.1) Laboratory Tests Test 06/03/18 16:07 06/03/18 21:01 06/04/18 03:40 Glucose (Fingerstick) 230 mg/dL (70-99) 190 mg/dL (70-99) White Blood Count 20.2 x10^3/uL (4.0-11.0) Red Blood Count 4.77 x10^6/uL (4.30-5.70) Hemoglobin 14.7 g/dL (13.0-17.5) Hematocrit 42.9 % (39.0-53.0) Mean Corpuscular Volume 90 fL (79-100) Mean Corpuscular Hemoglobin 31 pg (25-35) Mean Corpuscular Hemoglobin Concent 34 g/dL (31-37) Red Cell Distribution Width 15.4 % (11.5-14.5) Platelet Count 246 x10^3/uL (140-400) Neutrophils (%) (Auto) 81 % (31-73) Lymphocytes (%) (Auto) 9 % (24-48) Monocytes (%) (Auto) 10 % (0-9) Eosinophils (%) (Auto) 0 % (0-3) Basophils (%) (Auto) 0 % (0-3) Neutrophils # (Auto) 16.3 x10^3uL (1.8-7.7) Lymphocytes # (Auto) 1.8 x10^3/uL (1.0-4.8) Monocytes # (Auto) 2.1 x10^3/uL (0.0-1.1) Eosinophils # (Auto) 0.0 x10^3/uL (0.0-0.7) Basophils # (Auto) 0.0 x10^3/uL (0.0-0.2) Sodium Level 142 mmol/L (136-145) Potassium Level 4.2 mmol/L (3.5-5.1) Chloride Level 106 mmol/L (98-107) Carbon Dioxide Level 29 mmol/L (21-32) Anion Gap 7 (6-14) Blood Urea Nitrogen 12 mg/dL (8-26) Creatinine 1.0 mg/dL (0.7-1.3) Estimated GFR (Cockcroft-Gault) 93.9 Glucose Level 221 mg/dL (70-99) Calcium Level 8.6 mg/dL (8.5-10.1) Microbiology 06/02/18 Urine Culture - Final, Complete 06/02/18 Urine Culture Result 1 (DELMAR) - Final, Complete Medications Current Medications Methylprednisolone Sodium Succinate (SOLU-Medrol 125MG VIAL) 125 mg 1X ONCE IM Last administered on 05/30/18at 08:54; Start 05/30/18 at 08:45; Stop at 08:46; Status DC Morphine Sulfate (Morphine Sulfate) 5 mg 1X ONCE IM Last administered on 05/30at 08:55; Start 05/30/18 at 08:45; Stop 05/30/18 at 08:46; Status DC Ketorolac Tromethamine (Toradol Im) 60 mg 1X ONCE IM Last administered on at 08:54; Start 05/30/18 at 08:45; Stop 05/30/18 at 08:46; Status DC Diazepam (Valium) 5 mg 1X ONCE PO Last administered on 05/30/18at 08:56; Start 05/30/18 at 08:45; Stop 05/30/18 at 08:46; Status DC Clonidine HCl (Catapres) 0.1 mg 1X ONCE PO ; Start 05/30/18 at 08:45; Stop at 08:46; Status DC Ondansetron HCl (Zofran) 4 mg PRN Q8HRS PRN IV NAUSEA/VOMITING Last administered on 05/30/18at 12:27; Start 05/30/18 at 10:15; Stop 05/30/18 at 16 :11; Status DC Morphine Sulfate (Morphine Sulfate) 4 mg PRN Q2HR PRN IV PAIN; Start 05/30/18 at 10:15; Stop 05/31/18 at 10:14; Status DC Acetaminophen (Tylenol) 650 mg PRN Q4HRS PRN PO FEVER Last administered on at 20:15; Start 05/30/18 at 10:15; Stop 05/31/18 at 10:14; Status DC Diazepam (Valium) 5 mg TID PRN PO ANXIETY / AGITATION Last administered on 06/02at 20:00; Start 05/30/18 at 10:15 Acetaminophen (Tylenol) 650 mg PRN Q6HRS PRN PO FEVER; Start 05/30/18 at 16:15 Ondansetron HCl (Zofran) 4 mg PRN Q6HRS PRN IV NAUSEA/VOMITING; Start at 16:15 Morphine Sulfate (Morphine Sulfate) 2 mg PRN Q2HR PRN IV MODERATE TO SEVERE PAIN Last administered on 06/01/18at 03:50; Start 05/30/18 at 16:15; Stop at 14:05; Status DC Tramadol HCl (Ultram) 50 mg PRN Q6HRS PRN PO MILD PAIN; Start 05/30/18 at 16: 15 Docusate Sodium (Colace) 100 mg PRN DAILY PRN PO CONSTIPATION; Start 05/30/18 at 16:15 Labetalol HCl (Normodyne Iv Push) 20 mg PRN Q2HR PRN IVP HYPERTENSION, SEE COMMENTS; Start 05/30/18 at 16:15 Amlodipine Besylate (Norvasc) 10 mg DAILY PO ; Start 05/31/18 at 09:00; Stop 05/31/18 at 09:00; Status DC Aspirin (Ecotrin) 81 mg DAILY PO Last administered on 06/04/18at 08:49; Start 05/31/18 at 09:00 Atorvastatin Calcium (Lipitor) 40 mg QHS PO Last administered on 06/03/18at 20: 39; Start 05/30/18 at 21:00 Cyclobenzaprine HCl (Flexeril) 10 mg PRN TID PRN PO MUSCLE SPASMS Last administered on 06/04/18at 05:54; Start 05/30/18 at 16:15 Oxycodone/ Acetaminophen (Percocet 5/325) 1 tab PRN Q4HRS PRN PO MODERATE PAIN Last administered on 05/30/18at 18:12; Start 05/30/18 at 16:15; Stop 06/01/18 at 14:05; Status DC Lisinopril (Prinivil) 40 mg DAILY PO Last administered on 06/04/18at 08:50; Start 05/30/18 at 17:00 Amlodipine Besylate (Norvasc) 10 mg DAILY PO Last administered on 06/04/18at 08: 49; Start 05/31/18 at 09:00 Enoxaparin Sodium (Lovenox 40mg Syringe) 40 mg Q24H SQ Last administered on at 16:53; Start 05/30/18 at 17:00; Stop 06/02/18 at 15:13; Status DC Oxycodone/ Acetaminophen (Percocet 10/325) 1 tab PRN Q4HRS PRN PO MODERATE PAIN Last administered on 06/02/18at 20:00; Start 05/31/18 at 09:30 Metformin HCl (Glucophage) 500 mg BIDWMEALS PO Last administered on 05/31/18at 17:28; Start 05/31/18 at 17:00; Stop 06/01/18 at 08:02; Status DC Insulin Human Lispro (HumaLOG) 0-9 UNITS TIDWMEALS SQ Last administered on 06/03at 16:55; Start 05/31/18 at 17:00 Dextrose (Dextrose 50%-Water Syringe) 12.5 gm PRN Q15MIN PRN IV SEE COMMENTS; Start 05/31/18 at 12:45 Fentanyl Citrate (Fentanyl 2ml Vial) 50 mcg 1X ONCE IV Last administered on at 19:30; Start 05/31/18 at 19:30; Stop 05/31/18 at 19:31; Status DC Fentanyl Citrate (Fentanyl 2ml Vial) 50 mcg PRN Q3HRS PRN IV SEVERE PAIN Last administered on 06/01/18at 13:09; Start 06/01/18 at 06:15; Stop 06/01/18 at 14 :05; Status DC Iohexol (Omnipaque 180 Mg/ml) 20 ml 1X ONCE IT Last administered on at 10:19; Start 06/01/18 at 08:00; Stop 06/01/18 at 08:01; Status DC Lidocaine/Sodium Bicarbonate (Buffered Lidocaine 1%) 6 ml 1X ONCE INJ Last administered on 06/01/18at 10:18; Start 06/01/18 at 08:00; Stop 06/01/18 at 08 :01; Status DC Info (CONTRAST GIVEN -- Rx MONITORING) 1 each PRN DAILY PRN MC SEE COMMENTS; Start 06/01/18 at 08:15; Stop 06/03/18 at 08:14; Status DC Metformin HCl (Glucophage) 500 mg BIDWMEALS PO Last administered on 06/04/18at 08:48; Start 06/03/18 at 17:00 Bacitracin 82485 unit/Sodium Chloride 1,000 ml @ 1,000 mls/hr 1X ONCE IRR Last administered on 06/02/18at 13:16; Start 06/02/18 at 06:00; Stop 06/02/18 at 06:59; Status DC Cefazolin Sodium/ Dextrose 50 ml @ 100 mls/hr 1X PREOP PRN IV PRIOR TO SURGERY ; Start 06/02/18 at 06:00; Stop 06/02/18 at 06:01; Status DC Fentanyl Citrate (Fentanyl 2ml Vial) 75 mcg PRN Q3HRS PRN IV SEVERE PAIN Last administered on 06/04/18at 03:50; Start 06/01/18 at 14:15 Ondansetron HCl (Zofran) 4 mg PRN Q6HRS PRN IV NAUSEA/VOMITING; Start 06/02/18 at 07:00; Stop 06/03/18 at 06:59; Status DC Fentanyl Citrate (Fentanyl 2ml Vial) 25 mcg PRN Q5MIN PRN IV MILD PAIN; Start 06/02/18 at 07:00; Stop 06/03/18 at 06:59; Status DC Fentanyl Citrate (Fentanyl 2ml Vial) 50 mcg PRN Q5MIN PRN IV MODERATE TO SEVERE PAIN Last administered on 06/02/18at 16:38; Start 06/02/18 at 07:00; Stop 06/03/18 at 06:59; Status DC Morphine Sulfate (Morphine Sulfate) 1 mg PRN Q10MIN PRN IV SEVERE PAIN; Start 06/02/18 at 07:00; Stop 06/03/18 at 06:59; Status DC Ringer's Solution 1,000 ml @ 30 mls/hr Q24H IV Last administered on 06/02/18at 15:26; Start 06/02/18 at 07:00; Stop 06/02/18 at 18:59; Status DC Lidocaine HCl (Xylocaine-Mpf 1% 2ml Vial) 2 ml PRN 1X PRN ID PRIOR TO IV START ; Start 06/02/18 at 07:00; Stop 06/03/18 at 06:59; Status DC Hydromorphone HCl (Dilaudid) 0.5 mg PRN Q10MIN PRN IV SEV PAIN, Second choice; Start 06/02/18 at 07:00; Stop 06/03/18 at 06:59; Status DC Prochlorperazine Edisylate (Compazine) 5 mg PACU PRN PRN IV NAUSEA, MRX1 Last administered on 06/02/18at 15:27; Start 06/02/18 at 07:00; Stop 06/03/18 at 06:59 ; Status DC Gelatin (Gelfoam Size 100) 1 each STK-MED ONCE .ROUTE Last administered on 06/02/18at 13:16; Start 06/02/18 at 05:25; Stop 06/02/18 at 06:26; Status DC Bupivacaine HCl/ Epinephrine Bitart (Sensorcain-Mpf Epi 0.5%-[id number]) 30 ml STK -MED ONCE .ROUTE Last administered on 06/02/18at 13:16; Start 06/02/18 at 05:25 ; Stop 06/02/18 at 06:26; Status DC Ketorolac Tromethamine (Toradol For Or Only) 60 mg STK-MED ONCE .ROUTE Last administered on 06/02/18at 13:16; Start 06/02/18 at 05:26; Stop 06/02/18 at 06:26 ; Status DC Ondansetron HCl (Zofran) 4 mg PRN Q6HRS PRN IV NAUSEA/VOMITING; Start 06/02/18 at 12:15; Stop 06/03/18 at 12:14; Status DC Fentanyl Citrate (Fentanyl 2ml Vial) 25 mcg PRN Q5MIN PRN IV MILD PAIN; Start 06/02/18 at 12:15; Stop 06/03/18 at 12:14; Status UNV Fentanyl Citrate (Fentanyl 2ml Vial) 50 mcg PRN Q5MIN PRN IV MODERATE TO SEVERE PAIN; Start 06/02/18 at 12:15; Stop 06/03/18 at 12:14; Status UNV Morphine Sulfate (Morphine Sulfate) 1 mg PRN Q10MIN PRN IV SEVERE PAIN; Start 06/02/18 at 12:15; Stop 06/03/18 at 12:14; Status UNV Ringer's Solution 1,000 ml @ 30 mls/hr Q24H IV ; Start 06/02/18 at 12:09; Stop 06/03/18 at 00:08; Status UNV Lidocaine HCl (Xylocaine-Mpf 1% 2ml Vial) 2 ml 1X PRN PRN ID IV START; Start 06/02/18 at 12:15; Stop 06/03/18 at 12:14; Status UNV Hydromorphone HCl (Dilaudid) 0.5 mg PRN Q10MIN PRN IV SEV PAIN, Second choice; Start 06/02/18 at 12:15; Stop 06/03/18 at 12:14; Status UNV Prochlorperazine Edisylate (Compazine) 5 mg PACU PRN PRN IV NAUSEA, MRX1; Start 06/02/18 at 12:15; Stop 06/03/18 at 12:14; Status UNV Cefazolin Sodium/ Dextrose 50 ml @ 100 mls/hr 1X PREOP PRN IV PRIOR TO SURGERY ; Start 06/02/18 at 12:15; Stop 06/03/18 at 10:29; Status DC Propofol 20 ml @ As Directed STK-MED ONCE IV ; Start 06/02/18 at 12:19; Stop at 12:20; Status DC Ondansetron HCl (Zofran) 4 mg STK-MED ONCE .ROUTE ; Start 06/02/18 at 12:19; Stop 06/02/18 at 12:20; Status DC Fentanyl Citrate (Fentanyl 2ml Vial) 100 mcg STK-MED ONCE .ROUTE ; Start at 12:19; Stop 06/02/18 at 12:20; Status DC Rocuronium [place] (Zemuron) 50 mg STK-MED ONCE .ROUTE ; Start 06/02/18 at 12:19 ; Stop 06/02/18 at 12:20; Status DC Midazolam HCl (Versed) 2 mg STK-MED ONCE .ROUTE ; Start 06/02/18 at 12:19; Stop 06/02/18 at 12:20; Status DC Lidocaine HCl (Xylocaine-Mpf 1% 5ml Vial) 5 ml STK-MED ONCE .ROUTE ; Start 06/02 at 12:22; Stop 06/02/18 at 12:23; Status DC Protamine Sulfate (Protamine) 50 mg STK-MED ONCE IV ; Start 06/02/18 at 12:24; Stop 06/02/18 at 12:25; Status DC Remifentanil HCl (Ultiva) 2 mg STK-MED ONCE IV ; Start 06/02/18 at 12:29; Stop 06/02/18 at 12:30; Status DC Famotidine (Pepcid Vial) 20 mg STK-MED ONCE .ROUTE ; Start 06/02/18 at 12:52; Stop 06/02/18 at 12:53; Status DC Phenylephrine HCl (PHENYLEPHRINE in 0.9% NACL PF) 1 mg STK-MED ONCE IV ; Start 06/02/18 at 13:01; Stop 06/02/18 at 13:02; Status DC Propofol 50 ml @ As Directed STK-MED ONCE IV ; Start 06/02/18 at 13:08; Stop at 13:09; Status DC Ephedrine Sulfate (ePHEDrine PF IN SALINE SYRINGE) 50 mg STK-MED ONCE IV ; Start 06/02/18 at 13:10; Stop 06/02/18 at 13:11; Status DC Desflurane (Suprane) 90 ml STK-MED ONCE IH ; Start 06/02/18 at 14:41; Stop 06/02 at 14:42; Status DC Morphine Sulfate (Morphine Sulfate) 4 mg PRN Q10MIN PRN IV PAIN Last administered on 06/02/18at 15:28; Start 06/02/18 at 15:30; Stop 06/03/18 at 14:53 ; Status DC Lactobacillus Rhamnosus (Culturelle) 1 cap BID PO Last administered on at 08:48; Start 06/02/18 at 21:00 Oxycodone/ Acetaminophen (Percocet 10/325) 2 tab PRN Q4HRS PRN PO SEVERE PAIN Last administered on 06/04/18at 05:55; Start 06/02/18 at 23:30 Dexamethasone Sodium Phosphate (Decadron) 10 mg 1X ONCE IV Last administered on 06/03/18at 08:38; Start 06/03/18 at 08:00; Stop 06/03/18 at 08:01; Status DC Cefazolin Sodium/ Dextrose (Ancef 2gm Premix) 2 gm STK-MED ONCE IV ; Start 06/02 at 12:30; Stop 06/03/18 at 08:48; Status DC Active Scripts Active Atorvastatin Calcium 40 Mg Tablet 40 Mg PO QHS Medrol (Methylprednisolone) 4 Mg Tab.ds.pk 1 Pkg PO UD Lidocaine 1 Each Adh..patch 1 Each TP Q12HR PRN Place one patch for 12 hours, remove patch after 12 hours use. wait 12 hours before [address] a new patch [place] 5-325 Tablet (Acetaminophen/Hydrocodone Bitart) 1 Each Tablet 1 Tab PO PRN Q6HRS PRN Orphenadrine Citrate 100 Mg Tablet.er 1 Tab PO BID 10 Days Naproxen 500 Mg Tablet 1 Tab PO BID 10 Days Orphenadrine Citrate 100 Mg Tablet.er 100 Mg PO BID PRN Orphenadrine Citrate 100 Mg Tablet.er 100 Mg PO BID Diclofenac Sodium 50 Mg Tablet.dr 50 Mg PO BID Imitrex (Sumatriptan Succinate) 100 Mg Tablet 1 Tab PO UD PRN MDD 200 mg Take first dose of medication at onset of headache. He may repeat with 1 additional dose after 2 hours if headache is still present. Cyclobenzaprine Hcl 10 Mg Tablet 10 Mg PO TID PRN Reported Amlodipine Besylate 10 Mg Tablet 10 Mg PO DAILY Hydrochlorothiazide Tablet (Hydrochlorothiazide) 25 Mg Tablet 1 Tab PO DAILY Lisinopril 5 Mg Tablet 1 Tab PO DAILY Excedrin Migraine Caplet (Aspirin/Acetaminophen/Caffeine) 1 Each Tablet 1 Each PO PRN Q6-8HRS PRN Aspirin Ec (Aspirin) 81 Mg Tablet.dr 81 Mg PO DAILY Benzonatate 100 Mg Capsule 1 Cap PO TID Vitals/I & O Vital Sign - Last 24 Hours 06/03/18 06/03/18 06/03/18 06/03/18 12:28 15:00 16:48 19:00 Temp 98.9 98.8 98.9 98.8 Pulse 94 104 Resp 16 18 18 B/P (MAP) 149/103 (118) 157/100 (119) Pulse Ox 94 94 O2 Delivery Room Air Room Air Room Air Room Air 06/03/18 06/03/18 06/03/18 06/04/18 20:00 20:39 23:00 00:31 Temp 99.5 99.5 Pulse 105 Resp 18 18 B/P (MAP) 147/78 (101) Pulse Ox 93 O2 Delivery Room Air Room Air Room Air Room Air 06/04/18 06/04/18 06/04/18 06/04/18 03:00 03:50 04:32 05:55 Temp 97.7 97.7 Pulse 85 Resp 18 18 20 18 B/P (MAP) 131/89 (103) Pulse Ox 94 O2 Delivery Room Air Room Air Room Air Room Air 06/04/18 06/04/18 06/04/18 06/04/18 07:00 07:10 08:49 08:50 Temp 98.0 98.0 Pulse 77 77 77 Resp 16 20 B/P (MAP) 140/86 (104) 140/86 140/86 Pulse Ox 93 O2 Delivery Room Air Room Air Intake and Output 06/03/18 06/03/18 06/04/18 15:00 23:00 07:00 Intake Total 300 ml Balance 300 ml JOVAN GARCIA MD Jun 04, 2018 12:00
--- NOTE | 2018-06-04 12:45 | PDOC3 ---
Discharge Summary Visit Information Date of Admission: Jun 01, 2018 Date of Discharge: Jun 04, 2018 Admitting Diagnosis: Right Sciatica, L5 right nerve root compression Final Diagnosis Problems Medical Problems: (1) Fall from standing Status: Acute (2) Sciatica Status: Acute Brief Hospital Course Allergies Allergies Coded Allergies Type Severity Reaction Last Updated Verified No Known Drug Allergies 06/02/18 No Vital Signs Vital Signs Date Time Temp Pulse Resp B/P (MAP) Pulse Ox O2 Delivery O2 Flow Rate FiO2 06/04/18 11:00 98.7 110 18 152/102 (119) 94 Room Air 98.7 Lab Results Laboratory Tests Test 06/02/18 17:09 06/02/18 20:53 06/03/18 07:31 06/03/18 11:37 Glucose (Fingerstick) 133 mg/dL (70-99) 262 mg/dL (70-99) 145 mg/dL (70-99) 179 mg/dL (70-99) Test 06/03/18 16:07 06/03/18 21:01 06/04/18 03:40 Glucose (Fingerstick) 230 mg/dL (70-99) 190 mg/dL (70-99) White Blood Count 20.2 x10^3/uL (4.0-11.0) Red Blood Count 4.77 x10^6/uL (4.30-5.70) Hemoglobin 14.7 g/dL (13.0-17.5) Hematocrit 42.9 % (39.0-53.0) Mean Corpuscular Volume 90 fL (79-100) Mean Corpuscular Hemoglobin 31 pg (25-35) Mean Corpuscular Hemoglobin Concent 34 g/dL (31-37) Red Cell Distribution Width 15.4 % (11.5-14.5) Platelet Count 246 x10^3/uL (140-400) Neutrophils (%) (Auto) 81 % (31-73) Lymphocytes (%) (Auto) 9 % (24-48) Monocytes (%) (Auto) 10 % (0-9) Eosinophils (%) (Auto) 0 % (0-3) Basophils (%) (Auto) 0 % (0-3) Neutrophils # (Auto) 16.3 x10^3uL (1.8-7.7) Lymphocytes # (Auto) 1.8 x10^3/uL (1.0-4.8) Monocytes # (Auto) 2.1 x10^3/uL (0.0-1.1) Eosinophils # (Auto) 0.0 x10^3/uL (0.0-0.7) Basophils # (Auto) 0.0 x10^3/uL (0.0-0.2) Sodium Level 142 mmol/L (136-145) Potassium Level 4.2 mmol/L (3.5-5.1) Chloride Level 106 mmol/L (98-107) Carbon Dioxide Level 29 mmol/L (21-32) Anion Gap 7 (6-14) Blood Urea Nitrogen 12 mg/dL (8-26) Creatinine 1.0 mg/dL (0.7-1.3) Estimated GFR (Cockcroft-Gault) 93.9 Glucose Level 221 mg/dL (70-99) Calcium Level 8.6 mg/dL (8.5-10.1) Laboratory Tests Test 06/03/18 16:07 06/03/18 21:01 06/04/18 03:40 Glucose (Fingerstick) 230 mg/dL (70-99) 190 mg/dL (70-99) White Blood Count 20.2 x10^3/uL (4.0-11.0) Red Blood Count 4.77 x10^6/uL (4.30-5.70) Hemoglobin 14.7 g/dL (13.0-17.5) Hematocrit 42.9 % (39.0-53.0) Mean Corpuscular Volume 90 fL (79-100) Mean Corpuscular Hemoglobin 31 pg (25-35) Mean Corpuscular Hemoglobin Concent 34 g/dL (31-37) Red Cell Distribution Width 15.4 % (11.5-14.5) Platelet Count 246 x10^3/uL (140-400) Neutrophils (%) (Auto) 81 % (31-73) Lymphocytes (%) (Auto) 9 % (24-48) Monocytes (%) (Auto) 10 % (0-9) Eosinophils (%) (Auto) 0 % (0-3) Basophils (%) (Auto) 0 % (0-3) Neutrophils # (Auto) 16.3 x10^3uL (1.8-7.7) Lymphocytes # (Auto) 1.8 x10^3/uL (1.0-4.8) Monocytes # (Auto) 2.1 x10^3/uL (0.0-1.1) Eosinophils # (Auto) 0.0 x10^3/uL (0.0-0.7) Basophils # (Auto) 0.0 x10^3/uL (0.0-0.2) Sodium Level 142 mmol/L (136-145) Potassium Level 4.2 mmol/L (3.5-5.1) Chloride Level 106 mmol/L (98-107) Carbon Dioxide Level 29 mmol/L (21-32) Anion Gap 7 (6-14) Blood Urea Nitrogen 12 mg/dL (8-26) Creatinine 1.0 mg/dL (0.7-1.3) Estimated GFR (Cockcroft-Gault) 93.9 Glucose Level 221 mg/dL (70-99) Calcium Level 8.6 mg/dL (8.5-10.1) Brief Hospital Course Admitted for c/o severe lower back pain shooting down to right leg, unable to walk. 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 He underwent L5 microdiscectomy with relief of his pain and regained his ability to walk. Was able to d/c with pain medications and neurosurgery f/u. 8 weeks off work for recovery, can return 08/02/2018 ROS: no fever, chills, sob or chest pain plan: DM -with A1c 6.5, pt to take dm2 meds. add metformin for now. ssi, pt refuse insulin intractable lower back pain - with possible h/o disc herniation as per pt, dr. abebe, dr. garcia consulted, possible sx today pain control , increase percocet prn, morphine iv prn. also on fentanyl prn HTN urgency - complicated by pain, cont amlodipine, add lisinopril. labetolol iv prn hld - statin morbid obesity - counseled, though his musculature is more consistent with large lean muscle mass leukocytosis, recently on steroid - normalized today consistent with steroid use Discharge Information Condition at Discharge: Improved Follow Up: Weeks (2) Disposition/Orders: D/C to Home Scheduled Amlodipine Besylate (Amlodipine Besylate) 10 Mg Tablet, 10 MG PO DAILY for HTN, (Reported) Entered as Reported by: GLYNN DUMONT on 09/09/17923 Last Action: Continued on 05/30/181606 by ANGEL KIDD MD Aspirin (Aspirin Ec) 81 Mg Tablet.dr, 81 MG PO DAILY, (Reported) Entered as Reported by: MAGAN AYALA on 09/06/171843 Last Action: Continued on 05/30/181606 by ANGEL KIDD MD Atorvastatin Calcium (Atorvastatin Calcium) 40 Mg Tablet, 40 MG PO QHS, #30 Ref 2 Prescribed by: TERRY MALLOY on 05/19/181056 Last Action: Continued on 05/30/181606 by ANGEL KIDD MD Benzonatate (Benzonatate) 100 Mg Capsule, 1 CAP PO TID, #30 (Reported) Entered as Reported by: MAGAN AYALA on 09/06/171843 Last Action: HELD on 05/30/181606 by ANGEL KIDD MD Diclofenac Sodium (Diclofenac Sodium) 50 Mg Tablet.dr, 50 MG PO BID, #20 Ref 0 Prescribed by: ARTHUR DEL ROSARIO APRN on 04/18/182223 Last Action: HELD on 05/30/181606 by ANGEL KIDD MD Hydrochlorothiazide (Hydrochlorothiazide Tablet ) 25 Mg Tablet, 1 TAB PO DAILY for HTN, #30 Ref 5 (Reported) Entered as Reported by: GLYNN DUMONT on 09/09/17923 Last Action: HELD on 05/30/181606 by ANGEL KIDD MD Lisinopril (Lisinopril) 5 Mg Tablet, 1 TAB PO DAILY for HTN, #30 Ref 5 (Reported ) Entered as Reported by: GLYNN DUMONT on 09/09/17923 Last Action: HELD on 05/30/181606 by ANGEL KIDD MD Naproxen (Naproxen) 500 Mg Tablet, 1 TAB PO BID for 10 Days, #20 Ref 0 Prescribed by: LYNN MCBRIDE APRN on 05/12/182228 Last Action: HELD on 05/30/181606 by ANGEL KIDD MD Scheduled PRN Aspirin/Acetaminophen/Caffeine (Excedrin Migraine Caplet) 1 Each Tablet, 1 EACH PO PRN Q6-8HRS PRN for HEADACHE, (Reported) Entered as Reported by: MAGAN AYALA on 09/06/17 1844 Last Action: HELD on 05/30/181606 by ANGEL KIDD MD Cyclobenzaprine Hcl (Cyclobenzaprine Hcl) 10 Mg Tablet, 10 MG PO TID PRN for MUSCLE SPASMS, #15 Prescribed by: CAROLYNN BERMUDEZ on 11/26/17 0451 Last Action: Continued on 05/30/181606 by ANGEL KIDD MD Lidocaine (Lidocaine) 1 Each Adh..patch, 1 EACH TP Q12HR PRN for PAIN, #[address] one patch for 12 hours, remove patch after 12 hours use. wait 12 hours before [address] a new patch Prescribed by: TERRY MALLOY on 05/19/181056 Last Action: HELD on 05/30/181606 by ANGEL KIDD MD Oxycodone Hcl/Acetaminophen (Oxycodone-Acetaminophen 10-325) 1 Each Tablet, 1 TAB PO PRN Q4HRS PRN for MODERATE PAIN, #60 Prescribed by: JOVAN GARCIA on 06/04/18 1158 Sumatriptan Succinate (Imitrex) 100 Mg Tablet, 1 TAB PO UD PRN for HEADACHE MDD 200 mg, #9 Take first dose of medication at onset of headache. He may repeat with 1 additional dose after 2 hours if headache is still present. Prescribed by: CASSIE HANLEY D.O. on 03/13/18 0455 Last Action: HELD on 05/30/181606 by ANGEL KIDD MD Discontinued Medications Hydrocodone/Apap 5-325 ([place] 5-325 Tablet) 1 Each Tablet, 1 TAB PO PRN Q6HRS PRN for PAIN, #25 Ref 0 Prescribed by: TERRY MALLOY on 05/19/181056 Last Action: HELD on 05/30/181606 by ANGEL KIDD MD Methylprednisolone (Medrol) 4 Mg Tab.ds.pk, 1 PKG PO UD, #1 Prescribed by: TERRY MALLOY on 05/19/181056 Last Action: HELD on 05/30/181606 by ANGEL KIDD MD Orphenadrine Citrate (Orphenadrine Citrate) 100 Mg Tablet.er, 100 MG PO BID, # 20 Ref 0 Prescribed by: ARTHUR DEL ROSARIO APRN on 04/18/182223 Last Action: HELD on 05/30/181606 by ANGEL KIDD MD Orphenadrine Citrate (Orphenadrine Citrate) 100 Mg Tablet.er, 100 MG PO BID PRN for PAIN, #10 Ref 0 Prescribed by: YAEL RONDON APRN on 04/29/182211 Last Action: HELD on 05/30/181606 by ANGEL KIDD MD Orphenadrine Citrate (Orphenadrine Citrate) 100 Mg Tablet.er, 1 TAB PO BID for 10 Days, #20 Ref 0 Prescribed by: LYNN MCBRIDE APRN on 05/12/182228 Last Action: HELD on 05/30/181606 by MD MARY YEBOAHYAKELIN Og MD Jun 04, 2018 12:45
--- NOTE | 2018-06-06 23:07 | PATHOLOGY ---
[facility] Accession Number: [id number] . 01 Material submitted: . LUMBAR DECOMPRESSION AND DISC . 01 Clinician provided ICD-10: M54.16 . 01 Clinical history: . Right lumbar radiculitis . 02 Diagnosis: "Lumbar decompression and disc", decompression and discectomy: - Decompression/laminectomy showing decalcified bone, articular cartilage and periosteum with reactive and degenerative changes. - Discectomy showing intervertebral disc material with reactive and degenerative changes. . (CLW:[facility] 06/06/2018) QTP/06/06/2018 . 02 Electronically signed: . Karen Billingsley MD, Pathologist NPI- [id number] . 01 Gross description: . Received in formalin labeled "Josue Reddy, lumbar decompression and disc," are several pieces of glistening, fibrous tissue measuring 4.4 x 3.5 x 1.5 cm in aggregate dimensions, containing small fragments of possible bone. The tissue submitted representatively in cassette A1, following decalcification. (TSD; 06/03/2018) TOB/TOB . 02 Pathologist provided ICD-10: M51.36, M54.16 . 02 CPT . 118656, 256337, [id number] Specimen Comment: A courtesy copy of this report has been sent to Specimen Comment: [phone], , , . Specimen Comment: Report sent to ,DR KIDD.DR MAIN / DR OCONNELL Specimen Comment: A duplicate report has been generated due to demographic updates. Performed at: 01 [facility] [address], [place] [id number] MD Dhaval Douglas MD Phone: [phone] Performed at: [address] [id number] MD Elton Espinoza MD Phone: [phone]
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
--- NOTE | 2018-06-10 09:40 | CONS ---
DATE OF CONSULTATION: 05/31/2018 REASON FOR CONSULTATION: Back and leg pain. HISTORY OF PRESENT ILLNESS: The patient is a pleasant 53-year-old man who was admitted earlier this month with back and right leg pain. He was given an epidural steroid injections, improved and was discharged. He reported that he has developed increasing pain again in his lower back, which radiates into his buttock and posterior thigh, leg to the plantar surface of his right foot. That pain became severe and he was admitted for pain control and further evaluation and treatment. The patient reported only limited benefit from his epidural steroid injection. He did try physical therapy, which he said did give him no lasting help. He notes back stiffness. There is no significant pain in his left leg. He reports that in the past he has had difficulties with his lower back. ALLERGIES: No known allergies to medications. MEDICATIONS: MRAD and was reviewed and other than outlined above is noncontributory. The patient does have diabetes. SOCIAL HISTORY: He lives with his girlfriend. REVIEW OF SYSTEMS: A 12-point review of systems was performed and other than outlined above was negative. PHYSICAL EXAMINATION: GENERAL: He is pleasant and cooperative throughout the exam. He is in mild distress because of back pain and leg pain. NEUROLOGY: He was able to give full strength in upper and lower extremities bilaterally. On sensory examination, he was intact to light touch except for subjective decreased light touch involving the plantar surface of his right foot. EXTREMITIES: Reflexes were trace throughout. There was negative straight leg raising bilaterally. Internal and external rotation of the hips was unremarkable. IMAGING DATA: I reviewed an MRI scan of the pelvis with a low Ursula magnet on that study and views of the lumbar spine showed disk bulging and the overall small canal. I also reviewed a CT scan of the lumbar spine. On that study, there appeared to be moderately severe neural foraminal narrowing at L4-L5 and L5-S1. At L3-L4, there was more moderate bilateral foraminal narrowing. ASSESSMENT AND PLAN: The patient has a right lumbar radiculopathy. We are going to move forward with a lumbar myelogram and post-myelogram CT scan to evaluate him further. I did discuss this with him in detail. JOVAN GARCIA MD DR: [facility] JOB#: [id number] / [id number]
== END 2018-06-04 14:37 | disposition home or self-care (01) | DRG 520 ==
LOC: ER 08:13 → 4 NORTH 09:58 → OBSVTOIN 06-01 13:52
PROVIDERS: ADMIT Internal Medicine; ATTEND Internal Medicine
PROC: 0SB40ZZ Excision of Lumbosacral Disc, Open Approach (ICD-10-PCS; 2018-06-02)
PROC: 4A11X4G Monitoring of Peripheral Nervous Electrical Activity, Intraoperative, External Approach (ICD-10-PCS; 2018-06-02)
PROC: 01NB0ZZ Release Lumbar Nerve, Open Approach (ICD-10-PCS; principal; 2018-06-02 13:00)
DX: M51.16 Intervertebral disc disorders with radiculopathy, lumbar region (principal); E66.01 Morbid (severe) obesity due to excess calories; E11.65 Type 2 diabetes mellitus with hyperglycemia; I10 Essential (primary) hypertension; I16.0 Hypertensive urgency; E78.00 Pure hypercholesterolemia, unspecified; G89.29 Other chronic pain; E78.5 Hyperlipidemia, unspecified; K21.9 Gastro-esophageal reflux disease without esophagitis; D72.829 Elevated white blood cell count, unspecified; K59.00 Constipation, unspecified; W18.39XA Other fall on same level, initial encounter; Y93.89 Activity, other specified; Y92.89 Other specified places as the place of occurrence of the external cause; Y99.8 Other external cause status; Z82.49 Family history of ischemic heart disease and other diseases of the circulatory system; Z68.32 Body mass index [BMI] 32.0-32.9, adult
CPT/HCPCS: 36415; 72100; 72131; 72132; 72148; 72265; 76000; 80048; 82962; 85007; 85025; 87086; 88304; 88311; 96372; A7015; G0378; G0379; J0690; J0780; J1100; J1650; J1815; J1885; J2250; J2270; J2370; J2405; J2704; J2930; J3010; J3490; J7030; J7120; Q9965; 97116; 99285-25

== ENCOUNTER 2018-06-09 06:53 | Observation (INO) | payer SELFPAY ==
[~2018-06-09] VITALS: Ht 180.3 cm; Wt 106.6 kg
[~2018-06-09 06:53] MED LIST changes: +OXYC-411 PO
--- NOTE | 2018-06-09 07:21 | PHYS DOC ---
Past Medical History Past Medical History: Diabetes-Type II, High Cholesterol, Hypertension Past Surgical History: Other Additional Past Surgical Histo: back Alcohol Use: None Drug Use: None Adult General Chief Complaint Chief Complaint: LOWER EXT PAIN HPI HPI Pt is a 53 y/o AAM who presents to the ED for evaluation. He states that he had back surgery for low back pain due to a nerve root compression last , and had been doing well, until he began having pain in his lower back this past Wednesday. He states that the pain was mild initially but over the past 36 hours seems to worsen, to the point that he is having pain radiating down his right leg, similar to his preoperative symptoms. He is having some tingling on the dorsal aspect of his right foot, but is not having any numbness, weakness, and has not had any incontinence or saddle anesthesia. He has not had any fevers or chills. Movement and position changes seem to worsen his symptoms. There are no alleviating factors to his symptoms. Review of Systems Review of Systems Constitutional: Denies fever or chills [] Eyes: Denies change in visual acuity, redness, or eye pain [] HENT: Denies nasal congestion or sore throat [] Respiratory: Denies cough or shortness of breath [] Cardiovascular: The patient denies any shortness of breath, chest pain, palpitations, or orthopnea [] GI: Denies abdominal pain, nausea, vomiting, bloody stools or diarrhea [] : Denies dysuria or hematuria [] Musculoskeletal: Denies back pain or joint pain [] Integument: Denies rash or skin lesions [] Neurologic: Denies headache, focal weakness or sensory changes, except as noted in the history of present illness [] Endocrine: Denies polyuria or polydipsia [] All other systems were reviewed and found to be within normal limits, except as documented in this note. Current Medications Current Medications Current Medications Medications (Trade) Dose Ordered Sig/Ramos Start Time Stop Time Status Last Admin Dose Admin Diazepam (Valium) 5 mg 1X ONCE 06/09/18 07:30 06/09/18 07:31 DC 06/09/18 07:47 5 MG Hydromorphone HCl (Dilaudid) 1 mg 1X ONCE 06/09/18 08:45 06/09/18 08:46 DC 06/09/18 08:46 1 MG Ketorolac Tromethamine (Toradol 30mg Vial) 30 mg 1X ONCE 06/09/18 07:30 06/09/18 07:31 DC 06/09/18 07:38 30 MG Methylprednisolone Sodium Succinate (SOLU-Medrol 125MG VIAL) 125 mg 1X ONCE 06/09/18 07:30 06/09/18 07:31 DC 06/09/18 07:38 125 MG Allergies Allergies Allergies Coded Allergies Type Severity Reaction Last Updated Verified No Known Drug Allergies 06/02/18 No Physical Exam Physical Exam PHYSICAL EXAM: CONSTITUTIONAL: Well developed, well nourished HEAD: normocephalic, atraumatic EENT: PERRL, EOMI. Conjunctivae normal color, sclerae non-icteric; moist mucous membranes. NECK: Supple, non-tender; no meningismus. LUNGS: Lungs CTA, breathing even and unlabored. Normal air movement. HEART: Regular rate and rhythm, no murmur CHEST: No deformity; non-tender ABDOMEN: The abdomen is soft, and non-tender, no masses or bruits. EXTREM: Normal ROM; no deformity, no calf tenderness. Normal pulses palpable in all extremities. There is no pedal edema. SKIN: No rash; no diaphoresis NEURO: Alert; normal speech and cognition; CN's grossly intact; strength grossly intact without focal deficit. There is no foot drop. Patellar reflexes are 1+ bilaterally. Straight leg raise is negative. There is some altered sensation on the dorsal aspect of the right foot, but there is no numbness or anesthesia. There is normal range of motion of all digits. There is no perineal anesthesia. BACK: No CVA TTP. There is a well-healing incision in the lower lumbar spine midline. There is mild tenderness to palpation of the right paraspinal musculature. Current Patient Data Vital Signs Vital Signs Date Time Temp Pulse Resp B/P (MAP) Pulse Ox O2 Delivery O2 Flow Rate FiO2 06/09/18 08:46 83 20 135/80 (98) 94 06/09/18 07:05 98.3 Room Air 98.3 Lab Values Laboratory Tests Test 06/09/18 07:20 White Blood Count 4.6 x10^3/uL (4.0-11.0) Red Blood Count 5.15 x10^6/uL (4.30-5.70) Hemoglobin 15.8 g/dL (13.0-17.5) Hematocrit 45.8 % (39.0-53.0) Mean Corpuscular Volume 89 fL (79-100) Mean Corpuscular Hemoglobin 31 pg (25-35) Mean Corpuscular Hemoglobin Concent 35 g/dL (31-37) Red Cell Distribution Width 15.3 % (11.5-14.5) H Platelet Count 245 x10^3/uL (140-400) Neutrophils (%) (Auto) 36 % (31-73) Lymphocytes (%) (Auto) 48 % (24-48) Monocytes (%) (Auto) 9 % (0-9) Eosinophils (%) (Auto) 6 % (0-3) H Basophils (%) (Auto) 1 % (0-3) Neutrophils # (Auto) 1.6 x10^3uL (1.8-7.7) L Lymphocytes # (Auto) 2.2 x10^3/uL (1.0-4.8) Monocytes # (Auto) 0.4 x10^3/uL (0.0-1.1) Eosinophils # (Auto) 0.3 x10^3/uL (0.0-0.7) Basophils # (Auto) 0.0 x10^3/uL (0.0-0.2) Sodium Level 139 mmol/L (136-145) Potassium Level 3.7 mmol/L (3.5-5.1) Chloride Level 101 mmol/L (98-107) Carbon Dioxide Level 29 mmol/L (21-32) Anion Gap 9 (6-14) Blood Urea Nitrogen 14 mg/dL (8-26) Creatinine 1.4 mg/dL (0.7-1.3) H Estimated GFR (Cockcroft-Gault) 63.7 Glucose Level 223 mg/dL (70-99) H Calcium Level 8.9 mg/dL (8.5-10.1) Laboratory Tests 06/09/18 07:20 Laboratory Tests 06/09/18 07:20 EKG EKG [] Radiology/Procedures Radiology/Procedures [] Course & Med Decision Making Course & Med Decision Making Pertinent Lab studies reviewed. (See chart for details) [9:20 AM: The patient is able to stand and ambulate slightly with use of a walker but is having significant pain in doing so. He is unable to tolerate the pain. I discussed the case with Dr. Isidro's PA, who recommended admitting the patient for further evaluation and treatment. The patient did make some statements which might of been construed to be suicidal statements to a transfer table operator helper student here in the emergency department. I verified with the patient , the patient states that he said that I can handle the pain, and if I keep taking medication like this I am going to kill myself, but he did not mean this to construed that he is contemplating taking pills to intensely overdosing contemplating suicide. He denies any suicidal thoughts. Dragon Disclaimer Dragon Disclaimer This electronic medical record was generated, in whole or in part, using a voice recognition dictation system. Departure Departure Impression: Primary Impression: Low back pain with right-sided sciatica Additional Impression: Intractable back pain Disposition: ADMITTED INPATIENT Admitting Physician: Xie. Lutz Condition: STABLE Referrals: DENISE OCONNELL (PCP) Problem Qualifiers WILFRED BOWIE MD Jun 09, 2018 07:21
[2018-06-09] MEDS ORDERED: methylPREDNISolone SOD SUCC PF 125 MG/2 ML VIAL. IV ONE (07:30)
[2018-06-09] MEDS ORDERED: HYDROmorphone 2 MG/ML VIAL IV ONE ×2 (07:30→08:45)
[2018-06-09] MEDS ORDERED: diazePAM 5 MG TABLET PO ONE (07:30)
[2018-06-09] MEDS ORDERED: KETOROLAC 30 MG/ML VIAL. IV ONE (07:30)
[2018-06-09 07:52] LABS: BASO % 1 % (0-3); CALCIUM 8.9 mg/dL (8.5-10.1); CREATININE 1.4 mg/dL (0.7-1.3); EOS # 0.3 x10^3/uL (0.0-0.7); EOS % 6 % (0-3); GFR 63.7; HEMATOCRIT 45.8 % (39.0-53.0); HEMOGLOBIN 15.8 g/dL (13.0-17.5); LYMPH # 2.2 x10^3/uL (1.0-4.8); LYMPH % 48 % (24-48); MEAN CORPUSCULAR HEMOGLOBIN 31 pg (25-35); MEAN CORPUSCULAR HGB CONC 35 g/dL (31-37); MEAN CORPUSCULAR VOLUME 89 fL (79-100); MONO # 0.4 x10^3/uL (0.0-1.1); MONO % 9 % (0-9); NEUT # 1.6 x10^3uL (1.8-7.7); NEUT % 36 % (31-73); PLATELET COUNT 245 x10^3/uL (140-400); POTASSIUM 3.7 mmol/L (3.5-5.1); RED BLOOD COUNT 5.15 x10^6/uL (4.30-5.70); RED CELL DISTRIBUTION WIDTH 15.3 % (11.5-14.5); WHITE BLOOD COUNT 4.6 x10^3/uL (4.0-11.0)
[2018-06-09 11:00] VITALS: BP 128/92
[2018-06-09] MEDS ORDERED: ONDANSETRON PF 4 MG/2 ML VIAL. IV PRN (11:45)
[2018-06-09] MEDS ORDERED: DEXTROSE 50% 25 GM / 50ML DISP.SYRIN. IV PRN (11:45)
[2018-06-09] MEDS ORDERED: DOCUSATE SODIUM 100 MG CAPSULE. PO PRN (11:45)
[2018-06-09] MEDS ORDERED: ACETAMINOPHEN 325 MG TABLET. PO PRN (11:45)
[2018-06-09] MEDS ORDERED: LABETALOL 20 MG/4 ML DISP.SYRIN. IVP PRN (11:45)
[2018-06-09] MEDS: amLODIPine BESYLATE 10 MG TABLET PO SCH (12:00)
[2018-06-09] MEDS: LISINOPRIL 5 MG TABLET. PO SCH (12:00)
[2018-06-09] MEDS: ASPIRIN ENTERIC COATED 81 MG TABLET.DR. PO SCH (12:23)
[2018-06-09] MEDS: MORPHINE SULFATE 2 MG/ML VIAL. IV PRN ×4 (12:23→22:22)
[2018-06-09] MEDS: INSULIN LISPRO 300 UNITS/3 ML INSULN.PEN. SQ SCH ×2 (12:29→17:06)
[2018-06-09] MEDS: ENOXAPARIN 40 MG/0.4 ML SYRINGE. SQ SCH (14:24)
--- NOTE | 2018-06-09 14:28 | PDOC ---
Provider Note Provider Note Patient underwent lumbar decompressive surgery at L5- S1,1 week ago and improved and discharged home reports increased back and right buttock and posterior thigh pain was seen in ER and admitted for pain control on examination: wound is flat and healing nicely, mild tenderness of lower lumbar spine with palpation, strength 5/5 in BLE, decreased sensation on plantar surface of right foot SLR with back and right buttock pain Lumbar CT reviewed- post op changes seen lumbar radiculitis s/p lumbar decompressive surgery needs blood sugar control consider steroids to help with pain SCDs encouraged activity as tolerated consult JOVAN Garcia MD Jun 09, 2018 14:28
[2018-06-09 15:00] VITALS: BP 149/94
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
--- NOTE | 2018-06-09 15:09 | PDOC1 ---
History and Physical Date of Admission Date of Admission 06/09/18 Identification/Chief Complaint Chief Complaint rt buttock pain Source Source: Chart review, Patient History of Present Illness History of Present Illness Patient is a 53 year old male with history of hypertension, high cholesterol, came to ER for back pain. Pt was dced here last week s/o l5-s1 decompressive spinal sx for lower back pain. He was able to walk with a walker, but on Wednesday , he felt worsening rt buttock pain, radiating down to rt leg. has rt foot numbness. barely can walk now. the pain is 8/10, worse to 10/10 when walk. no BM or urination problem. He was here 2 weeks ago too, he got epidural injection by dr. Wilson without improvement and also injection by dr. Washington and dced with steroid. Past Medical History Cardiovascular: HTN, Hyperlipidemia Pulmonary: No pertinent hx GI: GERD Psych: No pertinent hx Rheumatologic: No pertinent hx Past Surgical History Past Surgical History: No pertinent history Family History Family History: Coronary Artery Disease Social History Smoke: No ALCOHOL: occassional Drugs: None Current Problem List Problem List Problems Medical Problems: (1) Low back pain with right-sided sciatica Status: Acute Current Medications Current Medications Current Medications Medications (Trade) Dose Ordered Sig/Ramos Start Time Stop Time Status Last Admin Dose Admin Acetaminophen (Tylenol) 650 mg PRN Q6HRS PRN 06/09/18 11:45 Amlodipine Besylate (Norvasc) 10 mg DAILY 06/09/18 12:00 Aspirin (Ecotrin) 81 mg DAILY07 06/09/18 12:00 06/09/18 12:23 81 MG Atorvastatin Calcium (Lipitor) 40 mg QHS 06/09/18 21:00 Dextrose (Dextrose 50%-Water Syringe) 12.5 gm PRN Q15MIN PRN 06/09/18 11:45 Diazepam (Valium) 5 mg 1X ONCE 06/09/18 07:30 06/09/18 07:31 DC 06/09/18 07:47 5 MG Docusate Sodium (Colace) 100 mg PRN DAILY PRN 06/09/18 11:45 Enoxaparin Sodium (Lovenox 40mg Syringe) 40 mg DAILY 06/09/18 13:00 06/09/18 14:24 40 MG Hydromorphone HCl (Dilaudid) 1 mg 1X ONCE 06/09/18 08:45 06/09/18 08:46 DC 06/09/18 08:46 1 MG Insulin Human Lispro (HumaLOG) 0-9 UNITS TIDWMEALS 06/09/18 12:00 06/09/18 12:29 3 UNITS Ketorolac Tromethamine (Toradol 30mg Vial) 30 mg 1X ONCE 06/09/18 07:30 06/09/18 07:31 DC 06/09/18 07:38 30 MG Labetalol HCl (Normodyne Iv Push) 20 mg PRN Q2HR PRN 06/09/18 11:45 Lisinopril (Prinivil) 5 mg DAILY 06/09/18 12:00 Metformin HCl (Glucophage) 500 mg BIDWMEALS 06/09/18 17:00 Methylprednisolone Sodium Succinate (SOLU-Medrol 125MG VIAL) 125 mg 1X ONCE 06/09/18 07:30 06/09/18 07:31 DC 06/09/18 07:38 125 MG Morphine Sulfate (Morphine Sulfate) 2 mg PRN Q2HR PRN 06/09/18 11:45 06/09/18 14:23 2 MG Ondansetron HCl (Zofran) 4 mg PRN Q6HRS PRN 06/09/18 11:45 Oxycodone/ Acetaminophen (Percocet 10/325) 1 tab PRN Q4HRS PRN 06/09/18 11:45 Tramadol HCl (Ultram) 50 mg PRN Q6HRS PRN 06/09/18 11:45 Allergies Allergies Allergies Coded Allergies Type Severity Reaction Last Updated Verified No Known Drug Allergies 06/02/18 No ROS Review of System CONSTITUTIONAL: No fever or chills EYES: No recent changes SKIN: No rash or itching CARDIOVASCULAR: No chest pain, syncope, palpitations, or edema RESPIRATORY: No SOB or cough GASTROINTESTINAL: No nausea, vomiting or abdominal pain NEUROLOGICAL: No headaches or weakness ENDOCRINE: No cold or heat intolerance GENITOURINARY: No urgency or frequency of urination MUSCULOSKELETAL: No back pain or joint pain LYMPHATICS: No enlarged lymph nodes PSYCHIATRIC: No anxiety or depression Physical Exam Physical Exam GEN.: No apparent distress. Alert and oriented. HEENT: Head is normocephalic, atraumatic NECK: Supple. LUNGS: Clear to auscultation. HEART: RRR, S1, S2 present. Peripheral pulses intact ABDOMEN: Soft, nontender. Positive bowel sounds. EXTREMITIES: Without any cyanosis.rt buttock no tenderness, but feels pain, bl leg strength normal. NEUROLOGIC: Normal speech, normal tone PSYCHIATRIC: Normal affect, normal mood. SKIN: No ulcerations Vitals Vitals Vital Signs Date Time Temp Pulse Resp B/P (MAP) Pulse Ox O2 Delivery O2 Flow Rate FiO2 06/09/18 14:23 16 Room Air 06/09/18 11:00 98.0 75 128/92 (104) 94 98.0 Labs Labs Laboratory Tests Test 06/09/18 07:20 06/09/18 11:28 White Blood Count 4.6 x10^3/uL (4.0-11.0) Red Blood Count 5.15 x10^6/uL (4.30-5.70) Hemoglobin 15.8 g/dL (13.0-17.5) Hematocrit 45.8 % (39.0-53.0) Mean Corpuscular Volume 89 fL (79-100) Mean Corpuscular Hemoglobin 31 pg (25-35) Mean Corpuscular Hemoglobin Concent 35 g/dL (31-37) Red Cell Distribution Width 15.3 % (11.5-14.5) Platelet Count 245 x10^3/uL (140-400) Neutrophils (%) (Auto) 36 % (31-73) Lymphocytes (%) (Auto) 48 % (24-48) Monocytes (%) (Auto) 9 % (0-9) Eosinophils (%) (Auto) 6 % (0-3) Basophils (%) (Auto) 1 % (0-3) Neutrophils # (Auto) 1.6 x10^3uL (1.8-7.7) Lymphocytes # (Auto) 2.2 x10^3/uL (1.0-4.8) Monocytes # (Auto) 0.4 x10^3/uL (0.0-1.1) Eosinophils # (Auto) 0.3 x10^3/uL (0.0-0.7) Basophils # (Auto) 0.0 x10^3/uL (0.0-0.2) Sodium Level 139 mmol/L (136-145) Potassium Level 3.7 mmol/L (3.5-5.1) Chloride Level 101 mmol/L (98-107) Carbon Dioxide Level 29 mmol/L (21-32) Anion Gap 9 (6-14) Blood Urea Nitrogen 14 mg/dL (8-26) Creatinine 1.4 mg/dL (0.7-1.3) Estimated GFR (Cockcroft-Gault) 63.7 Glucose Level 223 mg/dL (70-99) Calcium Level 8.9 mg/dL (8.5-10.1) Glucose (Fingerstick) 179 mg/dL (70-99) Laboratory Tests Test 06/09/18 07:20 06/09/18 11:28 White Blood Count 4.6 x10^3/uL (4.0-11.0) Red Blood Count 5.15 x10^6/uL (4.30-5.70) Hemoglobin 15.8 g/dL (13.0-17.5) Hematocrit 45.8 % (39.0-53.0) Mean Corpuscular Volume 89 fL (79-100) Mean Corpuscular Hemoglobin 31 pg (25-35) Mean Corpuscular Hemoglobin Concent 35 g/dL (31-37) Red Cell Distribution Width 15.3 % (11.5-14.5) Platelet Count 245 x10^3/uL (140-400) Neutrophils (%) (Auto) 36 % (31-73) Lymphocytes (%) (Auto) 48 % (24-48) Monocytes (%) (Auto) 9 % (0-9) Eosinophils (%) (Auto) 6 % (0-3) Basophils (%) (Auto) 1 % (0-3) Neutrophils # (Auto) 1.6 x10^3uL (1.8-7.7) Lymphocytes # (Auto) 2.2 x10^3/uL (1.0-4.8) Monocytes # (Auto) 0.4 x10^3/uL (0.0-1.1) Eosinophils # (Auto) 0.3 x10^3/uL (0.0-0.7) Basophils # (Auto) 0.0 x10^3/uL (0.0-0.2) Sodium Level 139 mmol/L (136-145) Potassium Level 3.7 mmol/L (3.5-5.1) Chloride Level 101 mmol/L (98-107) Carbon Dioxide Level 29 mmol/L (21-32) Anion Gap 9 (6-14) Blood Urea Nitrogen 14 mg/dL (8-26) Creatinine 1.4 mg/dL (0.7-1.3) Estimated GFR (Cockcroft-Gault) 63.7 Glucose Level 223 mg/dL (70-99) Calcium Level 8.9 mg/dL (8.5-10.1) Glucose (Fingerstick) 179 mg/dL (70-99) VTE Prophylaxis Ordered VTE Prophylaxis Devices: Yes VTE Pharmacological Prophylaxi: Yes Assessment/Plan Assessment/Plan intractable lower back pain s/p L5-S1 decompressive sx 1 week ago right buttock pain with sciatica likely DM -with A1c 6.5, HTN urgency hld - statin morbid obesity plan; dr. Isidro , dr Washington consult no sx now pain control with oxycodone prn, lidocaine patch ptot cont home meds add metformin again, ssi dvt ppx pt very anxious, repeating same sentences and requesting for help ANGEL KIDD MD Jun 09, 2018 15:09
[2018-06-09] MEDS: LIDOCAINE (700MG/PATCH) PATCH. TD SCH (15:43)
[2018-06-09] MEDS: traMADol 50 MG TABLET PO PRN (15:43)
[2018-06-09] MEDS ORDERED: fentaNYL 50MCG/HR PATCH 1 PATCH PATCH.TD72 TD SCH (16:30)
[2018-06-09] MEDS: metFORMIN 500 MG TABLET PO SCH (16:44)
[2018-06-09 19:30] VITALS: BP 142/95
[2018-06-09] MEDS: PATCH REMOVAL. MC SCH (19:53)
[2018-06-09] MEDS: ATORVASTATIN CALCIUM 40 MG TABLET. PO SCH (20:06)
[2018-06-09] MEDS: oxyCODONE/APAP 10/325 1 TAB TABLET PO PRN (20:07)
[2018-06-09 23:55] VITALS: BP 142/102
[2018-06-10] MEDS: MORPHINE SULFATE 2 MG/ML VIAL. IV PRN ×6 (00:26→21:07)
[2018-06-10] MEDS: oxyCODONE/APAP 10/325 1 TAB TABLET PO PRN ×5 (01:22→22:12)
[2018-06-10 03:43] VITALS: BP 113/65
[2018-06-10 04:50] LABS: BASO # 0.1 x10^3/uL (0.0-0.2); BASO % 1 % (0-3); EOS % 0 % (0-3); HEMATOCRIT 44.2 % (39.0-53.0); HEMOGLOBIN 15.2 g/dL (13.0-17.5); LYMPH # 1.4 x10^3/uL (1.0-4.8); LYMPH % 8 % (24-48); MEAN CORPUSCULAR HEMOGLOBIN 30 pg (25-35); MEAN CORPUSCULAR HGB CONC 34 g/dL (31-37); MEAN CORPUSCULAR VOLUME 89 fL (79-100); MONO # 0.8 x10^3/uL (0.0-1.1); MONO % 5 % (0-9); NEUT # 14.2 x10^3uL (1.8-7.7); NEUT % 86 % (31-73); PLATELET COUNT 254 x10^3/uL (140-400); RED BLOOD COUNT 4.99 x10^6/uL (4.30-5.70); RED CELL DISTRIBUTION WIDTH 14.8 % (11.5-14.5); WHITE BLOOD COUNT 16.5 x10^3/uL (4.0-11.0)
[2018-06-10] MEDS: ASPIRIN ENTERIC COATED 81 MG TABLET.DR. PO SCH (04:55)
[2018-06-10 05:11] LABS: CALCIUM 9.1 mg/dL (8.5-10.1); CREATININE 1.3 mg/dL (0.7-1.3); GFR 69.3; POTASSIUM 4.2 mmol/L (3.5-5.1)
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
[2018-06-10 06:52] LABS: % ATYL 2 % (0-0); % BANDS 10 % (0-9); % LYMPHS 15 % (24-48); % MONOS 6 % (0-10); % SEGS 67 % (35-66)
[2018-06-10 07:00] VITALS: BP 145/104
--- NOTE | 2018-06-10 07:06 | CONS ---
DATE OF CONSULTATION: 05/31/2018 REASON FOR CONSULTATION: Back and leg pain. HISTORY OF PRESENT ILLNESS: The patient is a pleasant 53-year-old man who was admitted earlier this month with back and right leg pain. He was given an epidural steroid injections, improved and was discharged. He reported that he has developed increasing pain again in his lower back, which radiates into his buttock and posterior thigh, leg to the plantar surface of his right foot. That pain became severe and he was admitted for pain control and further evaluation and treatment. The patient reported only limited benefit from his epidural steroid injection. He did try physical therapy, which he said did not help. He notes back stiffness. There is no significant pain in his left leg. He reports that in the past he has had difficulties with his lower back. PAST MEDICAL HISTORY: Diabetes, hypercholesterolemia. ALLERGIES: No known allergies to medications. MEDICATIONS: MRAD was reviewed and other than outlined above is noncontributory. SOCIAL HISTORY: He lives with his girlfriend. REVIEW OF SYSTEMS: A 12-point review of systems was performed and other than outlined above was negative. PHYSICAL EXAMINATION: GENERAL: He is pleasant and cooperative throughout the exam. He is in mild distress because of back pain and right leg pain. NEUROLOGY: He was able to give full strength in upper and lower extremities bilaterally. On sensory examination, he was intact to light touch except for subjective decreased light touch involving the plantar surface of his right foot. EXTREMITIES: Reflexes were trace throughout. Internal and external rotation of the hips was unremarkable. IMAGING DATA: I reviewed an MRI scan of the pelvis with a low Ursula magnet on that study and views of the lumbar spine showed disc bulging and the overall small canal. I also reviewed a CT scan of the lumbar spine. On that study, there appeared to be moderately severe neural foraminal narrowing at L4-L5 and L5-S1. At L3-L4, there was more moderate bilateral foraminal narrowing. ASSESSMENT AND PLAN: The patient has a right lumbar radiculopathy. We are going to move forward with a lumbar myelogram and post-myelogram CT scan to evaluate him further. I did discuss this with him in detail. JOVAN GARCIA MD DR: [facility] JOB#: [id number] / [id number]
[2018-06-10 07:11] LABS: PLT ESTIMATE ADEQUATE (ADEQUATE)
[2018-06-10] MEDS: INSULIN LISPRO 300 UNITS/3 ML INSULN.PEN. SQ SCH ×3 (08:00→17:00)
[2018-06-10] MEDS: metFORMIN 500 MG TABLET PO SCH ×2 (08:39→17:48)
[2018-06-10] MEDS: LISINOPRIL 5 MG TABLET. PO SCH (08:40)
[2018-06-10] MEDS: traMADol 50 MG TABLET PO PRN (08:40)
[2018-06-10] MEDS: amLODIPine BESYLATE 10 MG TABLET PO SCH (08:40)
[2018-06-10] MEDS: ENOXAPARIN 40 MG/0.4 ML SYRINGE. SQ SCH (08:41)
[2018-06-10] MEDS: LIDOCAINE (700MG/PATCH) PATCH. TD SCH (08:41)
--- NOTE | 2018-06-10 09:26 | PDOC ---
PROGRESS NOTES Chief Complaint Chief Complaint intractable lower back pain s/p L5-S1 decompressive sx 1 week ago right buttock pain - worse post op DM -with A1c 6.5, HTN urgency hld - statin morbid obesity History of Present Illness History of Present Illness He claims he is still having right buttock pain and low back pain, 7 out of 10 at its best I have provided copies of his CT lumbar spine. There is a mention of CT myelogram but I do not see the order Patient is eating okay If he stays still , pain is okay but once he gets moving it is severe excruciating pain He claims he is much worse on the right buttock even postop PLAN: Await physiatry and neurosurgery Rounds CT myelogram were thoughts of the services but no order? Continue present pain medicine, I did not add some stuff now pending the above Rounds Keep bowel regimen Vitals Vitals Vital Signs Date Time Temp Pulse Resp B/P (MAP) Pulse Ox O2 Delivery O2 Flow Rate FiO2 06/10/18 08:40 Room Air 06/10/18 08:40 62 145/104 06/10/18 07:00 97.7 16 95 97.7 Physical Exam General: Alert, Oriented X3, Cooperative Heart: Regular rate, Normal S1, Normal S2 Lungs: Clear Abdomen: Normal bowel sounds, Soft Extremities: Other (PAin RT buttock, rt flank going to his rt leg/toes) Skin: No rashes, No breakdown, No significant lesion Labs LABS Laboratory Tests Test 06/09/18 11:28 06/09/18 16:28 06/10/18 04:15 06/10/18 08:08 Glucose (Fingerstick) 179 mg/dL (70-99) 333 mg/dL (70-99) 141 mg/dL (70-99) White Blood Count 16.5 x10^3/uL (4.0-11.0) Red Blood Count 4.99 x10^6/uL (4.30-5.70) Hemoglobin 15.2 g/dL (13.0-17.5) Hematocrit 44.2 % (39.0-53.0) Mean Corpuscular Volume 89 fL (79-100) Mean Corpuscular Hemoglobin 30 pg (25-35) Mean Corpuscular Hemoglobin Concent 34 g/dL (31-37) Red Cell Distribution Width 14.8 % (11.5-14.5) Platelet Count 254 x10^3/uL (140-400) Neutrophils (%) (Auto) 86 % (31-73) Lymphocytes (%) (Auto) 8 % (24-48) Monocytes (%) (Auto) 5 % (0-9) Eosinophils (%) (Auto) 0 % (0-3) Basophils (%) (Auto) 1 % (0-3) Neutrophils # (Auto) 14.2 x10^3uL (1.8-7.7) Lymphocytes # (Auto) 1.4 x10^3/uL (1.0-4.8) Monocytes # (Auto) 0.8 x10^3/uL (0.0-1.1) Eosinophils # (Auto) 0.0 x10^3/uL (0.0-0.7) Basophils # (Auto) 0.1 x10^3/uL (0.0-0.2) Segmented Neutrophils % 67 % (35-66) Band Neutrophils % 10 % (0-9) Lymphocytes % 15 % (24-48) Atypical Lymphocytes % (Manual) 2 % (0-0) Monocytes % 6 % (0-10) Platelet Estimate Adequate (ADEQUATE) Sodium Level 139 mmol/L (136-145) Potassium Level 4.2 mmol/L (3.5-5.1) Chloride Level 103 mmol/L (98-107) Carbon Dioxide Level 27 mmol/L (21-32) Anion Gap 9 (6-14) Blood Urea Nitrogen 15 mg/dL (8-26) Creatinine 1.3 mg/dL (0.7-1.3) Estimated GFR (Cockcroft-Gault) 69.3 Glucose Level 168 mg/dL (70-99) Calcium Level 9.1 mg/dL (8.5-10.1) Review of Systems Review of Systems As per history of present illness, the rest of ROS 14 point negative Assessment and Plan Assessmemt and Plan Problems Medical Problems: (1) Low back pain with right-sided sciatica Status: Acute Comment Review of Relevant I have reviewed the following items oly (where applicable) has been applied. Labs Laboratory Tests Test 06/09/18 07:20 06/09/18 11:28 06/09/18 16:28 06/10/18 04:15 White Blood Count 4.6 x10^3/uL (4.0-11.0) 16.5 x10^3/uL (4.0-11.0) Red Blood Count 5.15 x10^6/uL (4.30-5.70) 4.99 x10^6/uL (4.30-5.70) Hemoglobin 15.8 g/dL (13.0-17.5) 15.2 g/dL (13.0-17.5) Hematocrit 45.8 % (39.0-53.0) 44.2 % (39.0-53.0) Mean Corpuscular Volume 89 fL (79-100) 89 fL (79-100) Mean Corpuscular Hemoglobin 31 pg (25-35) 30 pg (25-35) Mean Corpuscular Hemoglobin Concent 35 g/dL (31-37) 34 g/dL (31-37) Red Cell Distribution Width 15.3 % (11.5-14.5) 14.8 % (11.5-14.5) Platelet Count 245 x10^3/uL (140-400) 254 x10^3/uL (140-400) Neutrophils (%) (Auto) 36 % (31-73) 86 % (31-73) Lymphocytes (%) (Auto) 48 % (24-48) 8 % (24-48) Monocytes (%) (Auto) 9 % (0-9) 5 % (0-9) Eosinophils (%) (Auto) 6 % (0-3) 0 % (0-3) Basophils (%) (Auto) 1 % (0-3) 1 % (0-3) Neutrophils # (Auto) 1.6 x10^3uL (1.8-7.7) 14.2 x10^3uL (1.8-7.7) Lymphocytes # (Auto) 2.2 x10^3/uL (1.0-4.8) 1.4 x10^3/uL (1.0-4.8) Monocytes # (Auto) 0.4 x10^3/uL (0.0-1.1) 0.8 x10^3/uL (0.0-1.1) Eosinophils # (Auto) 0.3 x10^3/uL (0.0-0.7) 0.0 x10^3/uL (0.0-0.7) Basophils # (Auto) 0.0 x10^3/uL (0.0-0.2) 0.1 x10^3/uL (0.0-0.2) Sodium Level 139 mmol/L (136-145) 139 mmol/L (136-145) Potassium Level 3.7 mmol/L (3.5-5.1) 4.2 mmol/L (3.5-5.1) Chloride Level 101 mmol/L (98-107) 103 mmol/L (98-107) Carbon Dioxide Level 29 mmol/L (21-32) 27 mmol/L (21-32) Anion Gap 9 (6-14) 9 (6-14) Blood Urea Nitrogen 14 mg/dL (8-26) 15 mg/dL (8-26) Creatinine 1.4 mg/dL (0.7-1.3) 1.3 mg/dL (0.7-1.3) Estimated GFR (Cockcroft-Gault) 63.7 69.3 Glucose Level 223 mg/dL (70-99) 168 mg/dL (70-99) Calcium Level 8.9 mg/dL (8.5-10.1) 9.1 mg/dL (8.5-10.1) Glucose (Fingerstick) 179 mg/dL (70-99) 333 mg/dL (70-99) Segmented Neutrophils % 67 % (35-66) Band Neutrophils % 10 % (0-9) Lymphocytes % 15 % (24-48) Atypical Lymphocytes % (Manual) 2 % (0-0) Monocytes % 6 % (0-10) Platelet Estimate Adequate (ADEQUATE) Test 06/10/18 08:08 Glucose (Fingerstick) 141 mg/dL (70-99) Laboratory Tests Test 06/09/18 11:28 06/09/18 16:28 06/10/18 04:15 06/10/18 08:08 Glucose (Fingerstick) 179 mg/dL (70-99) 333 mg/dL (70-99) 141 mg/dL (70-99) White Blood Count 16.5 x10^3/uL (4.0-11.0) Red Blood Count 4.99 x10^6/uL (4.30-5.70) Hemoglobin 15.2 g/dL (13.0-17.5) Hematocrit 44.2 % (39.0-53.0) Mean Corpuscular Volume 89 fL (79-100) Mean Corpuscular Hemoglobin 30 pg (25-35) Mean Corpuscular Hemoglobin Concent 34 g/dL (31-37) Red Cell Distribution Width 14.8 % (11.5-14.5) Platelet Count 254 x10^3/uL (140-400) Neutrophils (%) (Auto) 86 % (31-73) Lymphocytes (%) (Auto) 8 % (24-48) Monocytes (%) (Auto) 5 % (0-9) Eosinophils (%) (Auto) 0 % (0-3) Basophils (%) (Auto) 1 % (0-3) Neutrophils # (Auto) 14.2 x10^3uL (1.8-7.7) Lymphocytes # (Auto) 1.4 x10^3/uL (1.0-4.8) Monocytes # (Auto) 0.8 x10^3/uL (0.0-1.1) Eosinophils # (Auto) 0.0 x10^3/uL (0.0-0.7) Basophils # (Auto) 0.1 x10^3/uL (0.0-0.2) Segmented Neutrophils % 67 % (35-66) Band Neutrophils % 10 % (0-9) Lymphocytes % 15 % (24-48) Atypical Lymphocytes % (Manual) 2 % (0-0) Monocytes % 6 % (0-10) Platelet Estimate Adequate (ADEQUATE) Sodium Level 139 mmol/L (136-145) Potassium Level 4.2 mmol/L (3.5-5.1) Chloride Level 103 mmol/L (98-107) Carbon Dioxide Level 27 mmol/L (21-32) Anion Gap 9 (6-14) Blood Urea Nitrogen 15 mg/dL (8-26) Creatinine 1.3 mg/dL (0.7-1.3) Estimated GFR (Cockcroft-Gault) 69.3 Glucose Level 168 mg/dL (70-99) Calcium Level 9.1 mg/dL (8.5-10.1) Medications Current Medications Hydromorphone HCl (Dilaudid) 1 mg 1X ONCE IV Last administered on 06/09/18at 07 :48; Start 06/09/18 at 07:30; Stop 06/09/18 at 07:31; Status DC Diazepam (Valium) 5 mg 1X ONCE PO Last administered on 06/09/18at 07:47; Start 06/09/18 at 07:30; Stop 06/09/18 at 07:31; Status DC Ketorolac Tromethamine (Toradol 30mg Vial) 30 mg 1X ONCE IV Last administered on 06/09/18at 07:38; Start 06/09/18 at 07:30; Stop 06/09/18 at 07:31; Status DC Methylprednisolone Sodium Succinate (SOLU-Medrol 125MG VIAL) 125 mg 1X ONCE IV Last administered on 06/09/18at 07:38; Start 06/09/18 at 07:30; Stop 06/09/18 at 07:31; Status DC Hydromorphone HCl (Dilaudid) 1 mg 1X ONCE IV Last administered on 06/09/18at 08 :46; Start 06/09/18 at 08:45; Stop 06/09/18 at 08:46; Status DC Amlodipine Besylate (Norvasc) 10 mg DAILY PO Last administered on 06/10/18at 08: 40; Start 06/09/18 at 12:00 Aspirin (Ecotrin) 81 mg DAILY07 PO Last administered on 06/10/18at 04:55; Start 06/09/18 at 12:00 Atorvastatin Calcium (Lipitor) 40 mg QHS PO Last administered on 06/09/18at 20: 06; Start 06/09/18 at 21:00 Oxycodone/ Acetaminophen (Percocet 10/325) 1 tab PRN Q4HRS PRN PO SEVERE PAIN Last administered on 06/10/18at 07:25; Start 06/09/18 at 11:45 Lisinopril (Prinivil) 5 mg DAILY PO Last administered on 06/10/18at 08:40; Start 06/09/18 at 12:00 Acetaminophen (Tylenol) 650 mg PRN Q6HRS PRN PO FEVER; Start 06/09/18 at 11:45 Ondansetron HCl (Zofran) 4 mg PRN Q6HRS PRN IV NAUSEA/VOMITING 1ST CHOICE; Start 06/09/18 at 11:45 Morphine Sulfate (Morphine Sulfate) 2 mg PRN Q2HR PRN IV MODERATE TO SEVERE PAIN Last administered on 06/10/18 07:25; Start 06/09/18 at 11:45 Tramadol HCl (Ultram) 50 mg PRN Q6HRS PRN PO MILD TO MODERATE PAIN Last administered on 06/10/18 08:40; Start 06/09/18 at 11:45 Docusate Sodium (Colace) 100 mg PRN DAILY PRN PO CONSTIPATION 1ST CHOICE; Start 06/09/18 at 11:45 Labetalol HCl (Normodyne Iv Push) 20 mg PRN Q2HR PRN IVP HYPERTENSION, SEE COMMENTS; Start 06/09/18 at 11:45 Insulin Human Lispro (HumaLOG) 0-9 UNITS TIDWMEALS SQ Last administered on 06/09 17:06; Start 06/09/18 at 12:00 Dextrose (Dextrose 50%-Water Syringe) 12.5 gm PRN Q15MIN PRN IV SEE COMMENTS; Start 06/09/18 at 11:45 Metformin HCl (Glucophage) 500 mg BIDWMEALS PO Last administered on 06/10/18 08:39; Start 06/09/18 at 17:00 Enoxaparin Sodium (Lovenox 40mg Syringe) 40 mg DAILY SQ Last administered on 08:41; Start 06/09/18 at 13:00 Lidocaine (Lidoderm) 1 patch DAILY TD Last administered on 06/10/18 08:41; Start 06/09/18 at 16:00 Miscellaneous (Lidoderm Patch Removal) 1 ea QHS MC Last administered on 19:53; Start 06/09/18 at 21:00 Fentanyl (Duragesic 50mcg/ Hr Patch) 1 patch Q3DAYS TD Last administered on 16:23; Start 06/09/18 at 16:30 Active Scripts Active Oxycodone-Acetaminophen 10-325 (Oxycodone Hcl/Acetaminophen) 1 Each Tablet 1 Tab PO PRN Q4HRS PRN Atorvastatin Calcium 40 Mg Tablet 40 Mg PO QHS Lidocaine 1 Each Adh..patch 1 Each TP Q12HR PRN Place one patch for 12 hours, remove patch after 12 hours use. wait 12 hours before [address] a new patch Naproxen 500 Mg Tablet 1 Tab PO BID 10 Days Diclofenac Sodium 50 Mg Tablet. 50 Mg PO BID Imitrex (Sumatriptan Succinate) 100 Mg Tablet 1 Tab PO UD PRN MDD 200 mg Take first dose of medication at onset of headache. He may repeat with 1 additional dose after 2 hours if headache is still present. Cyclobenzaprine Hcl 10 Mg Tablet 10 Mg PO TID PRN Reported Amlodipine Besylate 10 Mg Tablet 10 Mg PO DAILY Hydrochlorothiazide Tablet (Hydrochlorothiazide) 25 Mg Tablet 1 Tab PO DAILY Lisinopril 5 Mg Tablet 1 Tab PO DAILY Excedrin Migraine Caplet (Aspirin/Acetaminophen/Caffeine) 1 Each Tablet 1 Each PO PRN Q6-8HRS PRN Aspirin Ec (Aspirin) 81 Mg Tablet. 81 Mg PO DAILY Benzonatate 100 Mg Capsule 1 Cap PO TID Vitals/I & O Vital Sign - Last 24 Hours 06/09/18 06/09/18 06/09/18 06/09/18 10:15 11:00 12:23 14:23 Temp 98.0 98.0 Pulse 75 Resp 18 18 16 B/P (MAP) 128/92 (104) Pulse Ox 94 O2 Delivery Room Air Room Air Room Air Room Air 06/09/18 06/09/18 06/09/18 06/09/18 15:00 15:43 16:23 16:45 Temp 98.1 98.1 Pulse 107 Resp 18 18 16 16 B/P (MAP) 149/94 (112) Pulse Ox 91 O2 Delivery Room Air Room Air Room Air Room Air 06/09/18 06/09/18 06/09/18 06/09/18 16:45 17:15 19:30 20:00 Temp 97.3 97.3 Pulse 120 Resp 16 16 18 B/P (MAP) 142/95 (111) Pulse Ox 94 O2 Delivery Room Air Room Air Room Air 06/09/18 06/09/18 06/09/18 06/09/18 20:07 20:23 22:22 23:55 Temp 98.0 98.0 Pulse 110 Resp 16 B/P (MAP) 142/102 (115) Pulse Ox 97 O2 Delivery Room Air Room Air Room Air Room Air 06/10/18 06/10/18 06/10/18 06/10/18 00:26 01:22 03:43 04:55 Temp 97.9 97.9 Pulse 90 Resp 18 B/P (MAP) 113/65 (81) Pulse Ox 92 O2 Delivery Room Air Room Air Room Air Room Air 06/10/18 06/10/18 06/10/18 06/10/18 07:00 07:10 07:25 07:25 Temp 97.7 97.7 Pulse 62 Resp 16 B/P (MAP) 145/104 (118) Pulse Ox 95 O2 Delivery Room Air Room Air Room Air Room Air 06/10/18 06/10/18 06/10/18 06/10/18 08:17 08:17 08:40 08:40 Pulse 62 62 B/P (MAP) 145/104 145/104 O2 Delivery Room Air Room Air 06/10/18 08:40 O2 Delivery Room Air Intake and Output 06/09/18 06/09/18 06/10/18 15:00 23:00 07:00 Intake Total 220 ml 780 ml Output Total 480 ml Balance 220 ml 300 ml AZUCENA TOTH MD Jun 10, 2018 09:26
--- NOTE | 2018-06-10 09:56 | PDOC ---
PROGRESS NOTES Subjective Subjective He admits continued low back pain with radiation to right lower extremity and pain medicines causing headaches. Objective Objective Vital Signs Date Time Temp Pulse Resp B/P (MAP) Pulse Ox O2 Delivery O2 Flow Rate FiO2 06/10/18 08:40 Room Air 06/10/18 08:40 62 145/104 06/10/18 07:00 97.7 16 95 97.7 Intake and Output 06/10/18 07:00 Intake Total 1000 ml Output Total 480 ml Balance 520 ml Intake Oral 1000 ml Output Urine Total 480 ml # Voids 2 Physical Exam Physical Exam He is supine in bed and is alert and he continues with painfully limited lumbar spine and tenderness to palpation over sacroiliac joints bilaterally and no change with his neurological examination. Assessment Assessment Problems Medical Problems: (1) Low back pain with right-sided sciatica Status: Acute Plan Plan of Care To try oxycontin and to see whether feel comfortable to proceed with 2nd lumbar KEVEN one week post op. Comment Review of Relevant I have reviewed the following items oly (where applicable) has been applied. Labs Laboratory Tests Test 06/09/18 07:20 06/09/18 11:28 06/09/18 16:28 06/10/18 04:15 White Blood Count 4.6 x10^3/uL (4.0-11.0) 16.5 x10^3/uL (4.0-11.0) Red Blood Count 5.15 x10^6/uL (4.30-5.70) 4.99 x10^6/uL (4.30-5.70) Hemoglobin 15.8 g/dL (13.0-17.5) 15.2 g/dL (13.0-17.5) Hematocrit 45.8 % (39.0-53.0) 44.2 % (39.0-53.0) Mean Corpuscular Volume 89 fL (79-100) 89 fL (79-100) Mean Corpuscular Hemoglobin 31 pg (25-35) 30 pg (25-35) Mean Corpuscular Hemoglobin Concent 35 g/dL (31-37) 34 g/dL (31-37) Red Cell Distribution Width 15.3 % (11.5-14.5) 14.8 % (11.5-14.5) Platelet Count 245 x10^3/uL (140-400) 254 x10^3/uL (140-400) Neutrophils (%) (Auto) 36 % (31-73) 86 % (31-73) Lymphocytes (%) (Auto) 48 % (24-48) 8 % (24-48) Monocytes (%) (Auto) 9 % (0-9) 5 % (0-9) Eosinophils (%) (Auto) 6 % (0-3) 0 % (0-3) Basophils (%) (Auto) 1 % (0-3) 1 % (0-3) Neutrophils # (Auto) 1.6 x10^3uL (1.8-7.7) 14.2 x10^3uL (1.8-7.7) Lymphocytes # (Auto) 2.2 x10^3/uL (1.0-4.8) 1.4 x10^3/uL (1.0-4.8) Monocytes # (Auto) 0.4 x10^3/uL (0.0-1.1) 0.8 x10^3/uL (0.0-1.1) Eosinophils # (Auto) 0.3 x10^3/uL (0.0-0.7) 0.0 x10^3/uL (0.0-0.7) Basophils # (Auto) 0.0 x10^3/uL (0.0-0.2) 0.1 x10^3/uL (0.0-0.2) Sodium Level 139 mmol/L (136-145) 139 mmol/L (136-145) Potassium Level 3.7 mmol/L (3.5-5.1) 4.2 mmol/L (3.5-5.1) Chloride Level 101 mmol/L (98-107) 103 mmol/L (98-107) Carbon Dioxide Level 29 mmol/L (21-32) 27 mmol/L (21-32) Anion Gap 9 (6-14) 9 (6-14) Blood Urea Nitrogen 14 mg/dL (8-26) 15 mg/dL (8-26) Creatinine 1.4 mg/dL (0.7-1.3) 1.3 mg/dL (0.7-1.3) Estimated GFR (Cockcroft-Gault) 63.7 69.3 Glucose Level 223 mg/dL (70-99) 168 mg/dL (70-99) Calcium Level 8.9 mg/dL (8.5-10.1) 9.1 mg/dL (8.5-10.1) Glucose (Fingerstick) 179 mg/dL (70-99) 333 mg/dL (70-99) Segmented Neutrophils % 67 % (35-66) Band Neutrophils % 10 % (0-9) Lymphocytes % 15 % (24-48) Atypical Lymphocytes % (Manual) 2 % (0-0) Monocytes % 6 % (0-10) Platelet Estimate Adequate (ADEQUATE) Test 06/10/18 08:08 Glucose (Fingerstick) 141 mg/dL (70-99) Laboratory Tests Test 06/09/18 11:28 06/09/18 16:28 06/10/18 04:15 06/10/18 08:08 Glucose (Fingerstick) 179 mg/dL (70-99) 333 mg/dL (70-99) 141 mg/dL (70-99) White Blood Count 16.5 x10^3/uL (4.0-11.0) Red Blood Count 4.99 x10^6/uL (4.30-5.70) Hemoglobin 15.2 g/dL (13.0-17.5) Hematocrit 44.2 % (39.0-53.0) Mean Corpuscular Volume 89 fL (79-100) Mean Corpuscular Hemoglobin 30 pg (25-35) Mean Corpuscular Hemoglobin Concent 34 g/dL (31-37) Red Cell Distribution Width 14.8 % (11.5-14.5) Platelet Count 254 x10^3/uL (140-400) Neutrophils (%) (Auto) 86 % (31-73) Lymphocytes (%) (Auto) 8 % (24-48) Monocytes (%) (Auto) 5 % (0-9) Eosinophils (%) (Auto) 0 % (0-3) Basophils (%) (Auto) 1 % (0-3) Neutrophils # (Auto) 14.2 x10^3uL (1.8-7.7) Lymphocytes # (Auto) 1.4 x10^3/uL (1.0-4.8) Monocytes # (Auto) 0.8 x10^3/uL (0.0-1.1) Eosinophils # (Auto) 0.0 x10^3/uL (0.0-0.7) Basophils # (Auto) 0.1 x10^3/uL (0.0-0.2) Segmented Neutrophils % 67 % (35-66) Band Neutrophils % 10 % (0-9) Lymphocytes % 15 % (24-48) Atypical Lymphocytes % (Manual) 2 % (0-0) Monocytes % 6 % (0-10) Platelet Estimate Adequate (ADEQUATE) Sodium Level 139 mmol/L (136-145) Potassium Level 4.2 mmol/L (3.5-5.1) Chloride Level 103 mmol/L (98-107) Carbon Dioxide Level 27 mmol/L (21-32) Anion Gap 9 (6-14) Blood Urea Nitrogen 15 mg/dL (8-26) Creatinine 1.3 mg/dL (0.7-1.3) Estimated GFR (Cockcroft-Gault) 69.3 Glucose Level 168 mg/dL (70-99) Calcium Level 9.1 mg/dL (8.5-10.1) Medications Current Medications Hydromorphone HCl (Dilaudid) 1 mg 1X ONCE IV Last administered on 06/09/18 07 :48; Start 06/09/18 at 07:30; Stop 06/09/18 at 07:31; Status DC Diazepam (Valium) 5 mg 1X ONCE PO Last administered on 06/09/18 07:47; Start 06/09/18 at 07:30; Stop 06/09/18 at 07:31; Status DC Ketorolac Tromethamine (Toradol 30mg Vial) 30 mg 1X ONCE IV Last administered on 06/09/18 07:38; Start 06/09/18 at 07:30; Stop 06/09/18 at 07:31; Status DC Methylprednisolone Sodium Succinate (SOLU-Medrol 125MG VIAL) 125 mg 1X ONCE IV Last administered on 06/09/18 07:38; Start 06/09/18 at 07:30; Stop 06/09/18 at 07:31; Status DC Hydromorphone HCl (Dilaudid) 1 mg 1X ONCE IV Last administered on 06/09/18at 08 :46; Start 06/09/18 at 08:45; Stop 06/09/18 at 08:46; Status DC Amlodipine Besylate (Norvasc) 10 mg DAILY PO Last administered on 06/10/18at 08: 40; Start 06/09/18 at 12:00 Aspirin (Ecotrin) 81 mg DAILY07 PO Last administered on 06/10/18at 04:55; Start 06/09/18 at 12:00 Atorvastatin Calcium (Lipitor) 40 mg QHS PO Last administered on 06/09/18at 20: 06; Start 06/09/18 at 21:00 Oxycodone/ Acetaminophen (Percocet 10/325) 1 tab PRN Q4HRS PRN PO SEVERE PAIN Last administered on 06/10/18 07:25; Start 06/09/18 at 11:45 Lisinopril (Prinivil) 5 mg DAILY PO Last administered on 06/10/18at 08:40; Start 06/09/18 at 12:00 Acetaminophen (Tylenol) 650 mg PRN Q6HRS PRN PO FEVER; Start 06/09/18 at 11:45 Ondansetron HCl (Zofran) 4 mg PRN Q6HRS PRN IV NAUSEA/VOMITING 1ST CHOICE; Start 06/09/18 at 11:45 Morphine Sulfate (Morphine Sulfate) 2 mg PRN Q2HR PRN IV MODERATE TO SEVERE PAIN Last administered on 06/10/18at 07:25; Start 06/09/18 at 11:45 Tramadol HCl (Ultram) 50 mg PRN Q6HRS PRN PO MILD TO MODERATE PAIN Last administered on 06/10/18at 08:40; Start 06/09/18 at 11:45 Docusate Sodium (Colace) 100 mg PRN DAILY PRN PO CONSTIPATION 1ST CHOICE; Start 06/09/18 at 11:45 Labetalol HCl (Normodyne Iv Push) 20 mg PRN Q2HR PRN IVP HYPERTENSION, SEE COMMENTS; Start 06/09/18 at 11:45 Insulin Human Lispro (HumaLOG) 0-9 UNITS TIDWMEALS SQ Last administered on 06/09at 17:06; Start 06/09/18 at 12:00 Dextrose (Dextrose 50%-Water Syringe) 12.5 gm PRN Q15MIN PRN IV SEE COMMENTS; Start 06/09/18 at 11:45 Metformin HCl (Glucophage) 500 mg BIDWMEALS PO Last administered on 06/10/18at 08:39; Start 06/09/18 at 17:00 Enoxaparin Sodium (Lovenox 40mg Syringe) 40 mg DAILY SQ Last administered on at 08:41; Start 06/09/18 at 13:00 Lidocaine (Lidoderm) 1 patch DAILY TD Last administered on 06/10/18at 08:41; Start 06/09/18 at 16:00 Miscellaneous (Lidoderm Patch Removal) 1 ea QHS MC Last administered on at 19:53; Start 06/09/18 at 21:00 Fentanyl (Duragesic 50mcg/ Hr Patch) 1 patch Q3DAYS TD Last administered on 06/09/18at 16:23; Start 06/09/18 at 16:30; Stop 06/10/18 at 09:27; Status DC Oxycodone HCl (OxyCONTIN) 10 mg Q12HR PO ; Start 06/10/18 at 10:00 Active Scripts Active Oxycodone-Acetaminophen 10-325 (Oxycodone Hcl/Acetaminophen) 1 Each Tablet 1 Tab PO PRN Q4HRS PRN Atorvastatin Calcium 40 Mg Tablet 40 Mg PO QHS Lidocaine 1 Each Adh..patch 1 Each TP Q12HR PRN Place one patch for 12 hours, remove patch after 12 hours use. wait 12 hours before placing a new patch Naproxen 500 Mg Tablet 1 Tab PO BID 10 Days Diclofenac Sodium 50 Mg Tablet. 50 Mg PO BID Imitrex (Sumatriptan Succinate) 100 Mg Tablet 1 Tab PO UD PRN MDD 200 mg Take first dose of medication at onset of headache. He may repeat with 1 additional dose after 2 hours if headache is still present. Cyclobenzaprine Hcl 10 Mg Tablet 10 Mg PO TID PRN Reported Amlodipine Besylate 10 Mg Tablet 10 Mg PO DAILY Hydrochlorothiazide Tablet (Hydrochlorothiazide) 25 Mg Tablet 1 Tab PO DAILY Lisinopril 5 Mg Tablet 1 Tab PO DAILY Excedrin Migraine Caplet (Aspirin/Acetaminophen/Caffeine) 1 Each Tablet 1 Each PO PRN Q6-8HRS PRN Aspirin Ec (Aspirin) 81 Mg Tablet. 81 Mg PO DAILY Benzonatate 100 Mg Capsule 1 Cap PO TID Vitals/I & O Vital Sign - Last 24 Hours 11/8/06/09/18 06/09/18 06/09/18 10:15 11:00 12:23 14:23 Temp 98.0 98.0 Pulse 75 Resp 18 18 16 B/P (MAP) 128/92 (104) Pulse Ox 94 O2 Delivery Room Air Room Air Room Air Room Air 06/09/18 06/09/18 06/09/18 06/09/18 15:00 15:43 16:23 16:45 Temp 98.1 98.1 Pulse 107 Resp 18 18 16 16 B/P (MAP) 149/94 (112) Pulse Ox 91 O2 Delivery Room Air Room Air Room Air Room Air 06/09/18 06/09/18 06/09/18 06/09/18 16:45 17:15 19:30 20:00 Temp 97.3 97.3 Pulse 120 Resp 16 16 18 B/P (MAP) 142/95 (111) Pulse Ox 94 O2 Delivery Room Air Room Air Room Air 06/09/18 06/09/18 06/09/18 06/09/18 20:07 20:23 22:22 23:55 Temp 98.0 98.0 Pulse 110 Resp 16 B/P (MAP) 142/102 (115) Pulse Ox 97 O2 Delivery Room Air Room Air Room Air Room Air 06/10/18 06/10/18 06/10/18 06/10/18 00:26 01:22 03:43 04:55 Temp 97.9 97.9 Pulse 90 Resp 18 B/P (MAP) 113/65 (81) Pulse Ox 92 O2 Delivery Room Air Room Air Room Air Room Air 06/10/18 06/10/18 06/10/18 06/10/18 07:00 07:10 07:25 07:25 Temp 97.7 97.7 Pulse 62 Resp 16 B/P (MAP) 145/104 (118) Pulse Ox 95 O2 Delivery Room Air Room Air Room Air Room Air 06/10/18 06/10/18 06/10/18 06/10/18 08:17 08:17 08:40 08:40 Pulse 62 62 B/P (MAP) 145/104 145/104 O2 Delivery Room Air Room Air 06/10/18 08:40 O2 Delivery Room Air Intake and Output 06/09/18 06/09/18 06/10/18 15:00 23:00 07:00 Intake Total 220 ml 780 ml Output Total 480 ml Balance 220 ml 300 ml JOVANNA TALBOT MD Jun 10, 2018 09:56
[2018-06-10] MEDS: oxyCODONE ER 10 MG TAB.ER.12H PO SCH ×2 (10:35→21:04)
[2018-06-10 11:00] VITALS: BP 137/89
--- NOTE | 2018-06-10 11:34 | PDOC ---
PROGRESS NOTES Subjective Subjective continues with right buttock pain with activity Objective Objective Vital Signs Date Time Temp Pulse Resp B/P (MAP) Pulse Ox O2 Delivery O2 Flow Rate FiO2 06/10/18 10:35 Room Air 06/10/18 08:40 62 145/104 06/10/18 07:00 97.7 16 95 97.7 Intake and Output 06/10/18 07:00 Intake Total 1000 ml Output Total 480 ml Balance 520 ml Intake Oral 1000 ml Output Urine Total 480 ml # Voids 2 Physical Exam General: Alert, Oriented X3, Cooperative, No acute distress MUSCULOSKELETAL: Other (JAMES, Turns in bed easily, mild tenderness with palaption of lumabr spine, incision well healed) Neuro: Other (strength 5/5 in BLE) Assessment Assessment Problems Medical Problems: (1) Low back pain with right-sided sciatica Status: Acute Plan Plan of Care Lumbar CT reviewed with Dr. Tariq- post op changes, satisfactory. encouraged increased activity as tolerated Dr. [place] following SCDs Comment Review of Relevant I have reviewed the following items oly (where applicable) has been applied. Labs Laboratory Tests Test 06/09/18 07:20 06/09/18 11:28 06/09/18 16:28 06/10/18 04:15 White Blood Count 4.6 x10^3/uL (4.0-11.0) 16.5 x10^3/uL (4.0-11.0) Red Blood Count 5.15 x10^6/uL (4.30-5.70) 4.99 x10^6/uL (4.30-5.70) Hemoglobin 15.8 g/dL (13.0-17.5) 15.2 g/dL (13.0-17.5) Hematocrit 45.8 % (39.0-53.0) 44.2 % (39.0-53.0) Mean Corpuscular Volume 89 fL (79-100) 89 fL (79-100) Mean Corpuscular Hemoglobin 31 pg (25-35) 30 pg (25-35) Mean Corpuscular Hemoglobin Concent 35 g/dL (31-37) 34 g/dL (31-37) Red Cell Distribution Width 15.3 % (11.5-14.5) 14.8 % (11.5-14.5) Platelet Count 245 x10^3/uL (140-400) 254 x10^3/uL (140-400) Neutrophils (%) (Auto) 36 % (31-73) 86 % (31-73) Lymphocytes (%) (Auto) 48 % (24-48) 8 % (24-48) Monocytes (%) (Auto) 9 % (0-9) 5 % (0-9) Eosinophils (%) (Auto) 6 % (0-3) 0 % (0-3) Basophils (%) (Auto) 1 % (0-3) 1 % (0-3) Neutrophils # (Auto) 1.6 x10^3uL (1.8-7.7) 14.2 x10^3uL (1.8-7.7) Lymphocytes # (Auto) 2.2 x10^3/uL (1.0-4.8) 1.4 x10^3/uL (1.0-4.8) Monocytes # (Auto) 0.4 x10^3/uL (0.0-1.1) 0.8 x10^3/uL (0.0-1.1) Eosinophils # (Auto) 0.3 x10^3/uL (0.0-0.7) 0.0 x10^3/uL (0.0-0.7) Basophils # (Auto) 0.0 x10^3/uL (0.0-0.2) 0.1 x10^3/uL (0.0-0.2) Sodium Level 139 mmol/L (136-145) 139 mmol/L (136-145) Potassium Level 3.7 mmol/L (3.5-5.1) 4.2 mmol/L (3.5-5.1) Chloride Level 101 mmol/L (98-107) 103 mmol/L (98-107) Carbon Dioxide Level 29 mmol/L (21-32) 27 mmol/L (21-32) Anion Gap 9 (6-14) 9 (6-14) Blood Urea Nitrogen 14 mg/dL (8-26) 15 mg/dL (8-26) Creatinine 1.4 mg/dL (0.7-1.3) 1.3 mg/dL (0.7-1.3) Estimated GFR (Cockcroft-Gault) 63.7 69.3 Glucose Level 223 mg/dL (70-99) 168 mg/dL (70-99) Calcium Level 8.9 mg/dL (8.5-10.1) 9.1 mg/dL (8.5-10.1) Glucose (Fingerstick) 179 mg/dL (70-99) 333 mg/dL (70-99) Segmented Neutrophils % 67 % (35-66) Band Neutrophils % 10 % (0-9) Lymphocytes % 15 % (24-48) Atypical Lymphocytes % (Manual) 2 % (0-0) Monocytes % 6 % (0-10) Platelet Estimate Adequate (ADEQUATE) Test 06/10/18 08:08 Glucose (Fingerstick) 141 mg/dL (70-99) Laboratory Tests Test 06/09/18 16:28 06/10/18 04:15 06/10/18 08:08 Glucose (Fingerstick) 333 mg/dL (70-99) 141 mg/dL (70-99) White Blood Count 16.5 x10^3/uL (4.0-11.0) Red Blood Count 4.99 x10^6/uL (4.30-5.70) Hemoglobin 15.2 g/dL (13.0-17.5) Hematocrit 44.2 % (39.0-53.0) Mean Corpuscular Volume 89 fL (79-100) Mean Corpuscular Hemoglobin 30 pg (25-35) Mean Corpuscular Hemoglobin Concent 34 g/dL (31-37) Red Cell Distribution Width 14.8 % (11.5-14.5) Platelet Count 254 x10^3/uL (140-400) Neutrophils (%) (Auto) 86 % (31-73) Lymphocytes (%) (Auto) 8 % (24-48) Monocytes (%) (Auto) 5 % (0-9) Eosinophils (%) (Auto) 0 % (0-3) Basophils (%) (Auto) 1 % (0-3) Neutrophils # (Auto) 14.2 x10^3uL (1.8-7.7) Lymphocytes # (Auto) 1.4 x10^3/uL (1.0-4.8) Monocytes # (Auto) 0.8 x10^3/uL (0.0-1.1) Eosinophils # (Auto) 0.0 x10^3/uL (0.0-0.7) Basophils # (Auto) 0.1 x10^3/uL (0.0-0.2) Segmented Neutrophils % 67 % (35-66) Band Neutrophils % 10 % (0-9) Lymphocytes % 15 % (24-48) Atypical Lymphocytes % (Manual) 2 % (0-0) Monocytes % 6 % (0-10) Platelet Estimate Adequate (ADEQUATE) Sodium Level 139 mmol/L (136-145) Potassium Level 4.2 mmol/L (3.5-5.1) Chloride Level 103 mmol/L (98-107) Carbon Dioxide Level 27 mmol/L (21-32) Anion Gap 9 (6-14) Blood Urea Nitrogen 15 mg/dL (8-26) Creatinine 1.3 mg/dL (0.7-1.3) Estimated GFR (Cockcroft-Gault) 69.3 Glucose Level 168 mg/dL (70-99) Calcium Level 9.1 mg/dL (8.5-10.1) Medications Current Medications Hydromorphone HCl (Dilaudid) 1 mg 1X ONCE IV Last administered on 06/09/18 07 :48; Start 06/09/18 at 07:30; Stop 06/09/18 at 07:31; Status DC Diazepam (Valium) 5 mg 1X ONCE PO Last administered on 06/09/18 07:47; Start 06/09/18 at 07:30; Stop 06/09/18 at 07:31; Status DC Ketorolac Tromethamine (Toradol 30mg Vial) 30 mg 1X ONCE IV Last administered on 06/09/18 07:38; Start 06/09/18 at 07:30; Stop 06/09/18 at 07:31; Status DC Methylprednisolone Sodium Succinate (SOLU-Medrol 125MG VIAL) 125 mg 1X ONCE IV Last administered on 06/09/18 07:38; Start 06/09/18 at 07:30; Stop 06/09/18 at 07:31; Status DC Hydromorphone HCl (Dilaudid) 1 mg 1X ONCE IV Last administered on 06/09/18at 08 :46; Start 06/09/18 at 08:45; Stop 06/09/18 at 08:46; Status DC Amlodipine Besylate (Norvasc) 10 mg DAILY PO Last administered on 06/10/18 08: 40; Start 06/09/18 at 12:00 Aspirin (Ecotrin) 81 mg DAILY07 PO Last administered on 06/10/18 04:55; Start 06/09/18 at 12:00 Atorvastatin Calcium (Lipitor) 40 mg QHS PO Last administered on 06/09/18 20: 06; Start 06/09/18 at 21:00 Oxycodone/ Acetaminophen (Percocet 10/325) 1 tab PRN Q4HRS PRN PO SEVERE PAIN Last administered on 06/10/18 07:25; Start 06/09/18 at 11:45 Lisinopril (Prinivil) 5 mg DAILY PO Last administered on 06/10/18 08:40; Start 06/09/18 at 12:00 Acetaminophen (Tylenol) 650 mg PRN Q6HRS PRN PO FEVER; Start 06/09/18 at 11:45 Ondansetron HCl (Zofran) 4 mg PRN Q6HRS PRN IV NAUSEA/VOMITING 1ST CHOICE; Start 06/09/18 at 11:45 Morphine Sulfate (Morphine Sulfate) 2 mg PRN Q2HR PRN IV MODERATE TO SEVERE PAIN Last administered on 06/10/18 10:35; Start 06/09/18 at 11:45 Tramadol HCl (Ultram) 50 mg PRN Q6HRS PRN PO MILD TO MODERATE PAIN Last administered on 06/10/18at 08:40; Start 06/09/18 at 11:45 Docusate Sodium (Colace) 100 mg PRN DAILY PRN PO CONSTIPATION 1ST CHOICE; Start 06/09/18 at 11:45 Labetalol HCl (Normodyne Iv Push) 20 mg PRN Q2HR PRN IVP HYPERTENSION, SEE COMMENTS; Start 06/09/18 at 11:45 Insulin Human Lispro (HumaLOG) 0-9 UNITS TIDWMEALS SQ Last administered on 06/09 17:06; Start 06/09/18 at 12:00 Dextrose (Dextrose 50%-Water Syringe) 12.5 gm PRN Q15MIN PRN IV SEE COMMENTS; Start 06/09/18 at 11:45 Metformin HCl (Glucophage) 500 mg BIDWMEALS PO Last administered on 11/9/18at 08:39; Start 06/09/18 at 17:00 Enoxaparin Sodium (Lovenox 40mg Syringe) 40 mg DAILY SQ Last administered on at 08:41; Start 06/09/18 at 13:00 Lidocaine (Lidoderm) 1 patch DAILY TD Last administered on 06/10/18at 08:41; Start 06/09/18 at 16:00 Miscellaneous (Lidoderm Patch Removal) 1 ea QHS MC Last administered on at 19:53; Start 06/09/18 at 21:00 Fentanyl (Duragesic 50mcg/ Hr Patch) 1 patch Q3DAYS TD Last administered on 16:23; Start 06/09/18 at 16:30; Stop 06/10/18 at 09:27; Status DC Oxycodone HCl (OxyCONTIN) 10 mg Q12HR PO Last administered on 06/10/18at 10:35; Start 06/10/18 at 10:00 Active Scripts Active Oxycodone-Acetaminophen 10-325 (Oxycodone Hcl/Acetaminophen) 1 Each Tablet 1 Tab PO PRN Q4HRS PRN Atorvastatin Calcium 40 Mg Tablet 40 Mg PO QHS Lidocaine 1 Each Adh..patch 1 Each TP Q12HR PRN Place one patch for 12 hours, remove patch after 12 hours use. wait 12 hours before placing a new patch Naproxen 500 Mg Tablet 1 Tab PO BID 10 Days Diclofenac Sodium 50 Mg Tablet. 50 Mg PO BID Imitrex (Sumatriptan Succinate) 100 Mg Tablet 1 Tab PO UD PRN MDD 200 mg Take first dose of medication at onset of headache. He may repeat with 1 additional dose after 2 hours if headache is still present. Cyclobenzaprine Hcl 10 Mg Tablet 10 Mg PO TID PRN Reported Amlodipine Besylate 10 Mg Tablet 10 Mg PO DAILY Hydrochlorothiazide Tablet (Hydrochlorothiazide) 25 Mg Tablet 1 Tab PO DAILY Lisinopril 5 Mg Tablet 1 Tab PO DAILY Excedrin Migraine Caplet (Aspirin/Acetaminophen/Caffeine) 1 Each Tablet 1 Each PO PRN Q6-8HRS PRN Aspirin Ec (Aspirin) 81 Mg Tablet. 81 Mg PO DAILY Benzonatate 100 Mg Capsule 1 Cap PO TID Vitals/I & O Vital Sign - Last 24 Hours 11/8/18 06/09/18 06/09/18 06/09/18 12:23 14:23 15:00 15:43 Temp 98.1 98.1 Pulse 107 Resp 18 16 18 18 B/P (MAP) 149/94 (112) Pulse Ox 91 O2 Delivery Room Air Room Air Room Air Room Air 06/09/18 06/09/18 06/09/18 06/09/18 16:23 16:45 16:45 17:15 Resp 16 16 16 16 O2 Delivery Room Air Room Air Room Air 06/09/18 06/09/18 06/09/18 06/09/18 19:30 20:00 20:07 20:23 Temp 97.3 97.3 Pulse 120 Resp 18 B/P (MAP) 142/95 (111) Pulse Ox 94 O2 Delivery Room Air Room Air Room Air Room Air 06/09/18 06/09/18 06/10/18 06/10/18 22:22 23:55 00:26 01:22 Temp 98.0 98.0 Pulse 110 Resp 16 B/P (MAP) 142/102 (115) Pulse Ox 97 O2 Delivery Room Air Room Air Room Air Room Air 06/10/18 06/10/18 06/10/18 06/10/18 03:43 04:55 07:00 07:10 Temp 97.9 97.7 97.9 97.7 Pulse 90 62 Resp 18 16 B/P (MAP) 113/65 (81) 145/104 (118) Pulse Ox 92 95 O2 Delivery Room Air Room Air Room Air Room Air 06/10/18 06/10/18 06/10/18 06/10/18 07:25 07:25 08:17 08:17 O2 Delivery Room Air Room Air Room Air Room Air 06/10/18 06/10/18 06/10/18 06/10/18 08:40 08:40 08:40 10:35 Pulse 62 62 B/P (MAP) 145/104 145/104 O2 Delivery Room Air Room Air 06/10/18 10:35 O2 Delivery Room Air Intake and Output 06/09/18 06/09/18 06/10/18 15:00 23:00 07:00 Intake Total 220 ml 780 ml Output Total 480 ml Balance 220 ml 300 ml JORGE AUGUSTE [employer]KER Jun 10, 2018 11:34
--- NOTE | 2018-06-10 12:33 | PDOC ---
SUBJECTIVE Subjective Right hip pain OBJECTIVE Objective 53 yo male C/O low back and rt. LE pain- underwent lumbar decompressive surgery at L5- S1,1 week ago, was improved and discharged home. Now,reports increased back and right buttock and posterior thigh pain. Vital Signs Vital Signs Date Time Temp Pulse Resp B/P (MAP) Pulse Ox O2 Delivery O2 Flow Rate FiO2 06/10/18 12:07 Room Air 06/10/18 12:07 Room Air 06/10/18 11:00 98.1 73 16 137/89 (105) 95 98.1 06/10/18 10:35 Room Air 06/10/18 10:35 Room Air 06/10/18 08:40 Room Air 06/10/18 08:40 62 145/104 06/10/18 08:40 62 145/104 06/10/18 08:17 Room Air 06/10/18 07:25 Room Air 06/10/18 07:25 Room Air 06/10/18 07:10 Room Air 06/10/18 07:00 97.7 62 16 145/104 (118) 95 Room Air 97.7 06/10/18 04:55 Room Air 06/10/18 03:43 97.9 90 18 113/65 (81) 92 Room Air 97.9 06/10/18 01:22 Room Air 06/10/18 00:26 Room Air 06/09/18 23:55 98.0 110 16 142/102 (115) 97 Room Air 98.0 06/09/18 22:22 Room Air 06/09/18 20:23 Room Air 06/09/18 20:07 Room Air 06/09/18 20:00 Room Air 06/09/18 19:30 97.3 120 18 142/95 (111) 94 Room Air 97.3 06/09/18 17:15 16 06/09/18 16:45 16 Room Air 06/09/18 16:45 16 Room Air 06/09/18 16:23 16 Room Air 06/09/18 15:43 18 Room Air 06/09/18 15:00 98.1 107 18 149/94 (112) 91 Room Air 98.1 06/09/18 14:23 16 Room Air I & O Intake and Output 06/10/18 07:00 Intake Total 1000 ml Output Total 480 ml Balance 520 ml Intake Oral 1000 ml Output Urine Total 480 ml # Voids 2 ASSESSMENT/PLAN Assessment/Plan S/P decompressive lumbar surgery 1 wk ago, residual pain low back and rt buttock - imaging as noted Too close to surgery for interventional LESI, and Pt. on Lovenox REC: D/C Tramadol, substitute oxycodone 10/325 q 4hrs PRN in addition to Oxycontin 10mg q 12 hrs. Steroid taper dose p.o. Pt november F/U as OP COMMENT Lab Laboratory Tests Test 06/09/18 16:28 06/10/18 04:15 06/10/18 08:08 06/10/18 11:39 Glucose (Fingerstick) 333 mg/dL (70-99) 141 mg/dL (70-99) 169 mg/dL (70-99) White Blood Count 16.5 x10^3/uL (4.0-11.0) Red Blood Count 4.99 x10^6/uL (4.30-5.70) Hemoglobin 15.2 g/dL (13.0-17.5) Hematocrit 44.2 % (39.0-53.0) Mean Corpuscular Volume 89 fL (79-100) Mean Corpuscular Hemoglobin 30 pg (25-35) Mean Corpuscular Hemoglobin Concent 34 g/dL (31-37) Red Cell Distribution Width 14.8 % (11.5-14.5) Platelet Count 254 x10^3/uL (140-400) Neutrophils (%) (Auto) 86 % (31-73) Lymphocytes (%) (Auto) 8 % (24-48) Monocytes (%) (Auto) 5 % (0-9) Eosinophils (%) (Auto) 0 % (0-3) Basophils (%) (Auto) 1 % (0-3) Neutrophils # (Auto) 14.2 x10^3uL (1.8-7.7) Lymphocytes # (Auto) 1.4 x10^3/uL (1.0-4.8) Monocytes # (Auto) 0.8 x10^3/uL (0.0-1.1) Eosinophils # (Auto) 0.0 x10^3/uL (0.0-0.7) Basophils # (Auto) 0.1 x10^3/uL (0.0-0.2) Segmented Neutrophils % 67 % (35-66) Band Neutrophils % 10 % (0-9) Lymphocytes % 15 % (24-48) Atypical Lymphocytes % (Manual) 2 % (0-0) Monocytes % 6 % (0-10) Platelet Estimate Adequate (ADEQUATE) Sodium Level 139 mmol/L (136-145) Potassium Level 4.2 mmol/L (3.5-5.1) Chloride Level 103 mmol/L (98-107) Carbon Dioxide Level 27 mmol/L (21-32) Anion Gap 9 (6-14) Blood Urea Nitrogen 15 mg/dL (8-26) Creatinine 1.3 mg/dL (0.7-1.3) Estimated GFR (Cockcroft-Gault) 69.3 Glucose Level 168 mg/dL (70-99) Calcium Level 9.1 mg/dL (8.5-10.1) CASEY SIDHU MD Jun 10, 2018 12:33
[2018-06-10 15:00] VITALS: BP 118/72
[2018-06-10 19:30] VITALS: BP 121/90
[2018-06-10] MEDS: ATORVASTATIN CALCIUM 40 MG TABLET. PO SCH (21:04)
[2018-06-10] MEDS: PATCH REMOVAL. MC SCH (21:09)
[2018-06-10 23:42] VITALS: BP 129/80
[2018-06-11] MEDS: MORPHINE SULFATE 2 MG/ML VIAL. IV PRN ×3 (01:26→05:57)
[2018-06-11] MEDS: oxyCODONE/APAP 10/325 1 TAB TABLET PO PRN ×2 (01:57→05:56)
[2018-06-11 03:17] VITALS: BP 119/69
[2018-06-11] MEDS: ASPIRIN ENTERIC COATED 81 MG TABLET.DR. PO SCH (05:56)
[2018-06-11 07:00] VITALS: BP 129/87
[2018-06-11] MEDS: INSULIN LISPRO 300 UNITS/3 ML INSULN.PEN. SQ SCH (08:00)
[2018-06-11] MEDS: traMADol 50 MG TABLET PO PRN (08:22)
[2018-06-11] MEDS: amLODIPine BESYLATE 10 MG TABLET PO SCH (08:23)
[2018-06-11 08:24] VITALS: BP 129/87
[2018-06-11] MEDS: metFORMIN 500 MG TABLET PO SCH (08:24)
[2018-06-11] MEDS: oxyCODONE ER 10 MG TAB.ER.12H PO SCH (08:24)
[2018-06-11] MEDS: LISINOPRIL 5 MG TABLET. PO SCH (08:24)
[2018-06-11] MEDS: ENOXAPARIN 40 MG/0.4 ML SYRINGE. SQ SCH (08:25)
[2018-06-11] MEDS: LIDOCAINE (700MG/PATCH) PATCH. TD SCH (08:25)
[2018-06-11] MEDS ORDERED: OXYC-411 PO (09:13)
[2018-06-11] MEDS ORDERED: OXYC10TA45 PO (09:14)
[2018-06-11] MEDS ORDERED: METF500T PO (09:15)
--- NOTE | 2018-06-11 14:22 | PDOC3 ---
Discharge Summary [facility] Date of Admission: Jun 09, 2018 Discharge Date: Jun 11, 2018 Admitting Diagnosis intractable lower back pain s/p L5-S1 decompressive sx 1 week ago right buttock pain - worse post op DM -with A1c 6.5, HTN urgency hld - statin morbid obesity Final Diagnosis CONSULTS leo tariq Brief Hospital Course Patient is a 53 year old male with history of hypertension, high cholesterol, came to ER for back pain. Pt was dced here last week s/o l5-s1 decompressive spinal sx for lower back pain. He was able to walk with a walker, but on Wednesday , he felt worsening rt buttock pain, radiating down to rt leg. has rt foot numbness. barely can walk now. the pain is 8/10, worse to 10/10 when walk. no BM or urination problem. He was here 2 weeks ago too, he got epidural injection by dr. Wilson without improvement and also injection by dr. [place] and dced with steroid. Dr. Tariq, dr. [place], dr. wilson consulted, no sx needed, may need steroid, but pt insist to go home today. able to walk with a walker. dc with some pain meds, oxycodone, and metformin. dc time 25min. General: Alert, Oriented X3, Cooperative Heart: Regular rate, Normal S1, Normal S2 Lungs: Clear Abdomen: Normal bowel sounds, Soft Extremities: Other (PAin RT buttock, rt flank going to his rt leg/toes). no leg weakness. + pulse. Skin: No rashes, No breakdown, No significant lesion Disposition home CONDITION AT DISCHARGE: Improved Scheduled Amlodipine Besylate (Amlodipine Besylate), 10 MG PO DAILY, (Reported) Aspirin (Aspirin Ec), 81 MG PO DAILY, (Reported) Atorvastatin Calcium (Atorvastatin Calcium), 40 MG PO QHS Benzonatate (Benzonatate), 1 CAP PO TID, (Reported) Diclofenac Sodium (Diclofenac Sodium), 50 MG PO BID Hydrochlorothiazide (Hydrochlorothiazide Tablet ), 1 TAB PO DAILY, (Reported) Lisinopril (Lisinopril), 1 TAB PO DAILY, (Reported) Metformin Hcl (Glucophage), 500 MG PO BIDWMEALS Naproxen (Naproxen), 1 TAB PO BID Oxycodone Hcl (Oxycontin), 10 MG PO Q12HR Scheduled PRN Aspirin/Acetaminophen/Caffeine (Excedrin Migraine Caplet), 1 EACH PO PRN Q6- 8HRS PRN for HEADACHE, (Reported) Cyclobenzaprine Hcl (Cyclobenzaprine Hcl), 10 MG PO TID PRN for MUSCLE SPASMS Lidocaine (Lidocaine), 1 EACH TP Q12HR PRN for PAIN Sumatriptan Succinate (Imitrex), 1 TAB PO UD PRN for HEADACHE Discontinued Medications Hydrocodone/Apap 5-325 (Forks 5-325 Tablet), 1 TAB PO PRN Q6HRS PRN for PAIN Methylprednisolone (Medrol), 1 PKG PO UD Orphenadrine Citrate (Orphenadrine Citrate), 100 MG PO BID Orphenadrine Citrate (Orphenadrine Citrate), 100 MG PO BID PRN for PAIN Orphenadrine Citrate (Orphenadrine Citrate), 1 TAB PO BID Oxycodone Hcl/Acetaminophen (Oxycodone-Acetaminophen 10-325), 1 TAB PO PRN Q4HRS PRN for MODERATE PAIN ANGEL KIDD MD Jun 11, 2018 14:22
== END 2018-06-11 10:40 | disposition home or self-care (01) ==
LOC: ER 06:53 → 4 NORTH 09:25
PROVIDERS: ADMIT Internal Medicine; ATTEND Internal Medicine
DX: M47.26 Other spondylosis with radiculopathy, lumbar region (principal); M48.061 Spinal stenosis, lumbar region without neurogenic claudication; E11.42 Type 2 diabetes mellitus with diabetic polyneuropathy; E66.01 Morbid (severe) obesity due to excess calories; E78.00 Pure hypercholesterolemia, unspecified; E78.5 Hyperlipidemia, unspecified; I10 Essential (primary) hypertension; I16.0 Hypertensive urgency; K21.9 Gastro-esophageal reflux disease without esophagitis; M46.90 Unspecified inflammatory spondylopathy, site unspecified; Z82.49 Family history of ischemic heart disease and other diseases of the circulatory system
CPT/HCPCS: 36415; 72131; 80048; 82962; 85007; 85025; 96372; 96374; 96375; 96376; 97161; 97166; 99285; G0378; J1170; J1650; J1815; J1885; J2270; J2930; G0379

== ENCOUNTER 2018-07-19 02:49 | Emergency (ER) | payer SELFPAY ==
[~2018-07-19] VITALS: Ht 180.3 cm; Wt 106.6 kg
[~2018-07-19 02:49] MED LIST changes: +HYDR-2145 PO; +HYDR-3164 PO; -HYDR-971 PO; -HYDR25TA9 PO; +METF500T PO; +OXYC10TA46 PO
[2018-07-19] MEDS ORDERED: ASPIRIN 325 MG TABLET PO ONE (04:00)
[2018-07-19] MEDS ORDERED: KETOROLAC 15 MG/ML VIAL. IV ONE (04:00)
[2018-07-19 04:04] LABS: BASO # 0.1 x10^3/uL (0.0-0.2); BASO % 1 % (0-3); EOS # 0.4 x10^3/uL (0.0-0.7); EOS % 7 % (0-3); HEMATOCRIT 39.8 % (39.0-53.0); LYMPH # 2.9 x10^3/uL (1.0-4.8); LYMPH % 54 % (24-48); MEAN CORPUSCULAR HEMOGLOBIN 31 pg (25-35); MEAN CORPUSCULAR HGB CONC 35 g/dL (31-37); MEAN CORPUSCULAR VOLUME 89 fL (79-100); MONO # 0.6 x10^3/uL (0.0-1.1); MONO % 12 % (0-9); NEUT # 1.4 x10^3uL (1.8-7.7); NEUT % 26 % (31-73); PLATELET COUNT 194 x10^3/uL (140-400); RED BLOOD COUNT 4.47 x10^6/uL (4.30-5.70); RED CELL DISTRIBUTION WIDTH 15.2 % (11.5-14.5); WHITE BLOOD COUNT 5.3 x10^3/uL (4.0-11.0)
[2018-07-19 04:14] LABS: CREATININE 1.2 mg/dL (0.7-1.3); GFR 76.1; POTASSIUM 3.6 mmol/L (3.5-5.1)
[2018-07-19 04:20] LABS: ALBUMIN 3.1 g/dL (3.4-5.0); ALBUMIN/GLOBULIN RATIO 0.8 (1.0-1.7); PROTHROMBIN TIME PATIENT 13.3 SEC (11.7-14.0); TOTAL BILIRUBIN 0.2 mg/dL (0.2-1.0); TOTAL PROTEIN 6.8 g/dL (6.4-8.2)
[2018-07-19 04:25] LABS: CALCIUM 8.7 mg/dL (8.5-10.1)
[2018-07-19 04:52] LABS: ACETAMIN < 2 mcg/ml (10-30); SALIC < 2.8 mg/dL (2.8-20.0)
[2018-07-19 05:01] LABS: BILIRUBIN,URINE NEGATIVE (NEG); CLARITY,URINE CLEAR; COLOR,URINE YELLOW; NITRITE,URINE NEGATIVE (NEG); PH,URINE 6.5; PROTEIN,URINE NEGATIVE (NEG-TRACE); UROBILINOGEN,URINE 0.2 mg/dL (0.2 mg/dL)
[2018-07-19 05:06] LABS: BARBITURATES NEG (NEG); BENZODIAZEPINES NEG (NEG); CANNABINOIDS NEG (NEG); COCAINE NEG (NEG); METHADONE NEG (NEG); OPIATES NEG (NEG); PHENCYCLIDINE NEG (NEG)
[2018-07-19 05:10] LABS: AMPHETAMINE/METHAMPHETAMINE NEG (NEG)
[2018-07-19 05:13] LABS: BACTERIA,URINE 0 /HPF (0-FEW); RBC,URINE 0 /HPF (0-2); SQUAMOUS EPITHELIAL CELL,UR FEW /LPF
[2018-07-19 05:14] LABS: AMORPHOUS SEDIMENT,UR PRESENT /HPF
--- NOTE | 2018-07-19 05:25 | PHYS DOC ---
Past Medical History Past Medical History: Diabetes-Type II, High Cholesterol, Hypertension Additional Past Medical Histor: Chronic back pain Past Surgical History: Other Additional Past Surgical Histo: Lumbar decompression L-5-S1 on 06/02/18 Alcohol Use: None Drug Use: None Adult General Chief Complaint Chief Complaint: OVERDOSE HPI HPI Patient is a 53 year old [f__sex] who presents with [] Review of Systems Review of Systems Constitutional: Denies fever or chills [] Eyes: Denies change in visual acuity, redness, or eye pain [] HENT: Denies nasal congestion or sore throat [] Respiratory: Denies cough or shortness of breath [] Cardiovascular: No additional information not addressed in HPI [] GI: Denies abdominal pain, nausea, vomiting, bloody stools or diarrhea [] : Denies dysuria or hematuria [] Musculoskeletal: Denies back pain or joint pain [] Integument: Denies rash or skin lesions [] Neurologic: Denies headache, focal weakness or sensory changes [] Endocrine: Denies polyuria or polydipsia [] All other systems were reviewed and found to be within normal limits, except as documented in this note. Current Medications Current Medications Current Medications Medications (Trade) Dose Ordered Sig/Ramos Start Time Stop Time Status Last Admin Dose Admin Aspirin (Vimal Aspirin) 325 mg 1X ONCE 07/19/18 04:00 07/19/18 04:01 DC 07/19/18 04:04 325 MG Dexamethasone (Decadron) 10 mg 1X ONCE 07/19/18 06:30 07/19/18 06:31 UNV Ketorolac Tromethamine (Toradol 15mg Vial) 15 mg 1X ONCE 07/19/18 04:00 07/19/18 04:01 DC 07/19/18 04:04 15 MG Orphenadrine Citrate (Norflex) 60 mg 1X ONCE 07/19/18 06:30 07/19/18 06:31 UNV Allergies Allergies Allergies Coded Allergies Type Severity Reaction Last Updated Verified No Known Drug Allergies 06/02/18 No Physical Exam Physical Exam Constitutional: Well developed, well nourished, no acute distress, non-toxic appearance. [] HENT: Normocephalic, atraumatic, bilateral external ears normal, oropharynx moist, no oral exudates, nose normal. [] Eyes: PERRLA, EOMI, conjunctiva normal, no discharge. [] Neck: Normal range of motion, no tenderness, supple, no stridor. [] Cardiovascular:Heart rate regular rhythm, no murmur [] Lungs & Thorax: Bilateral breath sounds clear to auscultation [] Abdomen: Bowel sounds normal, soft, no tenderness, no masses, no pulsatile masses. [] Skin: Warm, dry, no erythema, no rash. [] Back: No tenderness, no CVA tenderness. [] Extremities: No tenderness, no cyanosis, no clubbing, ROM intact, no edema. [] Neurologic: Alert and oriented X 3, normal motor function, normal sensory function, no focal deficits noted. [] Psychologic: Affect normal, judgement normal, mood normal. [] Current Patient Data Vital Signs Vital Signs Date Time Temp Pulse Resp B/P (MAP) Pulse Ox O2 Delivery O2 Flow Rate FiO2 07/19/18 03:12 98.8 75 18 173/88 (116) 95 Room Air 98.8 Lab Values Laboratory Tests Test 07/19/18 03:54 07/19/18 04:50 07/19/18 05:32 White Blood Count 5.3 x10^3/uL (4.0-11.0) Red Blood Count 4.47 x10^6/uL (4.30-5.70) Hemoglobin 14.0 g/dL (13.0-17.5) Hematocrit 39.8 % (39.0-53.0) Mean Corpuscular Volume 89 fL (79-100) Mean Corpuscular Hemoglobin 31 pg (25-35) Mean Corpuscular Hemoglobin Concent 35 g/dL (31-37) Red Cell Distribution Width 15.2 % (11.5-14.5) H Platelet Count 194 x10^3/uL (140-400) Neutrophils (%) (Auto) 26 % (31-73) L Lymphocytes (%) (Auto) 54 % (24-48) H Monocytes (%) (Auto) 12 % (0-9) H Eosinophils (%) (Auto) 7 % (0-3) H Basophils (%) (Auto) 1 % (0-3) Neutrophils # (Auto) 1.4 x10^3uL (1.8-7.7) L Lymphocytes # (Auto) 2.9 x10^3/uL (1.0-4.8) Monocytes # (Auto) 0.6 x10^3/uL (0.0-1.1) Eosinophils # (Auto) 0.4 x10^3/uL (0.0-0.7) Basophils # (Auto) 0.1 x10^3/uL (0.0-0.2) Prothrombin Time 13.3 SEC (11.7-14.0) Prothrombin Time INR 1.0 (0.8-1.1) Sodium Level 141 mmol/L (136-145) Potassium Level 3.6 mmol/L (3.5-5.1) Chloride Level 105 mmol/L (98-107) Carbon Dioxide Level 27 mmol/L (21-32) Anion Gap 9 (6-14) Blood Urea Nitrogen 8 mg/dL (8-26) Creatinine 1.2 mg/dL (0.7-1.3) Estimated GFR (Cockcroft-Gault) 76.1 BUN/Creatinine Ratio 7 (6-20) Glucose Level 145 mg/dL (70-99) H Calcium Level 8.7 mg/dL (8.5-10.1) Magnesium Level 2.0 mg/dL (1.8-2.4) Total Bilirubin 0.2 mg/dL (0.2-1.0) Aspartate Amino Transferase (AST) 24 U/L (15-37) Alanine Aminotransferase (ALT) 50 U/L (16-63) Alkaline Phosphatase 49 U/L (46-116) Creatine Kinase 331 U/L (39-308) H Creatine Kinase MB (Mass) 0.9 ng/mL (0.0-3.6) Creatine Kinase MB Relative Index 0.3 % (0-4) Troponin I Quantitative < 0.017 ng/mL (0.000-0.055) < 0.017 ng/mL (0.000-0.055) UL-Ekg-O-Type Natriuretic Peptide 13 pg/mL (0-124) Total Protein 6.8 g/dL (6.4-8.2) Albumin 3.1 g/dL (3.4-5.0) L Albumin/Globulin Ratio 0.8 (1.0-1.7) L Lipase 117 U/L (73-393) Salicylates Level < 2.8 mg/dL (2.8-20.0) L Salicylate Last Dose Date Unk Salicylate Last Dose Time Unk Acetaminophen Level < 2 mcg/ml (10-30) L Acetaminophen Last Dose Date Unk Acetaminophen Last Dose Time Unk Urine Collection Type Unknown Urine Color Yellow Urine Clarity Clear Urine pH 6.5 Urine Specific [place] 1.025 Urine Protein Negative mg/dL (NEG-TRACE) Urine Glucose (UA) 100 mg/dL (NEG) Urine Ketones (Stick) Negative mg/dL (NEG) Urine Blood Negative (NEG) Urine Nitrite Negative (NEG) Urine Bilirubin Negative (NEG) Urine Urobilinogen Dipstick 0.2 mg/dL (0.2 mg/dL) Urine Leukocyte Esterase Negative (NEG) Urine RBC 0 /HPF (0-2) Urine WBC 1-4 /HPF (0-4) Urine Squamous Epithelial Cells Few /LPF Urine Amorphous Sediment Present /HPF Urine Bacteria 0 /HPF (0-FEW) Urine Mucus Mod /LPF Urine Opiates Screen Neg (NEG) Urine Methadone Screen Neg (NEG) Urine Barbiturates Neg (NEG) Urine Phencyclidine Screen Neg (NEG) Urine Amphetamine/Methamphetamine Neg (NEG) Urine Benzodiazepines Screen Neg (NEG) Urine Cocaine Screen Neg (NEG) Urine Cannabinoids Screen Neg (NEG) Urine Ethyl Alcohol Neg (NEG) Laboratory Tests 07/19/18 03:54 Laboratory Tests 07/19/18 03:54 EKG EKG @0356 NSR at 68bpm, j point elevation noted to I and aVL, nonspecific t wave inversion III, compared to prior EKG per [facility] review from 06/13/18 without significant change from prior. Radiology/Procedures Radiology/Procedures [] Course & Med Decision Making Course & Med Decision Making Pertinent Labs and Imaging studies reviewed. (See chart for details) [] Dragon Disclaimer Dragon Disclaimer This electronic medical record was generated, in whole or in part, using a voice recognition dictation system. Departure Departure Impression: Primary Impression: Back pain Additional Impressions: Sciatica External hemorrhoid Disposition: 01 HOME, SELF-CARE Condition: STABLE Referrals: DENISE OCONNELL (PCP) JOVAN GARCIA MD, SCOTT S MD Patient Instructions: Back Pain, Adult, [id number], Hemorrhoids, [id number] , Sciatica, [id number] Scripts Hydrocortisone Acetate (ANUSOL-HC) 25 Mg Supp.rect 1 SUPP RC BID, #14 SUPP Prov: CAROLYNN LEAVITT DO 07/19/18 Prednisone (PREDNISONE) 20 Mg Tablet 2 TAB PO DAILY, #8 TAB Please start this medication tomorrow Wednesday07/20/18 Prov: CAROLYNN LEAVITT DO 07/19/18 Orphenadrine Citrate (ORPHENADRINE CITRATE) 100 Mg Tablet.er 100 MG PO BID PRN for MUSCLE PAIN, #14 Prov: CAROLYNN LEAVITT DO 07/19/18 Problem Qualifiers Primary Impression: Back pain Back pain location: low back pain Chronicity: acute Back pain laterality: right Sciatica presence: with sciatica Sciatica laterality: sciatica of right side Qualified Codes: M54.41 - Lumbago with sciatica, right side Additional Impressions: Sciatica Laterality: right Qualified Codes: M54.31 - Sciatica, right side CAROLYNN LEAVITT DO Jul 19, 2018 05:25
[2018-07-19] MEDS ORDERED: ORPH100T PO (06:20)
[2018-07-19] MEDS ORDERED: PRED20TA PO (06:20)
[2018-07-19] MEDS ORDERED: HYDR25SU18 RC (06:24)
[2018-07-19 06:30] VITALS: BP 181/98
[2018-07-19] MEDS ORDERED: ORPHENADRINE CITRATE 60 MG/2 ML VIAL. IV ONE (06:30)
[2018-07-19] MEDS ORDERED: DEXAMETHASONE 4 MG TABLET PO ONE (06:30)
--- NOTE | 2018-07-19 06:52 | EKG ---
[facility] [address] [place] [address] Test Date: 2018-07-19 Test Time: 03:56:10 Pat Name: DAYA DHILLON Department: Room: Gender: M [employer]: : 1965 Requested By: CAROLYNN LEAVITT Order Number: [id number] Reading MD: Ryan Suazo Measurements Intervals [place] Rate: 68 P: 30 NC: 188 QRS: -16 QRSD: 96 T: -4 QT: 392 QTc: 422 Interpretive Statements SINUS RHYTHM LEFTWARD AXIS CONSIDER LEFT VENTRICULAR HYPERTROPHY POSSIBLY ABNORMAL ECG Electronically Signed On 07-19-2018 10:40:31 [employer] by Ryan Suazo
--- NOTE | 2018-07-19 07:54 | RAD ---
CHEST PA LATERAL History: CHEST PAIN. Comparison: June 13, 2018. Heart size: Stable Rupali/mediastinum: Mild fullness of the right hilum, most likely vascular, and probably similar to the prior study accounting for difference in technique. Lungs: Markings now present in the right lung base compatible with mild infiltrate or atelectasis. Pleura: No evidence of pleural effusion. Pneumothorax: None visualized Bones: Regional skeleton appears grossly intact. Miscellaneous: None Impression: Mild infiltrate or atelectasis in the right lung base. Electronically signed by: Wayne Gray MD (07/19/2018 7:50 AM) [id number]
== END 2018-07-19 06:47 | disposition home or self-care (01) ==
LOC: ER 02:49
DX: M54.41 Lumbago with sciatica, right side (principal); K64.4 Residual hemorrhoidal skin tags; E11.9 Type 2 diabetes mellitus without complications; E78.00 Pure hypercholesterolemia, unspecified; I10 Essential (primary) hypertension; G89.29 Other chronic pain; Z98.890 Other specified postprocedural states
CPT/HCPCS: 36415; 71046; 80053; 80307; 80329; 81001; 82553; 83690; 83735; 83880; 84484; 85025; 85610; 93005; 96374; 96375; 99284; G6039; J1885; J2360; J8540; G0480

== ENCOUNTER 2018-08-27 05:53 | Emergency (ER) | payer SELFPAY ==
[~2018-08-27] VITALS: Ht 180.3 cm; Wt 107.5 kg
[~2018-08-27 05:53] MED LIST changes: +HYDR25SU18 RC
[2018-08-27] MEDS ORDERED: KETOROLAC 60 MG/2 ML VIAL. IM ONE (06:15)
--- NOTE | 2018-08-27 06:16 | PHYS DOC ---
Past Medical History Past Medical History: Diabetes-Type II, High Cholesterol, Hypertension Additional Past Medical Histor: Chronic back pain Past Surgical History: Other Additional Past Surgical Histo: Lumbar decompression L-5-S1 on 06/02/18 Alcohol Use: None Drug Use: None Adult General Chief Complaint Chief Complaint: LOWER BACK PAIN OR [facility] HPI Patient is a 53-year-old male who presents with complaint of right-sided lower back pain radiating down into his right buttock and down his right leg. Patient states that he has a history of sciatica. He rates pain to be an 8 out of 10. He states the pain is worsened with movement of his back and his right hip. He denies any recent injuries. Patient did have low back surgery back in June and had improvement in symptoms but he states that symptoms are again getting worse in his back. He denies any loss of bowel or bladder function. He also denies any numbness or saddle anesthesia. Patient also complains of sore throat for the last couple of days and states that it is painful to swallow. Patient indicates that he did not take his blood pressure medications this morning because it did hurt to swallow. He denies any chest pain or shortness of breath. He also denies any fever, nausea or vomiting. Review of Systems Review of Systems Constitutional: Denies fever or chills [] HENT: Complains of sinus congestion and sore throat [] Respiratory: Denies cough or shortness of breath [] Cardiovascular: No additional information not addressed in HPI [] GI: Denies abdominal pain, nausea, vomiting or diarrhea [] : Denies dysuria or hematuria [] Musculoskeletal: Complains of right lower back pain [] Integument: Denies rash or skin lesions [] Neurologic: Denies headache, focal weakness or sensory changes [] Current Medications Current Medications Current Medications Medications (Trade) Dose Ordered Sig/Ramos Start Time Stop Time Status Last Admin Dose Admin Butorphanol Tartrate (Stadol) 2 mg 1X ONCE 08/27/18 06:30 08/27/18 06:31 DC 08/27/18 06:27 2 MG Ketorolac Tromethamine (Toradol Im) 60 mg 1X ONCE 08/27/18 06:15 08/27/18 06:16 DC 08/27/18 06:26 60 MG Allergies Allergies Allergies Coded Allergies Type Severity Reaction Last Updated Verified No Known Drug Allergies 06/02/18 No Physical Exam Physical Exam Constitutional: Well developed, well nourished, no acute distress, non-toxic appearance. [] HENT: Normocephalic, atraumatic, bilateral external ears normal, oropharynx moist. There is pharyngeal erythema without exudates. Mild tonsillar swelling is symmetrical without uvular deviation and no trismus noted. Frontal and maxillary sinuses are tender. [] Eyes: PERRLA, EOMI, conjunctiva normal, no discharge. [] Neck: Normal range of motion, no tenderness, supple. There is anterior cervical lymphadenopathy present. [] Cardiovascular: Regular rate and rhythm [] Lungs & Thorax: Bilateral breath sounds clear to auscultation [] Skin: Warm, dry, no erythema, no rash. [] Back: There is tenderness to palpation with palpable spasm in the lumbar paraspinal musculature. [] Extremities: No tenderness, no cyanosis, no clubbing, ROM intact, no edema. [] Neurologic: Alert and oriented X 3, no focal deficits noted. [] Current Patient Data Vital Signs Vital Signs Date Time Temp Pulse Resp B/P (MAP) Pulse Ox O2 Delivery O2 Flow Rate FiO2 08/27/18 06:30 85 18 184/111 (135) 96 Room Air 08/27/18 06:09 98.0 98.0 EKG EKG [] Radiology/Procedures Radiology/Procedures [] Course & Med Decision Making Course & Med Decision Making Pertinent Labs and Imaging studies reviewed. (See chart for details) [] Dragon Disclaimer Dragon Disclaimer This electronic medical record was generated, in whole or in part, using a voice recognition dictation system. Departure Departure Impression: Primary Impression: Sciatica Additional Impression: Sinusitis Disposition: 01 HOME, SELF-CARE Condition: STABLE Referrals: DENISE OCONNELL (PCP) Patient Instructions: Sciatica, Sinusitis Scripts Lidocaine HCl (Lidocaine HCl Viscous) 15 Ml Solution 5 ML SWSW Q4HRS PRN for sore throat, #100 ML Prov: CASSIE HANLEY Jr. DO 08/27/18 Amoxicillin/Potassium Clav (AUGMENTIN 875-125 TABLET) 1 Each Tablet 1 TAB PO BID, #20 TAB Prov: CASSIE HANLEY Jr. DO 08/27/18 Orphenadrine Citrate (ORPHENADRINE CITRATE) 100 Mg Tablet.er 1 TAB PO BID PRN for MUSCLE SPASMS, #20 TAB Prov: CASSIE HANLEY Jr. DO 08/27/18 Hydrocodone/Apap 5-325 (NORCO 5-325 TABLET) 1 Each Tablet 1 EACH PO PRN Q6HRS PRN for PAIN, #12 as needed for pain Prov: CASSIE HANLEY Jr. DO 08/27/18 Problem Qualifiers Primary Impression: Sciatica Laterality: right Qualified Codes: M54.31 - Sciatica, right side Additional Impression: Sinusitis Sinusitis location: maxillary Chronicity: acute Recurrence: non-recurrent Qualified Codes: J01.00 - Acute maxillary sinusitis, unspecified CASSIE HANLEY Jr. DO Aug 27, 2018 06:16
[2018-08-27] MEDS ORDERED: BUTORPHANOL 2 MG/ML VIAL. IM ONE (06:30)
[2018-08-27] MEDS ORDERED: AMOX1TAB61 PO (07:35)
[2018-08-27] MEDS ORDERED: LIDO15SO2 SWSW (07:35)
[2018-08-27] MEDS ORDERED: ORPH100T PO (07:35)
[2018-08-27] MEDS ORDERED: HYDR-3164 PO (07:35)
[2018-08-27 09:00] VITALS: BP 180/100
== END 2018-08-27 09:28 | disposition home or self-care (01) ==
LOC: ER 05:53
DX: M54.41 Lumbago with sciatica, right side (principal); J01.00 Acute maxillary sinusitis, unspecified; J35.1 Hypertrophy of tonsils; E11.9 Type 2 diabetes mellitus without complications; E78.00 Pure hypercholesterolemia, unspecified; I10 Essential (primary) hypertension; G89.29 Other chronic pain; R59.0 Localized enlarged lymph nodes
CPT/HCPCS: 87070; 87880; 96372; 99283; J1885; 99284

== ENCOUNTER 2018-09-09 19:34 | Emergency (ER) | payer SELFPAY ==
[~2018-09-09] VITALS: Ht 180.3 cm; Wt 111.1 kg
[~2018-09-09 19:34] MED LIST changes: -AMLO10TA6 PO; +AMLO10TA8 PO; +AMOX1TAB61 PO; +LIDO15SO2 SWSW
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
[2018-09-09] MEDS ORDERED: FAMOTIDINE 20 MG/2 ML VIAL IVP ONE (20:15)
[2018-09-09] MEDS ORDERED: fentaNYL PF VIAL 100 MCG/2 ML VIAL IV ONE ×2 (20:15→21:30)
[2018-09-09 20:23] LABS: BILIRUBIN,URINE NEGATIVE (NEG); CLARITY,URINE CLEAR; COLOR,URINE YELLOW; NITRITE,URINE NEGATIVE (NEG); PROTEIN,URINE NEGATIVE (NEG-TRACE)
[2018-09-09 20:27] LABS: BASO # 0.1 x10^3/uL (0.0-0.2); BASO % 1 % (0-3); EOS # 0.2 x10^3/uL (0.0-0.7); EOS % 4 % (0-3); HEMATOCRIT 47.5 % (39.0-53.0); HEMOGLOBIN 15.6 g/dL (13.0-17.5); LYMPH # 2.9 x10^3/uL (1.0-4.8); LYMPH % 47 % (24-48); MEAN CORPUSCULAR HEMOGLOBIN 30 pg (25-35); MEAN CORPUSCULAR HGB CONC 33 g/dL (31-37); MEAN CORPUSCULAR VOLUME 90 fL (79-100); MONO # 0.7 x10^3/uL (0.0-1.1); MONO % 11 % (0-9); NEUT # 2.3 x10^3uL (1.8-7.7); NEUT % 38 % (31-73); PLATELET COUNT 287 x10^3/uL (140-400); RED BLOOD COUNT 5.25 x10^6/uL (4.30-5.70); RED CELL DISTRIBUTION WIDTH 14.6 % (11.5-14.5); WHITE BLOOD COUNT 6.2 x10^3/uL (4.0-11.0)
[2018-09-09 20:34] LABS: BACTERIA,URINE 0 /HPF (0-FEW); SQUAMOUS EPITHELIAL CELL,UR OCC /LPF
[2018-09-09 20:39] LABS: CALCIUM 9.1 mg/dL (8.5-10.1); CREATININE 1.2 mg/dL (0.7-1.3); GFR 76.1; POTASSIUM 3.7 mmol/L (3.5-5.1)
[2018-09-09 20:46] LABS: ALBUMIN 3.4 g/dL (3.4-5.0); ALBUMIN/GLOBULIN RATIO 0.8 (1.0-1.7); TOTAL BILIRUBIN 0.2 mg/dL (0.2-1.0); TOTAL PROTEIN 7.9 g/dL (6.4-8.2)
[2018-09-09] MEDS ORDERED: IOHEXOL 300 MG/ML 100ML VIAL. IV ONE (21:15)
[2018-09-09] MEDS ORDERED: CONTRAST GIVEN. MC PRN (21:15)
--- NOTE | 2018-09-09 22:07 | RAD ---
Ultrasound of the scrotum. HISTORY: Pain Ultrasound was used to evaluate the scrotum and testicles. Right testicle is normal in size and appearance. There is flow in the right testicle with color imaging and Doppler. There is a large right hydrocele. Right epididymis is within normal limits. There are small cysts at the epididymis measuring 3 mm. Left testicle made is normal in size and appearance. There is flow in the left testicle with color imaging and Doppler. There is a moderate left hydrocele. Left epididymis within normal limits. IMPRESSION: 1. Bilateral hydroceles. 2. No testicular mass noted. 3. No torsion identified. Electronically signed by: Onel Pacheco MD (09/09/2018 10:03 PM) [facility]
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
[2018-09-09] MEDS ORDERED: MORPHINE SULFATE 4 MG/ML VIAL. IV ONE (23:30)
[2018-09-09] MEDS ORDERED: HYDR-3164 PO (23:37)
[2018-09-09 23:43] LABS: BARBITURATES NEG (NEG); BENZODIAZEPINES NEG (NEG); CANNABINOIDS NEG (NEG); COCAINE NEG (NEG); METHADONE NEG (NEG); OPIATES POS (NEG); PHENCYCLIDINE NEG (NEG)
[2018-09-09 23:44] LABS: AMPHETAMINE/METHAMPHETAMINE NEG (NEG)
[2018-09-09] MEDS ORDERED: PRED20TA PO (23:53)
[2018-09-10] VITALS: BP 168/95
[2018-09-10] MEDS ORDERED: predniSONE 10 MG TABLET PO ONE
== END 2018-09-10 00:09 | disposition home or self-care (01) ==
LOC: ER 19:34
DX: N43.3 Hydrocele, unspecified (principal); M54.41 Lumbago with sciatica, right side; R10.30 Lower abdominal pain, unspecified; R10.13 Epigastric pain; K59.00 Constipation, unspecified; N50.819 Testicular pain, unspecified; K62.89 Other specified diseases of anus and rectum; G89.29 Other chronic pain; E11.9 Type 2 diabetes mellitus without complications; E78.00 Pure hypercholesterolemia, unspecified; I10 Essential (primary) hypertension
CPT/HCPCS: 36415; 74177; 76870; 80053; 80307; 81001; 83690; 85025; 96374; 96375; 96376; 99284; J2270; J3010; J3490; J7512; Q9967

== ENCOUNTER 2018-10-22 23:39 | Emergency (ER) | payer SELFPAY ==
[~2018-10-22] VITALS: Ht 180.3 cm; Wt 111.1 kg
[2018-10-22 23:45] VITALS: BP 165/109
[2018-10-23] MEDS ORDERED: HYDR-3164 PO (01:05)
[2018-10-23] MEDS ORDERED: PRED50TA PO (01:06)
[2018-10-23] MEDS ORDERED: KETOROLAC 30 MG/ML VIAL. IM ONE (01:15)
--- NOTE | 2018-10-23 01:17 | PHYS DOC ---
Past Medical History Past Medical History: Diabetes-Type II, High Cholesterol, Hypertension Additional Past Medical Histor: Chronic back pain Past Surgical History: Other Additional Past Surgical Histo: Lumbar decompression L-5-S1 on 06/02/18 Alcohol Use: None Drug Use: None Adult General Chief Complaint Chief Complaint: LOWER EXT PAIN HPI HPI Patient is a 53 yo male w/ hx low back surgery in 06/19 who presents with complaint of L leg pain and numbness that has been chronic since August. He reports that following his surgery in June he felt better, however in August the pain began to return. He describes his symptoms as numbness and tingling of R leg that has been constant. He reports that he has not spoke to surgeon since operation d/t insurance change. He denies trouble urinating. He reports he had one episode of bowel incontinence last week, however he has been able to have controlled bowel movements since. He denies any new trauma to the area. He reports he has tried hydrocodone and percocet but nothing has helped alleviate his pain. He reports he does not see a pain specialist. He asked if we could do a shot "in his butt to make the pain go away" as that is what his brother receives for his pain. Review of Systems Review of Systems Constitutional: Denies fever or chills [] Eyes: Denies change in visual acuity, redness, or eye pain [] HENT: Denies nasal congestion or sore throat [] Respiratory: Denies cough or shortness of breath [] Cardiovascular: Denies chest pain. Denies palpitations GI: Denies abdominal pain, nausea, vomiting, bloody stools or diarrhea [] : Denies dysuria or hematuria [] Musculoskeletal: Admits R sided low back pain. Admits numbness and "shooting pain" down right leg. Integument: Denies rash or skin lesions [] Neurologic: Denies headache, focal weakness or sensory changes [] Endocrine: Denies polyuria or polydipsia [] All other systems were reviewed and found to be within normal limits, except as documented in this note. Current Medications Current Medications Current Medications Medications (Trade) Dose Ordered Sig/Ramos Start Time Stop Time Status Last Admin Dose Admin Ketorolac Tromethamine (Toradol 30mg Vial) 30 mg 1X ONCE 10/23/18 01:15 10/23/18 01:16 DC 10/23/18 01:20 30 MG Allergies Allergies Allergies Coded Allergies Type Severity Reaction Last Updated Verified No Known Drug Allergies 06/02/18 No Physical Exam Physical Exam Constitutional: Well developed, well nourished, no acute distress, non-toxic appearance. [] HENT: Normocephalic, atraumatic, Eyes: PERRLA, EOMI, conjunctiva normal, no discharge. [] Cardiovascular:Heart rate regular rhythm, no murmur [] Lungs & Thorax: Bilateral breath sounds clear to auscultation [] Abdomen:Soft, no tenderness, no masses Skin: Warm, dry, no erythema, no rash. [] Back: Moderately tender to palpation lumbar spine, worse on R side. Extremities: No cyanosis, no clubbing. 2+ dorsalis pedis pulse R leg. ROM in flexion/extension limited on exam, however patient drove himself to ED and ambulated to room. Neurologic: Alert and oriented X 3, normal sensory function, no focal deficits noted. [] Psychologic: Affect normal, judgement normal, mood normal. [] Current Patient Data Vital Signs Vital Signs Date Time Temp Pulse Resp B/P (MAP) Pulse Ox O2 Delivery O2 Flow Rate FiO2 10/22/18 23:45 97.7 84 18 165/109 (127) 96 Room Air 97.7 EKG EKG [] Radiology/Procedures Radiology/Procedures [] Course & Med Decision Making Course & Med Decision Making Patient is a 53 yo male who presents with complaint of worsening of his chronic low back pain and R leg "numbness and tingling". Patient has had the symptoms since August, however he has not followed up with his surgeon since the procedure in June. On physical exam the extremity is warm and well perfused. Patient is tender to palpation of lower back., Patient asked for "shot in my butt" to help w/ pain. Discussed that surgeon or pain specialist is better qualified to assess/treat his low back pain than ED and that his pain will likely be improved but NOT resolved with treatment today. Informed patient he did not require admission and could be discharged home with prescription for [place] and prednisone. Patient's pain treated today w/ toradol. Encouraged patient to follow up with PCP and surgeon who did his operation for further evaluation and treatment. Patient voiced understanding and agreement with plan. no objective signs of cauda equina. pt has longstanding symptoms. Dragon Disclaimer Dragon Disclaimer This electronic medical record was generated, in whole or in part, using a voice recognition dictation system. Departure Departure Impression: Primary Impression: Low back pain with right-sided sciatica Disposition: HOME, SELF-CARE Condition: STABLE Referrals: DENISE OCONNELL (PCP) [place] Prednisone (PREDNISONE) 50 Mg Tablet 1 TAB PO DAILY, #5 TAB Prov: ALEXEY BERGER MD 10/23/18 Hydrocodone/Apap 5-325 (NORCO 5-325 TABLET) 1 Each Tablet 1-2 EACH PO PRN Q6HRS PRN for PAIN, #15 as needed for pain Prov: ALEXEY BERGER MD 10/23/18 ALEXEY BERGER MD Oct 23, 2018 01:17
== END 2018-10-23 01:24 | disposition home or self-care (01) ==
LOC: ER 23:39
DX: M54.41 Lumbago with sciatica, right side (principal); G89.29 Other chronic pain; R20.0 Anesthesia of skin; E11.9 Type 2 diabetes mellitus without complications; E78.00 Pure hypercholesterolemia, unspecified; I10 Essential (primary) hypertension
CPT/HCPCS: 96372; 99283; J1885

== ENCOUNTER 2019-08-08 01:37 | Observation (INO) | payer OTHER ==
[~2019-08-08] VITALS: Ht 180.3 cm; Wt 108.1 kg
[~2019-08-08 01:37] MED LIST changes: +ATOR20TA58 PO; +DICL75TA PO; +GABA300C9 PO; +LIDO700A21 TP; -LIDO700A39 TP; +LISI1TAB20 PO; +METF500T16 PO; +PRED50TA PO; +SIMV10TA15 PO; -SIMV10TA3 PO
--- NOTE | 2019-08-08 01:55 | PHYS DOC ---
Past Medical History Past Medical History: Diabetes-Type II, High Cholesterol, Hypertension Additional Past Medical Histor: Chronic back pain Past Surgical History: Other Additional Past Surgical Histo: Lumbar decompression L-5-S1 on 06/02/18 Alcohol Use: None Drug Use: None The HEART Score for CP Pts HEART Score for Chest Pain: HEART Score for Chest Pain Response (Comments) Value History Moderately Suspicious 1 ECG Nonspecific Repolarizatio 1 Age >45 - < 65 1 Risk Factors 1 or 2 Risk Factors 1 Troponin < Normal Limit 0 Total 4 Risk Factors: Risk Factors: DM, Current or recent (<one month) smoker, HTN, HLP, family history of CAD, obesity. Risk Scores: Score 0 - 3: 2.5% MACE over next 6 weeks - Discharge Home Score 4 - 6: 20.3% MACE over next 6 weeks - Admit for Clinical Observation Score 7 - 10: 72.7% MACE over next 6 weeks - Early Invasive Strategies Adult General Chief Complaint Chief Complaint: CHEST PAIN HPI HPI 54 her male with underlying history of hypertension, diabetes presents to the emergency department complaints of chest pain. Patient's blood pressure is 181/107. He describes nausea, shortness of breath radiation of pain in his chest his left arm. Patient denies abdominal pain, diarrhea. He has no tobacco history according the patient. He cannot describe how the pain feels. Unable to describe if this is a pressure pain, sharp pain, dull pain, achy pain he states he "can't describe it." Nothing makes his pain worse, nothing makes his pain better on exam. Review of Systems Review of Systems Constitutional: Denies fever or chills [] Respiratory: + shortness of breath [] Cardiovascular: No additional information not addressed in HPI [] GI: Denies abdominal pain, + nausea, vomiting, no bloody stools or diarrhea [] : Denies dysuria or hematuria [] Musculoskeletal: Denies back pain or joint pain [] Neurologic: Denies headache, focal weakness or sensory changes [] All other systems were reviewed and found to be within normal limits, except as documented in this note. Current Medications Current Medications Current Medications Medications (Trade) Dose Ordered Sig/Ramos Start Time Stop Time Status Last Admin Dose Admin Aspirin (Children'S Aspirin) 324 mg 1X ONCE 08/08/19 02:15 08/08/19 02:16 DC 08/08/19 02:16 324 MG Hydralazine HCl (Apresoline Inj) 10 mg 1X ONCE 08/08/19 02:30 08/08/19 02:31 UNV Morphine Sulfate (Morphine Sulfate) 2 mg 1X ONCE 08/08/19 02:00 08/08/19 02:01 DC Nitroglycerin (Nitrostat) 0.4 mg PRN Q5MIN PRN 08/08/19 02:00 08/09/19 01:59 08/08/19 02:17 0.4 MG Ondansetron HCl (Zofran) 4 mg 1X ONCE 08/08/19 02:00 08/08/19 02:01 DC 08/08/19 02:17 4 MG Allergies Allergies Allergies Coded Allergies Type Severity Reaction Last Updated Verified No Known Drug Allergies 06/02/18 No Physical Exam Physical Exam Constitutional: Well developed, well nourished, no acute distress, non-toxic nikhil earance. [] HENT: Normocephalic, atraumatic, bilateral external ears normal, oropharynx moist, no oral exudates, nose normal. [] Cardiovascular:Heart rate regular rhythm, no murmur [] Lungs & Thorax: Bilateral breath sounds clear to auscultation [] Abdomen: Bowel sounds normal, soft, no tenderness, no masses, no pulsatile masses. [] Skin: Warm, dry, no erythema, no rash. [] Extremities: No tenderness, no edema. [] Neurologic: Alert and oriented X 3, no focal deficits noted. [] Psychologic: Affect normal, judgement normal, mood normal. [] Current Patient Data Vital Signs Vital Signs Date Time Temp Pulse Resp B/P (MAP) Pulse Ox O2 Delivery O2 Flow Rate FiO2 08/08/19 02:17 75 170/102 08/08/19 01:43 97.7 20 96 Room Air 97.7 Lab Values Laboratory Tests Test 08/08/19 01:50 White Blood Count 5.5 x10^3/uL (4.0-11.0) Red Blood Count 5.03 x10^6/uL (4.30-5.70) Hemoglobin 15.3 g/dL (13.0-17.5) Hematocrit 44.8 % (39.0-53.0) Mean Corpuscular Volume 89 fL (79-100) Mean Corpuscular Hemoglobin 31 pg (25-35) Mean Corpuscular Hemoglobin Concent 34 g/dL (31-37) Red Cell Distribution Width 14.8 % (11.5-14.5) H Platelet Count 232 x10^3/uL (140-400) Neutrophils (%) (Auto) 32 % (31-73) Lymphocytes (%) (Auto) 51 % (24-48) H Monocytes (%) (Auto) 10 % (0-9) H Eosinophils (%) (Auto) 6 % (0-3) H Basophils (%) (Auto) 1 % (0-3) Neutrophils # (Auto) 1.7 x10^3/uL (1.8-7.7) L Lymphocytes # (Auto) 2.8 x10^3/uL (1.0-4.8) Monocytes # (Auto) 0.5 x10^3/uL (0.0-1.1) Eosinophils # (Auto) 0.3 x10^3/uL (0.0-0.7) Basophils # (Auto) 0.1 x10^3/uL (0.0-0.2) Sodium Level 143 mmol/L (136-145) Potassium Level 3.6 mmol/L (3.5-5.1) Chloride Level 105 mmol/L (98-107) Carbon Dioxide Level 28 mmol/L (21-32) Anion Gap 10 (6-14) Blood Urea Nitrogen 8 mg/dL (8-26) Creatinine 1.3 mg/dL (0.7-1.3) Estimated GFR (Cockcroft-Gault) 69.1 BUN/Creatinine Ratio 6 (6-20) Glucose Level 132 mg/dL (70-99) H Calcium Level 8.8 mg/dL (8.5-10.1) Magnesium Level Pending Total Bilirubin Pending Aspartate Amino Transferase (AST) Pending Alanine Aminotransferase (ALT) Pending Alkaline Phosphatase Pending Troponin I Quantitative < 0.017 ng/mL (0.000-0.055) JD-Ibb-P-Type Natriuretic Peptide 23 pg/mL (0-124) Total Protein Pending Albumin Pending Albumin/Globulin Ratio Pending Lipase Pending Laboratory Tests 08/08/19 01:50 Laboratory Tests 08/08/19 01:50 EKG EKG EKG reviewed, normal sinus rhythm, heart rate [address] elevation SD appreciated interpretation time 0 143[] Radiology/Procedures Radiology/Procedures [facility] [address] [place], [place] [id number] IMAGING REPORT Signed PATIENT: DAYA DHILLONUNT: [id number] : 1965 LOCATION: ER AGE: 54 SEX: M EXAM STATUS: REG ER ORD. PHYSICIAN: LINDA BARROS MD REASON: Chest Pain PROCEDURE: PORTABLE CHEST 1V AP chest x-ray HISTORY: Chest pain. COMPARISON: Chest x-ray February 07, 2019. FINDINGS: Heart size normal. Tortuosity the thoracic aorta radiographically stable. No pneumothorax, pulmonary opacities or pleural effusions. Bones are unremarkable. IMPRESSION: No acute process. Stable exam. Electronically signed by: Jeffry Braun MD (08/08/2019 2:05 AM) [facility] DICTATED and SIGNED BY: JEFFRY BRAUN MD DATE: 08/08/19204 [] Course & Med Decision Making Course & Med Decision Making Pertinent Labs and Imaging studies reviewed. (See chart for details) []54 her male with underlying history of hypertension, diabetes presents to the emergency department complaints of chest pain. Patient's blood pressure is 181/107. He describes nausea, shortness of breath radiation of pain in his chest his left arm. Patient denies abdominal pain, diarrhea. He has no tobacco history according the patient. He cannot describe how the pain feels. Unable to describe if this is a pressure pain, sharp pain, dull pain, achy pain he states he "can't describe it." Nothing makes his pain worse, nothing makes his pain better on exam. Trop negative x 1 HEART Score 4 EKG without acute changes ASA/NTG provided in ER Morphine/Toradol as needed for pain Given HEART Score - continued pain will plan observation admit Dragon Disclaimer Bryson Disclaimer This electronic medical record was generated, in whole or in part, using a voice recognition dictation system. Departure Departure Impression: Primary Impression: Chest pain Additional Impression: Hypertension Disposition: HOME, SELF-CARE Condition: STABLE Referrals: DENISE OCONNELL (PCP) Problem Qualifiers Primary Impression: Chest pain Chest pain type: unspecified Qualified Codes: R07.9 - Chest pain, unspecified Additional Impression: Hypertension Hypertension type: essential hypertension Qualified Codes: I10 - Essential (primary) hypertension LINDA BARROS MD Aug 08, 2019 01:55
[2019-08-08 02:00] LABS: BASO # 0.1 x10^3/uL (0.0-0.2); BASO % 1 % (0-3); EOS # 0.3 x10^3/uL (0.0-0.7); EOS % 6 % (0-3); HEMATOCRIT 44.8 % (39.0-53.0); HEMOGLOBIN 15.3 g/dL (13.0-17.5); LYMPH # 2.8 x10^3/uL (1.0-4.8); LYMPH % 51 % (24-48); MEAN CORPUSCULAR HEMOGLOBIN 31 pg (25-35); MEAN CORPUSCULAR HGB CONC 34 g/dL (31-37); MEAN CORPUSCULAR VOLUME 89 fL (79-100); MONO # 0.5 x10^3/uL (0.0-1.1); MONO % 10 % (0-9); NEUT # 1.7 x10^3/uL (1.8-7.7); NEUT % 32 % (31-73); PLATELET COUNT 232 x10^3/uL (140-400); RED BLOOD COUNT 5.03 x10^6/uL (4.30-5.70); RED CELL DISTRIBUTION WIDTH 14.8 % (11.5-14.5); WHITE BLOOD COUNT 5.5 x10^3/uL (4.0-11.0)
[2019-08-08] MEDS ORDERED: ONDANSETRON PF 4 MG/2 ML VIAL. IV ONE (02:00)
[2019-08-08] MEDS ORDERED: MORPHINE SULFATE 2 MG/ML VIAL. IV ONE (02:00)
[2019-08-08] MEDS ORDERED: NITROGLYCERIN SUBLINGUAL 0.4 MG BOTTLE OF 25. SL PRN ×2 (02:00→02:45)
--- NOTE | 2019-08-08 02:08 | RAD ---
AP chest x-ray HISTORY: Chest pain. COMPARISON: Chest x-ray February 07, 2019. FINDINGS: Heart size normal. Tortuosity the thoracic aorta radiographically stable. No pneumothorax, pulmonary opacities or pleural effusions. Bones are unremarkable. IMPRESSION: No acute process. Stable exam. Electronically signed by: Kraig Braun MD (08/08/2019 2:05 AM) [facility]
[2019-08-08] MEDS ORDERED: ASPIRIN CHEWABLE 81 MG TABLET. PO ONE (02:15)
[2019-08-08 02:21] LABS: CALCIUM 8.8 mg/dL (8.5-10.1); CREATININE 1.3 mg/dL (0.7-1.3); GFR 69.1; POTASSIUM 3.6 mmol/L (3.5-5.1)
[2019-08-08 02:27] LABS: ALBUMIN 3.4 g/dL (3.4-5.0); ALBUMIN/GLOBULIN RATIO 0.8 (1.0-1.7); MAGNESIUM 2.1 mg/dL (1.8-2.4); TOTAL BILIRUBIN 0.2 mg/dL (0.2-1.0); TOTAL PROTEIN 7.6 g/dL (6.4-8.2)
[2019-08-08] MEDS ORDERED: ACETAMINOPHEN 325 MG TABLET. PO PRN (02:45)
[2019-08-08] MEDS ORDERED: ONDANSETRON PF 4 MG/2 ML VIAL. IV PRN (02:45)
[2019-08-08] MEDS ORDERED: hydrALAZINE 20 MG/ML VIAL. IVP ONE (03:00)
[2019-08-08] MEDS: MORPHINE SULFATE 2 MG/ML VIAL. IV PRN ×3 (04:06→14:29)
[2019-08-08 04:29] VITALS: BP 137/81
[2019-08-08] MEDS ORDERED: ATOR20TA58 PO (04:56)
[2019-08-08] MEDS ORDERED: LIDO:MAALOX 1:1 20 ML SINGLE DOSE. SWSW ONE (05:15)
--- NOTE | 2019-08-08 05:40 | EKG ---
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
[2019-08-08 07:00] VITALS: BP 129/82
[2019-08-08] MEDS ORDERED: LIDOCAINE (700MG/PATCH) PATCH. ONE (07:27)
[2019-08-08] MEDS ORDERED: LIDOCAINE (700MG/PATCH) PATCH. TD SCH (09:00)
[2019-08-08 10:27] LABS: BARBITURATES NEG (NEG); BENZODIAZEPINES NEG (NEG); CANNABINOIDS NEG (NEG); COCAINE NEG (NEG); METHADONE NEG (NEG); OPIATES POS (NEG); PHENCYCLIDINE NEG (NEG)
[2019-08-08 10:28] LABS: AMPHETAMINE/METHAMPHETAMINE NEG (NEG)
[2019-08-08 11:00] VITALS: BP 128/77
[2019-08-08] MEDS ORDERED: DICLOFENAC SODIUM 25 MG TABLET.DR PO SCH (11:15)
[2019-08-08 11:20] VITALS: BP 128/77
[2019-08-08] MEDS ORDERED: hydroCHLOROthiazide 25 MG TABLET PO SCH (12:00)
[2019-08-08] MEDS ORDERED: LISINOPRIL 20 MG TABLET PO SCH (12:00)
[2019-08-08] MEDS ORDERED: ASPIRIN ENTERIC COATED 81 MG TABLET.DR. PO SCH (12:00)
[2019-08-08] MEDS ORDERED: metFORMIN 500 MG TABLET PO SCH (12:00)
--- NOTE | 2019-08-08 12:04 | PDOC1 ---
History and Physical Date of Admission: Date of Admission DATE: 08/08/19 TIME: 12:01 Chief Complaint: Problems: (1) ACS (acute coronary syndrome) (2) Fall from standing (3) Intractable back pain (4) Intervertebral disc disorder with radiculopathy of lumbosacral region (5) CHF (congestive heart failure) (6) Pneumonia (7) Groin pain (8) Hydrocele (9) Sciatica (10) Low back pain with right-sided sciatica (11) Chest pain (12) Hypertension Chief Complain: Chest pain History of Present Illness: HPI: 54 her male with underlying history of hypertension, diabetes presents to the emergency department complaints of chest pain. Patient's blood pressure is 181/107. He describes nausea, shortness of breath radiation of pain in his chest his left arm. Patient denies abdominal pain, diarrhea. He has no tobacco history according the patient. He cannot describe how the pain feels. Unable to describe if this is a pressure pain, sharp pain, dull pain, achy pain he states he "can't describe it." Nothing makes his pain worse, nothing makes his pain better on exam. Patient rates his pain at 7 out of 10 Moving makes it worse sitting still makes it better He wants narcotics Past Medical/Surgical History: PMH/PSH: Drug-seeking behavior Past Medical History: Diabetes-Type II, High Cholesterol, Hypertension Additional Past Medical Histor: Chronic back pain Past Surgical History: Other Additional Past Surgical Histo: Lumbar decompression L-5-S1 on 06/02/18 Alcohol Use: None Drug Use: None Allergies: Allergies: Coded Allergies: No Known Drug Allergies (Unverified , 06/02/18) Family History: Family History: Hypertension Social History: Social Hisoty: He denies drinking smoking or drugs Current Medications: Current Medications Current Medications Aspirin (Children'S Aspirin) 324 mg 1X ONCE PO Last administered on 08/08/19at 02:16; Start 08/08/19 at 02:15; Stop 08/08/19 at 02:16; Status DC Nitroglycerin (Nitrostat) 0.4 mg PRN Q5MIN PRN SL CP RATING > 1/10 Last admini stered on 08/08/19at 02:17; Start 08/08/19 at 02:00; Stop 08/08/19 at 02:46; Status DC Morphine Sulfate (Morphine Sulfate) 2 mg 1X ONCE IV Last administered on 08/08/19at 02:47; Start 08/08/19 at 02:00; Stop 08/08/19 at 02:01; Status DC Ondansetron HCl (Zofran) 4 mg 1X ONCE IV Last administered on 08/08/19at 02:17; Start 08/08/19 at 02:00; Stop 08/08/19 at 02:01; Status DC Hydralazine HCl (Apresoline Inj) 10 mg 1X ONCE IVP ; Start 08/08/19 at 03:00; Stop 08/08/19 at 03:01; Status DC Ondansetron HCl (Zofran) 4 mg PRN Q8HRS PRN IV NAUSEA/VOMITING 1ST CHOICE; Start 08/08/19 at 02:45; Stop 08/09/19 at 02:44 Morphine Sulfate (Morphine Sulfate) 2 mg PRN Q2HR PRN IV SEVERE PAIN 7-10 Last administered on 08/08/19at 07:34; Start 08/08/19 at 02:45; Stop 08/09/19 at 02:44 Acetaminophen (Tylenol) 650 mg PRN Q4HRS PRN PO FEVER; Start 08/08/19 at 02:45; Stop 08/09/19 at 02:44 Nitroglycerin (Nitrostat) 0.4 mg PRN Q5MIN PRN SL CHEST PAIN Last administered on 08/08/19at 02:48; Start 08/08/19 at 02:45; Stop 08/09/19 at 02:44 Lidocaine (Lidoderm) 1 patch DAILY TD Last administered on 08/08/19at 07:34; Start 08/08/19 at 09:00 Miscellaneous (Lidoderm Patch Removal) 1 ea QHS MC ; Start 08/08/19 at 21:00 Multi-Ingredient Mouthwash/Gargle (Gi Cocktail) 20 ml 1X ONCE SWSW Last administered on 08/08/19at 07:34; Start 08/08/19 at 05:15; Stop 08/08/19 at 05:16; Status DC Lidocaine (Lidoderm) 1 patch STK-MED ONCE .ROUTE ; Start 08/08/19 at 07:27; Stop 08/08/19 at 07:27; Status DC Aspirin (Ecotrin) 81 mg DAILYWBKFT PO Last administered on 08/08/19at 11:20; S tart 08/08/19 at 12:00 Atorvastatin Calcium (Lipitor) 20 mg DAILY PO ; Start 08/09/19 at 09:00; Status UNV Atorvastatin Calcium (Lipitor) 20 mg QHS PO ; Start 08/08/19 at 21:00 Gabapentin (Neurontin) 300 mg TID PO ; Start 08/08/19 at 14:00 Metformin HCl (Glucophage) 500 mg BIDWMEALS PO Last administered on 08/08/19at 11:20; Start 08/08/19 at 12:00 Diclofenac Sodium (Voltaren) 75 mg BID PO Last administered on 08/08/19at 11:20; Start 08/08/19 at 11:15 Lisinopril (Prinivil) 20 mg BID PO Last administered on 08/08/19at 11:20; Start 08/08/19 at 12:00 Hydrochlorothiazide (Hydrodiuril) 25 mg BID PO Last administered on 08/08/19at 11:18; Start 08/08/19 at 12:00 Active Scripts Active Aspirin Ec (Aspirin) 81 Mg Tablet. 81 Mg PO DAILYWBKFT 30 Days Atorvastatin Calcium 20 Mg Tablet 20 Mg PO QHS 30 Days Reported Atorvastatin Calcium 20 Mg Tablet 1 Tab PO DAILY Diclofenac Sodium 75 Mg Tablet. 75 Mg PO BID Lisinopril-Hctz 20-25 Mg Tab (Lisinopril/Hydrochlorothiazide) 1 Each Tablet 20- 25 Mg PO BID Gabapentin 300 Mg Capsule 300 Mg PO TID Metformin Hcl 500 Mg Tablet 500 Mg PO BID ROS: Review of Systems Review of System REVIEW OF SYSTEMS: GENERAL: Denies weakness SKIN: No bruising, hair changes or rashes. EYES: No blurred, double or loss of vision. NOSE AND THROAT: No history of nosebleeds, hoarseness or sore throat. HEART: Complains of chest pain LUNGS: Denies cough, hemoptysis, wheezing or shortness of breath. GASTROINTESTINAL: Denies changes in appetite, nausea, vomiting, diarrhea or constipation. GENITOURINARY: No history of frequency, urgency, hesitancy or nocturia. NEUROLOGIC: Denies history of numbness, tingling, tremor or weakness. PSYCHIATRIC: No history of panic, anxiety or depression. ENDOCRINE: No history of heat or cold intolerance, polyuria or polydipsia. EXTREMITIES: Denies muscle weakness, joint pain, pain on walking or stiffness. Physical Exam: Vital Signs: Vital Signs Date Time Temp Pulse Resp B/P (MAP) Pulse Ox O2 Delivery O2 Flow Rate FiO2 08/08/19 11:20 82 128/77 08/08/19 11:00 97.7 16 97 Room Air 97.7 Physcial Exam: GEN: No apparent distress. Alert and oriented, keeps asking for narcotics HEENT: Normal cephalic, atraumatic, external auditory canals are patent EYES: Extraocular muscles are intact, pupil are equally round and reactive to light and accommodation MUSCULOSKELETAL: Well developed , well nourished, good range of motion ENDOCRINE: No thyromegaly was palpated LYMPHATICS: No cervical chain or axillary nodes were noted HEMATOPOIETIC: No bruising NECK: Supple, no JVD, no thyromegaly was noted LUNGS: Clear to auscultation in all lung butler without rhonchi or wheezing HEART: RRR, S!, S2 present. Peripheral pulses intact, no obvious murmurs noted ABDOMEN: Soft, nontender. Positive bowel sounds, no organomegaly, normal bowel sounds EXTREMITIES: Without clubbing, cyanosis, or edema. Pedal pulses intact. Negative Homans sign NEUROLOGIC: Normal speech and tone. A&O x 3, moves all extremities, no obvious focal deficits PSYCHIATRIC: Normal affect, normal mood. Stable SKIN: No ulcerations or rashes, good skin turgor, no jaundice VASCULAR: Good capillary refill, neurovascular bundle appears to be intact Labs: Labs: Laboratory Tests Test 08/08/19 01:50 08/08/19 05:30 08/08/19 08:03 08/08/19 08:25 White Blood Count 5.5 x10^3/uL (4.0-11.0) Red Blood Count 5.03 x10^6/uL (4.30-5.70) Hemoglobin 15.3 g/dL (13.0-17.5) Hematocrit 44.8 % (39.0-53.0) Mean Corpuscular Volume 89 fL (79-100) Mean Corpuscular Hemoglobin 31 pg (25-35) Mean Corpuscular Hemoglobin Concent 34 g/dL (31-37) Red Cell Distribution Width 14.8 % (11.5-14.5) Platelet Count 232 x10^3/uL (140-400) Neutrophils (%) (Auto) 32 % (31-73) Lymphocytes (%) (Auto) 51 % (24-48) Monocytes (%) (Auto) 10 % (0-9) Eosinophils (%) (Auto) 6 % (0-3) Basophils (%) (Auto) 1 % (0-3) Neutrophils # (Auto) 1.7 x10^3/uL (1.8-7.7) Lymphocytes # (Auto) 2.8 x10^3/uL (1.0-4.8) Monocytes # (Auto) 0.5 x10^3/uL (0.0-1.1) Eosinophils # (Auto) 0.3 x10^3/uL (0.0-0.7) Basophils # (Auto) 0.1 x10^3/uL (0.0-0.2) Sodium Level 143 mmol/L (136-145) Potassium Level 3.6 mmol/L (3.5-5.1) Chloride Level 105 mmol/L (98-107) Carbon Dioxide Level 28 mmol/L (21-32) Anion Gap 10 (6-14) Blood Urea Nitrogen 8 mg/dL (8-26) Creatinine 1.3 mg/dL (0.7-1.3) Estimated GFR (Cockcroft-Gault) 69.1 BUN/Creatinine Ratio 6 (6-20) Glucose Level 132 mg/dL (70-99) Calcium Level 8.8 mg/dL (8.5-10.1) Magnesium Level 2.1 mg/dL (1.8-2.4) Total Bilirubin 0.2 mg/dL (0.2-1.0) Aspartate Amino Transf (AST/SGOT) 32 U/L (15-37) Alanine Aminotransferase (ALT/SGPT) 39 U/L (16-63) Alkaline Phosphatase 51 U/L (46-116) Troponin I Quantitative < 0.017 ng/mL (0.000-0.055) < 0.017 ng/mL (0.000-0.055) < 0.017 ng/mL (0.000-0.055) QE-Qhd-P-Type Natriuretic Peptide 23 pg/mL (0-124) Total Protein 7.6 g/dL (6.4-8.2) Albumin 3.4 g/dL (3.4-5.0) Albumin/Globulin Ratio 0.8 (1.0-1.7) Lipase 106 U/L (73-393) Glucose (Fingerstick) 91 mg/dL (70-99) Test 08/08/19 09:47 08/08/19 10:46 Urine Opiates Screen Pos (NEG) Urine Methadone Screen Neg (NEG) Urine Barbiturates Neg (NEG) Urine Phencyclidine Screen Neg (NEG) Urine Amphetamine/Methamphetamine Neg (NEG) Urine Benzodiazepines Screen Neg (NEG) Urine Cocaine Screen Neg (NEG) Urine Cannabinoids Screen Neg (NEG) Urine Ethyl Alcohol Neg (NEG) Glucose (Fingerstick) 212 mg/dL (70-99) Laboratory Tests Test 08/08/19 01:50 08/08/19 05:30 08/08/19 08:03 08/08/19 08:25 White Blood Count 5.5 x10^3/uL (4.0-11.0) Red Blood Count 5.03 x10^6/uL (4.30-5.70) Hemoglobin 15.3 g/dL (13.0-17.5) Hematocrit 44.8 % (39.0-53.0) Mean Corpuscular Volume 89 fL (79-100) Mean Corpuscular Hemoglobin 31 pg (25-35) Mean Corpuscular Hemoglobin Concent 34 g/dL (31-37) Red Cell Distribution Width 14.8 % (11.5-14.5) Platelet Count 232 x10^3/uL (140-400) Neutrophils (%) (Auto) 32 % (31-73) Lymphocytes (%) (Auto) 51 % (24-48) Monocytes (%) (Auto) 10 % (0-9) Eosinophils (%) (Auto) 6 % (0-3) Basophils (%) (Auto) 1 % (0-3) Neutrophils # (Auto) 1.7 x10^3/uL (1.8-7.7) Lymphocytes # (Auto) 2.8 x10^3/uL (1.0-4.8) Monocytes # (Auto) 0.5 x10^3/uL (0.0-1.1) Eosinophils # (Auto) 0.3 x10^3/uL (0.0-0.7) Basophils # (Auto) 0.1 x10^3/uL (0.0-0.2) Sodium Level 143 mmol/L (136-145) Potassium Level 3.6 mmol/L (3.5-5.1) Chloride Level 105 mmol/L (98-107) Carbon Dioxide Level 28 mmol/L (21-32) Anion Gap 10 (6-14) Blood Urea Nitrogen 8 mg/dL (8-26) Creatinine 1.3 mg/dL (0.7-1.3) Estimated GFR (Cockcroft-Gault) 69.1 BUN/Creatinine Ratio 6 (6-20) Glucose Level 132 mg/dL (70-99) Calcium Level 8.8 mg/dL (8.5-10.1) Magnesium Level 2.1 mg/dL (1.8-2.4) Total Bilirubin 0.2 mg/dL (0.2-1.0) Aspartate Amino Transf (AST/SGOT) 32 U/L (15-37) Alanine Aminotransferase (ALT/SGPT) 39 U/L (16-63) Alkaline Phosphatase 51 U/L (46-116) Troponin I Quantitative < 0.017 ng/mL (0.000-0.055) < 0.017 ng/mL (0.000-0.055) < 0.017 ng/mL (0.000-0.055) RH-Vhk-D-Type Natriuretic Peptide 23 pg/mL (0-124) Total Protein 7.6 g/dL (6.4-8.2) Albumin 3.4 g/dL (3.4-5.0) Albumin/Globulin Ratio 0.8 (1.0-1.7) Lipase 106 U/L (73-393) Glucose (Fingerstick) 91 mg/dL (70-99) Test 08/08/19 09:47 08/08/19 10:46 Urine Opiates Screen Pos (NEG) Urine Methadone Screen Neg (NEG) Urine Barbiturates Neg (NEG) Urine Phencyclidine Screen Neg (NEG) Urine Amphetamine/Methamphetamine Neg (NEG) Urine Benzodiazepines Screen Neg (NEG) Urine Cocaine Screen Neg (NEG) Urine Cannabinoids Screen Neg (NEG) Urine Ethyl Alcohol Neg (NEG) Glucose (Fingerstick) 212 mg/dL (70-99) Assessment/Plan Assessment/Plan Chest pain suspect narcotic dependence Plan Discharge I did leave a prescription for some when necessary Percocet 10 mg #20 Also gave him a prescription for Norvasc Continue home medicines Follow-up with his doctor next week DAVID GAYTAN III DO Aug 08, 2019 12:03
--- NOTE | 2019-08-08 13:23 | NUR ---
SS following for discharge planning. SS reviewed pt chart. Pt is from home and is currently on room air. SS will continue to follow for discharge planning.
[2019-08-08] MEDS ORDERED: GABAPENTIN 300 MG CAPSULE. PO SCH (14:00)
--- NOTE | 2019-08-08 14:51 | NUR ---
Discharge instructions given to patient regarding medications and follow up with his primary care physician. Education given over chest pain, SOA, and when to seek medical attention. Pt verbalizes understanding.
[2019-08-08] MEDS ORDERED: ATORVASTATIN CALCIUM 20 MG TABLET PO SCH (21:00)
[2019-08-08] MEDS ORDERED: PATCH REMOVAL. MC SCH (21:00)
[2019-08-09] MEDS ORDERED: ATORVASTATIN CALCIUM 20 MG TABLET PO SCH (09:00)
== END 2019-08-08 15:00 | disposition home or self-care (01) ==
LOC: ER 01:37 → 6 SOUTH 02:32
PROVIDERS: ADMIT Internal Medicine; ATTEND Internal Medicine
DX: R07.89 Other chest pain (principal); I24.9 Acute ischemic heart disease, unspecified; M54.30 Sciatica, unspecified side; M51.37 Other intervertebral disc degeneration, lumbosacral region; I11.0 Hypertensive heart disease with heart failure; I50.9 Heart failure, unspecified; J18.9 Pneumonia, unspecified organism; N43.3 Hydrocele, unspecified; E11.9 Type 2 diabetes mellitus without complications; E78.00 Pure hypercholesterolemia, unspecified; W18.30XA Fall on same level, unspecified, initial encounter; Y92.9 Unspecified place or not applicable; Y93.9 Activity, unspecified; Y99.9 Unspecified external cause status
CPT/HCPCS: 36415; 71045; 80053; 80307; 82962; 83690; 83735; 83880; 84484; 85025; 93005; 96374; 96375; 96376; 99284; G0378; J2270; J2405; G0379

== ENCOUNTER 2019-09-19 18:13 | Emergency (ER) | payer OTHER ==
[~2019-09-19] VITALS: Ht 175.3 cm; Wt 104.5 kg
[~2019-09-19 18:13] MED LIST changes: -LIDO15SO2 SWSW; +LIDO20SO10 SWSW
[2019-09-19 18:40] VITALS: BP 190/125
[2019-09-19] MEDS ORDERED: ACETAMINOPHEN 500 MG TABLET PO ONE (19:00)
[2019-09-19] MEDS ORDERED: IBUPROFEN 400 MG TABLET. PO ONE (19:00)
[2019-09-19 19:23] LABS: INFLUENZA A PATIENT NEGATIVE (NEGATIVE); INFLUENZA B PATIENT NEGATIVE (NEGATIVE)
--- NOTE | 2019-09-19 20:10 | PHYS DOC ---
Past Medical History Past Medical History: Diabetes-Type II, High Cholesterol, Hypertension Additional Past Medical Histor: Chronic back pain Past Surgical History: Other Additional Past Surgical Histo: Lumbar decompression L-5-S1 on 06/02/18, CARDIAC CATH W/O STENT Smoking Status: Former Smoker Alcohol Use: None Drug Use: None Adult General Chief Complaint Chief Complaint: FLU SYMPTOM HPI HPI Patient is a 54 year old male with history of hypertension, diabetes type 2, high cholesterol, who presents to the ED today complaining of a cough, body aches, chills, fevers, and nasal congestion, symptoms began 2 days ago. Review of Systems Review of Systems Constitutional: Reports fever, body aches and chills Eyes: Denies change in visual acuity, redness, or eye pain [] HENT: Reports nasal congestion, denies sore throat [] Respiratory: Reports cough, denies shortness of breath [] Cardiovascular: No additional information not addressed in HPI [] GI: Denies abdominal pain, nausea, vomiting, bloody stools or diarrhea [] : Denies dysuria or hematuria [] Musculoskeletal: Denies back pain or joint pain [] Integument: Denies rash or skin lesions [] Neurologic: Denies headache, focal weakness or sensory changes [] All other systems were reviewed and found to be within normal limits, except as documented in this note. Current Medications Current Medications Current Medications Medications (Trade) Dose Ordered Sig/Ramos Start Time Stop Time Status Last Admin Dose Admin Acetaminophen (Tylenol) 1,000 mg 1X ONCE 09/19/19 19:00 09/19/19 19:01 DC 09/19/19 18:57 1,000 MG Ibuprofen (Motrin) 800 mg 1X ONCE 09/19/19 19:00 09/19/19 19:01 DC 09/19/19 18:58 800 MG Allergies Allergies Allergies Coded Allergies Type Severity Reaction Last Updated Verified No Known Drug Allergies 06/02/18 No Physical Exam Physical Exam Constitutional: Well developed, well nourished, no acute distress, non-toxic appearance. [] HENT: Normocephalic, atraumatic, bilateral external ears normal, oropharynx moist, no oral exudates, nose normal. [] Eyes: PERRLA, EOMI, conjunctiva normal, no discharge. [] Neck: Normal range of motion, no tenderness, supple, no stridor. [] Cardiovascular:Heart rate regular rhythm, no murmur [] Lungs & Thorax: Bilateral breath sounds clear to auscultation [] Abdomen: Bowel sounds normal, soft, no tenderness, no masses, no pulsatile masses. [] Skin: Warm, dry, no erythema, no rash. [] Back: No tenderness, no CVA tenderness. [] Extremities: No tenderness, no cyanosis, no clubbing, ROM intact, no edema. [] Neurologic: Alert and oriented X 3, normal motor function, normal sensory function, no focal deficits noted. [] Psychologic: Affect normal, judgement normal, mood normal. [] Current Patient Data Vital Signs Vital Signs Date Time Temp Pulse Resp B/P (MAP) Pulse Ox O2 Delivery O2 Flow Rate FiO2 09/19/19 18:40 100.5 106 14 190/125 (146) 94 Room Air 100.5 Lab Values Laboratory Tests Test 09/19/19 18:49 Influenza Type A Antigen Negative (NEGATIVE) Influenza Type B Antigen Negative (NEGATIVE) EKG EKG [] Radiology/Procedures Radiology/Procedures [] Course & Med Decision Making Course & Med Decision Making Pertinent Labs and Imaging studies reviewed. (See chart for details) This is a 54-year-old male patient presenting to the ED today with fever, body aches, chills, nasal congestion and cough for 2 days. Temperature 100.5 on arrival, give him Tylenol and Motrin. Negative influenza A or B. Negative influenza A or B, chest x-ray interpreted by Dr. Reyna is negative for any acute findings. Patient was discharged to home, supportive care measures recommended. Dragon Disclaimer Dragon Disclaimer This electronic medical record was generated, in whole or in part, using a voice recognition dictation system. Departure Departure Impression: Primary Impression: Fever Additional Impression: Cough Disposition: HOME, SELF-CARE Condition: STABLE Referrals: DENISE OCONNELL (PCP) follow up with your doctor in 1-2 weeks Patient Instructions: Cough, Adult, [id number], Fever, Adult Additional Instructions: You were evaluated in the emergency room for fever cough bodyaches and nasal congestion. Your chest x-ray is negative for any acute findings, your influenza test is negative. Your symptoms could be viral. We recommend you push fluids, rest, maintain good hand hygiene. Please follow-up with your own primary care doctor in the next 7 days. Scripts Benzonatate (TESSALON PERLE) 100 Mg Capsule 1 CAP PO TID, #30 CAP Prov: MILI MAIN APRN 09/19/19 Prednisone (PREDNISONE) 50 Mg Tablet 1 TAB PO DAILY, #5 TAB Prov: MILI MAIN APRN 09/19/19 Problem Qualifiers Primary Impression: Fever Fever type: unspecified Qualified Codes: R50.9 - Fever, unspecified MILI MAIN APRN Sep 19, 2019 20:10
[2019-09-19] MEDS ORDERED: BENZ100C PO (20:30)
[2019-09-19] MEDS ORDERED: PRED50TA PO (20:30)
--- NOTE | 2019-09-19 20:32 | RAD ---
CHEST PA LATERAL History: Cough Comparison: August 08, 2019 Findings: 2 views of the chest are submitted. There is again tortuous thoracic aorta. Heart size is stable. There is no dependent pleural fluid, lobar consolidation, or pneumothorax. Impression: 1. No acute radiographic abnormality is identified. Electronically signed by: Bassem Holder MD (09/19/2019 8:30 PM) [id number]
== END 2019-09-19 20:40 | disposition home or self-care (01) ==
LOC: ER 18:13
DX: R50.9 Fever, unspecified (principal); R05 Cough; M79.10 Myalgia, unspecified site; R09.81 Nasal congestion; G89.29 Other chronic pain; E11.9 Type 2 diabetes mellitus without complications; E78.00 Pure hypercholesterolemia, unspecified; I10 Essential (primary) hypertension; Z87.891 Personal history of nicotine dependence; Z95.5 Presence of coronary angioplasty implant and graft
CPT/HCPCS: 71046; 87804; 99284

== ENCOUNTER 2019-10-11 21:59 | Emergency (ER) | payer SELFPAY ==
[~2019-10-11 21:59] MED LIST changes: +BENZ100C PO
[2019-10-11] MEDS: HYDROcodone/APAP 5/325MG 1 TAB TABLET PO ONE (23:30)
[2019-10-11] MEDS: diazePAM 5 MG TABLET PO ONE (23:30)
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
[2019-10-12] MEDS ORDERED: CYCL10TA2 PO (00:28)
[2019-10-12] MEDS ORDERED: DICL50TA2 PO (00:28)
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
== END 2019-10-12 00:34 | disposition home or self-care (01) ==
LOC: ER 21:59
DX: S13.4XXA Sprain of ligaments of cervical spine, initial encounter (principal); M25.511 Pain in right shoulder; M54.5 Low back pain; E11.9 Type 2 diabetes mellitus without complications; E78.00 Pure hypercholesterolemia, unspecified; I10 Essential (primary) hypertension; G89.29 Other chronic pain; Z87.891 Personal history of nicotine dependence; Z98.890 Other specified postprocedural states; V89.2XXA Person injured in unspecified motor-vehicle accident, traffic, initial encounter; Y93.89 Activity, other specified; Y92.413 State road as the place of occurrence of the external cause; Y99.8 Other external cause status
CPT/HCPCS: 72125; 72131; 73030; 99285

== ENCOUNTER 2020-08-30 04:54 | Emergency (ER) | payer SELFPAY ==
[~2020-08-30] VITALS: Ht 180.3 cm; Wt 109.1 kg
[~2020-08-30 04:54] MED LIST changes: +AMLO-187 PO; -AMLO10TA8 PO; -ASPI-612 PO; +ASPI-886 PO; +DICL50TA2 PO; -LISI-338 PO; +LISI-517 PO; -OXYC-411 PO; +OXYC1TAB20 PO
[2020-08-30 05:29] LABS: BASO % 1 % (0-3); EOS # 0.2 x10^3/uL (0.0-0.7); EOS % 5 % (0-3); HEMATOCRIT 45.7 % (39.0-53.0); HEMOGLOBIN 15.4 g/dL (13.0-17.5); LYMPH # 2.2 x10^3/uL (1.0-4.8); LYMPH % 44 % (24-48); MEAN CORPUSCULAR HEMOGLOBIN 29 pg (25-35); MEAN CORPUSCULAR HGB CONC 34 g/dL (31-37); MEAN CORPUSCULAR VOLUME 87 fL (79-100); MONO # 0.9 x10^3/uL (0.0-1.1); MONO % 17 % (0-9); NEUT # 1.7 x10^3/uL (1.8-7.7); NEUT % 34 % (31-73); PLATELET COUNT 260 x10^3/uL (140-400); RED BLOOD COUNT 5.23 x10^6/uL (4.30-5.70); RED CELL DISTRIBUTION WIDTH 14.9 % (11.5-14.5)
[2020-08-30 05:34] LABS: CALCIUM 9.2 mg/dL (8.5-10.1); CREATININE 1.4 mg/dL (0.7-1.3); GFR 63.2; POTASSIUM 3.2 mmol/L (3.5-5.1)
--- NOTE | 2020-08-30 05:35 | RAD ---
XR CHEST 1V Clinical Indication: Reason: CHEST PAIN Comparison: Two-view chest, September 19, 2019. Findings: The cardiomediastinal silhouette is normal. Lungs are clear. There is no pneumothorax. No pleural eff usion is appreciated. No acute bone abnormality. IMPRESSION: No acute cardiopulmonary process. Electronically signed by: Abelardo Simeon MD (08/30/2020 5:32 AM) [facility]
[2020-08-30 05:39] LABS: ALBUMIN 3.4 g/dL (3.4-5.0); ALBUMIN/GLOBULIN RATIO 0.8 (1.0-1.7); MAGNESIUM 2.1 mg/dL (1.8-2.4); TOTAL BILIRUBIN 0.5 mg/dL (0.2-1.0); TOTAL PROTEIN 7.7 g/dL (6.4-8.2)
--- NOTE | 2020-08-30 05:39 | PHYS DOC ---
Past Medical History Past Medical History: Diabetes-Type II, High Cholesterol, Hypertension Additional Past Medical Histor: Chronic back pain Past Surgical History: Other Additional Past Surgical Histo: Lumbar decompression L-5-S1 on 06/02/18, CARDIAC CATH W/O STENT Smoking Status: Former Smoker Alcohol Use: Occasionally Drug Use: None Adult General Chief Complaint Chief Complaint: MULTIPLE COMPLAINTS [facility] HPI Patient is a 55 year old male with a past medical history of diabetes, hypertension, hyperlipidemia who presents to the emergency department complaining of new onset of chest pain as well as generalized malaise. Patient has been lasting for hours as a generalized fatigue and achiness as well as mild nasal congestion. Does admit to nausea but denies any vomiting, diarrhea, dizziness, fever or chills. Denies any dysuria pyuria. Review of Systems Review of Systems Constitutional: Denies fever or chills [] Eyes: Denies change in visual acuity, redness, or eye pain [] HENT: Denies nasal congestion or sore throat [] Respiratory: Denies cough or shortness of breath [] Cardiovascular: No additional information not addressed in HPI [] GI: Denies abdominal pain, nausea, vomiting, bloody stools or diarrhea [] : Denies dysuria or hematuria [] Musculoskeletal: Denies back pain or joint pain [] Integument: Denies rash or skin lesions [] Neurologic: Denies headache, focal weakness or sensory changes [] Endocrine: Denies polyuria or polydipsia [] All other systems were reviewed and found to be within normal limits, except as documented in this note. Current Medications Current Medications Current Medications Medications (Trade) Dose Ordered Sig/[facility] Start Time Stop Time Status Last Admin Dose Admin Acetaminophen (Tylenol) 1,000 mg 1X ONCE 08/30/20 06:00 08/30/20 06:01 DC 08/30/20 05:38 1,000 MG Prednisone (Prednisone) 20 mg 1X ONCE 08/30/20 06:00 08/30/20 06:01 DC 08/30/20 05:37 20 MG Allergies Allergies Allergies Coded Allergies Type Severity Reaction Last Updated Verified No Known Drug Allergies 06/02/18 No Physical Exam Physical Exam Constitutional: Well developed, well nourished, no acute distress, non-toxic appearance. [] HENT: Normocephalic, atraumatic, bilateral external ears normal, oropharynx moist, no oral exudates, nose normal. [] Eyes: PERRLA, EOMI, conjunctiva normal, no discharge. [] Neck: Normal range of motion, no tenderness, supple, no stridor. [] Cardiovascular:Heart rate regular rhythm, no murmur [] Lungs & Thorax: Bilateral breath sounds clear to auscultation [] Abdomen: Bowel sounds normal, soft, no tenderness, no masses, no pulsatile masses. [] Skin: Warm, dry, no erythema, no rash. Approximately 8 x 5 cm scaling plaque to the right posterior leg just distal to the knee joint Back: No tenderness, no CVA tenderness. [] Extremities: No tenderness, no cyanosis, no clubbing, ROM intact, no edema. [] Neurologic: Alert and oriented X 3, normal motor function, normal sensory function, no focal deficits noted. [] Psychologic: Affect normal, judgement normal, mood normal. [] Current Patient Data Vital Signs Vital Signs Date Time Temp Pulse Resp B/P (MAP) Pulse Ox O2 Delivery O2 Flow Rate FiO2 08/30/20 04:55 98.7 105 14 142/89 (106) 96 Room Air 98.7 Lab Values Laboratory Tests Test 08/30/20 05:11 White Blood Count 5.0 x10^3/uL (4.0-11.0) Red Blood Count 5.23 x10^6/uL (4.30-5.70) Hemoglobin 15.4 g/dL (13.0-17.5) Hematocrit 45.7 % (39.0-53.0) Mean Corpuscular Volume 87 fL (79-100) Mean Corpuscular Hemoglobin 29 pg (25-35) Mean Corpuscular Hemoglobin Concent 34 g/dL (31-37) Red Cell Distribution Width 14.9 % (11.5-14.5) H Platelet Count 260 x10^3/uL (140-400) Neutrophils (%) (Auto) 34 % (31-73) Lymphocytes (%) (Auto) 44 % (24-48) Monocytes (%) (Auto) 17 % (0-9) H Eosinophils (%) (Auto) 5 % (0-3) H Basophils (%) (Auto) 1 % (0-3) Neutrophils # (Auto) 1.7 x10^3/uL (1.8-7.7) L Lymphocytes # (Auto) 2.2 x10^3/uL (1.0-4.8) Monocytes # (Auto) 0.9 x10^3/uL (0.0-1.1) Eosinophils # (Auto) 0.2 x10^3/uL (0.0-0.7) Basophils # (Auto) 0.0 x10^3/uL (0.0-0.2) Sodium Level 139 mmol/L (136-145) Potassium Level 3.2 mmol/L (3.5-5.1) L Chloride Level 101 mmol/L (98-107) Carbon Dioxide Level 31 mmol/L (21-32) Anion Gap 7 (6-14) Blood Urea Nitrogen 14 mg/dL (8-26) Creatinine 1.4 mg/dL (0.7-1.3) H Estimated GFR (Cockcroft-Gault) 63.2 BUN/Creatinine Ratio 10 (6-20) Glucose Level 126 mg/dL (70-99) H Calcium Level 9.2 mg/dL (8.5-10.1) Magnesium Level 2.1 mg/dL (1.8-2.4) Total Bilirubin 0.5 mg/dL (0.2-1.0) Aspartate Amino Transferase (AST) 44 U/L (15-37) H Alanine Aminotransferase (ALT) 77 U/L (16-63) H Alkaline Phosphatase 45 U/L (46-116) L Troponin I Quantitative < 0.017 ng/mL (0.000-0.055) Total Protein 7.7 g/dL (6.4-8.2) Albumin 3.4 g/dL (3.4-5.0) Albumin/Globulin Ratio 0.8 (1.0-1.7) L Lipase 154 U/L (73-393) Laboratory Tests 08/30/20 05:11 Laboratory Tests 08/30/20 05:11 EKG EKG [] Radiology/Procedures Radiology/Procedures [] Course & Med Decision Making Course & Med Decision Making Pertinent Labs and Imaging studies reviewed. (See chart for details) 55-year-old male presenting to emergency department new onset of chest pain. EKG obtained on arrival with evidence of STEMI. Will obtain ACS work-up as a chest x-ray. Patient does have red raised plaque is erythematous and itchy and scaling on the right posterior leg. Appears to be possible psoriasis or contact dermatitis. Will find prednisone for this Dragon Disclaimer Dragon Disclaimer This electronic medical record was generated, in whole or in part, using a voice recognition dictation system. Departure Departure Impression: Primary Impression: Chest pain Referrals: DENISE OCONNELL (PCP) CHRIS WONG MD Aug 30, 2020 05:39
--- NOTE | 2020-08-30 05:52 | EKG ---
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
[2020-08-30] MEDS ORDERED: predniSONE 20 MG TABLET PO ONE (06:00)
[2020-08-30] MEDS ORDERED: ACETAMINOPHEN 500 MG TABLET PO ONE (06:00)
[2020-08-30 06:50] LABS: INFLUENZA A PATIENT NEGATIVE (NEGATIVE); INFLUENZA B PATIENT NEGATIVE (NEGATIVE)
[2020-08-30] MEDS ORDERED: METH-38 PO (09:46)
[2020-08-30] MEDS ORDERED: KETOROLAC 15 MG/ML VIAL. IVP ONE (10:00)
[2020-08-30 10:02] VITALS: BP 152/82
--- NOTE | 2020-09-01 16:14 | NUR ---
IP: Informed pt of negative COVID test. Pt verbalized understanding.
== END 2020-08-30 10:05 | disposition home or self-care (01) ==
LOC: ER 04:54
DX: R07.89 Other chest pain (principal); Z20.822 Contact with and (suspected) exposure to COVID-19; R09.81 Nasal congestion; R53.83 Other fatigue; R53.81 Other malaise; E11.9 Type 2 diabetes mellitus without complications; E78.00 Pure hypercholesterolemia, unspecified; I10 Essential (primary) hypertension; G89.29 Other chronic pain; Z98.890 Other specified postprocedural states; Z87.891 Personal history of nicotine dependence
CPT/HCPCS: 36415; 71045; 80053; 83690; 83735; 84484; 85025; 85379; 87804; 93005; 96374; 99285; C9803; J1885; J7512; U0003

== ENCOUNTER 2021-03-09 20:48 | Inpatient (IN) | payer MEDICAID, OTHER ==
[~2021-03-09] VITALS: Ht 180.3 cm; Wt 113.2 kg
[~2021-03-09 20:48] MED LIST changes: +METH-38 PO
[2021-03-09] MEDS ORDERED: MORPHINE SULFATE 4 MG/ML INJ. IV/SQ PRN (21:15)
[2021-03-09] MEDS ORDERED: NITROGLYCERIN SUBLINGUAL 0.4 MG BOTTLE OF 25. SL PRN ×2 (21:15→23:00)
[2021-03-09] MEDS ORDERED: fentaNYL PF VIAL 100 MCG/2 ML VIAL IM ONE (21:15)
[2021-03-09] MEDS ORDERED: IV NORMAL SALINE 1000ML BAG 1,000 ML IV ONE (21:15)
[2021-03-09] MEDS ORDERED: fentaNYL PF VIAL 100 MCG/2 ML VIAL IVP ONE (21:15)
[2021-03-09 21:18] LABS: BASO % 1 % (0-3); EOS # 0.3 x10^3/uL (0.0-0.7); EOS % 5 % (0-3); HEMOGLOBIN 15.6 g/dL (13.0-17.5); LYMPH # 2.8 x10^3/uL (1.0-4.8); LYMPH % 53 % (24-48); MEAN CORPUSCULAR HEMOGLOBIN 31 pg (25-35); MEAN CORPUSCULAR HGB CONC 35 g/dL (31-37); MEAN CORPUSCULAR VOLUME 88 fL (79-100); MONO # 0.5 x10^3/uL (0.0-1.1); MONO % 10 % (0-9); NEUT # 1.6 x10^3/uL (1.8-7.7); NEUT % 31 % (31-73); PLATELET COUNT 254 x10^3/uL (140-400); RED BLOOD COUNT 5.09 x10^6/uL (4.30-5.70); RED CELL DISTRIBUTION WIDTH 14.9 % (11.5-14.5); WHITE BLOOD COUNT 5.2 x10^3/uL (4.0-11.0)
[2021-03-09 21:41] LABS: ALBUMIN 3.8 g/dL (3.4-5.0); ALBUMIN/GLOBULIN RATIO 0.8 (1.0-1.7); CALCIUM 9.4 mg/dL (8.5-10.1); CREATININE 1.6 mg/dL (0.7-1.3); GFR 54.2; MAGNESIUM 2.3 mg/dL (1.8-2.4); POTASSIUM 3.9 mmol/L (3.5-5.1); TOTAL BILIRUBIN 0.4 mg/dL (0.2-1.0); TOTAL PROTEIN 8.4 g/dL (6.4-8.2)
[2021-03-09 21:56] LABS: BILIRUBIN,URINE NEGATIVE (NEG); CLARITY,URINE CLEAR; COLOR,URINE YELLOW; NITRITE,URINE NEGATIVE (NEG); PROTEIN,URINE NEGATIVE (NEG-TRACE); UROBILINOGEN,URINE 0.2 mg/dL (0.2 mg/dL)
[2021-03-09 22:02] LABS: BARBITURATES NEG (NEG); BENZODIAZEPINES NEG (NEG); CANNABINOIDS NEG (NEG); COCAINE NEG (NEG); METHADONE NEG (NEG); OPIATES POS (NEG); PHENCYCLIDINE NEG (NEG)
[2021-03-09 22:03] LABS: AMPHETAMINE/METHAMPHETAMINE NEG (NEG)
--- NOTE | 2021-03-09 22:19 | EKG ---
[facility] [address] [place] [address] Test Date: 2021-03-09 Test Time: 21:26:15 Pat Name: DAYA DHILLON Department: Room: Gender: Classifier Tender: : 1965 Requested By: MILI MAIN Order Number: [id number] Reading MD: Measurements Intervals [place] Rate: 70 P: 38 ID: [id number] QRS: -22 QRSD: 98 T: 16 QT: 390 QTc: 424 Interpretive Statements SINUS RHYTHM LEFTWARD AXIS OTHERWISE NORMAL ECG RI6.02 No previous ECG available for comparison
[2021-03-09 22:21] LABS: BACTERIA,URINE 0 /HPF (0-FEW); RBC,URINE 0 /HPF (0-2); WBC,URINE 0 /HPF (0-4)
--- NOTE | 2021-03-09 22:21 | PHYS DOC ---
Past Medical History Past Medical History: CHF, Diabetes-Type II, High Cholesterol, Hypertension, Renal Disease Additional Past Medical Histor: Chronic back pain (MILI MAIN TOWN CLERK) Past Surgical History: Other Additional Past Surgical Histo: Lumbar decompression L-5-S1 on 06/02/18, CA RDIAC CATH W/O STENT (MILI MAIN TOWN CLERK) Smoking Status: Never Smoker Alcohol Use: None Drug Use: None (MILI MAIN TOWN CLERK) General Adult EDM: Chief Complaint: MECHANICAL FALL HPI: HPI: Patient is a 55 year old male with history of diabetes type 2, hypertension, high cholesterol, who presents to the ED today to be evaluated after falling. Patient states he had 8 out of 10 generalized chest pain, he was sitting on a chair he got up got dizzy and fell landing on his right upper extremity. Patient denies any loss of consciousness. Patient is complaining of moderate pain to the right upper extremity. Describes the pain as sharp and constant. Denies any alcohol intoxication. Denies any fever, cough, congestion. Denies any dizziness in the ED, denies any chest pain in the ED (MILI MAIN TOWN CLERK) Review of Systems: Review of Systems: Constitutional: Denies fever or chills. [] Eyes: Denies change in visual acuity. [] HENT: Denies nasal congestion or sore throat. [] Respiratory: Denies cough or shortness of breath. [] Cardiovascular: Reports chest pain GI: Denies abdominal pain, nausea, vomiting, bloody stools or diarrhea. [] : Denies dysuria. [] Musculoskeletal: Reports right upper extremity pain denies back pain Integument: Denies rash. [] Neurologic: Denies headache, focal weakness or sensory changes. [] Endocrine: Denies polyuria or polydipsia. [] Lymphatic: Denies swollen glands. [] Psychiatric: Denies depression or anxiety. [] (MILI MAIN TOWN CLERK) Heart Score: C/O Chest Pain: N/A Risk Factors: Risk Factors: DM, Current or recent (<one month) smoker, HTN, HLP, family history of CAD, obesity. Risk Scores: Score 0 - 3: 2.5% MACE over next 6 weeks - Discharge Home Score 4 - 6: 20.3% MACE over next 6 weeks - Admit for Clinical Observation Score 7 - 10: 72.7% MACE over next 6 weeks - Early Invasive Strategies (MILI MAIN Santino TOWN CLERK) Current Medications: Current Medications Medications (Trade) Dose Ordered Sig/[facility] Start Time Stop Time Status Last Admin Dose Admin Fentanyl Citrate (Fentanyl 2ml Vial) 100 mcg 1X ONCE 03/09/21 21:15 03/09/21 21:16 DC Morphine Sulfate (Morphine Sulfate) 4 mg PRN Q15MIN PRN 03/09/21 21:15 03/10/21 21:14 03/09/21 22:15 4 MG Nitroglycerin (Nitrostat) 0.4 mg PRN Q5MIN PRN 03/09/21 21:15 03/10/21 21:14 Sodium Chloride 1,000 ml @ 1,000 mls/hr 1X ONCE 03/09/21 21:15 03/09/21 22:14 DC 03/09/21 21:17 1,000 MLS/HR (MILI MAIN Santino TOWN CLERK) Allergies: Allergies: Allergies Coded Allergies Type Severity Reaction Last Updated Verified No Known Drug Allergies 06/02/18 No (MILI MAIN Santino TOWN CLERK) Physical Exam: PE: Constitutional: Well developed, well nourished, no acute distress, non-toxic appearance. [] HENT: Normocephalic, atraumatic, bilateral external ears normal, oropharynx moist, no oral exudates, nose normal. [] Eyes: PERRLA, EOMI, conjunctiva normal, no discharge. [] Neck: Normal range of motion, no tenderness, supple, no stridor. [] Cardiovascular:Heart rate regular rhythm, no murmur [] Lungs & Thorax: Bilateral breath sounds clear to auscultation [] Abdomen: Bowel sounds normal, soft, no tenderness, no masses, no pulsatile masses. [] Skin: Warm, dry, no erythema, no rash. [] Back: No tenderness, no CVA tenderness. [] Extremities: Right upper extremity with moderate soft tissue swelling around the elbow, bruising noted on the inner aspect of the elbow, tenderness throughout to the right upper extremity from shoulder to wrist. Limited range of motion to the right shoulder and right elbow due to pain. Full range of motion to the right fingers, adequate radial, medial, ulnar sensation to the right upper extremity. +2 right radial pulse. Cap refill less than 2 seconds of right fingers. Neurologic: Alert and oriented X 3, normal motor function, normal sensory function, no focal deficits noted. [] Psychologic: Tearful (MUTUNGA,MILI M TOWN CLERK) Current Patient Data: Labs: Laboratory Tests Test 03/09/21 21:00 03/09/21 21:45 White Blood Count 5.2 x10^3/uL (4.0-11.0) Red Blood Count 5.09 x10^6/uL (4.30-5.70) Hemoglobin 15.6 g/dL (13.0-17.5) Hematocrit 45.0 % (39.0-53.0) Mean Corpuscular Volume 88 fL (79-100) Mean Corpuscular Hemoglobin 31 pg (25-35) Mean Corpuscular Hemoglobin Concent 35 g/dL (31-37) Red Cell Distribution Width 14.9 % (11.5-14.5) H Platelet Count 254 x10^3/uL (140-400) Neutrophils (%) (Auto) 31 % (31-73) Lymphocytes (%) (Auto) 53 % (24-48) H Monocytes (%) (Auto) 10 % (0-9) H Eosinophils (%) (Auto) 5 % (0-3) H Basophils (%) (Auto) 1 % (0-3) Neutrophils # (Auto) 1.6 x10^3/uL (1.8-7.7) L Lymphocytes # (Auto) 2.8 x10^3/uL (1.0-4.8) Monocytes # (Auto) 0.5 x10^3/uL (0.0-1.1) Eosinophils # (Auto) 0.3 x10^3/uL (0.0-0.7) Basophils # (Auto) 0.0 x10^3/uL (0.0-0.2) Sodium Level 143 mmol/L (136-145) Potassium Level 3.9 mmol/L (3.5-5.1) Chloride Level 105 mmol/L (98-107) Carbon Dioxide Level 31 mmol/L (21-32) Anion Gap 7 (6-14) Blood Urea Nitrogen 10 mg/dL (8-26) Creatinine 1.6 mg/dL (0.7-1.3) H Estimated GFR (Cockcroft-Gault) 54.2 BUN/Creatinine Ratio 6 (6-20) Glucose Level 89 mg/dL (70-99) Calcium Level 9.4 mg/dL (8.5-10.1) Magnesium Level 2.3 mg/dL (1.8-2.4) Total Bilirubin 0.4 mg/dL (0.2-1.0) Aspartate Amino Transferase (AST) 32 U/L (15-37) Alanine Aminotransferase (ALT) 54 U/L (16-63) Alkaline Phosphatase 59 U/L (46-116) Troponin I Quantitative < 0.017 ng/mL (0.000-0.055) VQ-Tpx-H-Type Natriuretic Peptide 37 pg/mL (0-124) Total Protein 8.4 g/dL (6.4-8.2) H Albumin 3.8 g/dL (3.4-5.0) Albumin/Globulin Ratio 0.8 (1.0-1.7) L Lipase 88 U/L (73-393) Ethyl Alcohol Level < 10 mg/dL (0-10) Urine Opiates Screen Pos (NEG) Urine Methadone Screen Neg (NEG) Urine Barbiturates Neg (NEG) Urine Phencyclidine Screen Neg (NEG) Urine Amphetamine/Methamphetamine Neg (NEG) Urine Benzodiazepines Screen Neg (NEG) Urine Cocaine Screen Neg (NEG) Urine Cannabinoids Screen Neg (NEG) Urine Ethyl Alcohol Neg (NEG) Laboratory Tests 03/09/21 21:00 Laboratory Tests 03/09/21 21:00 Vital Signs: Vital Signs Date Time Temp Pulse Resp B/P (MAP) Pulse Ox O2 Delivery O2 Flow Rate FiO2 03/09/21 22:15 18 94 03/09/21 21:26 94 193/116 (141) Room Air 03/09/21 21:03 98.3 98.3 (MILI MAIN TOWN CLERK) EKG: EK interpreted by Dr. Woodruff sinus rhythm heart rate 70 no STEMI [] (MILI MAIN TOWN CLERK) Radiology/Procedures: Radiology/Procedures: []PROCEDURE: SHOULDER 2+V RIGHT Exam Date: 03/09/2021 9:30 PM XR HAND_RIGHT 3 VIEWS, XR SHOULDER_RIGHT 2+ VIEWS, XR FOREARM_RIGHT 2 VIEWS, XR ELBOW COMPLETE_RIGHT 3+ VIEWS Indication: Reason: fall pain / Spl. Instructions: / History: . FINDINGS/ IMPRESSION: Mild degenerative changes are noted. Healed remote fourth and fifth metacarpal fractures noted. Alignment is otherwise maintained. No acute fracture or dislocation. Alignment and joint spaces are maintained. The soft tissues are within normal limits. Electronically signed by: Lico Braden MD (03/09/2021 10:32 PM) [facility] DICTATED and SIGNED BY: LICO BRADEN MD DATE: 03/09/21 [id number] PROCEDURE: CT HEAD AND CERVICAL SPINE WO Exam Date: 03/09/2021 9:[address] HEAD AND C-SPINE WO Indication: Reason: fall dizziness / Spl. Instructions: / History: . One or more of the following dose reduction techniques were utilized: *Automated exposure control (AEC) *Adjustment of mA and/or kV according to patient size *Use of iterative reconstruction technique *CT scan done according to ALARA, or ALARA/IMAGE GENTLY EXAMINATION: CT OF THE HEAD WITHOUT CONTRAST INDICATION: Trauma, head injury, headache; TECHNIQUE: Noncontrast helical axial CT images of the head were obtained. FINDINGS: The ventricles and sulci are normal for the patient's stated age. There is no evidence of acute intracranial hemorrhage, extra-axial collection, mass effect, midline shift, or acute territorial infarct. No lesion of the skull base or the calvarium is seen. The visualized paranasal sinuses, mastoid air cells, and orbits are normal in appearance. IMPRESSION: No evidence for acute intracranial abnormality. EXAMINATION: CT OF THE CERVICAL SPINE WITHOUT CONTRAST Clinical Indication: Cervical spine pain after trauma Technique: Thin cut helical axial CT images through the cervical spine were obtained without contrast on a multi-detector CT scanner. Source data was then reconstructed into sagittal and coronal planes. Findings: There is straightening of the cervical spine without spondylolisthesis. Vertebral body heights are maintained without acute fracture. Mild multilevel degenerative changes are noted. No significant prevertebral soft tissue swelling is demonstrated. No severe osseous central canal stenosis is seen. Impression: No evidence of acute cervical spine fracture or subluxation. Electronically signed by: Lico Braden MD (03/09/2021 10:47 PM) [facility] DICTATED and SIGNED BY: LICO BRADEN MD DATE: 03/09/21 [id number] (MILI MAIN APRN) Course & Med Decision Making: Course & Med Decision Making Pertinent Labs and Imaging studies reviewed. (See chart for details) This is a 55-year-old male patient presenting today complaining of chest pain, dizziness, falling with right upper extremity pain. CT of the head and cervical spine are negative for any acute findings. X-ray of the right shoulder, right elbow, right forearm, right hand are negative EKG is negative, troponin is normal, CBC no acute findings, CMP with creatinine of 1.6, BUN is normal, patient has chronic kidney disease. Patient was admitted under Dr. Lopez, Dr. Woodruff in the ED will give him report in the morning Routine consult placed for cardiology and orthopedic doctor (MILI MAIN APRN) Course & Med Decision Making I have participated in the care of this patient and I have reviewed and agree with all pertinent clinical information above including history, exam, and recommendations. Alexey Woodruff DO (ALEXEY WOODRUFF DO) Bryson Disclaimer: Bryson Disclaimer: This electronic medical record was generated, in whole or in part, using a voice recognition dictation system. (MILI MANI APRN) Departure Departure Impression: Primary Impression: Chest pain Qualified Codes: R07.9 - Chest pain, unspecified Additional Impressions: Fall from standing Qualified Codes: W19.XXXA - Unspecified fall, initial encounter Contusion, upper extremity Qualified Codes: S40.021A - Contusion of right upper arm, initial encounter Dizziness Disposition: ADMITTED INPATIENT Condition: STABLE Referrals: DENISE OCONNELL (PCP) MILI MAIN APRN Mar 09, 2021 22:21 ALEXEY WOODRUFF DO Mar 10, 2021 23:28
--- NOTE | 2021-03-09 22:35 | RAD ---
Exam Date: 03/09/2021 9:30 PM XR HAND_RIGHT 3 VIEWS, XR SHOULDER_RIGHT 2+ VIEWS, XR FOREARM_RIGHT 2 VIEWS, XR ELBOW COMPLETE_RIGHT 3+ VIEWS Indication: Reason: fall pain / Spl. Instructions: / History: . FINDINGS/ IMPRESSION: Mild degenerative changes are noted. Healed remote fourth and fifth metacarpal fractures noted. Ali gnment is otherwise maintained. No acute fracture or dislocation. Alignment and joint spaces are maintained. The soft tissues are w ithin normal limits. Electronically signed by: Rudi Braden MD (03/09/2021 10:32 PM) [facility]
--- NOTE | 2021-03-09 22:35 | RAD ---
Exam Date: 03/09/2021 9:30 PM XR CHEST 1V Indication: Reason: fall pain / Spl. Instructions: / History: . Comparison: August 30, 2020 FINDINGS/ IMPRESSION: Mild right basilar subsegmental atelectasis is noted. The cardiac silhouette and pulmonary vasculature are within normal limits. There is no focal consolidation, pleural effusion or pneumothorax. The visualized osseous structures are intact. Electronically signed by: Rudi Braden MD (03/09/2021 10:33 PM) [facility]
--- NOTE | 2021-03-09 22:49 | RAD ---
Exam Date: 03/09/2021 9:[address] HEAD AND C-SPINE WO Indication: Reason: fall dizziness / Spl. Instructions: / History: . One or more of the following dose reduction techniques were utilized: *Automated exposure control (AEC) *Adjustment of mA and/or kV according to patient size *Use of iterative reconstruction technique *CT scan done according to ALARA, or ALARA/IMAGE GENTLY EXAMINATION: CT OF THE HEAD WITHOUT CONTRAST INDICATION: Trauma, head injury, headache; TECHNIQUE: Noncontrast helical axial CT images of the head were obtained. FINDINGS: The ventricles and sulci are normal for the patient's stated age. There is no evidence of acute int racranial hemorrhage, extra-axial collection, mass effect, midline shift, or acute territorial infarc t. No lesion of the skull base or the calvarium is seen. The visualized paranasal sinuses, mastoid ai r cells, and orbits are normal in appearance. IMPRESSION: No evidence for acute intracranial abnormality. EXAMINATION: CT OF THE CERVICAL SPINE WITHOUT CONTRAST Clinical Indication: Cervical spine pain after trauma Technique: Thin cut helical axial CT images through the cervical spine were obtained without contrast on a multi-detector CT scanner. Source data was then reconstructed into sagittal and coronal planes. Findings: There is straightening of the cervical spine without spondylolisthesis. Vertebral body heights are maintained without acute fracture. Mild multilevel degenerative changes ar e noted. No significant prevertebral soft tissue swelling is demonstrated. No severe osseous central canal stenosis is seen. Impression: No evidence of acute cervical spine fracture or subluxation. Electronically signed by: Rudi Braden MD (03/09/2021 10:47 PM) [facility]
[2021-03-09] MEDS ORDERED: ONDANSETRON PF 4 MG/2 ML VIAL. IVP PRN (23:00)
[2021-03-09] MEDS ORDERED: HYDROmorphone 2 MG/ML VIAL IVP ONE (23:00)
[2021-03-09] MEDS ORDERED: LABETALOL 20 MG/4 ML DISP.SYRIN. IVP ONE (23:00)
[2021-03-09] MEDS ORDERED: ACETAMINOPHEN 325 MG TABLET. PO PRN (23:00)
[2021-03-10] VITALS (9 sets, daily range): BP systolic 119–182; BP diastolic 85–116
[2021-03-10] MEDS: MORPHINE SULFATE 4 MG/ML INJ. IVP PRN ×8 (01:39→17:02)
[2021-03-10 03:52] LABS: BASO # 0.1 x10^3/uL (0.0-0.2); BASO % 1 % (0-3); EOS # 0.3 x10^3/uL (0.0-0.7); EOS % 5 % (0-3); HEMOGLOBIN 14.7 g/dL (13.0-17.5); LYMPH # 3.1 x10^3/uL (1.0-4.8); LYMPH % 50 % (24-48); MEAN CORPUSCULAR HEMOGLOBIN 31 pg (25-35); MEAN CORPUSCULAR HGB CONC 34 g/dL (31-37); MEAN CORPUSCULAR VOLUME 90 fL (79-100); MONO # 0.5 x10^3/uL (0.0-1.1); MONO % 8 % (0-9); NEUT # 2.2 x10^3/uL (1.8-7.7); NEUT % 36 % (31-73); PLATELET COUNT 211 x10^3/uL (140-400); RED BLOOD COUNT 4.78 x10^6/uL (4.30-5.70); RED CELL DISTRIBUTION WIDTH 14.8 % (11.5-14.5); WHITE BLOOD COUNT 6.2 x10^3/uL (4.0-11.0)
[2021-03-10 04:08] LABS: ALBUMIN 3.2 g/dL (3.4-5.0); ALBUMIN/GLOBULIN RATIO 0.9 (1.0-1.7); CALCIUM 8.5 mg/dL (8.5-10.1); CREATININE 1.3 mg/dL (0.7-1.3); GFR 68.8; POTASSIUM 3.9 mmol/L (3.5-5.1); TOTAL BILIRUBIN 0.3 mg/dL (0.2-1.0); TOTAL PROTEIN 6.7 g/dL (6.4-8.2)
--- NOTE | 2021-03-10 11:00 | NUR ---
assumed care from Marilee. stated that consults had been called. Linn (CN) and Marilee (switchman supervisor) are responsible for the telemetry on this patient. He is complaining of numbness in the right inner forearm(unable to feel needle prick). he has good pulses and warm to touch and sensation on the other parts of his arm. Dr. Andrea villalpando.
[2021-03-10] MEDS: methylPREDNISolone SOD SUCC PF 40 MG/ML VIAL. IV SCH ×2 (11:51→20:23)
--- NOTE | 2021-03-10 12:05 | PDOC2 ---
CHENG DURÁN AVERY 03/10/21 1205: CARDIAC CONSULT DATE OF CONSULT Date of Consult DATE: 03/10/21 TIME: 11:59 REASON FOR CONSULT Reason for Consult: Chest pain REFERRING PHYSICIAN Referring Physician: Haley Lyons APRN SOURCE Source: Chart review, Patient HISTORY OF PRESENT ILLNESS HISTORY OF PRESENT ILLNESS This is a 55 yo male who presented secondary to fall with right pain. Patient reports he was sitting watching television when he bagan feeling dizzy. Then developed pressure in his central chest. Was nauseated and slightly short of breath. Symptoms seems to subside so he got up from the chair. He began feeling dizzy again and subsequently passed out. He ended up falling to the ground on his right arm/side. Does think he lost consciousness briefly. Has has no further chest pain since arrival. No further syncopal episodes. No significant arrhythmias noted on tele. Reports having a cardiac cath a couple of years ago without intervention. PAST MEDICAL HISTORY Cardiovascular: HTN, Hyperlipidemia CENTRAL NERVOUS SYSTEM: Periperal neuropathy, Other (sciatica s/p laminectomy) GI: GERD Endocrine: Diabetes PAST SURGICAL HISTORY Past Surgical History: Other (back surgery ) FAMILY HISTORY Family History: Heart Disease SOCIAL HISTORY Social History Smoke: No ALCOHOL: occasional Drugs: None Lives: Alone CURRENT MEDICATIONS CURRENT MEDICATIONS Current Medications Medications (Trade) Dose Ordered Sig/Ramos Route PRN Reason Start Time Stop Time Status Last Admin Dose Admin Morphine Sulfate (Morphine Sulfate) 4 mg PRN Q15MIN PRN IV/SQ PAIN GREATER THAN 3/10 03/09/21 21:15 03/10/21 11:54 DC 03/09/21 22:15 Sodium Chloride 1,000 ml @ 1,000 mls/hr 1X ONCE IV 03/09/21 21:15 03/09/21 22:14 DC 03/09/21 21:17 Hydromorphone HCl (Dilaudid) 1 mg 1X ONCE IVP 03/09/21 23:00 03/09/21 23:01 DC 03/09/21 23:07 Morphine Sulfate (Morphine Sulfate) 4 mg PRN Q2HR PRN IVP PAIN 03/09/21 23:00 03/10/21 22:59 03/10/21 11:57 Labetalol HCl (Normodyne Iv Push) 10 mg 1X ONCE IVP 03/09/21 23:00 03/09/21 23:06 DC 03/10/21 00:04 Methylprednisolone Sodium Succinate (SOLU-Medrol 40MG VIAL) 40 mg Q12HR IV 03/10/21 11:00 03/10/21 11:51 ALLERGIES ALLERGIES: Coded Allergies: No Known Drug Allergies (Unverified , 06/02/18) ROS Review of System 14 point ROS conducted with pertinent positives noted above in HPI PHYSICAL EXAM PHYSICAL EXAM General: Alert, Oriented X3, Cooperative, No acute distress HEENT: Atraumatic, Mucous membr. moist/pink Lungs: Clear to auscultation, Normal air movement Heart: Regular rate (SR), Normal S1, Normal S2, No murmurs Abdomen: Soft, No tenderness Extremities: No cyanosis, No edema Skin: No breakdown, No significant lesion Neuro: Normal speech, Sensation intact Psych/Mental Status: Mental status NL, Mood NL MUSCULOSKELETAL: Osteoarthritic changes both hands VITALS/I&O VITALS/I&O: Vital Signs Date Time Temp Pulse Resp B/P (MAP) Pulse Ox O2 Delivery O2 Flow Rate FiO2 03/10/21 11:24 98.2 69 20 147/104 (118) 92 Room Air 98.2 I & O 03/09/21 03/09/21 03/10/21 15:00 23:00 07:00 Intake Total 222 ml Output Total 150 ml Balance 72 ml LABS Lab: Laboratory Tests Test 03/09/21 21:00 03/09/21 21:45 03/10/21 00:30 03/10/21 03:40 White Blood Count 5.2 x10^3/uL (4.0-11.0) 6.2 x10^3/uL (4.0-11.0) Red Blood Count 5.09 x10^6/uL (4.30-5.70) 4.78 x10^6/uL (4.30-5.70) Hemoglobin 15.6 g/dL (13.0-17.5) 14.7 g/dL (13.0-17.5) Hematocrit 45.0 % (39.0-53.0) 43.0 % (39.0-53.0) Mean Corpuscular Volume 88 fL (79-100) 90 fL (79-100) Mean Corpuscular Hemoglobin 31 pg (25-35) 31 pg (25-35) Mean Corpuscular Hemoglobin Concent 35 g/dL (31-37) 34 g/dL (31-37) Red Cell Distribution Width 14.9 % (11.5-14.5) H 14.8 % (11.5-14.5) H Platelet Count 254 x10^3/uL (140-400) 211 x10^3/uL (140-400) Neutrophils (%) (Auto) 31 % (31-73) 36 % (31-73) Lymphocytes (%) (Auto) 53 % (24-48) H 50 % (24-48) H Monocytes (%) (Auto) 10 % (0-9) H 8 % (0-9) Eosinophils (%) (Auto) 5 % (0-3) H 5 % (0-3) H Basophils (%) (Auto) 1 % (0-3) 1 % (0-3) Neutrophils # (Auto) 1.6 x10^3/uL (1.8-7.7) L 2.2 x10^3/uL (1.8-7.7) Lymphocytes # (Auto) 2.8 x10^3/uL (1.0-4.8) 3.1 x10^3/uL (1.0-4.8) Monocytes # (Auto) 0.5 x10^3/uL (0.0-1.1) 0.5 x10^3/uL (0.0-1.1) Eosinophils # (Auto) 0.3 x10^3/uL (0.0-0.7) 0.3 x10^3/uL (0.0-0.7) Basophils # (Auto) 0.0 x10^3/uL (0.0-0.2) 0.1 x10^3/uL (0.0-0.2) Sodium Level 143 mmol/L (136-145) 140 mmol/L (136-145) Potassium Level 3.9 mmol/L (3.5-5.1) 3.9 mmol/L (3.5-5.1) Chloride Level 105 mmol/L (98-107) 105 mmol/L (98-107) Carbon Dioxide Level 31 mmol/L (21-32) 29 mmol/L (21-32) Anion Gap 7 (6-14) 6 (6-14) Blood Urea Nitrogen 10 mg/dL (8-26) 10 mg/dL (8-26) Creatinine 1.6 mg/dL (0.7-1.3) H 1.3 mg/dL (0.7-1.3) Estimated GFR (Cockcroft-Gault) 54.2 68.8 BUN/Creatinine Ratio 6 (6-20) 8 (6-20) Glucose Level 89 mg/dL (70-99) 200 mg/dL (70-99) H Calcium Level 9.4 mg/dL (8.5-10.1) 8.5 mg/dL (8.5-10.1) Magnesium Level 2.3 mg/dL (1.8-2.4) Total Bilirubin 0.4 mg/dL (0.2-1.0) 0.3 mg/dL (0.2-1.0) Aspartate Amino Transferase (AST) 32 U/L (15-37) 23 U/L (15-37) Alanine Aminotransferase (ALT) 54 U/L (16-63) 43 U/L (16-63) Alkaline Phosphatase 59 U/L (46-116) 54 U/L (46-116) Troponin I Quantitative < 0.017 ng/mL (0.000-0.055) < 0.017 ng/mL (0.000-0.055) < 0.017 ng/mL (0.000-0.055) HD-Ock-L-Type Natriuretic Peptide 37 pg/mL (0-124) Total Protein 8.4 g/dL (6.4-8.2) H 6.7 g/dL (6.4-8.2) Albumin 3.8 g/dL (3.4-5.0) 3.2 g/dL (3.4-5.0) L Albumin/Globulin Ratio 0.8 (1.0-1.7) L 0.9 (1.0-1.7) L Lipase 88 U/L (73-393) Ethyl Alcohol Level < 10 mg/dL (0-10) Urine Collection Type Unknown Urine Color Yellow Urine Clarity Clear Urine pH 6.0 (<5.0-8.0) Urine Specific Orient 1.020 (1.000-1.030) Urine Protein Negative mg/dL (NEG-TRACE) Urine Glucose (UA) Negative mg/dL (NEG) Urine Ketones (Stick) Negative mg/dL (NEG) Urine Blood Negative (NEG) Urine Nitrite Negative (NEG) Urine Bilirubin Negative (NEG) Urine Urobilinogen Dipstick 0.2 mg/dL (0.2 mg/dL) Urine Leukocyte Esterase Negative (NEG) Urine RBC 0 /HPF (0-2) Urine WBC 0 /HPF (0-4) Urine Squamous Epithelial Cells Occ /LPF Urine Bacteria 0 /HPF (0-FEW) Urine Opiates Screen Pos (NEG) Urine Methadone Screen Neg (NEG) Urine Barbiturates Neg (NEG) Urine Phencyclidine Screen Neg (NEG) Urine Amphetamine/Methamphetamine Neg (NEG) Urine Benzodiazepines Screen Neg (NEG) Urine Cocaine Screen Neg (NEG) Urine Cannabinoids Screen Neg (NEG) Urine Ethyl Alcohol Neg (NEG) Laboratory Tests 03/09/21 21:00 03/10/21 03:40 Laboratory Tests 03/09/21 21:00 03/10/21 03:40 ECHOCARDIOGRAM ECHOCARDIOGRAM <Conclusion> The left ventricular systolic function is normal. The Ejection Fraction is 55%. There is normal LV segmental wall motion. Trace mitral regurgitation. Trace tricuspid regurgitation with an estimated PAP of 23 mmHg. There is no evidence of significant pericardial effusion. DATE: 02/08/19 1332 STRESS TEST STRESS TEST Conclusion 1. Regadenoson cardioisotope stress test did not show any evidence of ischemia or infarct. 2. Normal left ventricular systolic function with ejection fraction calculated at 58%. 3. Low risk for cardiac events. DATE: 02/08/19 1452 HEART CATH HEART CATH CARDIAC CATHETERIZATION REPORT DATE: 04/01/2019 FINDINGS OF DIAGNOSTIC ANGIOGRAPHY: Right coronary artery: The right coronary artery is a technically dominant, but overall medium-sized vessel. It arises normally from the right aortic sinus. It has mild plaquing at its midportion, but no significant stenosis. The RCA gives rise to a medium-size PDA, but no PLV comes off the RCA. No significant stenosis is seen. Left main coronary artery: The left main coronary artery is a medium-sized vessel arising normally from the left main coronary artery. It has no significant stenosis. Left anterior descending artery: The LAD is a large vessel that does reach the apex and wraps around it. The LAD in its very proximal portion has the origin of a small to medium-sized 1st diagonal branch that has mild plaquing without significant stenosis. Right after the origin of the 1st diagonal branch, the proximal LAD before the origin of the 1st septal product controller has mild ectasia and mild plaquing, with no more than 20% stenosis. A medium-sized 2nd diagonal bran ch comes off the mid LAD and has no significant stenosis. The rest of the LAD is widely patent with minimal luminal irregularities. Ramus intermedius: The ramus intermedius is a very large vessel. It arises normally from the left main coronary artery and has no significant stenosis. It supplies the entire lateral wall. Circumflex artery: The circumflex artery is relatively small because the ramus is so big. It has mild plaquing in its proximal portion causing about a diffuse 20% stenosis. It gives rise to a small 1st obtuse marginal branch and a medium to large-size distal obtuse marginal branch which has no significant stenosis. LV hemodynamics: LV systolic pressure was 144 mmHg. End-diastolic pressure was 14 mmHg, without a pullback gradient across the aortic valve. FINAL IMPRESSION: Mild coronary artery disease with plaquing and minimal ectasia of the left anterior descending. No significant angiographic stenosis. Normal left ventricular end-diastolic pressure. ASSESSMENT/PLAN ASSESSMENT/PLAN 1. Syncopal episode; possibly vasovagal. no acute events on tele 2. Chest pain, atypical; AMI ruled out 3. CAD; mild, nonobstructive per cath 2019 as noted above. 4. Hypertensive urgency; now controlled 5. Hyperlipidemia 6. Diabetes, II 7. IAN 8. Chronic back pain, sciatica Recommendations Echo to assess LV systolic function Lipids Orthos ASA. satin Outpatient ischemic evaluation Consider outpatient event monitor. KYLEE FLORES MD 03/10/21 1717: CARDIAC CONSULT ASSESSMENT/PLAN ASSESSMENT/PLAN Patient seen and examined. Agree with WINDER CONTORT OPERATOR's assessment and plan. Chest pain with atypical features. Myocardial infarction has been ruled out. Cardiac catheterization in 2019 showed mild nonobstructive coronary artery disease. Syncope most probably vasovagal. Telemetry did not show any significant arrhythmias so far. Check 2D echo to assess LV systolic function and rule out structural abnormalities. Plan outpatient event monitor recording to rule out any significant arrhythmias. Blood pressure better controlled since admission. Continue current medical regimen. Thank you for your consultation CHENG DURÁN APRN Mar 10, 2021 12:05 KYLEE FLORES MD Mar 10, 2021 17:17
--- NOTE | 2021-03-10 12:11 | NUR ---
morphine around 12 noon was scanned x2--lost vial and then found .it was administered only once
--- NOTE | 2021-03-10 12:22 | HP ---
ADMIT DATE: 03/10/2021 CHIEF COMPLAINT: Fall with right arm pain. HISTORY OF PRESENT ILLNESS: The patient is a pleasant middle-aged male who is well known to our service. Yesterday he fell, struck his arm on some concrete. He was concerned it might be broken. We did some imaging that did not show any fractures, but he does appear to have a radial nerve injury. He has got some numbness. I have discussed the case with ER physician. We are going to admit the patient and consult Orthopedics. I did call Dr. Mitchell, he is going to see the patient this afternoon. PAST MEDICAL HISTORY: CHF, diabetes, hypertension, renal disease, chronic pain, possible narcotic seeking questionable, lumbar compression fractures L5 and S1, cardiac catheterization without stent. ALLERGIES: None. FAMILY HISTORY: Coronary artery disease. SOCIAL HISTORY: Does not drink, smoke or take drugs. MEDICATIONS: Reviewed, please refer to the MRAD. REVIEW OF SYSTEMS: GENERAL: No history of weight change, weakness or fevers. SKIN: No bruising, hair changes or rashes. EYES: No blurred, double or loss of vision. NOSE AND THROAT: No history of nosebleeds, hoarseness or sore throat. HEART: No history of palpitations, chest pain or shortness of breath on exertion. LUNGS: Denies cough, hemoptysis, wheezing or shortness of breath. GASTROINTESTINAL: Denies changes in appetite, nausea, vomiting, diarrhea or constipation. GENITOURINARY: No history of frequency, urgency, hesitancy or nocturia. NEUROLOGIC: Denies history of numbness, tingling, tremor or weakness. PSYCHIATRIC: No history of panic, anxiety or depression. ENDOCRINE: No history of heat or cold intolerance, polyuria or polydipsia. EXTREMITIES: He complains of right arm pain and numbness. PHYSICAL EXAMINATION: VITALS: Within normal limits and are stable. GENERAL: No apparent distress. Alert and oriented. HEENT: Normal cephalic atraumatic, external auditory canals are patent. EYES: Extraocular muscles are intact, pupils are equally round and reactive to light and accommodation. MUSCULOSKELETAL: Well developed, well nourished, good range of motion. ENDOCRINE: No thyromegaly was palpated. LYMPHATICS: No cervical chain or axillary nodes were noted. HEMATOPOIETIC: No bruising. NECK: Supple, no JVD, no thyromegaly was noted. LUNGS: Clear to auscultation in all lung butler without rhonchi or wheezing. HEART: RRR, S1, S2 present. Peripheral pulses intact, no obvious murmurs were noted. ABDOMEN: Soft, nontender. Positive bowel sounds no organomegaly, normal bowel sounds. EXTREMITIES: The right arm does have some bruising. Please see the pictures. There is also some right arm swelling. NEUROLOGIC: Normal speech, normal tone. A and O x 3, moves all extremities, no obvious focal deficits. PSYCHIATRIC: Normal affect, normal mood. Stable. SKIN: No ulcerations or rashes, good skin turgor, no jaundice. VASCULAR: Good capillary refill, neurovascular bundle appears to be intact. LABORATORY DATA: Hematology is normal. Electrolytes are normal. Glucose is a little high at 200. Urinalysis negative. Drug screen positive for opiates. ASSESSMENT AND PLAN: Fall with right arm pain and bruising without any fractures noted on imaging. Suspect he has a radial nerve injury. The patient has been admitted. We will consult Orthopedics. Home venous thrombosis prophylaxis. Full code. PRN pain meds. ALBERT/CECELIA DR: ALBERT/joseluis TID: [id number]
--- NOTE | 2021-03-10 14:38 | PDOC2 ---
YAKELIN HODGE DO Mar 10, 2021 14:38
--- NOTE | 2021-03-10 14:41 | NUR ---
SW following. Chart reviewed, pt from home with spouse, room air, cardiac diet. Ortho and Cardiology following. No SW needs identified at this time. SW will continue to follow.
--- NOTE | 2021-03-10 15:56 | PDOC2 ---
Consult: Patient seen evaluated today in room 586 at the request of his admitting physician Dr. Mendez of whom I spoke with earlier today by phone. The patient apparently struck his arm on concrete on March 09. He was concerned due to pain that it may be broken. He was seen in the emergency department where x-rays revealed no acute fracture. At currently complains of moderate pain and swelling and some numbness over the radial aspect of his mid forearm. He complains of pain with movement of the elbow. Occasional shooting pain down into his forearm. Most of his pain he points to at the anteromedial aspect of his elbow. Review of systems is negative today with the exception of his current complaint of right upper extremity pain and numbness x12 point eval. Past medical surgical family and social history have been reviewed on the E HR as of today. Exam: No acute distress Alert and oriented to person place and time Heart is regular Chest reveals no wheeze Abdomen is soft Patient is neuro intact x4 extremities. Focused right upper extremity evaluation reveals moderate swelling and bruising over the distal upper arm and proximal forearm most notably medial. He does have dense sensation over the midportion of his radial forearm. Gentle range of motion reveals no significant blocks to range of motion. His distal biceps is intact to palpation. He has tenderness to palpation along the medial aspect of his elbow and upper arm. Hand and wrist range of motion is within normal limits. Diagnosis and plan: Right upper extremity contusion without fracture and without likely ligament or tendon tear. At this point he does have some range of motion notable swelling and some mild hypoesthesia over the area of the lateral antebrachial cutaneous distribution. At this point I recommended some steroids over the next 24 hours as well as pain control as needed. I encouraged him to do gentle range of motion. I would like to see how the his symptoms progress over the next 24 hours. He does not appear to be at risk for any compartment syndrome at least at this current time. YAKELIN HODGE DO Mar 10, 2021 3:56 pm
[2021-03-10 16:32] LABS: CHOLESTEROL/HDL RATIO 6.7
[2021-03-10] MEDS ORDERED: ACETAMINOPHEN 325 MG TABLET. PO PRN (19:15)
[2021-03-10] MEDS ORDERED: ONDANSETRON PF 4 MG/2 ML VIAL. IVP PRN (19:15)
[2021-03-10] MEDS: MORPHINE SULFATE 4 MG/ML INJ. IV PRN ×2 (20:24→22:51)
[2021-03-10] MEDS ORDERED: ATORVASTATIN CALCIUM 40 MG TABLET. PO SCH (21:00)
[2021-03-11] MEDS: MORPHINE SULFATE 4 MG/ML INJ. IV PRN (01:21)
[2021-03-11] MEDS ORDERED: diphenhydrAMINE 50 MG/ML VIAL IVP PRN (02:45)
[2021-03-11] MEDS ORDERED: fentaNYL PF VIAL 100 MCG/2 ML VIAL IM ONE (02:45)
[2021-03-11] MEDS ORDERED: diphenhydrAMINE HCL 25 MG CAPSULE PO PRN (02:45)
[2021-03-11] MEDS ORDERED: fentaNYL PF VIAL 100 MCG/2 ML VIAL IVP ONE (03:00)
[2021-03-11] MEDS: hydrALAZINE 20 MG/ML VIAL. IVP PRN ×2 (03:01→09:26)
[2021-03-11 03:52] VITALS: BP 158/111
[2021-03-11] MEDS: fentaNYL PF VIAL 100 MCG/2 ML VIAL IVP PRN ×2 (05:47→08:19)
[2021-03-11 07:00] VITALS: BP 172/98
[2021-03-11] MEDS ORDERED: ASPIRIN ENTERIC COATED 81 MG TABLET.DR. PO SCH (08:00)
[2021-03-11] MEDS: methylPREDNISolone SOD SUCC PF 40 MG/ML VIAL. IV SCH (08:18)
--- NOTE | 2021-03-11 08:40 | CARD ---
MR#: [id number] Date of Study: 03/10/2021 Ordering Physician: CHENG DURÁN, Referring Physician: CHENG DURÁN, Tech: Susannah Antoine, [facility] APPROVED REPORT EXAM: Two-dimensional and M-mode echocardiogram with Doppler and color Doppler. Other Information Quality : AverageHR: 63bpm INDICATION Chest Pain Syncope 2D DIMENSIONS Left Atrium(2D)3.1 (1.6-4.0cm)IVSd1.2 (0.7-1.1cm) Aortic Root(2D)3.2 (2.0-3.7cm)LVDd4.9 (3.9-5.9cm) LVOT Diameter2.1 (1.8-2.4cm)PWd1.3 (0.7-1.1cm) LVDs3.3 (2.5-4.0cm)FS (%) 30.5 % SV61.1 mlLVEF(%)57.9 (>50%) Aortic Valve AoV Peak Marquise.141.1cm/sAoV VTI27.8cm AO Peak GR.8.0mmHgLVOT VTI 27.19cm AO Mean GR.4mmHg Mitral Valve MV E Dmhhdjgi79.7cm/sMV DECEL [id number] MV A Raamvvjx95.3cm/sE/A Ratio1.0 TDI Lateral E' P. V8.50cm/sMedial E' P. V7.53cm/s E/Lateral E'8.1E/Medial E'9.1 Tricuspid Valve TR P. [id number]/sRAP [id number] TR Peak Gr.[id number] LEFT VENTRICLE The left ventricle is normal size. There is mild to moderate concentric left ventricular hypertrophy. The left ventricular systolic function is normal. The Ejection Fraction is 55-60%. There is normal L V segmental wall motion. Transmitral Doppler flow pattern is Grade II-pseudonormal filling dynamics. RIGHT VENTRICLE The right ventricle is normal size. The right ventricle is borderline hypertrophied. The right ventri cular systolic function is normal. ATRIA The left atrium is borderline dilated. The right atrium is mildly dilated. The interatrial septum is intact with no evidence for an atrial septal defect or patent foramen ovale as noted on 2-D or Dopple r imaging. AORTIC VALVE The aortic valve is normal in structure and function. Doppler and Color Flow revealed no significant aortic regurgitation. There is no significant aortic valvular stenosis. Calculated aortic valve area is 3.31 cm2 with maximum pressure gradient of 9 mmHg and mean pressure gradient of 5 mmHg. MITRAL VALVE The mitral valve is normal in structure and function. There is no evidence of mitral valve prolapse. There is no mitral valve stenosis. Doppler and Color-flow revealed trace mitral regurgitation. TRICUSPID VALVE The tricuspid valve is normal in structure and function. Doppler and Color Flow revealed trace tricus pid regurgitation with an estimated PAP of 38 mmHg. There is no tricuspid valve stenosis. PULMONIC VALVE The pulmonary valve is normal in structure and function. Doppler and Color Flow revealed no pulmonic valvular regurgitation. GREAT VESSELS The aortic root is normal in size. The IVC is dilated. PERICARDIAL EFFUSION There is no evidence of significant pericardial effusion. Critical Notification Critical Value: No <Conclusion> The left ventricular systolic function is normal. The Ejection Fraction is 55-60%. There is normal LV segmental wall motion. Trace mitral regurgitation. Trace tricuspid regurgitation with an estimated PAP of 38 mmHg. There is no evidence of significant pericardial effusion. Signed by : Ryan Suazo, Electronically Approved : 03/11/2021 08:39:35
[2021-03-11] MEDS ORDERED: LISI20TA18 PO (09:29)
[2021-03-11 11:00] VITALS: BP 146/99
--- NOTE | 2021-03-11 11:54 | PDOC ---
LUIS ARMANDOCHENG GOODMAN AVERY 03/11/21 1154: CARDIO Progress Notes Date and Time Date of Service 03/11/21 Time of Evaluation 1115 Subjective Subjective: No Chest Pain, No shortness of breath, No Palpitations Vitals Vitals Vital Signs Date Time Temp Pulse Resp B/P (MAP) Pulse Ox O2 Delivery O2 Flow Rate FiO2 03/11/21 11:00 98.6 91 17 146/99 (115) 95 Room Air 98.6 Weight Weight [ ] Input and Output Intake and Output Intake and Output 03/11/21 07:00 Intake Total 360 ml Output Total 975 ml Balance -615 ml Intake Oral 360 ml Output Urine Total 975 ml Physical Exam HEENT: Neck Supple W Full Motion Chest: Symmetric LUNGS: Clear to Auscultation Heart: RRR Abdomen: Soft N/T Neurology: alert, oriented, follow commands Assessment Assessment 1. Syncopal episode; possibly vasovagal. no acute events on tele. Echo with preserved LV systolic function. orthos negative 2. Chest pain, atypical; AMI ruled out 3. CAD; mild, nonobstructive per cath 2019 as noted above. 4. Hypertensive urgency; now controlled 5. Hyperlipidemia 6. Diabetes, II 7. IAN 8. Chronic back pain, sciatica Recommendations ASA. satin Outpatient event monitor as arranged. Consider outpatient ischemic evaluation Follow up in our office with Dr. Suazo as scheduled. Justicifation of Admission Dx: Justifications for Admission: Justification of Admission Dx: Yes Comments: chest pain syncope KYLEE SUAZO MD 03/12/21 1249: CARDIO Progress Notes Assessment Assessment Patient seen and examined 03/11/21. Agree with REELING MACHINE SETUP OPERATOR's assessment and plan. Chest pain with atypical features. Myocardial infarction has been ruled out. Cardiac catheterization in 2019 showed mild nonobstructive coronary artery disease. Syncope most probably vasovagal. Telemetry did not show any significant arrhythmias so far. 2D echo showed normal LV systolic function. Plan outpatient event monitor recording to rule out any significant arrhythmias. Blood pressure better controlled since admission. Continue current medical regimen. CHENG DURÁN APRN Mar 11, 2021 11:54 KYLEE SUAZO MD Mar 12, 2021 12:49
--- NOTE | 2021-03-11 12:23 | PDOC ---
[employer] PROGRESS NOTE Date of Service DOS: DATE: 03/11/21 TIME: 12:13 Chief Complaint Chief Complaint Fall RUE Pain Chest pain Dizziness History of Present Illness History of Present Illness 03/11/21 Pt seen and examined at bedside Pt states he still cannot feel his arm Pt was in NAD but concerned about his pain Pain management solutions were d/w pt D/W RN Chart reviewed The patient is a pleasant middle-aged male who is well known to our service. Yesterday he fell, struck his arm on some concrete. He was concerned it might be broken. We did some imaging that did not show any fractures, but he does appear to have a radial nerve injury. He has got some numbness. I have discussed the case with ER physician. We are going to admit the patient and consult Orthopedics. I did call Dr. Mitchell, he is going to see the patient this afternoon. Vitals/I&O Vitals/I&O: Vital Signs Date Time Temp Pulse Resp B/P (MAP) Pulse Ox O2 Delivery O2 Flow Rate FiO2 03/11/21 11:00 98.6 91 17 146/99 (115) 95 Room Air 98.6 I & O 03/10/21 03/10/21 03/11/21 15:00 23:00 07:00 Intake Total 360 ml Output Total 650 ml 325 ml Balance -650 ml 35 ml Physical Exam General: Alert, Oriented X3 Heart: Regular rate, Normal S1 Lungs: Clear Abdomen: Normal bowel sounds, Soft Extremities: No clubbing, No cyanosis Skin: No significant lesion, Other (bruise like lesion on right upper arm ) Review of Systems Review of Systems: Pt denied N/V Pt denies SOB Assessment and Plan Assessmemt and Plan 03/11/21 Assessment: Lateral Antebrachial Cutaneous n lesion Possible compartment syndrome Fall RUE Pain Chest Pain Dizziness Plan: Continue steroid and pain Rx Give Norvasc for BP PTOT DVT Prophylaxis Appreciate subspecialty input Continue monitoring pain Problems Medical Problems: (1) Contusion, upper extremity Status: Acute (2) Dizziness Status: Acute (3) Fall from standing Status: Acute Comment Review of Relevant I have reviewed the following items oly (where applicable) has been applied. Medications: Current Medications Medications (Trade) Dose Ordered Sig/Ramos Route PRN Reason Start Time Stop Time Status Last Admin Dose Admin Aspirin (Ecotrin) 81 mg [id number] PO 8/10/21 08:00 03/11/21 08:18 Atorvastatin Calcium (Lipitor) 40 mg QHS PO 03/10/21 21:00 03/10/21 20:22 Morphine Sulfate (Morphine Sulfate) 4 mg PRN Q2HR PRN IV MODERATE PAIN 03/10/21 19:15 03/11/21 01:21 Hydralazine HCl (Apresoline Inj) 10 mg PRN Q4HRS PRN IVP ELEVATED BP, SEE COMMENTS 03/11/21 02:45 03/11/21 09:26 Diphenhydramine HCl (Benadryl) 25 mg PRN Q6HRS PRN IVP ITCHING 03/11/21 02:45 03/11/21 03:02 Diphenhydramine HCl (Benadryl) 25 mg PRN Q6HRS PRN PO ITCHING 03/11/21 02:45 03/11/21 08:18 Fentanyl Citrate (Fentanyl 2ml Vial) 50 mcg 1X ONCE IVP 03/11/21 03:00 03/11/21 03:01 DC 03/11/21 03:01 Fentanyl Citrate (Fentanyl 2ml Vial) 50 mcg PRN Q2HR PRN IVP PAIN SEVERE 03/11/21 05:45 03/11/21 08:19 Justifications for Admission Other Justification DAVID GAYTAN III DO Mar 11, 2021 12:23
[2021-03-11] MEDS ORDERED: ATOR40TA59 PO (13:00)
[2021-03-11] MEDS ORDERED: OXYC1TAB22 PO (13:00)
--- NOTE | 2021-03-11 14:11 | DS ---
DATE OF DISCHARGE: 03/11/2021 ADMITTING DIAGNOSIS: Fall with right arm injury. DISCHARGE DIAGNOSIS: Resolving right arm injury after a fall (orthopedics feels he has a lateral anterior brachial/cutaneous nerve injury. PROCEDURES: None. CONSULTS: Orthopedics. HOSPITAL COURSE: The patient is a pleasant middle-aged male, well known to our service. He presented after falling. He had a right arm injury, was swollen. It was bruised, but imaging did not show any fractures. We admitted the patient, gave him IV pain meds and fluids. Consult orthopedics. Orthopedics recommended steroids. They feel like this is a nerve injury, in particular a lateral antibrachial/cutaneous nerve injury. Clinically, the patient is doing well today. I saw and examined him. He is at his baseline. We plan to discharge on steroids and p.r.n. Percocet. DISPOSITION: Home. ACTIVITY: As tolerated. DIET: Low sodium. DISCHARGE MEDICATIONS: Please see the MRAD. 1. Medrol Dosepak. 2. Percocet 10 q.6h. p.r.n. 3. We stopped his home lisinopril. We put him on Norvasc 10 mg p.o. daily. TOTAL TIME: 31 minutes. [facility] [place]: ALBERT/joseluis TID: [id number]
--- NOTE | 2021-03-11 15:00 | NUR ---
Discharge Note: DAYA DHILLON [facility] Discharge instructions and discharge home medications reviewed with Patient and a copy given. All questions have been answered and understanding verbalized. The following instructions and handouts were given: f/u with pcp within one week Discontinued lines and drains: Peripheral IV intact. Patient discharged to Home or Self Care with Family Member via Wheelchair
== END 2021-03-11 15:00 | disposition home or self-care (01) | DRG 913 ==
LOC: ER 20:48 → 5 SOUTH 03-10 00:12
PROVIDERS: ADMIT Family Medicine; ATTEND Family Medicine
DX: S49.91XA Unspecified injury of right shoulder and upper arm, initial encounter (principal); N17.0 Acute kidney failure with tubular necrosis; E11.9 Type 2 diabetes mellitus without complications; E78.00 Pure hypercholesterolemia, unspecified; E78.5 Hyperlipidemia, unspecified; G89.29 Other chronic pain; I11.0 Hypertensive heart disease with heart failure; I16.0 Hypertensive urgency; I25.10 Atherosclerotic heart disease of native coronary artery without angina pectoris; I50.9 Heart failure, unspecified; K21.9 Gastro-esophageal reflux disease without esophagitis; R07.89 Other chest pain; W01.0XXA Fall on same level from slipping, tripping and stumbling without subsequent striking against object, initial encounter; Y93.89 Activity, other specified; Z82.49 Family history of ischemic heart disease and other diseases of the circulatory system; Y92.89 Other specified places as the place of occurrence of the external cause; Y99.8 Other external cause status
CPT/HCPCS: 36415; 70450; 71045; 72125; 73030; 73080; 73090; 73130; 80053; 80061; 80307; 81001; 83690; 83735; 83880; 84484; 85025; 93005; 93306; 96361; 96374; 96375; G0480; J0360; J1170; J1200; J2270; J2920; J3010; J3490; J7030; 99285-25; G0378; Q0163

== ENCOUNTER 2021-06-11 15:31 | Observation (INO) | payer MEDICAID ==
[~2021-06-11] VITALS: Ht 180.3 cm; Wt 120.0 kg
[~2021-06-11 15:31] MED LIST changes: +CYCL10TA19 PO; -CYCL10TA2 PO; -LISI-517 PO; -LISI1TAB20 PO; +LISI1TAB39 PO; +LISI20TA18 PO; +LISI5TAB15 PO; +OXYC1TAB22 PO
--- NOTE | 2021-06-11 16:28 | PHYS DOC ---
Past Medical History Past Medical History: CHF, Diabetes-Type II, High Cholesterol, Hypertension, Renal Disease Additional Past Medical Histor: Chronic back pain Past Surgical History: Other Additional Past Surgical Histo: Lumbar decompression L-5-S1 on 06/02/18, CARDIAC CATH W/O STENT Smoking Status: Former Smoker Alcohol Use: None Drug Use: None General Adult EDM: Chief Complaint: HYPERTENSION HPI: HPI: Patient is a 56 year old male who presents with yesterday began having chest pressure, shortness of breath, " foggy" minded. He has been taking lisinopril but does not have a primary care doctor so he has been taking a friend of his lisinopril. He states he has been taking 20 mg a day. He states yesterday he tried taking 40 mg a day. He states he does not not feel well. Poor historian. Rates his discomfort at an 8 out of 10. States he has had some nausea but no vomiting. Denies abdominal pain, vomiting, diarrhea, fever, cough, numbness or tingling, focal weakness, syncope, vision change, trouble urinating. Patient is a poor historian but in our chart it states that he has chronic back pain, former smoker, CHF, diabetes, high cholesterol, hypertension, renal disease and he has had a cardiac cath but there was no stent placed. Review of Systems: Review of Systems: Constitutional: Denies fever or chills. [] Eyes: Denies change in visual acuity. [] HENT: Denies nasal congestion or sore throat. [] Respiratory: Denies cough or +shortness of breath. [] Cardiovascular: +chest pain or denies edema. [] GI: Denies abdominal pain, nausea, vomiting, bloody stools or diarrhea. [] : Denies dysuria. + Right testicle swelling and tenderness [] Musculoskeletal: Denies back pain or joint pain. [] Integument: Denies rash. [] Neurologic: Denies headache, focal weakness or sensory changes. + Dizziness [] Endocrine: Denies polyuria or polydipsia. [] Lymphatic: Denies swollen glands. [] Psychiatric: Denies depression or anxiety. [] Heart Score: C/O Chest Pain: Yes HEART Score for Chest Pain: HEART Score for Chest Pain Response (Comments) Value History Slighlty/Non-Suspicious 0 ECG Nonspecific Repolarizatio 1 Age >45 - < 65 1 Risk Factors >3 Risk Factors or Hx CAD 2 Troponin < Normal Limit 0 Total 4 Risk Factors: Risk Factors: DM, Current or recent (<one month) smoker, HTN, HLP, family history of CAD, obesity. Risk Scores: Score 0 - 3: 2.5% MACE over next 6 weeks - Discharge Home Score 4 - 6: 20.3% MACE over next 6 weeks - Admit for Clinical Observation Score 7 - 10: 72.7% MACE over next 6 weeks - Early Invasive Strategies Current Medications: Current Medications Medications (Trade) Dose Ordered Sig/Ramos Start Time Stop Time Status Last Admin Dose Admin Aspirin (Vimal Aspirin) 325 mg 1X ONCE 06/11/21 16:30 06/11/21 16:31 Nitroglycerin (Nitrostat) 0.4 mg PRN Q5MIN PRN 06/11/21 16:30 Allergies: Allergies: Allergies Coded Allergies Type Severity Reaction Last Updated Verified No Known Drug Allergies 06/02/18 No Physical Exam: PE: Constitutional: Well developed, well nourished, no acute distress, non-toxic appearance. [] HENT: Normocephalic, atraumatic, bilateral external ears normal, oropharynx moist, no oral exudates, nose normal. [] Eyes: PERRLA, EOMI, conjunctiva normal, no discharge. [] Neck: Normal range of motion, no tenderness, supple, no stridor. [] Cardiovascular:Heart rate regular rhythm, no murmur [] Lungs & Thorax: Bilateral upper breath sounds clear and lower diminished to auscultation [] Abdomen: Bowel sounds normal, soft, no tenderness, no masses, no pulsatile masses. Right testicle enlarged and tender without cellulitis [] Skin: Warm, dry, no erythema, no rash. [] Back: No tenderness, no CVA tenderness. [] Extremities: No tenderness, no cyanosis, no clubbing, ROM intact, no edema. [] Neurologic: Alert and oriented X 3, normal motor function, normal sensory function, no focal deficits noted. [] Psychologic: Affect normal, judgement normal, mood normal. [] EKG: EK read by Dr. Marie is sinus rhythm but no STEMI. Radiology/Procedures: Radiology/Procedures: [] Impression: [facility] [address] [place] [address] IMAGING REPORT Signed PATIENT: DAYA DHILLONUNT: [id number] : 1965 LOCATION: ER AGE: 56 SEX: M EXAM STATUS: REG ER ORD. PHYSICIAN: ZEV SHAH APRN REASON: CHEST PAIN, SOA PROCEDURE: PORTABLE CHEST 1V XR CHEST 1V CLINICAL INDICATIONS: Reason: CHEST PAIN, shortness of air COMPARISON: March 09, 2021. Findings: No acute lung infiltrate or pleural effusion or pulmonary edema or lung mass or pneumothorax is seen. The heart size, pulmonary vasculature, mediastinum and both sonya are unremarkable. IMPRESSION: No acute radiographic abnormality is seen. Electronically signed by: Nida Chan MD (06/11/2021 4:40 PM) [id number] DICTATED and SIGNED BY: NIDA CHAN MD DATE: 06/11/21 [id number] 0 [facility] [address] [place] [address] IMAGING REPORT Signed PATIENT: DAYA DHILLONCOUNT: [id number] : 1965 LOCATION: ER AGE: 56 SEX: M EXAM STATUS: REG ER ORD. PHYSICIAN: ZEV SHAH APRN REASON: DIZZINESS PROCEDURE: CT HEAD WO CONTRAST CT scan of the head without contrast 06/11/2021 Clinical History: Dizziness Technique: Unenhanced, contiguous, 5 mm axial sections were obtained through the head. One or more of the following individualized dose reduction techniques were utilized for this study: 1. Automated exposure control. 2. Adjustment of the mA and/or kV according to patient size. 3. Use of iterative reconstruction technique. Findings: Comparison study is dated 03/09/2021. The ventricles and sulci are within normal limits in size and configuration. No acute parenchymal abnormality is seen. No extra-axial fluid collection is noted. No skull fracture is seen. Impression: No acute intracranial abnormality is seen. Electronically signed by: Beau Garcias MD (06/11/2021 5:09 PM) [id number] DICTATED and SIGNED BY: BEAU GARCIAS MD DATE: 06/11/[id number] 0 [facility] [address] [place] [address] IMAGING REPORT Signed PATIENT: DAYA DHILLONUNT: [id number] : 1965 LOCATION: ER AGE: 56 SEX: M EXAM STATUS: REG ER ORD. PHYSICIAN: ZEV SHAH APRN REASON: RIGHT TESTICLE SWELLING, PAIN PROCEDURE: TESTICULAR/SCROTUM Scrotal ultrasound 06/11/2021 CLINICAL HISTORY: Scrotal swelling. TECHNIQUE: Using a combination real-time ultrasound imaging and color-flow and pulse Doppler imaging techniques, duplex evaluation of scrotal sac and its contents was performed. Multiple images were obtained. FINDINGS: Both testicles are within normal limits in size and echogenicity. The right testicle measures 3.4 x 2.9 x 2.5 cm in longitudinal, transverse, and AP dimensions. The left testicle measures 3.0 x 2.8 x 2.5 cm in size. No focal abnormality of either testicle is seen. Normal color-flow and pulse Doppler imaging to both testicles is seen. Both epididymal heads are within normal limits in size and echogenicity. There are large hydroceles bilaterally. No varicocele is seen. IMPRESSION: Large bilateral hydroceles. Electronically signed by: Beau Garcias MD (06/11/2021 6:19 PM) [id number] DICTATED and SIGNED BY: BEAU GARCIAS MD DATE: 06/11/[id number] 0 Course & Med Decision Making: Course & Med Decision Making Pertinent Labs and Imaging studies reviewed. (See chart for details) See HPI. Alert and oriented x4. Ambulatory steady gait. Speaks in full clear sentences. Right testicle swelling 2+ with tenderness but there is no cellulitis. He states he is not having trouble urinating. He states is been like this for years but is growing bigger. Patient states he was never diagnosed with it but yet states that " they said it would go down". EKG does n ot show a STEMI. I have ordered nitroglycerin sublingual to see if it helps with chest pain and also help bring down his blood pressure. No extremity swelling. Obesity. Lungs are clear in upper lobes but diminished in lower lobes. Skin pink warm and dry. 1735: 2 nitroglycerin given and there was no relief. Patient will refuse the third nitro. Blood work unremarkable. When looking back his ejection fraction of his left ventricle was 58% in 2019. Ultrasound of scrotum shows hydroceles. Patient's blood pressure is still very high. He is given hydralazine as the nitro did not bring down his blood pressure. [] Dragon Disclaimer: Dragon Disclaimer: This electronic medical record was generated, in whole or in part, using a voice recognition dictation system. Departure Departure Impression: Primary Impression: Hypertensive emergency Additional Impressions: Chest pain Qualified Codes: R07.9 - Chest pain, unspecified Hydrocele Qualified Codes: N43.3 - Hydrocele, unspecified Disposition: ADMITTED INPATIENT Admitting Physician: SOPHIE Condition: STABLE Referrals: DENISE OCONNELL (PCP) ZEV SHAH INSULATION CUPOLA CHARGER Jun 11, 2021 16:28
[2021-06-11] MEDS ORDERED: ASPIRIN 325 MG TABLET PO ONE (16:30)
--- NOTE | 2021-06-11 16:37 | EKG ---
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
--- NOTE | 2021-06-11 16:43 | RAD ---
XR CHEST 1V CLINICAL INDICATIONS: Reason: CHEST PAIN, shortness of air COMPARISON: March 09, 2021. Findings: No acute lung infiltrate or pleural effusion or pulmonary edema or lung mass or pneumothora x is seen. The heart size, pulmonary vasculature, mediastinum and both sonya are unremarkable. IMPRESSION: No acute radiographic abnormality is seen. Electronically signed by: Lyle Chan MD (06/11/2021 4:40 PM) [id number]
[2021-06-11] MEDS: NITROGLYCERIN SUBLINGUAL 0.4 MG BOTTLE OF 25. SL PRN ×2 (16:49→17:10)
[2021-06-11 16:54] LABS: BASO # 0.1 x10^3/uL (0.0-0.2); BASO % 1 % (0-3); EOS # 0.3 x10^3/uL (0.0-0.7); EOS % 7 % (0-3); HEMATOCRIT 44.9 % (39.0-53.0); HEMOGLOBIN 15.3 g/dL (13.0-17.5); LYMPH # 2.3 x10^3/uL (1.0-4.8); LYMPH % 51 % (24-48); MEAN CORPUSCULAR HEMOGLOBIN 30 pg (25-35); MEAN CORPUSCULAR HGB CONC 34 g/dL (31-37); MEAN CORPUSCULAR VOLUME 88 fL (79-100); MONO # 0.4 x10^3/uL (0.0-1.1); MONO % 9 % (0-9); NEUT # 1.5 x10^3/uL (1.8-7.7); NEUT % 32 % (31-73); PLATELET COUNT 250 x10^3/uL (140-400); RED BLOOD COUNT 5.08 x10^6/uL (4.30-5.70); RED CELL DISTRIBUTION WIDTH 14.7 % (11.5-14.5); WHITE BLOOD COUNT 4.5 x10^3/uL (4.0-11.0)
[2021-06-11 17:11] LABS: CALCIUM 8.2 mg/dL (8.5-10.1); CREATININE 1.2 mg/dL (0.7-1.3); GFR 75.2; POTASSIUM 3.5 mmol/L (3.5-5.1)
--- NOTE | 2021-06-11 17:11 | RAD ---
CT scan of the head without contrast 06/11/2021 Clinical History: Dizziness Technique: Unenhanced, contiguous, 5 mm axial sections were obtained through the head. One or more of the following individualized dose reduction techniques were utilized for this study: 1. Automated exposure control. 2. Adjustment of the mA and/or kV according to patient size. 3. Use of iterative reconstruction technique. Findings: Comparison study is dated 03/09/2021. The ventricles and sulci are within normal limits in size and configuration. No acute parenchymal abn ormality is seen. No extra-axial fluid collection is noted. No skull fracture is seen. Impression: No acute intracranial abnormality is seen. Electronically signed by: Beau Garcias MD (06/11/2021 5:09 PM) [id number]
[2021-06-11] MEDS ORDERED: fentaNYL PF VIAL 100 MCG/2 ML VIAL IVP ONE (17:15)
[2021-06-11 17:18] LABS: ALBUMIN 3.4 g/dL (3.4-5.0); ALBUMIN/GLOBULIN RATIO 0.8 (1.0-1.7); TOTAL BILIRUBIN 0.3 mg/dL (0.2-1.0); TOTAL PROTEIN 7.5 g/dL (6.4-8.2)
[2021-06-11 17:36] LABS: BILIRUBIN,URINE NEGATIVE (NEG); CLARITY,URINE CLEAR; COLOR,URINE YELLOW; NITRITE,URINE NEGATIVE (NEG); PROTEIN,URINE NEGATIVE (NEG-TRACE)
[2021-06-11 17:42] LABS: BARBITURATES NEG (NEG); BENZODIAZEPINES NEG (NEG); CANNABINOIDS NEG (NEG); COCAINE NEG (NEG); METHADONE NEG (NEG); OPIATES POS (NEG); PHENCYCLIDINE NEG (NEG)
[2021-06-11 17:43] LABS: AMPHETAMINE/METHAMPHETAMINE NEG (NEG)
[2021-06-11 18:00] LABS: BACTERIA,URINE FEW /HPF (0-FEW); RBC,URINE 0 /HPF (0-2); WBC,URINE OCC /HPF (0-4)
--- NOTE | 2021-06-11 18:22 | RAD ---
Scrotal ultrasound 06/11/2021 CLINICAL HISTORY: Scrotal swelling. TECHNIQUE: Using a combination real-time ultrasound imaging and color-flow and pulse Doppler imaging techniques, duplex evaluation of scrotal sac and its contents was performed. Multiple images were obt ained. FINDINGS: Both testicles are within normal limits in size and echogenicity. The right testicle measur es 3.4 x 2.9 x 2.5 cm in longitudinal, transverse, and AP dimensions. The left testicle measures 3.0 x 2.8 x 2.5 cm in size. No focal abnormality of either testicle is seen. Normal color-flow and pulse Doppler imaging to both testicles is seen. Both epididymal heads are within normal limits in size and echogenicity. There are large hydroceles bilaterally. No varicocele is seen. IMPRESSION: Large bilateral hydroceles. Electronically signed by: Beau Garcias MD (06/11/2021 6:19 PM) [id number]
[2021-06-11] MEDS ORDERED: hydrALAZINE 20 MG/ML VIAL. IVP ONE (18:45)
--- NOTE | 2021-06-11 20:10 | NUR ---
The patient, DAYA DHILLON, 56 y/o, M admitted by DAVID GAYTAN III, DO, was given written information regarding hospital policies, unit procedures and contact persons. Valuables were checked and DOCUMENTED IN THE COMPUTER. JUN IVERSON .
[2021-06-11] MEDS: FUROSEMIDE 40 MG/4 ML VIAL. IVP SCH (20:37)
[2021-06-11] MEDS: MORPHINE SULFATE 2 MG/ML INJ. IVP PRN ×2 (20:38→23:10)
[2021-06-11 22:00] VITALS: BP 182/85
[2021-06-11 23:24] VITALS: BP 162/90
--- NOTE | 2021-06-11 23:53 | NUR ---
RECEIVED CALL BACK FROM DR HANLEY. EXPLAINED PT ITCHING SEEMS LIKE AFTER MORPHIN. PT ROLLING IN BED ABOUT ABD HURTING , AND BACK. BACK RADIATES DOWN LEGS. HE SAID SCIATICA. SEE ORDERS. LCRN
[2021-06-12] MEDS ORDERED: fentaNYL PF VIAL 100 MCG/2 ML VIAL IVP PRN (00:15)
[2021-06-12] MEDS ORDERED: ONDANSETRON PF 4 MG/2 ML VIAL. IVP PRN (00:15)
[2021-06-12] MEDS ORDERED: diphenhydrAMINE 50 MG/ML VIAL IVP ONE (00:15)
[2021-06-12] MEDS ORDERED: CALCIUM CARBONATE 500 MG TAB.CHEW PO PRN (00:15)
[2021-06-12] MEDS ORDERED: IBUP200T44 PO (00:36)
[2021-06-12] MEDS ORDERED: CALC300T5 PO (00:37)
--- NOTE | 2021-06-12 02:45 | HP ---
DATE OF SERVICE: 06/11/2021 ADMIT DATE: 06/11/2021 CHIEF COMPLAINT: Chest pain, out of medicines, elevated blood pressure, and swollen testicles. HISTORY OF PRESENT ILLNESS: The patient is a pleasant 56-year-old male, well known to our service. He presents today with some chest pain. He has been out of his medicines for quite some time. He states it is causing mental status changes. He was supposed to be taking lisinopril at least 20-40 a day. He has been taking some medicine. Rates his symptoms as 03/11. I discussed the case with ER physicians, pressures are in the 200s. He is also becoming encephalopathic. We are going to admit the patient and get his blood pressure down and give him some pain meds. PAST MEDICAL HISTORY: CHF, diabetes, hypertension, hyperlipidemia, chronic renal insufficiency, chronic pain, probable narcotic dependence?, lumbar decompression at L5 and S1, cardiac catheterization without stents, previous tobacco abuse. ALLERGIES: None. FAMILY HISTORY: Diabetes. SOCIAL HISTORY: Does not drink, smoke or take drugs (he quit smoking). MEDICATIONS: Reviewed, please refer to the MRAD. REVIEW OF SYSTEMS: Unable to obtain. He is too upset and somewhat confused. PHYSICAL EXAMINATION: VITALS: Within normal limits and are stable. GENERAL: He is very upset. He seems to be hyperventilating. HEENT: Normal cephalic atraumatic, external auditory canals are patent EYES: Extraocular muscles are intact, pupils are equally round and reactive to light and accommodation :MUSCULOSKELETAL Well developed, well nourished, good range of motion ENDOCRINE: No thyromegaly was palpated LYMPHATICS: No cervical chain or axillary nodes were noted HEMATOPOIETIC: No bruising NECK: Supple, no JVD, no thyromegaly was noted. LUNGS: Clear to auscultation in all lung butler without rhonchi or wheezing. HEART: RRR, S1, S2 present. Peripheral pulses intact, no obvious murmurs were noted. ABDOMEN: Soft, nontender. Positive bowel sounds no organomegaly, normal bowel sounds. EXTREMITIES: Without any cyanosis, clubbing, or edema. Pedal pulses intact, Homans sign is negative. NEUROLOGIC: Very upset. He seems to be hyperventilating. PSYCHIATRIC: Very upset. He seems to be hyperventilating. SKIN: No ulcerations or rashes, good skin turgor, no jaundice. VASCULAR: Good capillary refill, neurovascular bundle appears to be intact. GENITALIA: His testicles are swollen. LABORATORY AND DIAGNOSTIC DATA: Electrolytes are normal. Calcium is a little low at 8.2. Hematology is normal. Urinalysis negative. Drug screen positive for opiates. COVID testing is negative. CT of the head negative. Chest x-ray negative. Scrotal ultrasound shows bilateral large hydroceles. His troponin is 11, which is within normal range. ASSESSMENT AND PLAN: Hypertensive urgency, hypertensive encephalopathy, testicular hydroceles, chest pain, hypocalcemia. The patient has been admitted. We will give him IV hydralazine and some IV Lasix. I will order some p.r.n. lorazepam and morphine. Cardiac monitoring, serial enzymes, serial EKGs, home meds, deep venous thrombosis prophylaxis. Full code. ALBERT/[facility]/ADALGISA DR: Joana TID: [id number]
[2021-06-12 02:58] VITALS: BP 162/100
[2021-06-12 07:00] VITALS: BP 165/109
[2021-06-12] MEDS: FUROSEMIDE 40 MG/4 ML VIAL. IVP SCH (09:27)
[2021-06-12] MEDS ORDERED: METOPROLOL TART IMMED RELEASE 25 MG TABLET. PO SCH (09:30)
[2021-06-12] MEDS ORDERED: POTASSIUM CHLORIDE 20 MEQ TABLET.ER. PO ONE (10:00)
--- NOTE | 2021-06-12 10:25 | PDOC2 ---
CHANDNI BIRMINGHAM CLASSIFIED COPY CONTROL CLERK 06/12/21 1025: CARDIAC CONSULT DATE OF CONSULT Date of Consult DATE: 06/12/21 TIME: 10:18 REASON FOR CONSULT Reason for Consult: Chest pain, HTN REFERRING PHYSICIAN Referring Physician: Alize SOURCE Source: Chart review, Patient HISTORY OF PRESENT ILLNESS HISTORY OF PRESENT ILLNESS This is a pleasant 56 yo male admitted for complains of COTTON. He felt like his BP was high and has been taking his friends lisinopril. He ran out of his medications and complains that he could not afford it. Reports like the room was spinning and has some abdominal pain but no chest pain. No SOA. He failed to follow up in our office as he could not afford it. also complains of his testicles being swollen but no leg edema. No passing out, falls or any recent injury PAST MEDICAL HISTORY Past Medical History Cardiovascular: HTN, Hyperlipidemia, vasovagal syncope CENTRAL NERVOUS SYSTEM: Periperal neuropathy, Other (sciatica s/p laminectomy) GI: GERD Endocrine: Diabetes PAST SURGICAL HISTORY Past Surgical History back surgery FAMILY HISTORY Family History: Heart Disease SOCIAL HISTORY Smoke: No ALCOHOL: none Lives: Alone CURRENT MEDICATIONS CURRENT MEDICATIONS Current Medications Medications (Trade) Dose Ordered Sig/Ramos Route PRN Reason Start Time Stop Time Status Last Admin Dose Admin Aspirin (Vimal Aspirin) 325 mg 1X ONCE PO 06/11/21 16:30 06/11/21 16:31 DC 06/11/21 16:48 Nitroglycerin (Nitrostat) 0.4 mg PRN Q5MIN PRN SL CHEST PAIN 06/11/21 16:30 06/11/21 17:10 Fentanyl Citrate (Fentanyl 2ml Vial) 50 mcg 1X ONCE IVP 06/11/21 17:15 06/11/21 17:16 DC 06/11/21 17:25 Hydralazine HCl (Apresoline Inj) 10 mg 1X ONCE IVP 06/11/21 18:45 06/11/21 18:46 DC 06/11/21 18:47 Furosemide (Lasix) 40 mg DAILY IVP 06/11/21 21:00 06/12/21 09:27 Amlodipine Besylate (Norvasc) 10 mg DAILY PO 06/11/21 21:00 06/12/21 09:26 Lorazepam (Ativan Inj) 1 mg 1X ONCE IVP 06/11/21 20:30 06/11/21 20:31 DC 06/11/21 20:30 Morphine Sulfate (Morphine Sulfate) 2 mg PRN Q2HR PRN IVP PAIN MILD/MOD 06/11/21 20:30 06/12/21 00:16 DC 06/11/21 23:10 Fentanyl Citrate (Fentanyl 2ml Vial) 50 mcg PRN Q4HRS PRN IVP PAIN 06/12/21 00:15 06/12/21 06:20 Ondansetron HCl (Zofran) 4 mg PRN Q6HRS PRN IVP NAUSEA/VOMITING 06/12/21 00:15 06/12/21 00:44 Diphenhydramine HCl (Benadryl) 50 mg 1X ONCE IVP 06/12/21 00:15 06/12/21 00:18 DC 06/12/21 00:44 Potassium Chloride (Klor-Con) 40 meq 1X ONCE PO 06/12/21 10:00 06/12/21 10:01 DC 06/12/21 09:42 Metoprolol Tartrate (Lopressor) 25 mg BID PO 06/12/21 09:30 06/12/21 09:42 ALLERGIES ALLERGIES: Coded Allergies: No Known Drug Allergies (Unverified , 06/02/18) ROS Review of System 14 point ROS evaluated with pertinent positives noted per HPI PHYSICAL EXAM General: Alert, Oriented X3, Cooperative, No acute distress HEENT: Atraumatic, Mucous membr. moist/pink Lungs: Clear to auscultation, Normal air movement Heart: Regular rate (SR), Normal S1, Normal S2, No murmurs Abdomen: Soft, No tenderness, Other (hydrocele) Extremities: No cyanosis, No edema Skin: No breakdown, No significant lesion Neuro: Normal speech, Sensation intact Psych/Mental Status: Mental status NL, Mood NL MUSCULOSKELETAL: Full range of motion without pain VITALS/I&O VITALS/I&O: Vital Signs Date Time Temp Pulse Resp B/P (MAP) Pulse Ox O2 Delivery O2 Flow Rate FiO2 06/12/21 09:42 85 06/12/21 07:00 98.0 18 165/109 (127) 93 Nasal Cannula 98.0 I & O 06/11/21 06/11/21 06/12/21 15:00 23:00 07:00 Intake Total 500 ml Output Total 1500 ml Balance -1000 ml LABS Lab: Laboratory Tests Test 06/11/21 16:38 06/11/21 16:40 06/11/21 17:25 06/11/21 19:30 White Blood Count 4.5 x10^3/uL (4.0-11.0) Red Blood Count 5.08 x10^6/uL (4.30-5.70) Hemoglobin 15.3 g/dL (13.0-17.5) Hematocrit 44.9 % (39.0-53.0) Mean Corpuscular Volume 88 fL (79-100) Mean Corpuscular Hemoglobin 30 pg (25-35) Mean Corpuscular Hemoglobin Concent 34 g/dL (31-37) Red Cell Distribution Width 14.7 % (11.5-14.5) H Platelet Count 250 x10^3/uL (140-400) Neutrophils (%) (Auto) 32 % (31-73) Lymphocytes (%) (Auto) 51 % (24-48) H Monocytes (%) (Auto) 9 % (0-9) Eosinophils (%) (Auto) 7 % (0-3) H Basophils (%) (Auto) 1 % (0-3) Neutrophils # (Auto) 1.5 x10^3/uL (1.8-7.7) L Lymphocytes # (Auto) 2.3 x10^3/uL (1.0-4.8) Monocytes # (Auto) 0.4 x10^3/uL (0.0-1.1) Eosinophils # (Auto) 0.3 x10^3/uL (0.0-0.7) Basophils # (Auto) 0.1 x10^3/uL (0.0-0.2) Sodium Level 141 mmol/L (136-145) Potassium Level 3.5 mmol/L (3.5-5.1) Chloride Level 105 mmol/L (98-107) Carbon Dioxide Level 28 mmol/L (21-32) Anion Gap 8 (6-14) Blood Urea Nitrogen 9 mg/dL (8-26) Creatinine 1.2 mg/dL (0.7-1.3) Estimated GFR (Cockcroft-Gault) 75.2 BUN/Creatinine Ratio 8 (6-20) Glucose Level 131 mg/dL (70-99) H Calcium Level 8.2 mg/dL (8.5-10.1) L Magnesium Level 2.0 mg/dL (1.8-2.4) Total Bilirubin 0.3 mg/dL (0.2-1.0) Aspartate Amino Transferase (AST) 30 U/L (15-37) Alanine Aminotransferase (ALT) 47 U/L (16-63) Alkaline Phosphatase 55 U/L (46-116) Troponin I High Sensitivity 11 ng/L (4-75) 12 ng/L (4-75) QH-Fqy-V-Type Natriuretic Peptide 21 pg/mL (0-124) Total Protein 7.5 g/dL (6.4-8.2) Albumin 3.4 g/dL (3.4-5.0) Albumin/Globulin Ratio 0.8 (1.0-1.7) L Lipase 88 U/L (73-393) SARS-CoV-2 RNA (MORIS) Negative (Negative) SARS-CoV-2 Antigen (Rapid) Negative (NEGATIVE) Urine Collection Type Unknown Urine Color Yellow Urine Clarity Clear Urine pH 6.0 (<5.0-8.0) Urine Specific [place] 1.020 (1.000-1.030) Urine Protein Negative mg/dL (NEG-TRACE) Urine Glucose (UA) Negative mg/dL (NEG) Urine Ketones (Stick) Negative mg/dL (NEG) Urine Blood Negative (NEG) Urine Nitrite Negative (NEG) Urine Bilirubin Negative (NEG) Urine Urobilinogen Dipstick 1.0 mg/dL (0.2 mg/dL) Urine Leukocyte Esterase Negative (NEG) Urine RBC 0 /HPF (0-2) Urine WBC Occ /HPF (0-4) Urine Squamous Epithelial Cells Occ /LPF Urine Bacteria Few /HPF (0-FEW) Urine Opiates Screen Pos (NEG) Urine Methadone Screen Neg (NEG) Urine Barbiturates Neg (NEG) Urine Phencyclidine Screen Neg (NEG) Urine Amphetamine/Methamphetamine Neg (NEG) Urine Benzodiazepines Screen Neg (NEG) Urine Cocaine Screen Neg (NEG) Urine Cannabinoids Screen Neg (NEG) Urine Ethyl Alcohol Neg (NEG) Test 06/11/21 22:25 Troponin I High Sensitivity 10 ng/L (4-75) Laboratory Tests 06/11/21 16:38 Laboratory Tests 06/11/21 16:38 ECHOCARDIOGRAM ECHOCARDIOGRAM <Conclusion> The left ventricular systolic function is normal. The Ejection Fraction is 55-60%. There is normal LV segmental wall motion. Trace mitral regurgitation. Trace tricuspid regurgitation with an estimated PAP of 38 mmHg. There is no evidence of significant pericardial effusion. DATE: 03/10/21 [id number] 0 ASSESSMENT/PLAN ASSESSMENT/PLAN 1. Atypical CP: noncardiac more of abd pain 2. HTN urgency 3. CAD; mild, nonobstructive per cath 2019 as noted above. 4. Hyperlipidemia 6. DM2: per PCP 7. Chronic back pain, sciatica 8. Hydrocele Recommendations 1. ASA, statin 2. Norvasc, ACEi/HCTZ. May utilize BB as well 3. Discussed complaince 4. SS for outreach clinic for HTN follow up 5. Encourage to follow up in office KYLEE FLORES MD 06/12/21 1650: CARDIAC CONSULT ASSESSMENT/PLAN ASSESSMENT/PLAN Patient seen and examined. Agree with PSYCHOLOGICAL TESTS SALES AGENT's assessment and plan. Chest pain with atypical features. Myocardial infarction has been ruled out. Blood pressure better controlled since admission. Cardiac catheterization in 2019 showed nonobstructive coronary artery disease. Recent 2D echo showed normal LV systolic function. Importance of compliance with medication and regular follow-up reemphasized Thank you for your consultation CHANDNI BIRMINGHAM APRN Jun 12, 2021 10:25 KYLEE FLORES MD Jun 12, 2021 16:50
[2021-06-12] MEDS ORDERED: LISI20TA18 PO (10:37)
[2021-06-12] MEDS ORDERED: AMLO-187 PO ×2 (10:37→15:25)
[2021-06-12] MEDS ORDERED: LISI-130 PO ×2 (10:39→15:25)
[2021-06-12] MEDS ORDERED: HYDR12.58 PO ×2 (10:39→15:25)
[2021-06-12] MEDS: oxyCODONE/APAP 5/325 1 TAB TABLET PO PRN ×2 (10:52→14:44)
[2021-06-12 10:53] VITALS: BP 156/105
--- NOTE | 2021-06-12 10:54 | NUR ---
SS following for discharge planning. SS reviewed pt chart and discussed with pt RN. Pt is from home and is currently on room air. COVID19 negative. Cardiology consulted. Discharge order on the chart for home with self care.
[2021-06-12] MEDS ORDERED: ASPIRIN ENTERIC COATED 81 MG TABLET.DR. PO SCH (11:00)
[2021-06-12] MEDS ORDERED: LIDOCAINE (700MG/PATCH) PATCH. TD ONE (11:00)
[2021-06-12] MEDS ORDERED: KETOROLAC 30 MG/ML VIAL. IVP ONE (11:00)
[2021-06-12] MEDS ORDERED: PANTOPRAZOLE 40 MG TABLET.DR. PO SCH (12:15)
[2021-06-12] MEDS ORDERED: hydroCHLOROthiazide 12.5 MG CAPSULE PO SCH (14:00)
[2021-06-12] MEDS ORDERED: LISINOPRIL 20 MG TABLET PO SCH (14:00)
--- NOTE | 2021-06-12 14:53 | PDOC ---
[employer] PROGRESS NOTE Date of Service DOS: DATE: 06/12/21 TIME: 14:49 Chief Complaint Chief Complaint chest pain Hypertensive urgency, headache, hypertensive encephalopathy, testicular hydroceles, scrotal pain hypocalcemia. severe back pain obese, BMI 37 History of Present Illness History of Present Illness back pain, he says he cannot walk, consult physiatry, start oxy prn, u rine screen showed pain meds he was unaware that he had insurance. Soc work following Vitals/I&O Vitals/I&O: Vital Signs Date Time Temp Pulse Resp B/P (MAP) Pulse Ox O2 Delivery O2 Flow Rate FiO2 06/12/21 14:09 80 06/12/21 10:53 97.4 18 156/105 (122) 92 Room Air 97.4 I & O 06/11/21 06/11/21 06/12/21 15:00 23:00 07:00 Intake Total 500 ml Output Total 1500 ml Balance -1000 ml Physical Exam General: Alert, Oriented X3, Cooperative, No acute distress Heart: Regular rate (SR), Normal S1, Normal S2, No murmurs Lungs: Clear Abdomen: Soft, No tenderness, Other (hydrocele) Extremities: No cyanosis, No edema Skin: No breakdown, No significant lesion Labs Labs: Laboratory Tests Test 06/11/21 16:38 06/11/21 16:40 06/11/21 17:25 06/11/21 19:30 White Blood Count 4.5 x10^3/uL (4.0-11.0) Red Blood Count 5.08 x10^6/uL (4.30-5.70) Hemoglobin 15.3 g/dL (13.0-17.5) Hematocrit 44.9 % (39.0-53.0) Mean Corpuscular Volume 88 fL (79-100) Mean Corpuscular Hemoglobin 30 pg (25-35) Mean Corpuscular Hemoglobin Concent 34 g/dL (31-37) Red Cell Distribution Width 14.7 % (11.5-14.5) Platelet Count 250 x10^3/uL (140-400) Neutrophils (%) (Auto) 32 % (31-73) Lymphocytes (%) (Auto) 51 % (24-48) Monocytes (%) (Auto) 9 % (0-9) Eosinophils (%) (Auto) 7 % (0-3) Basophils (%) (Auto) 1 % (0-3) Neutrophils # (Auto) 1.5 x10^3/uL (1.8-7.7) Lymphocytes # (Auto) 2.3 x10^3/uL (1.0-4.8) Monocytes # (Auto) 0.4 x10^3/uL (0.0-1.1) Eosinophils # (Auto) 0.3 x10^3/uL (0.0-0.7) Basophils # (Auto) 0.1 x10^3/uL (0.0-0.2) Sodium Level 141 mmol/L (136-145) Potassium Level 3.5 mmol/L (3.5-5.1) Chloride Level 105 mmol/L (98-107) Carbon Dioxide Level 28 mmol/L (21-32) Anion Gap 8 (6-14) Blood Urea Nitrogen 9 mg/dL (8-26) Creatinine 1.2 mg/dL (0.7-1.3) Estimated GFR (Cockcroft-Gault) 75.2 BUN/Creatinine Ratio 8 (6-20) Glucose Level 131 mg/dL (70-99) Calcium Level 8.2 mg/dL (8.5-10.1) Magnesium Level 2.0 mg/dL (1.8-2.4) Total Bilirubin 0.3 mg/dL (0.2-1.0) Aspartate Amino Transf (AST/SGOT) 30 U/L (15-37) Alanine Aminotransferase (ALT/SGPT) 47 U/L (16-63) Alkaline Phosphatase 55 U/L (46-116) Troponin I High Sensitivity 11 ng/L (4-75) 12 ng/L (4-75) WI-Miu-N-Type Natriuretic Peptide 21 pg/mL (0-124) Total Protein 7.5 g/dL (6.4-8.2) Albumin 3.4 g/dL (3.4-5.0) Albumin/Globulin Ratio 0.8 (1.0-1.7) Lipase 88 U/L (73-393) SARS-CoV-2 RNA (MORIS) Negative (Negative) SARS-CoV-2 Antigen (Rapid) Negative (NEGATIVE) Urine Collection Type Unknown Urine Color Yellow Urine Clarity Clear Urine pH 6.0 (<5.0-8.0) Urine Specific [place] 1.020 (1.000-1.030) Urine Protein Negative mg/dL (NEG-TRACE) Urine Glucose (UA) Negative mg/dL (NEG) Urine Ketones (Stick) Negative mg/dL (NEG) Urine Blood Negative (NEG) Urine Nitrite Negative (NEG) Urine Bilirubin Negative (NEG) Urine Urobilinogen Dipstick 1.0 mg/dL (0.2 mg/dL) Urine Leukocyte Esterase Negative (NEG) Urine RBC 0 /HPF (0-2) Urine WBC Occ /HPF (0-4) Urine Squamous Epithelial Cells Occ /LPF Urine Bacteria Few /HPF (0-FEW) Urine Opiates Screen Pos (NEG) Urine Methadone Screen Neg (NEG) Urine Barbiturates Neg (NEG) Urine Phencyclidine Screen Neg (NEG) Urine Amphetamine/Methamphetamine Neg (NEG) Urine Benzodiazepines Screen Neg (NEG) Urine Cocaine Screen Neg (NEG) Urine Cannabinoids Screen Neg (NEG) Urine Ethyl Alcohol Neg (NEG) Test 06/11/21 22:25 Troponin I High Sensitivity 10 ng/L (4-75) Assessment and Plan Assessmemt and Plan Problems Medical Problems: (1) Hypertensive emergency Status: Acute Comment Review of Relevant I have reviewed the following items oly (where applicable) has been applied. Medications: Current Medications Medications (Trade) Dose Ordered Sig/Ramos Route PRN Reason Start Time Stop Time Status Last Admin Dose Admin Aspirin (Vimal Aspirin) 325 mg 1X ONCE PO 06/11/21 16:30 06/11/21 16:31 DC 06/11/21 16:48 Nitroglycerin (Nitrostat) 0.4 mg PRN Q5MIN PRN SL CHEST PAIN 06/11/21 16:30 06/11/21 17:10 Fentanyl Citrate (Fentanyl 2ml Vial) 50 mcg 1X ONCE IVP 06/11/21 17:15 06/11/21 17:16 DC 06/11/21 17:25 Hydralazine HCl (Apresoline Inj) 10 mg 1X ONCE IVP 06/11/21 18:45 06/11/21 18:46 DC 06/11/21 18:47 Furosemide (Lasix) 40 mg DAILY IVP 06/11/21 21:00 06/12/21 10:21 DC 06/12/21 09:27 Amlodipine Besylate (Norvasc) 10 mg DAILY PO 06/11/21 21:00 06/12/21 09:26 Lorazepam (Ativan Inj) 1 mg 1X ONCE IVP 06/11/21 20:30 06/11/21 20:31 DC 06/11/21 20:30 Morphine Sulfate (Morphine Sulfate) 2 mg PRN Q2HR PRN IVP PAIN MILD/MOD 06/11/21 20:30 06/12/21 00:16 DC 06/11/21 23:10 Fentanyl Citrate (Fentanyl 2ml Vial) 50 mcg PRN Q4HRS PRN IVP PAIN 06/12/21 00:15 06/12/21 06:20 Ondansetron HCl (Zofran) 4 mg PRN Q6HRS PRN IVP NAUSEA/VOMITING 06/12/21 00:15 06/12/21 00:44 Diphenhydramine HCl (Benadryl) 50 mg 1X ONCE IVP 06/12/21 00:15 06/12/21 00:18 DC 06/12/21 00:44 Potassium Chloride (Klor-Con) 40 meq 1X ONCE PO 06/12/21 10:00 06/12/21 10:01 DC 06/12/21 09:42 Metoprolol Tartrate (Lopressor) 25 mg BID PO 06/12/21 09:30 06/12/21 09:42 Aspirin (Ecotrin) 81 mg DAILYWBKFT PO 06/12/21 11:00 06/12/21 10:51 Oxycodone/ Acetaminophen (Percocet 5/325) 1 tab PRN Q4HRS PRN PO PAIN 06/12/21 10:45 06/12/21 14:44 Ketorolac Tromethamine (Toradol 30mg Vial) 30 mg 1X ONCE IVP 06/12/21 11:00 06/12/21 11:01 DC 06/12/21 11:40 Lidocaine (Lidoderm) 1 patch 1X ONCE TD 06/12/21 11:00 06/12/21 11:01 DC 06/12/21 11:40 Pantoprazole Sodium (Protonix) 40 mg DAILYAC PO 06/12/21 12:15 06/12/21 14:08 Lisinopril (Prinivil) 20 mg DAILY PO 06/12/21 14:00 06/12/21 14:09 Hydrochlorothiazide (Microzide) 12.5 mg DAILY PO 06/12/21 14:00 06/12/21 14:08 Justifications for Admission Other Justification TERRY MALLOY MD Jun 12, 2021 14:53
[2021-06-12 15:00] VITALS: BP 152/94
[2021-06-12] MEDS ORDERED: OXYC1TAB15 PO (15:23)
[2021-06-12] MEDS ORDERED: ASPI-630 PO (15:25)
--- NOTE | 2021-06-12 15:27 | PDOC3 ---
Discharge Summary Visit Information Date of Admission: Jun 11, 2021 Date of Discharge: Jun 12, 2021 Final Diagnosis chest pain Hypertensive urgency, headache, hypertensive encephalopathy, testicular hydroceles, scrotal pain hypocalcemia. severe back pain obese, BMI 37 Problems Medical Problems: (1) Hypertensive emergency Status: Acute Brief Hospital Course Allergies Allergies Coded Allergies Type Severity Reaction Last Updated Verified No Known Drug Allergies 06/02/18 No Vital Signs Vital Signs Date Time Temp Pulse Resp B/P (MAP) Pulse Ox O2 Delivery O2 Flow Rate FiO2 06/12/21 14:09 80 06/12/21 10:53 97.4 18 156/105 (122) 92 Room Air 97.4 Lab Results Laboratory Tests Test 06/11/21 16:38 06/11/21 16:40 06/11/21 17:25 06/11/21 19:30 White Blood Count 4.5 x10^3/uL (4.0-11.0) Red Blood Count 5.08 x10^6/uL (4.30-5.70) Hemoglobin 15.3 g/dL (13.0-17.5) Hematocrit 44.9 % (39.0-53.0) Mean Corpuscular Volume 88 fL (79-100) Mean Corpuscular Hemoglobin 30 pg (25-35) Mean Corpuscular Hemoglobin Concent 34 g/dL (31-37) Red Cell Distribution Width 14.7 % (11.5-14.5) Platelet Count 250 x10^3/uL (140-400) Neutrophils (%) (Auto) 32 % (31-73) Lymphocytes (%) (Auto) 51 % (24-48) Monocytes (%) (Auto) 9 % (0-9) Eosinophils (%) (Auto) 7 % (0-3) Basophils (%) (Auto) 1 % (0-3) Neutrophils # (Auto) 1.5 x10^3/uL (1.8-7.7) Lymphocytes # (Auto) 2.3 x10^3/uL (1.0-4.8) Monocytes # (Auto) 0.4 x10^3/uL (0.0-1.1) Eosinophils # (Auto) 0.3 x10^3/uL (0.0-0.7) Basophils # (Auto) 0.1 x10^3/uL (0.0-0.2) Sodium Level 141 mmol/L (136-145) Potassium Level 3.5 mmol/L (3.5-5.1) Chloride Level 105 mmol/L (98-107) Carbon Dioxide Level 28 mmol/L (21-32) Anion Gap 8 (6-14) Blood Urea Nitrogen 9 mg/dL (8-26) Creatinine 1.2 mg/dL (0.7-1.3) Estimated GFR (Cockcroft-Gault) 75.2 BUN/Creatinine Ratio 8 (6-20) Glucose Level 131 mg/dL (70-99) Calcium Level 8.2 mg/dL (8.5-10.1) Magnesium Level 2.0 mg/dL (1.8-2.4) Total Bilirubin 0.3 mg/dL (0.2-1.0) Aspartate Amino Transf (AST/SGOT) 30 U/L (15-37) Alanine Aminotransferase (ALT/SGPT) 47 U/L (16-63) Alkaline Phosphatase 55 U/L (46-116) Troponin I High Sensitivity 11 ng/L (4-75) 12 ng/L (4-75) DS-Srd-G-Type Natriuretic Peptide 21 pg/mL (0-124) Total Protein 7.5 g/dL (6.4-8.2) Albumin 3.4 g/dL (3.4-5.0) Albumin/Globulin Ratio 0.8 (1.0-1.7) Lipase 88 U/L (73-393) SARS-CoV-2 RNA (MORIS) Negative (Negative) SARS-CoV-2 Antigen (Rapid) Negative (NEGATIVE) Urine Collection Type Unknown Urine Color Yellow Urine Clarity Clear Urine pH 6.0 (<5.0-8.0) Urine Specific [place] 1.020 (1.000-1.030) Urine Protein Negative mg/dL (NEG-TRACE) Urine Glucose (UA) Negative mg/dL (NEG) Urine Ketones (Stick) Negative mg/dL (NEG) Urine Blood Negative (NEG) Urine Nitrite Negative (NEG) Urine Bilirubin Negative (NEG) Urine Urobilinogen Dipstick 1.0 mg/dL (0.2 mg/dL) Urine Leukocyte Esterase Negative (NEG) Urine RBC 0 /HPF (0-2) Urine WBC Occ /HPF (0-4) Urine Squamous Epithelial Cells Occ /LPF Urine Bacteria Few /HPF (0-FEW) Urine Opiates Screen Pos (NEG) Urine Methadone Screen Neg (NEG) Urine Barbiturates Neg (NEG) Urine Phencyclidine Screen Neg (NEG) Urine Amphetamine/Methamphetamine Neg (NEG) Urine Benzodiazepines Screen Neg (NEG) Urine Cocaine Screen Neg (NEG) Urine Cannabinoids Screen Neg (NEG) Urine Ethyl Alcohol Neg (NEG) Test 06/11/21 22:25 Troponin I High Sensitivity 10 ng/L (4-75) Laboratory Tests Test 06/11/21 16:38 06/11/21 16:40 06/11/21 17:25 06/11/21 19:30 White Blood Count 4.5 x10^3/uL (4.0-11.0) Red Blood Count 5.08 x10^6/uL (4.30-5.70) Hemoglobin 15.3 g/dL (13.0-17.5) Hematocrit 44.9 % (39.0-53.0) Mean Corpuscular Volume 88 fL (79-100) Mean Corpuscular Hemoglobin 30 pg (25-35) Mean Corpuscular Hemoglobin Concent 34 g/dL (31-37) Red Cell Distribution Width 14.7 % (11.5-14.5) Platelet Count 250 x10^3/uL (140-400) Neutrophils (%) (Auto) 32 % (31-73) Lymphocytes (%) (Auto) 51 % (24-48) Monocytes (%) (Auto) 9 % (0-9) Eosinophils (%) (Auto) 7 % (0-3) Basophils (%) (Auto) 1 % (0-3) Neutrophils # (Auto) 1.5 x10^3/uL (1.8-7.7) Lymphocytes # (Auto) 2.3 x10^3/uL (1.0-4.8) Monocytes # (Auto) 0.4 x10^3/uL (0.0-1.1) Eosinophils # (Auto) 0.3 x10^3/uL (0.0-0.7) Basophils # (Auto) 0.1 x10^3/uL (0.0-0.2) Sodium Level 141 mmol/L (136-145) Potassium Level 3.5 mmol/L (3.5-5.1) Chloride Level 105 mmol/L (98-107) Carbon Dioxide Level 28 mmol/L (21-32) Anion Gap 8 (6-14) Blood Urea Nitrogen 9 mg/dL (8-26) Creatinine 1.2 mg/dL (0.7-1.3) Estimated GFR (Cockcroft-Gault) 75.2 BUN/Creatinine Ratio 8 (6-20) Glucose Level 131 mg/dL (70-99) Calcium Level 8.2 mg/dL (8.5-10.1) Magnesium Level 2.0 mg/dL (1.8-2.4) Total Bilirubin 0.3 mg/dL (0.2-1.0) Aspartate Amino Transf (AST/SGOT) 30 U/L (15-37) Alanine Aminotransferase (ALT/SGPT) 47 U/L (16-63) Alkaline Phosphatase 55 U/L (46-116) Troponin I High Sensitivity 11 ng/L (4-75) 12 ng/L (4-75) DE-Tdg-U-Type Natriuretic Peptide 21 pg/mL (0-124) Total Protein 7.5 g/dL (6.4-8.2) Albumin 3.4 g/dL (3.4-5.0) Albumin/Globulin Ratio 0.8 (1.0-1.7) Lipase 88 U/L (73-393) SARS-CoV-2 RNA (MORIS) Negative (Negative) SARS-CoV-2 Antigen (Rapid) Negative (NEGATIVE) Urine Collection Type Unknown Urine Color Yellow Urine Clarity Clear Urine pH 6.0 (<5.0-8.0) Urine Specific [place] 1.020 (1.000-1.030) Urine Protein Negative mg/dL (NEG-TRACE) Urine Glucose (UA) Negative mg/dL (NEG) Urine Ketones (Stick) Negative mg/dL (NEG) Urine Blood Negative (NEG) Urine Nitrite Negative (NEG) Urine Bilirubin Negative (NEG) Urine Urobilinogen Dipstick 1.0 mg/dL (0.2 mg/dL) Urine Leukocyte Esterase Negative (NEG) Urine RBC 0 /HPF (0-2) Urine WBC Occ /HPF (0-4) Urine Squamous Epithelial Cells Occ /LPF Urine Bacteria Few /HPF (0-FEW) Urine Opiates Screen Pos (NEG) Urine Methadone Screen Neg (NEG) Urine Barbiturates Neg (NEG) Urine Phencyclidine Screen Neg (NEG) Urine Amphetamine/Methamphetamine Neg (NEG) Urine Benzodiazepines Screen Neg (NEG) Urine Cocaine Screen Neg (NEG) Urine Cannabinoids Screen Neg (NEG) Urine Ethyl Alcohol Neg (NEG) Test 06/11/21 22:25 Troponin I High Sensitivity 10 ng/L (4-75) Brief Hospital Course Mr. Reddy is a 56 old male, admit with headache abd back pain scrotal swelling, reported from 09/2018 ER visit here, and likley stable but is a complaint today he was unaware that he had insurance. has medicaid physiatry consulted for back pain, f/u in office when BP better Discharge Information Condition at Discharge: Improved Follow Up: Weeks Disposition/Orders: D/C to Home Scheduled Amlodipine Besylate (Amlodipine Besylate) 10 Mg Tablet, 10 MG PO DAILY for blood pressure, #30 Ref 5 Prescribed by: TERRY MALLOY on 06/12/21 1525 Aspirin (Aspirin) 81 Mg Tab.chew, 1 TAB PO DAILY for cardiac, #100 Ref 1 Prescribed by: TERRY MALLOY on 06/12/21 1525 Atorvastatin Calcium (Atorvastatin Calcium) 40 Mg Tablet, 40 MG PO QHS for . for 30 Days, #30 Prescribed by: DAVID GAYTAN on 03/11/21 1300 Last Action: Reviewed on 06/12/21733 by Glenda Briseno Hydrochlorothiazide (Hydrochlorothiazide Tablet) 12.5 Mg Tablet, 12.5 MG PO DAILY for blood pressure for 30 Days, #30 Ref 0 Prescribed by: TERRY MALLOY on 06/12/21 1525 Lisinopril (Lisinopril) 40 Mg Tablet, 1 TAB PO DAILY for blood pressure, #30 Ref 5 Prescribed by: TERRY MALLOY on 06/12/21 1525 Scheduled PRN Calcium Carbonate (Tums) 300 Mg Tab.chew, 300 MG PO PRN DAILY PRN for STOMACH CRAMPING, (Reported) Entered as Reported by: Glenda Briseno on 06/12/2136 Last Action: Reviewed on 06/12/21733 by Glenda Briseno Ibuprofen (Motrin Ib) 200 Mg Tablet, 800 MG PO Q6H PRN for PAIN, (Reported) Entered as Reported by: Glenda Briseno on 06/12/2135 Last Action: Reviewed on 06/12/21733 by Glenda Briseno Oxycodone/Apap 5-325 (Percocet 5-325 Mg Tablet ) 1 Each Tablet, 1 TAB PO PRN TID PRN for back pain MDD 3 Tablet(s), #28 Ref 0 Prescribed by: TERRY MALLOY on 06/12/21 1523 Discontinued Medications Lisinopril (Lisinopril) 20 Mg Tablet, 1 TAB PO DAILY for HTN, #30 Ref 5 Prescribed by: TERRY MALLOY on 06/12/21 1037 Patient Instructions Patient Instructions 34 minutes face to face full exam, including his hydrocele Justicifation of Admission Dx: Justifications for Admission: Justification of Admission Dx: Yes TERRY MALLOY MD Jun 12, 2021 15:27
--- NOTE | 2021-06-12 16:56 | NUR ---
discharge: Teaching verbal and written. Reviewed orders, hypertension, CP, stroke prevention, cardiac diet, ect. Patient verbalized understanding. IV removed without complications, catheter tip in-tact. All belongings with patient including cellphone, wallet and glasses. Patient assisted off of unit via wheelchair. Prescriptions sent to [facility] by physician. Atorvastatin called into pharmacy by nurse.
--- NOTE | 2021-06-12 18:47 | CONS ---
DATE OF CONSULTATION: 06/12/2021 LOCATION: He is in room 652. ATTENDING PHYSICIAN: Dr. Altamirano. REASON FOR CONSULTATION: The patient was seen at the request of Dr. Altamirano for rehab evaluation. HISTORY OF PRESENT ILLNESS: This is a 56-year-old right-handed male admitted through the emergency room on 06/11/2021, with chest pain, out of medicines, elevated blood pressure and swollen testicles. He admits chronic lower back pain with radiation to his lower extremities. The patient usually takes lisinopril. He apparently tested positive for opiates. He admits that he takes hydrocodone and oxycodone from his family members. The patient with known congestive heart failure, diabetes mellitus, hypertension, hyperlipidemia, chronic renal insufficiency, chronic pain, probable narcotic dependence, lumbar decompression laminectomy at L5-S1 in 06/2018, cardiac catheterization without any stents, previous tobacco abuse. The patient had family history of diabetes mellitus. He is not known allergic to any medication. He wants injection to his back, hydrocodone injection. He had lumbar epidural steroid injection in the past, which helped to ease the pain only for about 2-3 days. The patient denies any trouble with his bowel or bladder control. The patient was found with a small hydrocele, right side more than left side. The patient admits some GI discomfort, taking ibuprofen 800 mg. PHYSICAL EXAMINATION: Today revealed a middle-aged male. He is alert, oriented to time, place, person and circumstance, follows commands appropriately. Moves all 4 extremities voluntarily where he had 5/5 grade muscle strength. Deep tendon reflexes are decreased overall with absent knee and ankle jerks and he had equal perception of touch and pinprick sensation bilaterally. He had mild crepitus on range of motion of his knee joints with knee joint ligamentous laxity. Pain free range of motion of both hip joints. He had minimal tenderness to palpation over sacroiliac joint area and straight leg raising test is negative bilaterally. He is independent with bed mobility and transfers. I have not tested his ambulation skills at this time. His blood pressure today is 156/96 mmHg. His skin is intact at this time. ASSESSMENT: Middle-aged male with chronic lower back pain with radiological evidence of degenerative disk disease and degenerative joint disease, status post lumbar decompression laminectomy in 06/2018. No clinical evidence of ongoing lumbar radiculopathy, but he presents with clinical evidence of peripheral neuropathy, degenerative joint disease of both knees, hypertension not under good control. The patient with a history of diabetes mellitus, congestive heart failure, hyperlipidemia, chronic renal insufficiency and he also presents with mild hydrocele. RECOMMENDATIONS: I thought of proceeding with injecting painful right sacroiliac joint area, but at the present time, his blood pressure is not under good control. He may be having some problems with gastritis, taking nonsteroidal anti-inflammatory medication, especially in a patient with chronic renal insufficiency. I have reviewed with him home program of physical modalities, relax stretching exercise to his lower back and proper body mechanics and isometric strengthening exercise to his lower extremity muscles and he was advised to avoid any activity that irritates his back. I would like to see him for followup on as needed basis. Dr. Altamirano, I appreciate asking me to participate in the care of this interesting patient. I will be glad to see him for followup with you on as needed basis. ALETHA/LUDY/LEAH DR: ALETHA/joseluis TID: [id number]
[2021-06-12] MEDS ORDERED: ATORVASTATIN CALCIUM 20 MG TABLET PO SCH (21:00)
== END 2021-06-12 16:40 | disposition home or self-care (01) ==
LOC: ER 15:31 → INTOOBSV 18:33 → 6 SOUTH 18:33
PROVIDERS: ADMIT Internal Medicine; ATTEND Internal Medicine
DX: R07.89 Other chest pain (principal); Z20.822 Contact with and (suspected) exposure to COVID-19; I16.0 Hypertensive urgency; I13.0 Hypertensive heart and chronic kidney disease with heart failure and stage 1 through stage 4 chronic kidney disease, or unspecified chronic kidney disease; I50.9 Heart failure, unspecified; N18.9 Chronic kidney disease, unspecified; I67.4 Hypertensive encephalopathy; N43.3 Hydrocele, unspecified; E83.51 Hypocalcemia; I16.1 Hypertensive emergency; E11.9 Type 2 diabetes mellitus without complications; I25.10 Atherosclerotic heart disease of native coronary artery without angina pectoris; E66.9 Obesity, unspecified; E78.00 Pure hypercholesterolemia, unspecified; E78.5 Hyperlipidemia, unspecified; R55 Syncope and collapse; G62.9 Polyneuropathy, unspecified; G89.29 Other chronic pain; M17.0 Bilateral primary osteoarthritis of knee; M54.40 Lumbago with sciatica, unspecified side; Z68.37 Body mass index [BMI] 37.0-37.9, adult; Z87.891 Personal history of nicotine dependence; Z79.899 Other long term (current) drug therapy; Z98.890 Other specified postprocedural states; Z98.61 Coronary angioplasty status
CPT/HCPCS: 36415; 70450; 71045; 76870; 80053; 80307; 81001; 83690; 83735; 83880; 84484; 85025; 87426; 93005; 96374; 96375; 96376; 99285; G0378; J0360; J1200; J1885; J1940; J2060; J2270; J2405; J3010; U0003; U0005; G0379